=== PATIENT | male | born 1950 | race Caucasian/White ===

== ENCOUNTER → 2016-08-03 | Outpatient (CLI) | payer OTHER ==
[~2016-08-03] MED LIST: ADVIN25050 INH; ASPI-435; ATOR-24 PO; FLUO40CA8 PO; OMEP20CA9 PO; PRAM1TAB52 PO; PRLSR20 PO; TRAZ100T29 PO
--- NOTE | 2016-08-04 07:36 | PAP/PSG TECHNICIAN REPORT ---
[facility] Quill Machine Operator Polysomnogram Report Study name: None Report date: 08/04/2016 Study date: 08/03/2016 Referring Physician: Em Kurtz PA-C, PA-C Name: MARIA T MOYA Interpreting Physician: Jonah Rivera M.D. Date of : 1950 Quill Machine Operator: Vidhi Duong, PSGT. Sex: Male Age: 66 StudyType: PSG Weight: 230 lbs Height: 66 years, Height 5' 10" Neck Circum: BMI: 33 Medications: PROZAC 40 MG, IPRATROPIUM-ALBUTEROL, STIOLTO RESPIMAT, VENTOLIN HFA, OXYGEN 2 LITERS, ATROVASTATIN CALCIUM 40 MG, AMOXICILLIN 500 MG, OMEPRAZOLE 20 MG. Patient History 66 yr. old male in room 7, presents tonight for a split night study w/an ahi of 10. pt. has copd . He states that he has oxygen at home but isnt compliant.He also said that he does not think he will wear a c-pap mask either,but will try. Parameters Monitored NPSG: E1-M2, E2-M1, Fp1-M2, Fp2-M1, F3-M2, F4-M2, F4-M1, C3-M2, C4-M2, C4-M1, O1-M2, O2-M2, O2-M1, T3-M2, T4-M1, P3-M2, P4-M1, CHIN1, CHIN2, HR, EKG, Legs, PFLOW, SNOR, FLOW, CFLOW, Tidal Volume, THOR, ABDO, SpO2, PLTH, CPRESS, ETCO2 Wave, ETCO2, pH Sleep Architecture Sleep Stages Time at Lights Off 10:14:53 PM STAGES Time (min.) TST (%) Time at Lights On 5:03:23 AM Wake 156.5 -- Total Recording Time (TRT) 408.50 min. N1 5.0 2 Total Sleep Period (TSP) 314.5 min. N2 175.0 69 Total Sleep Time (TST) 252.0min. N3 19.0 8 Awake Time 156.5 min. REM 53.0 21 Wake after Sleep Onset 147.0 min. Sleep Efficiency (SE) 62 % Sleep Onset Latency (JULIÁN) 9.5 min. Number of Stage 1 Shifts None Awakenings 8 Stage Changes 31 Number of REM periods 2 REM 53.0 21 REM Latency 28.5 min. NREM 199.0 79 Body Position Analysis Supine Right Left Side Prone Vertical Total Sleep Time (min.) 146.8 54.1 105.4 159.50 0.0 73.5 Total Sleep Time (%) 37% 21% 42% 63 0% N/A% Total Sleep Time REM (min.) 0.0 13.0 40.0 None 0.0 0.0 Total Sleep Time NREM (min.) 92.5 41.1 65.4 None 0.0 0.0 Intermittent Wake (min.) 54.3 21.8 6.3 None 0.0 73.5 Total Sleep Period (%) 44% None None None None None Arousals Myoclonus (PLM) * Events Count Index Events Count Index Spontaneous 86 20 Events Awake (PLMW) 0 0.0 Respiratory 4 1.0 Events Asleep w/ Arousal (PLMA) 19 4.5 PLM 19 5 Events Asleep w/o Arousal (PLMS) 157 37.4 Snoring 8 2 Total Asleep 176 41.9 Total 117 28 Total 176 26 Respiratory Analysis * CA OA MA CH H RERA Total Count 0 1 0 0 53 0 54 Index 0.0 0.2 0.0 0 12.6 0 12.9 Mean Duration 0.0 19.1 0.0 0.00 17.7 0.0 17.7 Longest Duration 0.0 19.1 0.0 0.00 0.0 0.0 43.2 Respiratory Event Summary Total Supine ~Supine Right Left Prone REM NREM Apneas Count 1 1 0 0 0 N/A 0 1 Index 0.2 1 0 0.0 0.0 N/A 0 0 Hypopneas (4% Desat) Count 53 11 42 32 10 N/A 17 36 Index 12.6 7.1 16 35.5 5.7 N/A 19.2 10.9 Apneas & All Hypopneas Count 54 12 42 32 10 N/A 17 37 Index 12.9 8 16 35 6 N/A 19.2 11.2 Respiratory Events (Linux Systems Engineer+All Hyp+RERA) Count 54 12 42 32 10 N/A 17 37 Index 12.9 8 16 35.5 5.7 N/A 19.2 11.2 Respiratory Related Arousal Count 4 12 1 0 1 N/A 0 4 Index 1.0 2 0 0 1 N/A 0 1 Snoring Analysis Supine Right Left Prone REM NREM Total Snore duration 2.7 min Snores count 123 28 22 N/A 10 163 173 Snore mean duration 0.9 Sec Snores index 80 31 13 N/A 11.3 49.1 41.2 TST with snoring (%) 1.1% SpO2 Analysis Total REM NREM Awake <50% 0.0 min. 0.0 min. 0.0 min. 0.0 min. 51 - 60% 0.0 min. 0.0 min. 0.0 min. 0.0 min. 61 - 70% 0.0 min. 0.0 min. 0.0 min. 0.0 min. 71 - 80% 4.1 min. 3.5 min. 0.7 min. 0.0 min. 81 - 90% 360.4 min. 48.9 min. 190.3 min. 121.2 min. 91 - 100% 41.9 min. 0.0 min. 7.9 min. 34.0 min. Average 88 85 87 89 Minimum SpO2 75 75 77 81 Desaturation Event Index 12.0 26.0 17.8 0.0 # Desat. Events below 89% 82 23 59 N/A Time(%) with Saturation below 89% 58.4 12.8 35.3 10.3 Time(min.) with Saturation below 89% 237.4 52.1 143.4 41.8 Heart Rate Analysis End Tidal CO2 Analysis Min (bpm) Max (bpm) Average (bpm) TSP (mins) % of TSP Awake 52 98 65 Above 55 mmHg 0.0 0.0 NREM 53 89 65 50-55 mmHg 0.0 0.0 REM 55 80 71 45-50 mmHg 252.0 100.0 Overall 53 89 67 40-45 mmHg 0.0 0.0 35-40 mmHg 0.0 0.0 30-35 mmHg 0.0 0.0 Average ETCO2 0.0 Supplemental O2 Values Minimum O2 level: None Value Start Time End Time Quill Machine Operator Comments PSG Study slept in the right, left, and supine positions. No cardiac arrhythmia or PLM's noted. No bruxism noted. Snoring was noted and scored as a 1 on a scale of 1 through 5. (0=no snoring, 5=snoring loud enough to be heard through a closed door or down the [place] way) awoke to use the restroom zero times during the night. stated,I did sleep as well as I do when I am in my own bed. The final report will be interpreted and signed by a sleep physician. The completed physician report will then be placed in the patient medical record. never acheived an a ahi of 10 in time to be treated.He woke often and was on his cell phone.He would sleep awhile and then wake watch the vincent channel then get on the cell phone. This would go on the entire study.Pt.did say that he wasnt compliant with the oxygen at home and he mmost likely would'nt wear a c-pap mask.He said this was a normal night for him.It appears sleep hygeine is a concern for Mr. Moya. His ending ahi was 12.9 . Therapy (cm H2O) 0 TIB (min.) 408.5 TST (min.) 252.0 Sleep Onset (min.) 9.5 REM Onset From Sleep (min.) 28.5 Sleep Efficiency % 62 Wakefulness (%) 38 Wakefulness (min.) 156.5 NREM 1 (%) 2 NREM 1 (min.) 5.0 NREM 2 (%) 69 NREM 2 (min.) 175.0 NREM 3 (%) 8 NREM 3 (min.) 19.0 REM (%) 21 REM (min.) 53.0 # Arousals 117 Arousal Index 28 # Snore 173 Snore Index 41.2 AHI 12.9 AHI Supine 8 AHI Non-Supine 16 NREM AHI 11.2 REM AHI 19.2 RDI 12.9 # Obstructive Apnea 1 # Central Apnea 0 # Mixed Apnea 0 # Hypopneas 53 RERAs 0 Total Respiratory Events 56 Time Below SpO2 89% (min.) 195.5 Mean NREM SpO2 (%) 87 Mean REM SpO2 (%) 85 Mean Sleep SpO2 (%) 87 Min NREM SpO2 (%) 77 Min REM SpO2 (%) 75 Position Supine (min.) 146.8 Position Non-supine (min.) 159.5 LM Index Sleep 41.9 LM Index NREM 34.4 LM Index REM 70.2 Mean Heart Rate (bpm) 67 Min Heart Rate (bpm) 53
--- NOTE | 2016-08-05 14:36 | POLYSOMNOGRAPH REPORT ---
CLINICAL DATA: A 66-year-old male with BMI of [address] Jimbo Rhoades, Dr. Tapia, and Em Kurtz PA-C for a possible split night study. He has COPD and has oxygen at home but is not compliant with the use of oxygen. He told the electroneurodiagnostic technician that he did not think he would wear CPAP either. The patient did not reach criteria for a split night study. SLEEP ARCHITECTURE: Total sleep period was 314.5 minutes. Total sleep time was 252 minutes divided between 199 minutes of non-REM sleep and 53 minutes of REM sleep. Sleep onset latency was 9.5 minutes. REM latency was 28.5 minutes. Sleep efficiency was reduced at 62%. Wake after sleep onset was elevated at 147 minutes. Sleep consisted of stage N1 2%, N2 69%, N3 8%, REM 21%. AROUSAL DATA: 117 arousals were recorded for an index of 28 per hour. PERIODIC LIMB MOVEMENTS DATA: 176 limb movements during sleep were noted for an index of 41.9 per hour with arousal index of 4.5 per hour. RESPIRATORY DATA: Mild sleep apnea was documented. The AHI was 12.9. There were 53 hypopneic episodes. The mean duration of hypopnea was 17.7 seconds. OXIMETRY DATA: Significant nocturnal hypoxemia was seen. The oxygen lalo was 75%. Mean saturation was 88%. Time below 89% was 277.4 minutes. EKG: Heart rates ranged from 53-89 beats per minute. No arrhythmias were noted. DATA SME'S COMMENTS. The patient slept in the right, left, and supine positions. No bruxism was noted. Snoring was mild, rated 1 on a scale of 1-5. The patient awoke often through the night and would use his cell phone. He would then sleep for a while and then awaken again and watch [place] channel on TV and then get on the smart phone throughout the entire study. He stated that this was a normal night for him. Based on the wastewater technician's observation, sleep hygiene is a concern for the patient. IMPRESSION: Mild sleep apnea/hypopnea with an apnea-hypopnea index of 12.9 with significant nocturnal hypoxemia. RECOMMENDATIONS: The patient should be using his oxygen at night. Considerations for treatment of his sleep apnea would be an oral appliance or CPAP. Clinical correlation is needed. SEAN
== END | disposition home or self-care (01) ==
LOC: C.NEUR 21:00
PROVIDERS: ATTEND Internal Medicine Pulmonary Disease
DX: R09.02 Hypoxemia (principal); G47.30 Sleep apnea, unspecified

== ENCOUNTER 2016-09-16 05:16 | Emergency (ER) | payer OTHER ==
[~2016-09-16] VITALS: Ht 179.1 cm; Wt 106.0 kg
[~2016-09-16 05:16] MED LIST changes: -PRLSR20 PO
[2016-09-16 05:21] VITALS: TEMP 36.5; Ht 179.1 cm; Wt 106.0 kg
[2016-09-16] MEDS ORDERED: PRLSR20 PO (05:59)
--- NOTE | 2016-09-16 06:01 | EMERGENCY ROOM VISIT NOTE ---
History Report prepared by Madisyn: Isaiah Duncan Under the Supervision of: Dr. Carlos Hernandez M.D. First contact with patient: 05:24 Chief Complaint: FALL Stated Complaint: FALL HURT LEFT LEG AND RIGHT SHOULDER History of Present Illness The patient is a 66 year old male who presents to the Emergency Room with complaints of an acute fall that occurred five days ago. The patient tripped over a rock when he was cleaning up his yard. He landed on his right shoulder and twisted his left leg during the fall. The shoulder pain is present with abduction of the arm. The patient is able to ambulate but not without pain. He did not hit his head or lose consciousness. The patient denies abdominal pain or other symptoms. He has been taking Aleve at home. He is not on regular blood thinners. Source of History: patient Onset: five days ago Position: other (global) Quality: other (fall) Timing: other (acute) Associated Symptoms: No LOC, No abdominal pain, No headache Note: Associated symptoms: Right shoulder and left leg pain. Review of Systems See HPI for pertinent positives & negatives. A total of 10 systems reviewed and were otherwise negative. Past Medical & Surgical Medical Problems: (1) Alcohol abuse (2) Anxiety (3) Dyslipidemia (4) GERD (gastroesophageal reflux disease) (5) RLS (restless legs syndrome) Surgical Problems: (1) History of total left knee replacement (2) S/P tonsillectomy and adenoidectomy Family History No pertinent family history Social History Smoking Status: Former Smoker Alcohol Use: none Drug Use: none Marital Status: Housing Status: lives with family Occupation Status: retired Current/Historical Medications Scheduled Atorvastatin (Lipitor), 40 MG PO DAILY Fluoxetine (Prozac), 40 MG PO DAILY Omeprazole (Prilosec), 20 MG PO DAILY Pramipexole Dihydrochloride (Mirapex), 1 MG PO HS Trazodone Hcl (Trazodone), 100 MG PO HS Allergies Coded Allergies: No Known Allergies (Verified , 06/02/16) Physical Exam Vital Signs Date Time Temp Pulse Resp B/P Pulse Ox O2 Delivery O2 Flow Rate FiO2 09/16/16 07:17 50 18 128/69 92 09/16/16 05:21 36.5 60 20 122/76 93 Room Air Physical Exam GENERAL: Patient is well appearing and in mild distress. HEENT: No acute trauma, normocephalic atraumatic, mucous membranes moist, no nasal congestion, no scleral icterus. NECK: No stridor, no adenopathy, no meningismus, trachea is midline. LUNGS: No dyspnea. Clear to auscultation and equal bilaterally. No wheeze, no rhonchi. HEART: Regular rate and rhythm. No murmurs, rubs, gallops appreciated. ABDOMEN: Soft, nontender, bowel sounds positive, no masses appreciated, no peritonitis. BACK: No midline tenderness, no CVA tenderness EXTREMITIES: Pain with range of motion of the right shoulder, point tenderness posterior proximal right deltoid, no swelling, no joint effusion, distal NV intact. Tender to palpation over the proximal left fibula, pain with range of motion left knee, distal NV intact, no discoloration. NEUROLOGIC: Alert and oriented, no acute motor or sensory deficits, no focal weakness, cranial nerves grossly intact. SKIN: No rash, no jaundice, no diaphoresis. Medical Decision & Procedures ER Provider Diagnostic Interpretation: X ray results are stated below per my interpretation and the radiologist's interpretation. RIGHT SHOULDER MIN 2 VIEWS ROUTINE CLINICAL HISTORY: Hx of fall Right trauma. Pain. COMPARISON: None. DISCUSSION: Considerable degenerative change right acromioclavicular joint. Mild degenerative change glenohumeral joint. Minimal calcific supraspinatus tendinitis. No acute bony abnormality. There is no evidence for soft tissue swelling. IMPRESSION: Moderate degenerative change. No acute process. Electronically signed by: Jimbo Hurst M.D. 09/16/2016 6:53 AM Dictated Date/Time: 09/16/2016 6:52 AM LEFT TIBIA/FIBULA 2 VIEWS ROUTINE CLINICAL HISTORY: hx of fall trauma. Pain. COMPARISON: None. DISCUSSION: Prior total left knee replacement. Good contact between prosthetic and underlying bone. No evidence for fracture. Cortical margins are intact. Mild soft tissue vascular calcification. There is no evidence for soft tissue swelling. IMPRESSION: No acute abnormality. Electronically signed by: Jimbo Hurst M.D. 09/16/2016 6:52 AM Dictated Date/Time: 09/16/2016 6:51 AM Medications Administered Medications (Trade) Dose Ordered Sig/Junior Route Start Time Stop Time Status Last Admin Dose Admin Oxycodone HCl (Roxicodone Immediate Rel 5MG Home Pack) 2 homepack UD ONCE PO 09/16/16 07:15 09/16/16 07:16 DC 09/16/16 07:14 2 HOMEPACK ED Course 0520: The patient was evaluated by the resident, Dr. Ender Castro. 0550: The patient was evaluated in room A3. A complete history and physical exam was performed. 0650: The patient was reassessed by Dr. Castro. He discussed the discharge instructions with the patient. 0715: Oxycodone IR 5 mg PO homepack x 2. Medical Decision 66 yr old male arrives from home after fall 5 days ago. Able to drive himself her. Pain with ambulation though able to get around. Significant degenerative findings on imaging though no acute fractures. N/V intact. Patient uncomfortable though not in extremis. Likely inflammatory from fall a few days ago. Will treat with increased pain meds (oxy ir 1-2 q 4-6 prn) over the weekend and if no improvement follow up with PCP. No evidence of sepsis nor infection. No blood thinner use and denies head injury. Impression Primary Impression: Acute pain of right shoulder due to trauma Additional Impression: Leg pain, left Scribe Attestation The scribe's documentation has been prepared under my direction and personally reviewed by me in its entirety. I confirm that the note above accurately reflects all work, treatment, procedures, and medical decision making performed by me. Departure Information Dispostion Home / Self-Care Referrals Jimbo Rhoades M.D. (PCP) Forms HOME CARE DOCUMENTATION FORM, IMPORTANT VISIT INFORMATION, Work Instructions Patient Instructions ED Sprain Shoulder, My [facility] Problem Qualifiers
--- NOTE | 2016-09-16 06:13 | EMERGENCY ROOM VISIT NOTE ---
History First contact with patient: 05:25 (Ender Castro MD) First contact with patient: 05:24 (Carlos Hernandez M.D.) Chief Complaint: FALL Stated Complaint: FALL HURT LEFT LEG AND RIGHT SHOULDER History of Present Illness The patient is a 66 year old male who presents to the Emergency Room with complaints of hx of fall and progressive Rt shoulder pain and Left leg pain. Patient reports he tripped in his yard and fell on his Right shoulder and twisted the Left leg in the process. Since then he has had increasing pain in the right shoulder when he raises his arm and pain in the right leg when walking. He started using a cane which has helped ambulate. He denies other injuries, He denies preceding lightheadedness, dizziness. (Ender Castro MD) Review of Systems See HPI for pertinent positives & negatives. A total of 10 systems reviewed and were otherwise negative. (Ender Castro MD) Past Medical/Surgical History Medical Problems: (1) Alcohol abuse (2) Anxiety (3) Dyslipidemia (4) GERD (gastroesophageal reflux disease) (5) RLS (restless legs syndrome) Surgical Problems: (1) History of total left knee replacement (2) S/P tonsillectomy and adenoidectomy (Carlos Hernandez M.D.) Family History No pertinent family history (Ender Castro MD) No pertinent family history (Carlos Hernandez M.D.) Social History Smoking Status: Former Smoker Alcohol Use: none Drug Use: none Marital Status: Housing Status: lives with family Occupation Status: retired (Ender Castro MD) Current/Historical Medications Scheduled Atorvastatin (Lipitor), 40 MG PO DAILY Fluoxetine (Prozac), 40 MG PO DAILY Omeprazole (Prilosec), 20 MG PO DAILY Pramipexole Dihydrochloride (Mirapex), 1 MG PO HS Trazodone Hcl (Trazodone), 100 MG PO HS Allergies Coded Allergies: No Known Allergies (Verified , 06/02/16) Physical Exam Vital Signs Date Time Temp Pulse Resp B/P Pulse Ox O2 Delivery O2 Flow Rate FiO2 09/16/16 07:17 50 18 128/69 92 09/16/16 05:21 36.5 60 20 122/76 93 Room Air (Carlos Hernandez M.D.) Physical Exam GENERAL: alert, no distress, non-toxic EYE EXAM: normal conjunctiva, PERRL and EOM's grossly intact OROPHARYNX: no exudate, no erythema, lips, buccal mucosa, and tongue normal and mucous membranes are moist NECK: supple, no nuchal rigidity, no adenopathy, non-tender SHOULDER: Rt shoulder: Pain on abduction of shoulder, no erythema or joint swelling LUNGS: Clear to auscultation. Normal chest wall mechanics HEART: no murmurs, S1 normal and S2 normal ABDOMEN: abdomen soft, non-tender, normo-active bowel sounds, no masses, no rebound or guarding. BACK: Back is symmetrical on inspection and there is no deformity, no midline tenderness, no CVA tenderness. SKIN: no rashes and no bruising UPPER EXTREMITIES: tender at Proximal left fibula on palpation LOWER EXTREMITIES: No pitting edema. NEURO EXAM: Normal sensorium, cranial nerves II-XII grossly intact, normal speech, no gross weakness of arms, no gross weakness of legs. (Ender Castro MD) Medical Decision & Procedures ER Provider Diagnostic Interpretation: LEFT TIBIA/FIBULA 2 VIEWS ROUTINE CLINICAL HISTORY: hx of fall trauma. Pain. COMPARISON: None. DISCUSSION: Prior total left knee replacement. Good contact between prosthetic and underlying bone. No evidence for fracture. Cortical margins are intact. Mild soft tissue vascular calcification. There is no evidence for soft tissue swelling. IMPRESSION: No acute abnormality. RIGHT SHOULDER MIN 2 VIEWS ROUTINE CLINICAL HISTORY: Hx of fall Right trauma. Pain. COMPARISON: None. DISCUSSION: Considerable degenerative change right acromioclavicular joint. Mild degenerative change glenohumeral joint. Minimal calcific supraspinatus tendinitis. No acute bony abnormality. There is no evidence for soft tissue swelling. IMPRESSION: Moderate degenerative change. No acute process. (Ender Castro MD) Medications Administered Medications (Trade) Dose Ordered Sig/Junior Route Start Time Stop Time Status Last Admin Dose Admin Oxycodone HCl (Roxicodone Immediate Rel 5MG Home Pack) 2 homepack UD ONCE PO 09/16/16 07:15 09/16/16 07:16 DC 09/16/16 07:14 2 HOMEPACK (Carlos Hernandez M.D.) Medical Decision 66 yo M w/ hx of fall injuring his Rt shoulder, tender on abduction , Left leg , tender at proximal fibula Rt shoulder Pain -pain on abduction of shoulder -XR Rt Shoulder: Moderate degenerative change. No acute process. Left Leg Pain -tender at fibula on palpation -difficulty bearing weight, requiring cane -XR Tibia/Fibula: No acute abnormality -Fractures ruled out in both Right Shoulder, and Left lef based on Xray. Pain likely due to sprain in the setting of previous arthritis base don XR. -Discharged with Oxycodone IR Home pack 1-2 tabs q 4-5 hrs prn with follow up to PCP. (Ender Castro MD) Resident Physician Supervision Note: Dr. Ender Castro was resident physician during care of patient. I separately evaluated patient and did history and exam. I discussed the case with the resident and generally agree with the findings and plan. Please see my full note on the chart for my complete H&P and assessment. Carlos Hernandez MD (Carlos Hernandez M.D.) Impression Primary Impression: Acute pain of right shoulder due to trauma Additional Impression: Leg pain, left Departure Information Dispostion Home / Self-Care Condition GOOD Referrals Jimbo Rhoades M.D. (PCP) Patient Instructions ED Sprain Shoulder, My [facility] Resident Tracking Resident Involvement: Resident Care Provided Care Provided: Adult ED (Ender Castro MD) Problem Qualifiers
--- NOTE | 2016-09-16 06:54 | DIAGNOSTIC IMAGING REPORT ---
LEFT TIBIA/FIBULA 2 VIEWS ROUTINE CLINICAL HISTORY: hx of fall trauma. Pain. COMPARISON: None. DISCUSSION: Prior total left knee replacement. Good contact between prosthetic and underlying bone. No evidence for fracture. Cortical margins are intact. Mild soft tissue vascular calcification. There is no evidence for soft tissue swelling. IMPRESSION: No acute abnormality. Electronically signed by: Jimbo Hurst M.D. 09/16/2016 6:52 AM Dictated Date/Time: 09/16/2016 6:51 AM
--- NOTE | 2016-09-16 06:55 | DIAGNOSTIC IMAGING REPORT ---
RIGHT SHOULDER MIN 2 VIEWS ROUTINE CLINICAL HISTORY: Hx of fall Right trauma. Pain. COMPARISON: None. DISCUSSION: Considerable degenerative change right acromioclavicular joint. Mild degenerative change glenohumeral joint. Minimal calcific supraspinatus tendinitis. No acute bony abnormality. There is no evidence for soft tissue swelling. IMPRESSION: Moderate degenerative change. No acute process. Electronically signed by: Jimbo Hurst M.D. 09/16/2016 6:53 AM Dictated Date/Time: 09/16/2016 6:52 AM
[2016-09-16] MEDS ORDERED: OXYCODONE IR HOME PACK PO ONE ×3 (07:00→07:15)
[2016-09-16 07:17] VITALS: BP 128/69; PULSE 50; O2SAT 92
== END 2016-09-16 07:18 | disposition home or self-care (01) ==
LOC: C.EDB 05:17 → C.EDA 07:18
DX: M25.511 Pain in right shoulder (principal); M79.605 Pain in left leg; W01.0XXA Fall on same level from slipping, tripping and stumbling without subsequent striking against object, initial encounter; Y92.017 Garden or yard in single-family (private) house as the place of occurrence of the external cause; F10.10 Alcohol abuse, uncomplicated; F41.9 Anxiety disorder, unspecified; E78.5 Hyperlipidemia, unspecified; K21.9 Gastro-esophageal reflux disease without esophagitis; G25.81 Restless legs syndrome; Z96.652 Presence of left artificial knee joint; Z87.891 Personal history of nicotine dependence; Z79.899 Other long term (current) drug therapy

== ENCOUNTER 2017-09-11 08:55 | Inpatient (IN) | payer OTHER ==
[~2017-09-11] VITALS: Ht 177.8 cm; Wt 110.3 kg
[~2017-09-11 08:55] MED LIST changes: -ADVIN25050 INH; -ASPI-435; -OMEP20CA9 PO; +PRLSR20 PO
[2017-09-11] MEDS ORDERED: ALBUT/IPRATROP 3MG/0.5MG NEB 3 ML VIAL INH STA (09:12)
[2017-09-11] MEDS ORDERED: SODIUM CHLORIDE 0.9% 1000ML 1,000 ML IV STA (09:12)
[2017-09-11 09:23] LABS: BASO % 0.3 %; BASO ABS # 0.03 K/uL (0-0.2); EOS ABS # 0.12 K/uL (0-0.5); HEMATOCRIT 45.1 % (42-52); HEMOGLOBIN 14.8 g/dL (14.0-18.0); IG# 0.02 K/uL (0.00-0.02); LYMPH % 5.8 %; LYMPH ABS # 0.67 K/uL (1.2-3.4); MEAN CELL VOLUME 95.8 fL (80-100); MEAN CORPUSCULAR HEMOGLOBIN 31.4 pg (25-34); MEAN CORPUSCULAR HGB CONC 32.8 g/dl (32-36); MEAN PLATELET VOLUME 10.8 fL (7.4-10.4); MONO % 6.6 %; MONO ABS # 0.76 K/uL (0.11-0.59); NEUT % 86.1 %; NEUT ABS # 9.92 K/uL (1.4-6.5); PLATELET COUNT 200 K/uL (130-400); RED CELL DISTRIBUTION WIDTH CV 13.9 % (11.5-14.5); RED CELL DISTRIBUTION WIDTH SD 48.9 fL (36.4-46.3); WHITE BLOOD COUNT 11.52 K/uL (4.8-10.8)
[2017-09-11] MEDS ORDERED: NALT50TA16 PO (09:27)
[2017-09-11] MEDS ORDERED: METF500T5 PO (09:27)
[2017-09-11] MEDS ORDERED: PRAM1TAB10 PO (09:27)
[2017-09-11] MEDS ORDERED: DSY/150 PO (09:27)
[2017-09-11] MEDS ORDERED: MRP1 PO (09:27)
[2017-09-11 09:33] LABS: PTT PATIENT 24.7 SECONDS (21.0-31.0)
[2017-09-11 09:35] LABS: ALBUMIN 3.5 gm/dl (3.4-5.0); ALT/SGPT 25 U/L (12-78); AST/SGOT 13 U/L (15-37); BLOOD UREA NITROGEN 10 mg/dl (7-18); CALCIUM 8.9 mg/dl (8.5-10.1); CARBON DIOXIDE 31 mmol/L (21-32); CREATININE 1.12 mg/dl (0.60-1.40); GLUCOSE 178 mg/dl (70-99); LIPASE 156 U/L (73-393); POTASSIUM 4.2 mmol/L (3.5-5.1); SODIUM 137 mmol/L (136-145)
[2017-09-11] MEDS ORDERED: LEVAQUIN 750MG / 150ML D5W IV STA (09:35)
--- NOTE | 2017-09-11 09:42 | DIAGNOSTIC IMAGING REPORT ---
CHEST ONE VIEW PORTABLE CLINICAL HISTORY: Sepsis COMPARISON STUDY: 05/27/2016 FINDINGS: The chest has an emphysematous configuration. The heart is enlarged. There is mild elevation of the interstitium. There are more focal airspace opacities within the right lung base, possibly representing a superimposed pneumonitis. Clinical and radiographic follow-up is recommended. There are no significant pleural effusions.[ IMPRESSION: 1. Emphysema, and mild cardiomegaly 2. Right basilar airspace opacities suspicious for a pneumonitis given the history of sepsis. Clinical and radiographic follow-up is recommended. Electronically signed by: Aleksey Omalley M.D. 09/11/2017 9:41 AM Dictated Date/Time: 09/11/2017 9:39 AM
[2017-09-11 09:45] LABS: ALKALINE PHOSPHATASE 113 U/L (45-117); CKMB 0.9 ng/ml (0.5-3.6); PHOSPHORUS 2.2 mg/dl (2.5-4.9); TOTAL PROTEIN 7.4 gm/dl (6.4-8.2)
--- NOTE | 2017-09-11 09:55 | EMERGENCY ROOM VISIT NOTE ---
History Report prepared by Madisyn: Ladonna Donahue Under the Supervision of: Dr. Mohamud Rosen D.O. First contact with patient: 09:02 Chief Complaint: SHORTNESS OF BREATH Stated Complaint: WHEEZING,SOB, POSSIBLE PNEUMONIA History of Present Illness The patient is a 67 year old male who presents to the Emergency Room with complaints of worsening shortness of breath for the past 4 days. He states that initially he started wheezing and feeling short of breath. The next day he developed a productive cough with thick yellow sputum and rhinorrhea. His shortness of breath is worsened with exertion. The patient went to see his PCP this morning and had a fever in the office. His PCP was concerned for pneumonia and advised the patient to come to the ED for further evaluation. The patient has had pneumonia in the past and states that his current symptoms feel like his previous pneumonia. The patient denies chest pain and pain or swelling in his legs. He denies any personal history of blood clots and heart failure. Source of History: patient Onset: 4 days ago Position: chest Quality: other (shortness of breath) Timing: worsening Modifying Factors (Worsening): exertion Associated Symptoms: + cough, No chest pain Note: Pt notes rhinorrhea and wheezing. Review of Systems See HPI for pertinent positives & negatives. A total of 10 systems reviewed and were otherwise negative. Past Medical & Surgical Medical Problems: (1) Alcohol abuse (2) Anxiety (3) Dyslipidemia (4) GERD (gastroesophageal reflux disease) (5) Pneumonia (6) RLS (restless legs syndrome) Surgical Problems: (1) History of total left knee replacement (2) S/P tonsillectomy and adenoidectomy Family History No pertinent family history Social History Smoking Status: Former Smoker Alcohol Use: none Drug Use: none Marital Status: Housing Status: lives with family Occupation Status: retired Current/Historical Medications Scheduled Atorvastatin (Lipitor), 40 MG PO DAILY Fluoxetine (Prozac), 40 MG PO DAILY Metformin Hcl Er (Glucophage Er), 1,000 MG PO BIDM Naltrexone HCl (Naltrexone HCl), 50 MG PO DAILY Omeprazole (Prilosec), 20 MG PO DAILY Pramipexole Dihydrochloride (Pramipexole Dihydrochlori), 2 MG PO QAM Pramipexole Dihydrochloride (Mirapex), 1 MG PO QPM Trazodone HCl (Trazodone HCl), 150 MG PO HS Allergies Coded Allergies: No Known Allergies (Verified , 09/11/17) Physical Exam Vital Signs Date Time Temp Pulse Resp B/P (MAP) Pulse Ox O2 Delivery O2 Flow Rate FiO2 09/11/17 10:44 94 26 125/71 94 Nasal Cannula 2.0 09/11/17 09:13 99 09/11/17 09:11 2.0 09/11/17 09:05 89 Room Air 09/11/17 08:57 37.3 102 24 143/77 92 Room Air Physical Exam GENERAL: Patient is awake, alert, mildly anxious appearing but overall comfortable. EYES: The conjunctivae are clear. The pupils are round and reactive. EARS, NOSE, MOUTH AND THROAT: The nose is without any evidence of any deformity. Mucous membranes are moist tongue is midline NECK: The neck is nontender and supple. RESPIRATORY: Lung sounds diminished throughout with expiratory wheezing in both upper lung carrera. Tachypnea present. CARDIOVASCULAR: Regular rate and rhythm noted there no murmurs rubs or gallops normal S1 normal S2 GASTROINTESTINAL: The abdomen is soft. Bowel sounds are present in all quadrants. Abdomen is nontender MUSCULOSKELETAL/EXTREMITIES: There is no evidence of gross deformity full range of motion is noted in the hips and shoulders SKIN: Trace pedal edema bilaterally. There is no obvious evidence of any rash. There are no petechiae, pallor or cyanosis noted. NEUROLOGIC: Patient is awake alert and oriented x3. Medical Decision & Procedures ER Provider Diagnostic Interpretation: Radiology results as stated below per my review and radiologist interpretation: CHEST ONE VIEW PORTABLE CLINICAL HISTORY: Sepsis COMPARISON STUDY: 05/27/2016 FINDINGS: The chest has an emphysematous configuration. The heart is enlarged. There is mild elevation of the interstitium. There are more focal airspace opacities within the right lung base, possibly representing a superimposed pneumonitis. Clinical and radiographic follow-up is recommended. There are no significant pleural effusions.[ IMPRESSION: 1. Emphysema, and mild cardiomegaly 2. Right basilar airspace opacities suspicious for a pneumonitis given the history of sepsis. Clinical and radiographic follow-up is recommended. Electronically signed by: Aleksey Omalley M.D. 09/11/2017 9:41 AM Dictated Date/Time: 09/11/2017 9:39 AM Laboratory Results 09/11/17 09:05 Red Blood Count 4.71, Mean Corpuscular Volume 95.8, Mean Corpuscular Hemoglobin 31.4, Mean Corpuscular Hemoglobin Concent 32.8, Mean Platelet Volume 10.8, Neutrophils (%) (Auto) 86.1, Lymphocytes (%) (Auto) 5.8, Monocytes (%) (Auto) 6.6, Eosinophils (%) (Auto) 1.0, Basophils (%) (Auto) 0.3, Neutrophils # (Auto) 9.92, Lymphocytes # (Auto) 0.67, Monocytes # (Auto) 0.76, Eosinophils # (Auto) 0.12, Basophils # (Auto) 0.03 09/11/17 09:05 Test 09/11/17 09:05 09/11/17 09:14 09/11/17 09:20 09/11/17 09:26 White Blood Count 11.52 K/uL (4.8-10.8) Red Blood Count 4.71 M/uL (4.7-6.1) Hemoglobin 14.8 g/dL (14.0-18.0) Hematocrit 45.1 % (42-52) Mean Corpuscular Volume 95.8 fL (80-100) Mean Corpuscular Hemoglobin 31.4 pg (25-34) Mean Corpuscular Hemoglobin Concent 32.8 g/dl (32-36) Platelet Count 200 K/uL (130-400) Mean Platelet Volume 10.8 fL (7.4-10.4) Neutrophils (%) (Auto) 86.1 % Lymphocytes (%) (Auto) 5.8 % Monocytes (%) (Auto) 6.6 % Eosinophils (%) (Auto) 1.0 % Basophils (%) (Auto) 0.3 % Neutrophils # (Auto) 9.92 K/uL (1.4-6.5) Lymphocytes # (Auto) 0.67 K/uL (1.2-3.4) Monocytes # (Auto) 0.76 K/uL (0.11-0.59) Eosinophils # (Auto) 0.12 K/uL (0-0.5) Basophils # (Auto) 0.03 K/uL (0-0.2) RDW Standard Deviation 48.9 fL (36.4-46.3) RDW Coefficient of Variation 13.9 % (11.5-14.5) Immature Granulocyte % (Auto) 0.2 % Immature Granulocyte # (Auto) 0.02 K/uL (0.00-0.02) Erythrocyte Sedimentation Rate 35 mm/hr (0-14) Prothrombin Time 10.0 SECONDS (9.0-12.0) Prothromb Time International Ratio 1.0 (0.9-1.1) Activated Partial Thromboplast Time 24.7 SECONDS (21.0-31.0) Partial Thromboplastin Ratio 1.0 Anion Gap 5.0 mmol/L (3-11) Est Creatinine Clear Calc Drug Dose 77.4 ml/min Estimated GFR () 77.3 Estimated GFR (Non- 66.7 BUN/Creatinine Ratio 9.0 (10-20) Calcium Level 8.9 mg/dl (8.5-10.1) Phosphorus Level 2.2 mg/dl (2.5-4.9) Magnesium Level 1.9 mg/dl (1.8-2.4) Total Bilirubin 0.5 mg/dl (0.2-1) Aspartate Amino Transf (AST/SGOT) 13 U/L (15-37) Alanine Aminotransferase (ALT/SGPT) 25 U/L (12-78) Alkaline Phosphatase 113 U/L (45-117) Total Creatine Kinase 71 U/L (39-308) Creatine Kinase MB 0.9 ng/ml (0.5-3.6) Creatine Kinase MB Ratio 1.3 (0-3.0) Troponin I < 0.015 ng/ml (0-0.045) C-Reactive Protein 2.32 mg/dl (0-0.29) Pro-B-Type Natriuretic Peptide 96 pg/ml (0-900) Total Protein 7.4 gm/dl (6.4-8.2) Albumin 3.5 gm/dl (3.4-5.0) Globulin 3.9 gm/dl (2.5-4.0) Albumin/Globulin Ratio 0.9 (0.9-2) Lipase 156 U/L (73-393) Influenza Type A (RT-PCR) Neg for Influ A (NEG) Influenza Type B (RT-PCR) Neg for Influ B (NEG) Bedside Lactic Acid Venous 1.93 mmol/L (0.90-1.70) Venous Blood pH 7.40 (7.36-7.41) Venous Blood Partial Pressure CO2 51 mmHg (38.0-50.0) Venous Blood Partial Pressure O2 46 mmHg Venous Blood HCO3 31 mmol/L Venous Blood Oxygen Saturation 81.2 % Venous Blood Base Excess 4.6 mEq/L Laboratory results per my review. Medications Administered Medications (Trade) Dose Ordered Sig/Junior Route Start Time Stop Time Status Last Admin Dose Admin Sodium Chloride 1,000 ml @ 999 mls/hr Q1H1M STAT IV 09/11/17 09:12 09/11/17 10:12 DC 09/11/17 09:19 999 MLS/HR Albuterol/ Ipratropium (Duoneb) 3 ml NOW STAT INH 09/11/17 09:12 09/11/17 09:13 DC 09/11/17 09:19 3 ML Levofloxacin (Levaquin / D5W) 750 mg NOW STAT IV 09/11/17 09:35 09/11/17 09:36 DC 09/11/17 09:38 750 MG ECG Per My Interpretation Indication: SOB/dyspnea Rate (beats per minute): 99 Rhythm: normal sinus Findings: no acute ischemic change, other (no PVCs) ED Course 0902: The patient was evaluated in room B2. A complete history and physical examination were performed. 0912: DuoNeb 3 ml INH, NSS 1000 ml @ 999 mls/hr IV 0935: Levofloxacin 750 mg IV 1006: Upon reevaluation the patient doing well. 1018: I spoke with BLIL Calhoun. We discussed the patient's case. The patient will be evaluated by the [facility] for further management. 1025: I reassessed the patient at this time. He is feeling better and resting comfortably. I discussed the results and treatment plan with the patient. I answered all pertaining questions that he had. He expressed understanding and verbalized agreement. Medical Decision Differential diagnosis: Etiologies such as infections, reactive airway disease, pneumonia, pneumothorax , COPD, CHF, cardiac ischemia, pulmonary embolism, musculoskeletal, gastrointestinal, as well as others were entertained. Nursing notes reviewed. The patient is a 67-year-old male who presented to the emergency department for cough and difficulty breathing. The patient has been noticing a fever as well as productive cough. He was seen by his primary care physician and sent to the emergency department because of abnormal vital signs. The patient was found to have hypoxia. His chest x-ray and history appear to be consistent with pneumonia. He was treated with IV fluids as well as IV antibiotics. He was reevaluated multiple times. I discussed the patient's laboratory and radiographic studies with him. Because of his symptoms I discussed this case with the on-call [facility]. They have agreed to evaluate the patient in the emergency department for further management and disposition. Medication Reconcilliation Current Medication List: was personally reviewed by me Blood Pressure Screening Patient's blood pressure: Normal blood pressure Consults Time Called: 1015 Consulting Physician: BILL Calhoun Returned Call: [phone] I spoke with BILL Calhoun. We discussed the patient's case. The patient will be evaluated by the [facility] for further management. Impression Primary Impression: Right lower lobe pneumonia Additional Impression: Hypoxia Scribe Attestation The scribe's documentation has been prepared under my direction and personally reviewed by me in its entirety. I confirm that the note above accurately reflects all work, treatment, procedures, and medical decision making performed by me. Departure Information Dispostion Being Evaluated By Hospitalist Referrals Jimbo Rhoades M.D. (PCP) Patient Instructions My [facility] Problem Qualifiers
[2017-09-11 10:47] LABS: INFLUENZA A PCR Neg for Influ A (NEG); INFLUENZA B PCR Neg for Influ B (NEG)
[2017-09-11] MEDS ORDERED: CONSULT PHARMACY STA (11:10)
[2017-09-11] MEDS ORDERED: ACETAMINOPHEN 325 MG TAB PO PRN (11:15)
[2017-09-11] MEDS ORDERED: LORAZEPAM 2 MG/ML 1 ML VIAL IV PRN (11:15)
[2017-09-11] MEDS ORDERED: GLUCOSE 10 TABS/TUBE PO PRN (11:15)
[2017-09-11] MEDS ORDERED: GLUCOSE 40% GEL 15 GM TUBE PO PRN (11:15)
[2017-09-11] MEDS ORDERED: GLUCAGON FOR INJ 1 MG VIAL SQ PRN (11:15)
[2017-09-11] MEDS ORDERED: DEXTROSE 50% 50 ML SYR IV PRN (11:15)
[2017-09-11] MEDS ORDERED: ONDANSETRON INJ 2 MG/ML 2 ML VIAL IV PRN (11:15)
[2017-09-11 11:27] VITALS: O2SAT 94; Ht 177.8 cm; Wt 110.3 kg
[2017-09-11 11:40] VITALS: BP 104/66; PULSE 87; TEMP 37; O2SAT 94
[2017-09-11] MEDS: ALBUT/IPRATROP 3MG/0.5MG NEB 3 ML VIAL INH SCH ×3 (12:00→20:03)
[2017-09-11] MEDS: SODIUM CHLORIDE 0.9% 1000ML 1,000 ML IV SCH (12:10)
[2017-09-11] MEDS: MULTIVITAMIN TAB PO SCH (12:53)
[2017-09-11] MEDS: AMPICILLIN/SULBACTAM SOD INJ 3,000 MG in SODIUM CHLORIDE 0.9% 100ML 100 ML IV SCH ×3 (12:53→23:41)
[2017-09-11] MEDS: THIAMINE HCL 100 MG TAB PO SCH (12:53)
--- NOTE | 2017-09-11 13:00 | History and Physical ---
History & Physical Date & Time of Service: Sep 11, 2017 ~ 10:45 Chief Complaint: Cough, shortness of breath Primary Care Physician: Jimbo Rhoades M.D. History of Present Illness Source: patient 67-year-old male who presents to the ER with a chief complaint of cough and shortness of breath. Patient reports he started getting sick 5 days ago. He reports symptoms initially started with mild wheezing and cough. Symptoms have progressively gotten worse. He reports persistent coughing throughout the weekend and has gotten very little sleep. He reports cough is mostly harsh, dry , and nonproductive however when he has severe coughing he has had a few episodes of vomiting. No shortness of breath at rest however does experience shortness of breath with minimal exertion. He reports chills and suspects he has had a fever however did not take his temperature. He has had a headache and abdominal pain from all the coughing. He denies chest pain. He denies lightheadedness, dizziness, diaphoresis, and syncopal events. Other than the aforementioned posttussive emesis he denies any other nausea or vomiting. Reports a few episodes of diarrhea. No urinary symptoms. Patient was seen at his PCPs office today and was sent to the ER for further evaluation. In the ED , patient was saturating 89% on room air. This improved with oxygen 2 L via nasal cannula. Chest x-ray shows a right basilar infiltrate. WBC 11.5 K, mildly tachycardic, lactic acid 1.9. Patient was given IVF, IV Levaquin, and DuoNeb treatment. Past Medical/Surgical History Medical Problems: (1) Alcohol abuse Status: Chronic (2) Anxiety Status: Chronic (3) COPD (chronic obstructive pulmonary disease) Status: Chronic (4) DM type 2 (diabetes mellitus, type 2) Status: Chronic (5) Dyslipidemia Status: Chronic (6) GERD (gastroesophageal reflux disease) Status: Chronic (7) RLS (restless legs syndrome) Status: Chronic Surgical Problems: (1) History of total left knee replacement Status: Chronic (2) S/P tonsillectomy and adenoidectomy Status: Chronic Family History FH: CAD (coronary artery disease) FATHER BROTHER BROTHER Social History Smoking Status: Former Smoker Alcohol Use: 2 beers/day, much heavier alcohol use in the past Immunizations History of Influenza Vaccine: Yes Influenza Vaccine Date: Jan 19, 2017 History of Tetanus Vaccine?: Yes Tetanus Immunization Date: Apr 22, 2013 History of Pneumococcal: Yes Pneumococcal Date: Apr 04, 1970 History of Hepatitis B Vaccine: Unknown Allergies Coded Allergies: No Known Allergies (Verified , 09/11/17) Home Medications Scheduled Atorvastatin (Lipitor), 40 MG PO DAILY Fluoxetine (Prozac), 40 MG PO DAILY Metformin Hcl Er (Glucophage Er), 1,000 MG PO BIDM Naltrexone HCl (Naltrexone HCl), 50 MG PO DAILY Omeprazole (Prilosec), 20 MG PO DAILY Pramipexole Dihydrochloride (Pramipexole Dihydrochlori), 2 MG PO QAM Pramipexole Dihydrochloride (Mirapex), 1 MG PO QPM Trazodone HCl (Trazodone HCl), 150 MG PO HS Review of Systems ROS per HPI, all other systems reviewed and negative Physical Exam Vital Signs Date Time Temp Pulse Resp B/P (MAP) Pulse Ox O2 Delivery O2 Flow Rate FiO2 09/11/17 11:40 37.0 87 20 104/66 (79) 94 Nasal Cannula 2.5 09/11/17 11:27 94 Nasal Cannula 2.0 09/11/17 10:44 94 26 125/71 94 Nasal Cannula 2.0 09/11/17 09:13 99 09/11/17 09:11 2.0 09/11/17 09:05 89 Room Air 09/11/17 08:57 37.3 102 24 143/77 92 Room Air General Appearance: WD/WN, no apparent distress Head: normocephalic, atraumatic Eyes: normal inspection, EOMI, sclerae normal ENT: hearing grossly normal, + pertinent finding (Mucous membranes moist) Neck: supple, no JVD, trachea midline Respiratory/Chest: no respiratory distress, + rhonchi (Scattered), + wheezing ( Scattered, expiratory) Cardiovascular: normal peripheral pulses, + tachycardia (Heart rate in the 90s) , + pertinent finding (Trace edema BLLE) Abdomen/GI: normal bowel sounds, non tender, soft, no organomegaly Extremities/Musculoskelatal: normal inspection, no calf tenderness, normal capillary refill Neurologic/Psych: no motor/sensory deficits, alert, normal mood/affect, oriented x 3 Skin: normal color, warm/dry Diagnostics Laboratory Results Results Past 24 Hours Test 09/11/17 09:05 09/11/17 09:14 09/11/17 09:20 09/11/17 09:26 Range/Units White Blood Count 11.52 4.8-10.8 K/uL Red Blood Count 4.71 4.7-6.1 M/uL Hemoglobin 14.8 14.0-18.0 g/dL Hematocrit 45.1 42-52 % Mean Corpuscular Volume 95.8 80-100 fL Mean Corpuscular Hemoglobin 31.4 25-34 pg Mean Corpuscular Hemoglobin Concent 32.8 32-36 g/dl Platelet Count 200 130-400 K/uL Mean Platelet Volume 10.8 7.4-10.4 fL Neutrophils (%) (Auto) 86.1 % Lymphocytes (%) (Auto) 5.8 % Monocytes (%) (Auto) 6.6 % Eosinophils (%) (Auto) 1.0 % Basophils (%) (Auto) 0.3 % Neutrophils # (Auto) 9.92 1.4-6.5 K/uL Lymphocytes # (Auto) 0.67 1.2-3.4 K/uL Monocytes # (Auto) 0.76 0.11-0.59 K/uL Eosinophils # (Auto) 0.12 0-0.5 K/uL Basophils # (Auto) 0.03 0-0.2 K/uL RDW Standard Deviation 48.9 36.4-46.3 fL RDW Coefficient of Variation 13.9 11.5-14.5 % Immature Granulocyte % (Auto) 0.2 % Immature Granulocyte # (Auto) 0.02 0.00-0.02 K/uL Erythrocyte Sedimentation Rate 35 0-14 mm/hr Prothrombin Time 10.0 9.0-12.0 SECONDS Prothromb Time International Ratio 1.0 0.9-1.1 Activated Partial Thromboplast Time 24.7 21.0-31.0 SECONDS Partial Thromboplastin Ratio 1.0 Sodium Level 137 136-145 mmol/L Potassium Level 4.2 3.5-5.1 mmol/L Chloride Level 101 98-107 mmol/L Carbon Dioxide Level 31 21-32 mmol/L Anion Gap 5.0 3-11 mmol/L Blood Urea Nitrogen 10 7-18 mg/dl Creatinine 1.12 0.60-1.40 mg/dl Est Creatinine Clear Calc Drug Dose 77.4 ml/min Estimated GFR () 77.3 Estimated GFR (Non- 66.7 BUN/Creatinine Ratio 9.0 10-20 Random Glucose 178 70-99 mg/dl Calcium Level 8.9 8.5-10.1 mg/dl Phosphorus Level 2.2 2.5-4.9 mg/dl Magnesium Level 1.9 1.8-2.4 mg/dl Total Bilirubin 0.5 0.2-1 mg/dl Aspartate Amino Transf (AST/SGOT) 13 15-37 U/L Alanine Aminotransferase (ALT/SGPT) 25 12-78 U/L Alkaline Phosphatase 113 45-117 U/L Total Creatine Kinase 71 39-308 U/L Creatine Kinase MB 0.9 0.5-3.6 ng/ml Creatine Kinase MB Ratio 1.3 0-3.0 Troponin I < 0.015 0-0.045 ng/ml C-Reactive Protein 2.32 0-0.29 mg/dl Pro-B-Type Natriuretic Peptide 96 0-900 pg/ml Total Protein 7.4 6.4-8.2 gm/dl Albumin 3.5 3.4-5.0 gm/dl Globulin 3.9 2.5-4.0 gm/dl Albumin/Globulin Ratio 0.9 0.9-2 Lipase 156 73-393 U/L Influenza Type A (RT-PCR) Neg for Influ A NEG Influenza Type B (RT-PCR) Neg for Influ B NEG Bedside Lactic Acid Venous 1.93 0.90-1.70 mmol/L Venous Blood pH 7.40 7.36-7.41 Venous Blood Partial Pressure CO2 51 38.0-50.0 mmHg Venous Blood Partial Pressure O2 46 mmHg Venous Blood HCO3 31 mmol/L Venous Blood Oxygen Saturation 81.2 % Venous Blood Base Excess 4.6 mEq/L Microbiology Results 09/11/17 Blood Culture, Received Pending 09/11/17 Blood Culture, Received Pending Diagnostic Radiology CXR IMPRESSION: 1. Emphysema, and mild cardiomegaly 2. Right basilar airspace opacities suspicious for a pneumonitis given the history of sepsis. Clinical and radiographic follow-up is recommended. Impression Assessment and Plan PNEUMONIA, POSSIBLE ASPIRATION COPD EXACERBATION -Admit to telemetry -Patient presenting with increasing cough and shortness of breath for the past 5 days; in the ED, chest x-ray shows a right basilar pneumonia -Mildly hypoxic, now requiring 2 L oxygen via nasal cannula -Patient reports harsh cough with posttussive emesis; ? aspiration -WBC 11.5 K HR in the 90s, lactic acid 1.9, afebrile, BP stable; do not suspect sepsis -S/P Levaquin in the ED; due to concerns for possible aspiration will go forward with Unasyn -Blood and sputum cultures -For COPD exacerbation, will start prednisone 40 mg 5 days, [id number] nebulizer treatments, flutter valve to help mobilize secretions DIABETES -Recent Hgb A1c 7.8 08/2017 -Hold metformin and utilize NovoLog per protocol while hospitalized ALCOHOL ABUSE -Patient reports 2 beers/day -Much heavier drinker in the past -Continue naltrexone -Monitor closely for signs of withdrawal -Start multivitamin, folic acid, thiamine HLD -Continue statin ANXIETY -Continue fluoxetine GERD -Continue PPI DVT PROPHYLAXIS -SQ Lovenox DISPOSITION -In my clinical judgment this beneficiary meets acute admission criteria, established by [facility], that includes being hospitalized through two midnights. Attending Note: Patient is a 67 yr male with multiple comorbidities presents with history of worsening cough, SOB, wheezing, CAMILO since past few days. Patient is a poor historian. He has H/O COPD and reports that he quit smoking 12 yrs ago. He states he was on multiple Nebulizers and inhalers in the past but reports no improvement with their use and currently not on any inhalers. Patient reports he gets severe dizziness with nebs. CXR showed right basilar opacity. Reports intermittent nausea, vomiting and chronic back pain. Physical Exam: Vitals signs as noted above General Appearance:Moderately built and nourished, no apparent distress Head: normocephalic, Atraumatic Eyes: normal inspection, EOMI, PERRL Neck: supple, No JVD Respiratory/Chest: Decreased breath sounds, B/L wheezing Cardiovascular: S1, S2, No murmur Abdomen/GI:Soft, Non tender, Bowel sounds present Extremities/Musculoskelatal:normal inspection, Trace edema Neurologic/Psych:AAOX3, grossly no focal neurological deficits Skin:normal color,warm Assessment and Plan: Acute on Chronic COPD Exacerbation Possible Right basilar Pneumonia: IV antibiotics, Prednisone, Oxygen support, Nebs Pulmonary Toilet DM II: uncontrolled likely 2/2 prednisone ISS, Basal Insulin Hold PO meds (reports chronic diarrhea secondary to Metformin use) I personally reviewed the record. Patient is interviewed and examined at bedside. Patient's care is coordinated with Muna Boyer FORESTRY PATROLMAN. Please refer to the documentation above for details of patient's presentation and for discussion of other issues. Advanced Directives Existing Living Will: No Existing Power of Assistant Operator: No Resuscitation Status VTE Prophylaxis Will order VTE Prophylaxis: Yes
[2017-09-11] MEDS: ENOXAPARIN 40 MG/0.4 ML SYR SC SCH (13:51)
[2017-09-11] MEDS ORDERED: NURSING VERBAL MED ORDER SCH (15:00)
[2017-09-11 15:10] VITALS: PULSE 90; O2SAT 91
[2017-09-11 15:43] VITALS: BP 137/78; PULSE 83; TEMP 36.8; O2SAT 90
[2017-09-11] MEDS: INSULIN ASPART 100 UNITS/ML 3 ML PEN SC SCH ×2 (17:07→21:09)
[2017-09-11 19:26] VITALS: BP 139/68; PULSE 69; TEMP 36.7; O2SAT 91
[2017-09-11 20:03] VITALS: PULSE 72; O2SAT 93
[2017-09-11] MEDS ORDERED: TRAZODONE HCL 150 MG PO SCH (21:00)
[2017-09-11] MEDS: PRAMIPEXOLE DIHYDROCHLORIDE 0.5 MG TAB PO SCH (21:01)
[2017-09-11] MEDS: TRAZODONE PO SCH ×2 (21:02)
[2017-09-12] VITALS (14 sets, daily range): BP systolic 119–156; BP diastolic 67–77; PULSE 55–77; TEMP 36.5–36.7; O2SAT 88–95
[2017-09-12] MEDS: SODIUM CHLORIDE 0.9% 1000ML 1,000 ML IV SCH ×2 (02:12→13:16)
[2017-09-12] MEDS: AMPICILLIN/SULBACTAM SOD INJ 3,000 MG in SODIUM CHLORIDE 0.9% 100ML 100 ML IV SCH ×4 (05:42→23:56)
[2017-09-12 06:50] LABS: HEMATOCRIT 40.3 % (42-52); HEMOGLOBIN 13.1 g/dL (14.0-18.0); MEAN CORPUSCULAR HEMOGLOBIN 30.9 pg (25-34); MEAN CORPUSCULAR HGB CONC 32.5 g/dl (32-36); MEAN PLATELET VOLUME 11.2 fL (7.4-10.4); PLATELET COUNT 196 K/uL (130-400); RED CELL DISTRIBUTION WIDTH CV 13.9 % (11.5-14.5); RED CELL DISTRIBUTION WIDTH SD 48.4 fL (36.4-46.3); WHITE BLOOD COUNT 11.14 K/uL (4.8-10.8)
[2017-09-12] MEDS: ALBUT/IPRATROP 3MG/0.5MG NEB 3 ML VIAL INH SCH ×4 (07:08→19:13)
[2017-09-12 07:21] LABS: CALCIUM 8.8 mg/dl (8.5-10.1); CREATININE 1.23 mg/dl (0.60-1.40); POTASSIUM 4.1 mmol/L (3.5-5.1)
[2017-09-12] MEDS: MULTIVITAMIN TAB PO SCH (07:56)
[2017-09-12] MEDS: ATORVASTATIN 40 MG TAB PO SCH (07:56)
[2017-09-12] MEDS: THIAMINE HCL 100 MG TAB PO SCH (07:57)
[2017-09-12] MEDS: FLUOXETINE HCL 20 MG CAP PO SCH (07:57)
[2017-09-12] MEDS: PRAMIPEXOLE DIHYDROCHLORIDE 0.5 MG TAB PO SCH ×2 (07:59→20:56)
[2017-09-12] MEDS: PANTOprazole SOD 40 MG TAB PO SCH (08:00)
[2017-09-12] MEDS: NALTREXONE HCL 50 MG TAB PO SCH (08:00)
[2017-09-12] MEDS: INSULIN ASPART 100 UNITS/ML 3 ML PEN SC SCH ×4 (08:04→21:02)
[2017-09-12] MEDS ORDERED: INSULIN GLARGINE SOLOSTAR 100 UNITS/ML 3 ML PEN SC SCH (09:00)
[2017-09-12] MEDS: ENOXAPARIN 40 MG/0.4 ML SYR SC SCH (13:55)
--- NOTE | 2017-09-12 18:07 | Progress Note ---
Medicine Progress Note Date & Time of Visit: Sep 12, 2017 at 11:51. Subjective Pt was seen and examined Lying in bed with no distress Pt said that he continues to cough He said that his breathing seems to be slightly improves Denies any chest pain, palpitation, dizziness and dizziness Objective Last 8 Hrs Date Time Temp Pulse Resp B/P (MAP) Pulse Ox O2 Delivery O2 Flow Rate FiO2 09/12/17 16:00 Nasal Cannula 2.0 09/12/17 15:58 71 18 91 Nasal Cannula 1.0 09/12/17 14:47 36.6 55 20 138/76 (96) 94 Nasal Cannula 1.0 09/12/17 13:09 68 95 Room Air 09/12/17 12:00 92 Room Air 2.0 09/12/17 11:23 36.5 63 17 156/74 (101) 90 Room Air 09/12/17 11:11 60 18 91 Room Air Physical Exam: General- No acute distress Head- atraumatic Eyes- PERRL, EOMI ENT- oropharynx clear Neck- supple, no JVD Lungs- +wheezing Heart- regular rhythm Abdomen- normal bowel sounds, soft Extremities- no calf tenderness Neuro- alert, oriented, PERRL, EOMI Skin- warm & dry Laboratory Results: Last 24 Hours Test 09/11/17 20:48 09/11/17 23:50 09/12/17 05:29 09/12/17 06:44 Bedside Glucose 268 mg/dl 198 mg/dl Urine Color YELLOW Urine Appearance CLEAR Urine pH 5.5 Urine Specific [place] 1.024 Urine Protein NEG Urine Glucose (UA) 3+ Urine Ketones TRACE Urine Occult Blood NEG Urine Nitrite NEG Urine Bilirubin NEG Urine Urobilinogen NEG Urine Leukocyte Esterase NEG Urine WBC (Auto) 0 /hpf Urine RBC (Auto) 0-4 /hpf Urine Hyaline Casts (Auto) 0 /lpf Urine Epithelial Cells (Auto) 0-5 /lpf Urine Bacteria (Auto) NEG White Blood Count 11.14 K/uL Red Blood Count 4.24 M/uL Hemoglobin 13.1 g/dL Hematocrit 40.3 % Mean Corpuscular Volume 95.0 fL Mean Corpuscular Hemoglobin 30.9 pg Mean Corpuscular Hemoglobin Concent 32.5 g/dl RDW Standard Deviation 48.4 fL RDW Coefficient of Variation 13.9 % Platelet Count 196 K/uL Mean Platelet Volume 11.2 fL Sodium Level 137 mmol/L Potassium Level 4.1 mmol/L Chloride Level 100 mmol/L Carbon Dioxide Level 29 mmol/L Anion Gap 8.0 mmol/L Blood Urea Nitrogen 20 mg/dl Creatinine 1.23 mg/dl Est Creatinine Clear Calc Drug Dose 71.0 ml/min Estimated GFR () 69.0 Estimated GFR (Non- 59.5 BUN/Creatinine Ratio 16.2 Random Glucose 204 mg/dl Calcium Level 8.8 mg/dl Test 09/12/17 15:48 Bedside Glucose 285 mg/dl Date/Time Source Procedure Growth Status 09/11/17 23:45 Sputum Expectorated Sputum Gram Stain - Final Resulted 09/11/17 23:45 Sputum Expectorated Sputum Sputum Culture Pending Resulted Assessment & Plan COPD EXACERBATION PNEUMONIA CXR showed right basilar airspace opacities WBC elevated on admission Received Levaquin in the ED On Unasyn IV Blood cx and sputum cx pending Continue prednisone 40mg to complete 5 days course Will add guaifenesin Continue Duoneb treatment DIABETES Recent Hgb A1c 7.8 08/2017 Hold metformin Continue Insulin NovoLog per protocol while hospitalized ALCOHOL ABUSE Continue naltrexone No signs of alcohol withdrawal Continue folic acid, thiamine HLD Continue statin ANXIETY Continue fluoxetine Stable GERD Continue PPI DVT PROPHYLAXIS SQ Lovenox CODE STATUS FULL CODE Current Inpatient Medications: Current Inpatient Medications Medications (Trade) Dose Ordered Sig/Junior Route Start Time Stop Time Status Last Admin Dose Admin Enoxaparin Sodium (Lovenox Inj) 40 mg Q24H SC 09/11/17 14:00 10/11/17 13:59 09/12/17 13:55 40 MG Sodium Chloride 1,000 ml @ 80 mls/hr [id number] IV 09/11/17 12:00 10/11/17 11:59 09/12/17 13:16 80 MLS/HR Acetaminophen (Tylenol Tab) 650 mg Q4H PRN PO 09/11/17 11:15 10/11/17 11:14 Ondansetron HCl (Zofran Inj) 4 mg Q6H PRN IV 09/11/17 11:15 10/11/17 11:14 Prednisone (PredniSONE TAB) 40 mg DAILY PO 09/11/17 11:15 09/15/17 09:01 09/12/17 07:57 40 MG Albuterol/ Ipratropium (Duoneb) 3 ml QIDR INH 09/11/17 12:00 10/11/17 11:59 09/12/17 15:56 3 ML Thiamine HCl (Vitamin B-1 Tab) 100 mg DAILY PO 09/11/17 11:57 10/11/17 11:56 09/12/17 07:57 100 MG Multivitamins (Multivitamin Tab) 1 tab QAM PO 09/11/17 11:15 10/11/17 11:14 09/12/17 07:56 1 TAB Folic Acid (Folvite Tab) 1 mg QAM PO 09/11/17 11:15 10/11/17 11:14 09/12/17 07:58 1 MG Insulin Aspart (novoLOG ASPART) SLIDING SCALE If C... ACHS SC 09/11/17 16:15 10/11/17 16:14 09/12/17 17:06 13 UNITS Glucose (Glucose 40% Gel) 15-30 GRAMS 15 GRAMS... UD PRN PO 09/11/17 11:15 10/11/17 11:14 Glucose (Glucose Chew Tab) 4-8 Tablets 4 Tabl... UD PRN PO 09/11/17 11:15 10/11/17 11:14 Dextrose (Dextrose 50% 50ML Syringe) 25-50ML OF 50% DW IV FOR... UD PRN IV 09/11/17 11:15 10/11/17 11:14 Glucagon (Glucagon Inj) 1 mg UD PRN SQ 09/11/17 11:15 10/11/17 11:14 Ampicillin Sodium/ Sulbactam Sodium 3000 mg/Sodium Chloride 108 ml @ 200 mls/hr Q6H IV 09/11/17 12:00 09/18/17 11:59 09/12/17 11:37 200 MLS/HR Atorvastatin Calcium (Lipitor Tab) 40 mg DAILY PO 09/12/17 09:00 10/12/17 08:59 09/12/17 07:56 40 MG Fluoxetine HCl (Prozac Cap) 40 mg DAILY PO 09/12/17 09:00 10/12/17 08:59 09/12/17 07:57 40 MG Pantoprazole Sodium (Protonix Tab) 40 mg DAILY PO 09/12/17 09:00 10/12/17 08:59 09/12/17 08:00 40 MG Pramipexole Dihydrochloride (miraPEX TAB) 1 mg PM PO 09/11/17 21:00 10/11/17 20:59 09/11/17 21:01 1 MG Pramipexole Dihydrochloride (miraPEX TAB) 2 mg QAM PO 09/12/17 09:00 10/12/17 08:59 09/12/17 07:59 2 MG Trazodone HCl (Desyrel Tab) 150 mg PM PO 09/11/17 21:00 10/11/17 20:59 09/11/17 21:02 150 MG Insulin Glargine (Lantus Solostar Pen) 5 units BID SC 09/12/17 09:00 10/12/17 08:59 09/12/17 08:15 5 UNITS Naltrexone HCl (Naltrexone) 50 mg DAILY PO 09/12/17 09:00 10/12/17 08:59 09/12/17 08:00 50 MG
[2017-09-12] MEDS: TRAZODONE PO SCH ×2 (20:56)
[2017-09-12] MEDS: INSULIN GLARGINE SOLOSTAR 100 UNITS/ML 3 ML PEN SC SCH (21:02)
[2017-09-13] VITALS (12 sets, daily range): BP systolic 125–174; BP diastolic 74–80; PULSE 52–82; TEMP 36.1–36.6; O2SAT 92–97
[2017-09-13 05:03] LABS: HEMATOCRIT 40.3 % (42-52); HEMOGLOBIN 13.3 g/dL (14.0-18.0); MEAN CORPUSCULAR HEMOGLOBIN 31.4 pg (25-34); MEAN PLATELET VOLUME 10.6 fL (7.4-10.4); PLATELET COUNT 198 K/uL (130-400); RED CELL DISTRIBUTION WIDTH CV 14.1 % (11.5-14.5); RED CELL DISTRIBUTION WIDTH SD 48.4 fL (36.4-46.3); WHITE BLOOD COUNT 9.24 K/uL (4.8-10.8)
[2017-09-13 05:34] LABS: CALCIUM 9.2 mg/dl (8.5-10.1); CREATININE 1.01 mg/dl (0.60-1.40); PHOSPHORUS 3.8 mg/dl (2.5-4.9); POTASSIUM 4.1 mmol/L (3.5-5.1)
[2017-09-13] MEDS: AMPICILLIN/SULBACTAM SOD INJ 3,000 MG in SODIUM CHLORIDE 0.9% 100ML 100 ML IV SCH ×4 (06:05→23:48)
[2017-09-13] MEDS: ALBUT/IPRATROP 3MG/0.5MG NEB 3 ML VIAL INH SCH ×4 (07:00→19:44)
[2017-09-13] MEDS: INSULIN ASPART 100 UNITS/ML 3 ML PEN SC SCH ×4 (08:05→21:10)
[2017-09-13] MEDS: INSULIN GLARGINE SOLOSTAR 100 UNITS/ML 3 ML PEN SC SCH ×2 (08:06→21:11)
[2017-09-13] MEDS: PANTOprazole SOD 40 MG TAB PO SCH (08:07)
[2017-09-13] MEDS: MULTIVITAMIN TAB PO SCH (08:07)
[2017-09-13] MEDS: THIAMINE HCL 100 MG TAB PO SCH (08:07)
[2017-09-13] MEDS: ATORVASTATIN 40 MG TAB PO SCH (08:07)
[2017-09-13] MEDS: PRAMIPEXOLE DIHYDROCHLORIDE 0.5 MG TAB PO SCH ×2 (08:08→21:06)
[2017-09-13] MEDS: FLUOXETINE HCL 20 MG CAP PO SCH (08:08)
[2017-09-13] MEDS: NALTREXONE HCL 50 MG TAB PO SCH (08:09)
--- NOTE | 2017-09-13 10:58 | Clinical Documentation Query ---
BHARGAV Zhu : CLINICAL DOCUMENTATION QUERY Patient is a 67 year old male admitted for evaluation and treatment of cough and SOB in the setting of posttussive emesis. H&P noted "pneumonia, possible aspiration". This documentation has not been continued. Blood and sputum cultures obtained. Unasyn initiated for concerns of aspiration. Speech therapy saw patient in consultation. Additionally treated wtih Prednisone, Guaifenesin, and nebulizer therapies. Please clarify as clinically appropriate. Thank you. In your clinical opinion is this patient being managed for: ( x ) (Possible) Aspiration pneumonia ( ) Not Agree ( ) Other explanation of clinical findings (Please Explain) ( ) Unable to determine (Please Define) ( ) Need to Discuss The medical record reflects the following clinical findings, treatment, and risk factors. Clinical Indicators: As above Treatment:Unasyn initiated for concerns of aspiration. Speech therapy saw patient in consultation. Additionally treated wtih Prednisone, Guaifenesin, and nebulizer therapies Risk Factors: Vomiting, inherently at risk for aspiration. Please clarify and document your clinical opinion in the progress notes and discharge summary. Terms such as "probable", "suspected", "likely", "questionable", "possible", or "still to be ruled out" are acceptable. IF IN AGREEMENT, YOU MUST DOCUMENT ABOVE DIAGNOSTIC STATEMENT IN DAILY PROGRESS NOTES AND DISCHARGE SUMMARY. This document is not part of the patient's record. Thank You, Dre Prasad RN [phone]
[2017-09-13] MEDS: ENOXAPARIN 40 MG/0.4 ML SYR SC SCH (13:55)
--- NOTE | 2017-09-13 18:48 | Progress Note ---
Internal Med Progress Note Date of Service: Sep 13, 2017. Provider Documentation: SUBJECTIVE: No complaint of shortness of breath, Cough has improved No fever or chills OBJECTIVE: Vital Signs-as noted below Exam: General-no sign of distress Eyes-sclera nonicteric ENT- Neck-no JVD moist oral mucosa Lungs-diminished,scattered wheeze Heart- regular S1-S2 Abdomen-soft nontender Extremities-no lower extremity edema Neuro-alert awake oriented 3, no focal neurological deficit Lab data as noted below. ASSESSMENT & PLAN: COPD EXACERBATION/POSSIBLE ASPIRATION PNEUMONIA Respiratory status gradually improving Continue nebulizer treatment/on oral prednisone Chest x-ray showed right basilar airspace opacities Concern for aspiration speech eval requested cont aspiration precaution On IV Unasyn TYPE 2 DIABETES Insulin sliding scale Recent hemoglobin A1c 7.8 on 08/2017 Hold metformin while in hospital ALCOHOL ABUSE No sign of withdrawal continue folic acid thiamine As needed Ativan for withdrawal symptoms/agitation HYPERLIPIDEMIA On statin DEPRESSION Continue SSRI GERD Continue PPI DVT PROPHYLAXIS Subcu Lovenox DISPOSITION PT OT eval prior to discharge home Social service consulted for discharge planning Vital Signs: Date Time Temp Pulse Resp B/P (MAP) Pulse Ox O2 Delivery O2 Flow Rate FiO2 09/14/17 11:10 69 18 90 Room Air 09/14/17 08:00 Room Air 09/14/17 07:21 37.1 95 20 168/83 (111) 97 Room Air 09/14/17 07:08 78 18 96 Room Air 09/14/17 04:00 Room Air 09/14/17 03:08 36.3 68 19 117/76 (90) 91 Room Air 09/14/17 00:00 Room Air 09/13/17 23:20 36.6 76 22 149/74 (99) 95 Room Air 09/13/17 20:00 Nasal Cannula 2.0 09/13/17 19:44 76 18 92 Room Air 09/13/17 19:15 36.5 52 20 133/76 (95) 94 Nasal Cannula 2.0 09/13/17 16:08 Nasal Cannula 2.0 09/13/17 15:12 36.3 66 20 144/79 (100) 92 Nasal Cannula 2.0 09/13/17 15:03 72 18 92 Room Air 09/13/17 12:29 36.5 73 20 135/75 (95) 92 Nasal Cannula 2.0 09/13/17 12:00 Room Air Lab Results: Results Past 24 Hours Test 09/13/17 16:23 09/13/17 20:34 09/14/17 06:20 Range/Units Bedside Glucose 182 223 125 70-99 mg/dl
[2017-09-13] MEDS: TRAZODONE PO SCH ×2 (21:07)
[2017-09-14] VITALS (11 sets, daily range): BP systolic 117–168; BP diastolic 72–83; PULSE 68–103; TEMP 36.3–37.1; O2SAT 89–99
[2017-09-14] MEDS: AMPICILLIN/SULBACTAM SOD INJ 3,000 MG in SODIUM CHLORIDE 0.9% 100ML 100 ML IV SCH ×4 (06:02→23:39)
[2017-09-14] MEDS: ALBUT/IPRATROP 3MG/0.5MG NEB 3 ML VIAL INH SCH ×4 (07:08→19:17)
[2017-09-14] MEDS: ATORVASTATIN 40 MG TAB PO SCH (07:42)
[2017-09-14] MEDS: MULTIVITAMIN TAB PO SCH (07:43)
[2017-09-14] MEDS: NALTREXONE HCL 50 MG TAB PO SCH (07:43)
[2017-09-14] MEDS: PRAMIPEXOLE DIHYDROCHLORIDE 0.5 MG TAB PO SCH ×2 (07:43→20:46)
[2017-09-14] MEDS: PANTOprazole SOD 40 MG TAB PO SCH (07:44)
[2017-09-14] MEDS: THIAMINE HCL 100 MG TAB PO SCH (07:44)
[2017-09-14] MEDS: FLUOXETINE HCL 20 MG CAP PO SCH (07:44)
[2017-09-14] MEDS: INSULIN GLARGINE SOLOSTAR 100 UNITS/ML 3 ML PEN SC SCH ×2 (07:46→20:51)
[2017-09-14] MEDS: INSULIN ASPART 100 UNITS/ML 3 ML PEN SC SCH ×4 (07:48→20:51)
[2017-09-14] MEDS: ENOXAPARIN 40 MG/0.4 ML SYR SC SCH (13:33)
--- NOTE | 2017-09-14 16:11 | Progress Note ---
Internal Med Progress Note Date of Service: Sep 14, 2017. Provider Documentation: SUBJECTIVE: No complaint of shortness of breath, no hypoxia Remains in room air with adequate oxygenation Has minimal cough No fever or chills OBJECTIVE: Vital Signs-as noted below Exam: General-no sign of distress Eyes-sclera nonicteric ENT- Neck-no JVD moist oral mucosa Lungs-improved auscultation, adequate air entry, occasional wheeze on right lower lung on auscultation Heart- regular S1-S2 Abdomen-soft nontender Extremities-no lower extremity edema Neuro-alert awake oriented 3, no focal neurological deficit Lab data as noted below. ASSESSMENT & PLAN: COPD EXACERBATION/POSSIBLE ASPIRATION PNEUMONIA Respiratory status improved to baseline No hypoxia, minimum wheeze Has nonproductive cough No fever or chills Continue nebulizer treatment/on oral prednisone 40 mg daily for total 5 days Chest x-ray showed right basilar airspace opacities-Concern for aspiration speech eval requested -appreciate input, no sign of dysphagia or aspiration noted on bedside evaluation On IV Unasyn will changed to p.o. Levaquin complete total 7 days course Chest x-ray ordered for tomorrow a.m. TYPE 2 DIABETES Insulin sliding scale Well-controlled as recent hemoglobin A1c 7.8 on 08/2017 Blood sugar elevated in hospital possibly secondary to steroids induced Hold metformin while in hospital Will be resumed on discharge ALCOHOL ABUSE No sign of withdrawal continue folic acid thiamine As needed Ativan for withdrawal symptoms/agitation Patient is counseled to limit alcohol intake HYPERLIPIDEMIA On statin DEPRESSION Continue SSRI GERD Continue PPI DVT PROPHYLAXIS Subcu Lovenox DISPOSITION Possible discharge tomorrow Vital Signs: Date Time Temp Pulse Resp B/P (MAP) Pulse Ox O2 Delivery O2 Flow Rate FiO2 09/15/17 05:13 72 18 94 Room Air 09/15/17 04:04 36.3 74 18 144/80 (101) 91 Room Air 09/15/17 04:00 Nasal Cannula 2.0 09/15/17 02:21 78 18 94 Room Air 09/15/17 00:05 Nasal Cannula 2.0 09/14/17 23:07 36.7 93 20 128/79 (95) 95 Nasal Cannula 1.5 09/14/17 20:00 Room Air 09/14/17 19:25 36.5 93 20 128/72 (90) 99 Nebulizer 09/14/17 19:17 100 18 95 Room Air 09/14/17 16:00 Room Air 09/14/17 15:34 36.8 103 20 149/80 (103) 90 Nasal Cannula 7.0 09/14/17 15:10 69 18 93 Room Air 09/14/17 12:00 90 Room Air 09/14/17 11:10 69 18 90 Room Air 09/14/17 11:09 36.9 71 20 132/78 (96) 89 Room Air 09/14/17 08:00 Room Air 09/14/17 07:21 37.1 95 20 168/83 (111) 97 Room Air 09/14/17 07:08 78 18 96 Room Air Lab Results: Results Past 24 Hours Test 09/14/17 10:54 09/14/17 16:32 09/14/17 20:27 Range/Units Bedside Glucose 164 269 219 70-99 mg/dl
[2017-09-14] MEDS: TRAZODONE PO SCH ×2 (20:45)
[2017-09-15] VITALS (8 sets, daily range): BP systolic 120–155; BP diastolic 71–94; PULSE 72–90; TEMP 36.3–36.9; O2SAT 90–96
[2017-09-15] MEDS: ALBUT/IPRATROP 3MG/0.5MG NEB 3 ML VIAL INH SCH ×2 (02:21→05:23)
[2017-09-15] MEDS: AMPICILLIN/SULBACTAM SOD INJ 3,000 MG in SODIUM CHLORIDE 0.9% 100ML 100 ML IV SCH ×2 (05:13→05:35)
[2017-09-15] MEDS ORDERED: FLV1 PO (06:31)
[2017-09-15] MEDS ORDERED: THM100 PO (06:31)
--- NOTE | 2017-09-15 06:32 | Discharge Instructions ---
Discharge Instructions Date of Service Sep 15, 2017. Admission Reason for Admission: Pneumonia Discharge Discharge Diagnosis / Problem: COPD EXACERBATION /ASPIRATION PNEUMONIA Discharge Goals Goal(s): Increase independence, Improve disease control, Diagnostic testing, Therapeutic intervention Activity Recommendations Activity Limitations: resume your previous activity . Instructions / Follow-Up Instructions / Follow-Up HOSPITAL FOLLOW UP : 09/21/2017 @ 12:[address] Ana Ryan, [facility] Current Hospital Diet Patient's current hospital diet: AHA Diet (Heart Healthy), Diabetes Type 2 Diet Discharge Diet Recommended Diet: Diabetes Type 2 Diet Pending Studies Studies pending at discharge: no Medical Emergencies . Who to Call and When: Medical Emergencies: If at any time you feel your situation is an emergency, please call 911 immediately. . Non-Emergent Contact Non-Emergency issues call your: Primary Care Provider . . "Provider Documentation" section prepared by Bee Wylie. .
[2017-09-15] MEDS: ALBUT/IPRATROP 3MG/0.5MG NEB 3 ML VIAL INH PRN ×2 (07:10→10:41)
--- NOTE | 2017-09-15 07:40 | DIAGNOSTIC IMAGING REPORT ---
SINGLE VIEW CHEST CLINICAL HISTORY: Pneumonia. FINDINGS: An AP, portable, upright chest radiograph is compared to study dated 09/11/2017. The examination is degraded by portable technique and patient rotation. The heart is enlarged and there is atherosclerotic calcification of the thoracic aorta. The pulmonary vasculature is noncongested. Chronic interstitial thickening is similar to previous. There are bibasilar airspace opacities, which have modestly cleared from 09/11/2017. No large pleural effusion or pneumothorax is seen. The skeletal structures are osteopenic. The bony thorax is grossly intact. IMPRESSION: 1. Cardiomegaly without radiographic evidence of congestive failure. 2. There are bibasilar airspace opacities which have modestly cleared from 09/11/2017. Follow-up to resolution is recommended. Electronically signed by: Jorje Kwan M.D. 09/15/2017 7:39 AM Dictated Date/Time: 09/15/2017 7:38 AM
[2017-09-15] MEDS: FLUOXETINE HCL 20 MG CAP PO SCH (09:24)
[2017-09-15] MEDS: MULTIVITAMIN TAB PO SCH (09:26)
[2017-09-15] MEDS: THIAMINE HCL 100 MG TAB PO SCH (09:26)
[2017-09-15] MEDS: PRAMIPEXOLE DIHYDROCHLORIDE 0.5 MG TAB PO SCH (09:26)
[2017-09-15] MEDS: ATORVASTATIN 40 MG TAB PO SCH (09:26)
[2017-09-15] MEDS: PANTOprazole SOD 40 MG TAB PO SCH (09:26)
[2017-09-15] MEDS: NALTREXONE HCL 50 MG TAB PO SCH (09:29)
[2017-09-15] MEDS: INSULIN ASPART 100 UNITS/ML 3 ML PEN SC SCH ×2 (09:34→13:30)
[2017-09-15] MEDS: INSULIN GLARGINE SOLOSTAR 100 UNITS/ML 3 ML PEN SC SCH (09:36)
[2017-09-15] MEDS ORDERED: LEVOFLOXACIN 500 MG TAB PO SCH (11:00)
[2017-09-15] MEDS ORDERED: LVQ500 PO (11:34)
--- NOTE | 2017-09-15 12:56 | Discharge Summary ---
Discharge Summary Date of Service Sep 15, 2017. Discharge Summary Admission Date: Sep 11, 2017 at 11:08 Discharge Date: Sep 15, 2017 Discharge Disposition: Home Principal Diagnosis: COPD EXACERBATION /ASPIRATION PNEUMONIA Medication Reconciliation New Medications: Folic Acid (Folic Acid) 1 Mg Tab 1 MG PO QAM for 30 Days, #30 TAB 2 Refills Levofloxacin (Levofloxacin) 500 Mg Tab 500 MG PO DAILY@11 for 2 Days, #2 TAB Thiamine HCl (Vitamin B-1) 100 Mg Tab 100 MG PO DAILY for 30 Days, #30 TAB 2 Refills Continued Medications: Atorvastatin (Lipitor) 40 Mg Tab 40 MG PO DAILY, TAB Fluoxetine (Prozac) 40 Mg Cap 40 MG PO DAILY, CAP Metformin Hcl Er (Glucophage Er) 500 Mg Tab 1000 MG PO BIDM Naltrexone HCl (Naltrexone HCl) 50 Mg Tab 50 MG PO DAILY Omeprazole (Prilosec) 20 Mg Capcr 20 MG PO DAILY, CAP Pramipexole Dihydrochloride (Pramipexole Dihydrochlori) 1 Mg Tab 2 MG PO QAM Pramipexole Dihydrochloride (Mirapex) 1 Mg Tab 1 MG PO QPM Trazodone HCl (Trazodone HCl) 150 Mg Tab 150 MG PO HS Admission Information HPI (per Admitting provider): 67-year-old male who presents to the ER with a chief complaint of cough and shortness of breath. Patient reports he started getting sick 5 days ago. He reports symptoms initially started with mild wheezing and cough. Symptoms have progressively gotten worse. He reports persistent coughing throughout the weekend and has gotten very little sleep. He reports cough is mostly harsh, dry , and nonproductive however when he has severe coughing he has had a few episodes of vomiting. No shortness of breath at rest however does experience shortness of breath with minimal exertion. He reports chills and suspects he has had a fever however did not take his temperature. He has had a headache and abdominal pain from all the coughing. He denies chest pain. He denies lightheadedness, dizziness, diaphoresis, and syncopal events. Other than the aforementioned posttussive emesis he denies any other nausea or vomiting. Reports a few episodes of diarrhea. No urinary symptoms. Patient was seen at his PCPs office today and was sent to the ER for further evaluation. In the ED , patient was saturating 89% on room air. This improved with oxygen 2 L via nasal cannula. Chest x-ray shows a right basilar infiltrate. WBC 11.5 K, mildly tachycardic, lactic acid 1.9. Patient was given IVF, IV Levaquin, and DuoNeb treatment. Physical Exam (per Admitting): General Appearance: WD/WN, no apparent distress Head: normocephalic, atraumatic Eyes: normal inspection, EOMI, sclerae normal ENT: hearing grossly normal, + pertinent finding (Mucous membranes moist) Neck: supple, no JVD, trachea midline Respiratory/Chest: no respiratory distress, + rhonchi (Scattered), + wheezing (Scattered, expiratory) Cardiovascular: normal peripheral pulses, + tachycardia (Heart rate in the 90s), + pertinent finding (Trace edema BLLE) Abdomen/GI: normal bowel sounds, non tender, soft, no organomegaly Extremities/Musculoskelatal: normal inspection, no calf tenderness, normal capillary refill Neurologic/Psych: no motor/sensory deficits, alert, normal mood/affect, oriented x 3 Skin: normal color, warm/dry Hospital Course No complaint of shortness of breath Has minimal nonproductive No hypoxia With oxygenation in room Ambulating in hallway To be discharged home today PHYSICAL EXAM Exam: General-no sign of distress Eyes-sclera nonicteric ENT- Neck-no JVD moist oral mucosa Lungs-improved auscultation, adequate air entry, no wheeze Heart- regular S1-S2 Abdomen-soft nontender Extremities-no lower extremity edema Neuro-alert awake oriented 3, no focal neurological deficit COPD EXACERBATION/POSSIBLE ASPIRATION PNEUMONIA Resolved No wheeze, no dyspnea on exertion, no hypoxia Chest x-ray showed right basilar airspace opacities-Concern for aspiration speech eval requested -appreciate input, no sign of dysphagia or aspiration noted on bedside evaluation Antibiotic changed to p.o. Levaquin complete total 7 days course Chest x-ray shows improvement of right basilar opacity TYPE 2 DIABETES Insulin sliding scale Well-controlled as recent hemoglobin A1c 7.8 on 08/2017 Blood sugar elevated in hospital possibly secondary to steroids induced Hold metformin while in hospital Will be resumed on discharge ALCOHOL ABUSE No sign of withdrawal continue folic acid thiamine As needed Ativan for withdrawal symptoms/agitation Patient is counseled to limit alcohol intake HYPERLIPIDEMIA On statin DEPRESSION Continue SSRI GERD Continue PPI DVT PROPHYLAXIS Subcu Lovenox DISPOSITION Stable to be discharged home today Total time spent on discharge = 35 MINS This includes examination of the patient, discharge planning, medication reconciliation, and communication with other providers. Discharge Instructions Discharge Instructions Date of Service Sep 15, 2017. Admission Reason for Admission: Pneumonia Discharge Discharge Diagnosis / Problem: COPD EXACERBATION /ASPIRATION PNEUMONIA Discharge Goals Goal(s): Increase independence, Improve disease control, Diagnostic testing, Therapeutic intervention Activity Recommendations Activity Limitations: resume your previous activity . Instructions / Follow-Up Instructions / Follow-Up HOSPITAL FOLLOW UP : 09/21/2017 @ 12:[address] Ana Ryan, [facility] Diet Patient's current hospital diet: AHA Diet (Heart Healthy), Diabetes Type 2 Diet Discharge Diet Recommended Diet: Diabetes Type 2 Diet Pending Studies Studies pending at discharge: no Medical Emergencies . Who to Call and When: Medical Emergencies: If at any time you feel your situation is an emergency, please call 911 immediately. . Non-Emergent Contact Non-Emergency issues call your: Primary Care Provider . . "Provider Documentation" section prepared by Bee Wylie. .
== END 2017-09-15 16:41 | disposition home or self-care (01) | DRG 178 ==
LOC: C.EDB 08:56 → C.2T 11:08 → ENRESERV 11:18
PROVIDERS: ADMIT Internal Medicine; ATTEND Hospitalist
DX: J69.0 Pneumonitis due to inhalation of food and vomit (principal); J44.1 Chronic obstructive pulmonary disease with (acute) exacerbation; F41.9 Anxiety disorder, unspecified; E78.5 Hyperlipidemia, unspecified; K21.9 Gastro-esophageal reflux disease without esophagitis; G25.81 Restless legs syndrome; F10.10 Alcohol abuse, uncomplicated; E11.9 Type 2 diabetes mellitus without complications; F32.9 Major depressive disorder, single episode, unspecified; Z96.652 Presence of left artificial knee joint; Z87.01 Personal history of pneumonia (recurrent); Z87.891 Personal history of nicotine dependence

== ENCOUNTER → 2017-10-04 | Outpatient (CLI) | payer OTHER ==
[~2017-10-04] MED LIST changes: +DSY/150 PO; +FLV1 PO; +LVQ500 PO; +METF500T5 PO; +MRP1 PO; +NALT50TA16 PO; +PRAM1TAB10 PO; -PRAM1TAB52 PO; +THM100 PO; -TRAZ100T29 PO
--- NOTE | 2017-10-04 10:05 | DIAGNOSTIC IMAGING REPORT ---
CHEST 2 VIEWS ROUTINE CLINICAL HISTORY: J18.9 pneumonia COMPARISON STUDY: 09/15/2017 FINDINGS: The bones soft tissues and hemidiaphragms are normal. The cardiomediastinal silhouette is normal.. The pulmonary vasculature is normal. Bibasilar infiltrative changes in the prior study are stable. Diaphragms remain clear. IMPRESSION: Mild bibasilar parenchymal infiltrates.. The above report was generated using voice recognition software. It may contain grammatical, syntax or spelling errors. Electronically signed by: Jimbo Hurst M.D. 10/04/2017 10:04 AM Dictated Date/Time: 10/04/2017 9:34 AM
== END | disposition home or self-care (01) ==
LOC: C.RAD1850 09:23
PROVIDERS: ATTEND Physician Assistant
DX: J18.9 Pneumonia, unspecified organism (principal)

== ENCOUNTER → 2017-10-19 | Outpatient (CLI) | payer OTHER ==
--- NOTE | 2017-10-19 10:32 | DIAGNOSTIC IMAGING REPORT ---
CHEST 2 VIEWS ROUTINE CLINICAL HISTORY: J18.9 [id number] COMPARISON STUDY: 10/04/2017 FINDINGS: Mild cardia megaly. Mild bibasilar interstitial prominence. Mid and upper lungs are considered clear. IMPRESSION: Improved exam with the basilar infiltrates showing no infiltrative change/or minimal interstitial residual. The above report was generated using voice recognition software. It may contain grammatical, syntax or spelling errors. Electronically signed by: Jimbo Hurst M.D. 10/19/2017 10:31 AM Dictated Date/Time: 10/19/2017 10:30 AM
== END | disposition home or self-care (01) ==
LOC: C.RAD1850 10:20
PROVIDERS: ATTEND Physician Assistant
DX: J18.9 Pneumonia, unspecified organism (principal)

== ENCOUNTER 2018-01-31 00:56 | Emergency (ER) | payer OTHER ==
[~2018-01-31 00:56] MED LIST changes: +THIA100T27 PO; -THM100 PO
[2018-01-31 00:57] VITALS: TEMP 36.5; Ht 177.8 cm
--- NOTE | 2018-01-31 01:21 | EMERGENCY ROOM VISIT NOTE ---
History Report prepared by Madisyn: Yair Randall Under the Supervision of: Dr. Tess Delgado D.O. First contact with patient: 01:00 Chief Complaint: VOMITING Stated Complaint: VOMITING Nursing Triage Summary: pt was in room with who is an ED pt. this RN heard vomiting from room. found this pt in room leaning over garbage can, retching and vomiting. noted some pink tinge to mucousy vomit. pt reports he did eat beats early this evening. pt reports "this just happens". reports "it happens alot". pt reports he gets SOB and has a cough then begins to vomit. sometimes he is unable to vomit anything up. pt hx of smoking heavily for 40 years but stopped 2005. pt reports hx of hospitalization for pneumonia every year for last 4 years. History of Present Illness The patient is a 67 year old male who presents to the Emergency Room with complaints of persistent vomiting beginning a few months ago. The patient states that he occasionally coughs so hard that he vomits. He notes that he has been having these symptoms for several months, but he reports that he has not gone to see a doctor. The patient states that he typically vomits in the morning or late at night. He notes that he vomits 3-4 times a week and occasionally vomits 1-2 times a day. He reports that his vomit was red tonight, but he states that he ate beets earlier today. He also complains of occasional SOB and he states that his cough is occasionally productive. He notes that he sometimes coughs up mucus and little chunks of food. He denies any CP and nausea. He reports that he has a history of GERD and COPD. The patient states that he had a barium swallow and endoscopy done which revealed a benign polyp. He notes that he often has a low oxygen saturation around 94%. He reports that he is a former smoker. The patient states that his has also been vomiting recently. Source of History: patient Onset: a few months ago Position: abdomen Quality: other (vomiting) Timing: other (persistent) Associated Symptoms: + cough (productive), + SOB, No chest pain, No nausea Review of Systems See HPI for pertinent positives & negatives. A total of 10 systems reviewed and were otherwise negative. Past Medical & Surgical Medical Problems: (1) Alcohol abuse (2) Anxiety (3) COPD (chronic obstructive pulmonary disease) (4) DM type 2 (diabetes mellitus, type 2) (5) Dyslipidemia (6) GERD (gastroesophageal reflux disease) (7) RLS (restless legs syndrome) Surgical Problems: (1) History of total left knee replacement (2) S/P tonsillectomy and adenoidectomy Family History FH: CAD (coronary artery disease) FATHER BROTHER BROTHER FH: cancer Social History Smoking Status: Former Smoker Alcohol Use: none Marital Status: Housing Status: lives with significant other Occupation Status: employed Current/Historical Medications Scheduled Atorvastatin (Lipitor), 40 MG PO DAILY Fluoxetine (Prozac), 40 MG PO DAILY Folic Acid (Folvite), 1 MG PO QAM Lisinopril (Lisinopril), 5 MG PO DAILY Metformin Ext Rel (Glucophage Ext Rel), 500 MG PO BID Naltrexone HCl (Naltrexone HCl), 50 MG PO HS Omeprazole (Prilosec), 20 MG PO DAILY Pramipexole Dihydrochloride (Mirapex), 1 MG PO BID Thiamine Hcl (Vitamin B-1), 100 MG PO HS Trazodone Hcl (Trazodone), 100 MG PO HS Allergies Coded Allergies: No Known Allergies (Verified , 01/31/18) Physical Exam Vital Signs Date Time Temp Pulse Resp B/P (MAP) Pulse Ox O2 Delivery O2 Flow Rate FiO2 01/31/18 02:45 74 21 116/63 93 01/31/18 00:57 36.5 90 22 141/76 90 Room Air Physical Exam HEENT: Head - normocephalic and atraumatic Pupils are equal, round, and reactive to light. Extraocular eye muscles are intact, and sclera are anicteric. Nose - moist nasal mucosa without discharge. Mouth - moist buccal mucosa. Oropharynx is nonerythematous and there is no tonsillar exudate or edema noted. Neck: Supple; no JVD, nuchal rigidity, cervical lymphadenopathy. Heart: Regular rate and rhythm. There is a normal S1 and S2 with no murmurs, clicks, or gallops appreciated. Lungs: Clear to auscultation bilaterally with no wheezes, rales, or rhonchi. Abdomen: Soft, completely nontender, nondistended, with good bowel sounds. There are no palpable pulsatile masses or hepatosplenomegaly. There is no guarding, rigidity, or rebound noted. Extremities: No evidence of cyanosis, clubbing, or edema. There are easily palpable peripheral pulses. Skin: warm and dry with good turgor and no rashes. Medical Decision & Procedures ER Provider Diagnostic Interpretation: Radiology results as stated below per my review and interpretation: CHEST X-RAY: Unchanged from 10/19/2017. Mild cardiomegaly. No pulmonary infiltrates or pleural effusions. Laboratory Results 01/31/18 01:30 Red Blood Count 4.42, Mean Corpuscular Volume 94.8, Mean Corpuscular Hemoglobin 31.7, Mean Corpuscular Hemoglobin Concent 33.4, Mean Platelet Volume 10.5, Neutrophils (%) (Auto) 58.4, Lymphocytes (%) (Auto) 28.6, Monocytes (%) (Auto) 10.2, Eosinophils (%) (Auto) 2.1, Basophils (%) (Auto) 0.5, Neutrophils # (Auto ) 4.97, Lymphocytes # (Auto) 2.43, Monocytes # (Auto) 0.87, Eosinophils # (Auto ) 0.18, Basophils # (Auto) 0.04 01/31/18 01:30 Test 01/31/18 01:30 White Blood Count 8.51 K/uL (4.8-10.8) Red Blood Count 4.42 M/uL (4.7-6.1) Hemoglobin 14.0 g/dL (14.0-18.0) Hematocrit 41.9 % (42-52) Mean Corpuscular Volume 94.8 fL (80-100) Mean Corpuscular Hemoglobin 31.7 pg (25-34) Mean Corpuscular Hemoglobin Concent 33.4 g/dl (32-36) Platelet Count 197 K/uL (130-400) Mean Platelet Volume 10.5 fL (7.4-10.4) Neutrophils (%) (Auto) 58.4 % Lymphocytes (%) (Auto) 28.6 % Monocytes (%) (Auto) 10.2 % Eosinophils (%) (Auto) 2.1 % Basophils (%) (Auto) 0.5 % Neutrophils # (Auto) 4.97 K/uL (1.4-6.5) Lymphocytes # (Auto) 2.43 K/uL (1.2-3.4) Monocytes # (Auto) 0.87 K/uL (0.11-0.59) Eosinophils # (Auto) 0.18 K/uL (0-0.5) Basophils # (Auto) 0.04 K/uL (0-0.2) RDW Standard Deviation 48.1 fL (36.4-46.3) RDW Coefficient of Variation 13.9 % (11.5-14.5) Immature Granulocyte % (Auto) 0.2 % Immature Granulocyte # (Auto) 0.02 K/uL (0.00-0.02) Anion Gap 7.0 mmol/L (3-11) Estimated GFR () 64.5 Estimated GFR (Non- 55.7 BUN/Creatinine Ratio 22.0 (10-20) Calcium Level 8.6 mg/dl (8.5-10.1) Laboratory results per my review. ECG Per My Interpretation Indication: vomiting Rate (beats per minute): 73 Rhythm: sinus rhythm Findings: PAC, other (No ischemia, no ST segment changes) ED Course 0108: Past medical records reviewed. The patient was evaluated in room B10. A complete history and physical exam was performed. Laboratory studies were drawn as above. The patient had a 12-lead EKG as described above. He had a chest x-ray as described above. 0232: Upon reevaluation, the patient feels fine. His is at bedside. I discussed findings and results with him. He verbalized agreement of the treatment plan. The patient was discharged home. Medical Decision The patient is a 67 year old male who presents to the Emergency Room with complaints of persistent vomiting beginning a few months ago. Differential diagnoses include: GERD, bronchitis, pneumonia, and post-tussive emesis. Lab Results Show: No leukocytosis. Stable H&H. BUN 29. Creatinine 1.3 Glucose 189. The patient states that this is not an acute problem for him. That this is been going on for a couple of months now mostly at nighttime. He explains that he will cough so hard that he gags and then vomits or dry heaves. It sounds like he has had GI workup to include a barium swallow and an endoscopy which were unremarkable. He also explains that he has been seen by pulmonary medicine. The patient is in no acute respiratory distress here in the emergency department. He had no further coughing or vomiting while here in the ER. I have asked patient to follow-up with his PCP and marine resource economist if these episodes of coughing and posttussive emesis persist. Medication Reconcilliation Current Medication List: was personally reviewed by me Blood Pressure Screening Patient's blood pressure: Normal blood pressure Blood pressure disposition: Did not require urgent referral Impression Primary Impression: Post-tussive emesis Additional Impression: Hyperglycemia due to type 2 diabetes mellitus Scribe Attestation The scribe's documentation has been prepared under my direction and personally reviewed by me in its entirety. I confirm that the note above accurately reflects all work, treatment, procedures, and medical decision making performed by me. Departure Information Dispostion Home / Self-Care Referrals Jimbo Rhoades M.D. (PCP) Forms HOME CARE DOCUMENTATION FORM, IMPORTANT VISIT INFORMATION Patient Instructions My [facility] Additional Instructions Follow up closely with PCP and marine resource economist if you continue to cough then vomit at night. Problem Qualifiers Additional Impression: Hyperglycemia due to type 2 diabetes mellitus Diabetes mellitus senior living insulin use: without senior living use Qualified Codes: E11.65 - Type 2 diabetes mellitus with hyperglycemia
[2018-01-31 01:40] LABS: BASO % 0.5 %; BASO ABS # 0.04 K/uL (0-0.2); EOS % 2.1 %; EOS ABS # 0.18 K/uL (0-0.5); HEMATOCRIT 41.9 % (42-52); IG# 0.02 K/uL (0.00-0.02); LYMPH % 28.6 %; LYMPH ABS # 2.43 K/uL (1.2-3.4); MEAN CELL VOLUME 94.8 fL (80-100); MEAN CORPUSCULAR HEMOGLOBIN 31.7 pg (25-34); MEAN CORPUSCULAR HGB CONC 33.4 g/dl (32-36); MEAN PLATELET VOLUME 10.5 fL (7.4-10.4); MONO % 10.2 %; MONO ABS # 0.87 K/uL (0.11-0.59); NEUT % 58.4 %; NEUT ABS # 4.97 K/uL (1.4-6.5); PLATELET COUNT 197 K/uL (130-400); RED CELL DISTRIBUTION WIDTH CV 13.9 % (11.5-14.5); RED CELL DISTRIBUTION WIDTH SD 48.1 fL (36.4-46.3); WHITE BLOOD COUNT 8.51 K/uL (4.8-10.8)
[2018-01-31 01:57] LABS: BLOOD UREA NITROGEN 29 mg/dl (7-18); CALCIUM 8.6 mg/dl (8.5-10.1); CARBON DIOXIDE 26 mmol/L (21-32); GLUCOSE 189 mg/dl (70-99); POTASSIUM 4.6 mmol/L (3.5-5.1); SODIUM 136 mmol/L (136-145)
[2018-01-31] MEDS ORDERED: LISI-730 PO (02:27)
[2018-01-31] MEDS ORDERED: METFTAB PO (02:29)
[2018-01-31] MEDS ORDERED: THIA100T14 PO (02:32)
[2018-01-31] MEDS ORDERED: FOLI1TAB8 PO (02:32)
[2018-01-31] MEDS ORDERED: TRAZ100T29 PO (02:33)
[2018-01-31 02:45] VITALS: BP 116/63; PULSE 74; O2SAT 93
--- NOTE | 2018-01-31 06:34 | DIAGNOSTIC IMAGING REPORT ---
CHEST 2 VIEWS ROUTINE CLINICAL HISTORY: Cough. Vomiting. COMPARISON STUDY: Chest radiograph October 19, [address] December 18, 2017. FINDINGS: No pneumothorax or pleural effusion is noted. Lung volumes are at the upper limits of normal. Mild left lower lung opacity favors atelectasis. There is no consolidation. Cardiac size is normal. Metastatic contours are unremarkable. There is no radiographic evidence of pulmonary edema. Old right eighth rib fracture is incidentally noted. IMPRESSION: 1. No acute cardiopulmonary findings. 2. Linear left basilar opacity suggestive of atelectasis. Electronically signed by: Moustapha Harden M.D. 01/31/2018 6:33 AM Dictated Date/Time: 01/31/2018 6:31 AM
== END 2018-01-31 02:46 | disposition home or self-care (01) ==
LOC: C.EDB 00:57
DX: E11.65 Type 2 diabetes mellitus with hyperglycemia (principal); Z87.891 Personal history of nicotine dependence; K21.9 Gastro-esophageal reflux disease without esophagitis; J44.9 Chronic obstructive pulmonary disease, unspecified; F41.9 Anxiety disorder, unspecified; E78.5 Hyperlipidemia, unspecified; G25.81 Restless legs syndrome; Z96.659 Presence of unspecified artificial knee joint; Z82.49 Family history of ischemic heart disease and other diseases of the circulatory system; Z80.9 Family history of malignant neoplasm, unspecified; Z79.84 Long term (current) use of oral hypoglycemic drugs; Z79.899 Other long term (current) drug therapy

== ENCOUNTER 2018-09-24 16:07 | Inpatient (IN) ==
[2018-09-24] MEDS ORDERED: ALBUT/IPRATROP 3MG/0.5MG NEB 3 ML VIAL NEB STA (16:28)
[2018-09-24 16:57] LABS: Basophils # (auto) 0.03 K/uL (0-0.2); Basophils % (auto) 0.2 %; Eosinophils # (auto) 0.11 K/uL (0-0.5); Eosinophils % (auto) 0.8 %; Hemoglobin 14.6 g/dL (14.0-18.0); Immature Granulocytes # (auto) 0.04 K/uL (0.00-0.02); Immature Granulocytes % (auto) 0.3 %; Lymphocytes # (auto) 1.57 K/uL (1.2-3.4); Lymphocytes % (auto) 11.6 %; Mean Corpuscular Hgb Conc 33.2 g/dL (32-36); Mean Corpuscular Volume 91.9 fL (80-100); Mean Platelet Volume 10.8 fL (7.4-10.4); Monocytes # (auto) 1.12 K/uL (0.11-0.59); Monocytes % (auto) 8.3 %; Neutrophils # (auto) 10.67 K/uL (1.4-6.5); Neutrophils % (auto) 78.8 %; Platelet Count 214 K/uL (130-400); RDW Coefficient of Variation 14.3 % (11.5-14.5); RDW Standard Deviation 48.7 fL (36.4-46.3); Red Blood Count 4.79 M/uL (4.7-6.1); White Blood Count 13.54 K/uL (4.8-10.8)
[2018-09-24 17:08] LABS: Partial Thromboplastin Ratio 0.9; Partial Thromboplastin Time 25.3 Seconds (21.0-31.0); Prothrombin Time 9.8 Seconds (9.0-12.0)
--- NOTE | 2018-09-24 17:12 | XRay Report ---
XR chest 1V portable CLINICAL HISTORY: Sepsis dyspnea COMPARISON STUDY: 09/04/2017 FINDINGS: Interval development of a diffuse parenchymal infiltrate left mid to lower lung. Chronic ri ght basilar interstitial change is unaltered. Pulmonary apices are clear. IMPRESSION: Interval diffuse parenchymal infiltrate left mid to lower lung region. This is superimpo sed upon baseline chronic interstitial change The above report was generated using voice recognition software. It may contain grammatical, syntax or spelling errors. Electronically signed by: Jimbo Hurst M.D. 09/24/2018 5:11 PM
[2018-09-24 17:19] LABS: Albumin Level 3.3 gm/dl (3.4-5.0); BUN Creatinine Ratio 12.8 (10-20); Calcium 8.9 mg/dl (8.5-10.1); Creatinine Clr Calc Pharmacy 82.9 ml/min; Est GFR (African American) 84.9; Est GFR (Non-African American) 73.3; Potassium 4.5 mmol/L (3.5-5.1)
[2018-09-24 17:24] LABS: Albumin Globulin Ratio 0.9 (0.9-2); Bilirubin,Total 0.7 mg/dl (0.2-1); Globulin 3.8 gm/dl (2.5-4.0); Total Protein 7.1 gm/dl (6.4-8.2)
[2018-09-24] MEDS ORDERED: PIPERACILL/TAZOBAC CONSULT ACTIVE PRN (17:42)
[2018-09-24] MEDS ORDERED: PIPERACILLIN/TAZOBACTAM 4.5 GM/120 ML BAG IV ONE (17:42)
[2018-09-24] MEDS ORDERED: SODIUM CHLORIDE 0.9% 1000ML 500 ML IV ONE (17:46)
--- NOTE | 2018-09-24 18:13 | Emergency Department Note ---
Entered by Carmel Langford acting as a scribe for History of Present Illness General Chief complaint: Illness Stated complaint: VOMITING, ACHINING ALL OVER, SOB Time Seen by Provider: 09/24/18 16:19 Source: patient History of Present Illness Onset (ago): week(s) 3 Location: chest and abdomen Pain Consistency: + intermittent Maximum Pain Intensity: 6 Quality: + other (illness) Associated symptoms: + denies other symptoms (sore throat, abdominal pain, abdominal distention), + cough, + fever/chills (chills), + headaches, + nausea/vomiting, + shortness of breath and + other (body aches, lightheaded, wheezing, diarrhea, left shoulder pain) The patient is a 68 year old male who presents to the Emergency Room with complaints of intermittent illness starting 3 weeks ago. The patient states that he has been sick with flu like symptoms 3-4 times in the last 3 weeks. He states that last night he was feeling alright, but had an unexpected episode of vomiting. He reports that he then ended up having chills the entire night and started developing body aches again. He states that he spent the majority of today in bed. He states that the 2 times he got up today to try and eat, he vomited. He notes that he started developing body aches, lightheaded, and shortness of breath so he decided to come to the ED. The patient complains of a cough, wheezing, headache, intermittent diarrhea, and left shoulder pain. He n otes that it is not better with his inhalers. The patient denies a cardiac history, sore throat, abdominal pain, abdominal distention, and a history of blood clots. He notes that he was on a heart monitor last week because his urology teacher for his COPD wanted to see how it resulted. He notes he takes a baby aspirin daily. Home Medications Home Medications Medication Instructions Recorded Confirmed Type Farxiga 5 mg PO QAM 03/14/18 09/24/18 History atorvastatin 40 mg PO QAM 03/14/18 09/24/18 History cyanocobalamin (vitamin B-12) 1,000 mcg PO QAM 03/14/18 09/24/18 History [Vitamin B-12] fluoxetine 40 mg PO QAM 03/14/18 09/24/18 History folic acid 400 mcg PO QAM 03/14/18 09/24/18 History meloxicam 15 mg PO DAILY 03/14/18 09/24/18 History omeprazole 20 mg PO QAM 03/14/18 09/24/18 History pramipexole 1 mg PO HS 03/14/18 09/24/18 History thiamine HCl (vitamin B1) [Vitamin 100 mg PO QAM 03/14/18 09/24/18 History B-1] albuterol sulfate 2 puff INHALATION Q6H PRN 03/15/18 09/24/18 History cholecalciferol (vitamin D3) 1,000 units PO QAM 03/15/18 09/24/18 History [Vitamin D3] lisinopril 5 mg PO QAM 03/16/18 09/24/18 History cephalexin [Keflex] 500 mg PO QID 09/07/18 09/24/18 History aspirin 81 mg PO DAILY 09/24/18 09/24/18 History ketorolac 1 drp OPL QID 09/24/18 09/24/18 History magnesium oxide 400 mg PO QAM 09/24/18 09/24/18 History metformin 1,000 mg PO BID 09/24/18 09/24/18 History naltrexone 50 mg PO DAILY 09/24/18 09/24/18 History ofloxacin 1 drp OPL QID 09/24/18 09/24/18 History prednisolone acetate 1 drp OPHTHALMIC (EYE) DIRECTED 09/24/18 09/24/18 History trazodone 150 mg PO HS 09/24/18 09/24/18 History Allergies Allergy/AdvReac Type Severity Reaction Status Date / Time No Known Allergies Allergy Verified 09/24/18 17:17 Past Med/Surg History Medical History Aortic valve sclerosis (Chronic) GERA (obstructive sleep apnea) (Chronic) does not have CPAP yet HTN (hypertension) (Chronic) Dyslipidemia (Chronic) GERD (gastroesophageal reflux disease) (Chronic) Anxiety (Chronic) Alcohol abuse (Chronic) RLS (restless legs syndrome) (Chronic) DM type 2 (diabetes mellitus, type 2) (Chronic) COPD (chronic obstructive pulmonary disease) (Chronic) Depression (Chronic) Hx: recurrent pneumonia (Chronic) USUALLY ANNUALLY..LAST EPISODE 09/2017, ASPIRATION PNEUMONIA WITH COPD EXAC Post op infection CURRENTLY BEING TREATED W/ ABX FOR POST OP INFECTION TOE - IN-GROWN TOENAIL REMOVED X 2 WEEKS AGO Surgical History S/P tonsillectomy and adenoidectomy (Chronic) History of total left knee replacement (Chronic) 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 History of appendectomy History of cataract surgery History of colonoscopy History of open reduction and internal fixation (ORIF) procedure left arm--hardware removed History of open reduction and internal fixation (ORIF) procedure right leg--hardware removed History of surgery right pointer finger sx with hardware placed History of tooth extraction partial upper History of total left hip arthroplasty Family History Brother Coronary heart disease Father Coronary heart disease Other No family history of adverse response to anesthesia Social History Preferred Language: Mongolian Beliefs That Will Affect Care: None Current Living Situation: Spouse and Family Current Living Situation Comment: lives with and autistic son current occupational status: retired Feels Safe at Home: Yes Smoking Status: Former smoker Hx Alcohol Use: Yes Hx Substance Use: No Review of Systems See HPI for pertinent positives & negatives. and A total of 10 systems reviewed and were otherwise negative Physical Exam Vital Signs Vital Signs - 24 hr 09/24/18 16:14 09/24/18 16:27 09/24/18 19:43 Temperature 36.5 C Temperature Source Oral Sepsis Recent Fever Within 48 Hours No Sepsis Action Taken by Nursing No Action Required Pulse Rate 95 H Pulse Rate [Right Finger] 88 Respiratory Rate 18 18 Respiratory Effort / Characteristics Non-Labored Spontaneous Respiratory Depth Normal Blood Pressure 125/77 Blood Pressure [Right Arm] 116/57 L Blood Pressure Mean 93 Blood Pressure Mean [Right Arm] 76 Blood Pressure Position Sitting Pulse Oximetry 92 85 L Oxygen Delivery Method Room Air Room Air Oxygen Flow Rate 09/24/18 19:44 Temperature Temperature Source Sepsis Recent Fever Within 48 Hours Sepsis Action Taken by Nursing Pulse Rate Pulse Rate [Right Finger] Respiratory Rate Respiratory Effort / Characteristics Respiratory Depth Blood Pressure Blood Pressure [Right Arm] Blood Pressure Mean Blood Pressure Mean [Right Arm] Blood Pressure Position Pulse Oximetry 93 Oxygen Delivery Method Nasal Cannula Oxygen Flow Rate 2 General: Non-ill appearing older male in no acute distress. HEENT: Normal cephalic atraumatic. Pupils are equal round and reactive to light. Extraocular movements are intact. Oropharynx is pink with moist mucous membranes. No swelling of the mouth lips or tongue. Neck: Supple with a midline trachea. No meningeal signs or stiffness, no JVD or bruits. No Stridor. Chest: Clear to auscultation bilaterally. No wheezes or rhonchi. No increased work of breathing. Heart: regular rate and rhythm. Abdomen: Soft nontender, nondistended without rebound guarding or rigidity. Extremities: No cyanosis clubbing or edema. No calf tenderness or assymetry Spine/Back. Non tender to palpation. No CVA tenderness Skin: Good turgor without rashes. Neurologic exam: Cranial nerves two through 12 are intact. Motor and sensation are intact and symmetrical throughout. Course 1620: The patient was evaluated in room B10, and a complete history and physical examination were performed. 1744: I reevaluated the patient and updated him on his test results. I discussed the treatment plan with him. He verbally agrees and understands. 175: I reviewed the patient's case with QIANA Bower. She will evaluate the patient for further management. Consultations Consultation #1: I reviewed the patient's case with QIANA Bower. She will evaluate the patient for further management. Time: 17:51 Administered Medications Discontinued Medications Albuterol (Duoneb) 3 ml NEB NOW STA Stop: 09/24/18 16:29 Last Admin: 09/24/18 16:37 Dose: 3 ml Documented by: [id number] Piperacillin Sod/Tazobactam Sod (Zosyn) 4.5 gm in 120 mls @ 240 mls/hr IV NOW ONE Stop: 09/24/18 18:11 Last Infusion: 09/24/18 19:37 Dose: 0 mls/hr Documented by: [id number] Admin: 09/24/18 18:30 Dose: 240 mls/hr Documented by: [id number] Sodium Chloride (Nss 1000ml) 500 mls @ 999 mls/hr IV .Q31M ONE Stop: 09/24/18 18:16 Last Infusion: 09/24/18 19:36 Dose: 0 mls/hr Documented by: [id number] Admin: 09/24/18 18:30 Dose: 999 mls/hr Documented by: [id number] Medical Decision Making Differential Diagnosis Differential diagnoses include pneumonia, sepsis, CHF, dehydration, electrolyte or metabolic abnormality, cardiac disease. Medical Records Attestation: I reviewed the patient's medical records. Home Medications Current Medication List: was personally reviewed by me Laboratory Data Attestation: I reviewed the patient's lab results. Result diagrams: 09/24/18 16:44 09/24/18 16:44 Lab Results 09/24/18 09/24/18 09/24/18 Range/Units 16:41 16:42 16:44 WBC 13.54 H (4.8-10.8) K/uL RBC 4.79 (4.7-6.1) M/uL Hgb 14.6 (14.0-18.0) g/dL Hct 44.0 (42-52) % MCV 91.9 (80-100) fL MCH 30.5 (25-34) pg MCHC 33.2 (32-36) g/dL RDW Std Deviation 48.7 H (36.4-46.3) fL RDW Coeff of Brie 14.3 (11.5-14.5) % Plt Count 214 (130-400) K/uL MPV 10.8 H (7.4-10.4) fL Immature Gran % (Auto) 0.3 % Neut % (Auto) 78.8 % Lymph % (Auto) 11.6 % [place] % (Auto) 8.3 % Eos % (Auto) 0.8 % Baso % (Auto) 0.2 % Immature Gran # (Auto) 0.04 H (0.00-0.02) K/uL Neut # (Auto) 10.67 H (1.4-6.5) K/uL Lymph # (Auto) 1.57 (1.2-3.4) K/uL [place] # (Auto) 1.12 H (0.11-0.59) K/uL Eos # (Auto) 0.11 (0-0.5) K/uL Baso # (Auto) 0.03 (0-0.2) K/uL PT (9.0-12.0) Seconds INR (0.9-1.1) APTT (21.0-31.0) Seconds PTT Ratio Sodium (136-145) mmol/L Potassium (3.5-5.1) mmol/L Chloride (98-107) mmol/L Carbon Dioxide (21-32) mmol/L Anion Gap (3-11) BUN (7-18) mg/dl Creatinine (0.6-1.4) mg/dl Est Cr Clr Drug Dosing ml/min Est GFR ( Amer) Est GFR (Non-Af Amer) BUN/Creatinine Ratio (10-20) Glucose (70-99) mg/dl POC Lactic Acid Erik 1.17 (0.90-1.70) mmol/L Calcium (8.5-10.1) mg/dl Total Bilirubin (0.2-1) mg/dl AST (15-37) U/L ALT (12-78) U/L Alkaline Phosphatase (45-117) U/L POC Troponin I < 0.03 (0-0.045) ng/ml NT-Pro-B Natriuret Pep (0-900) pg/ml Total Protein (6.4-8.2) gm/dl Albumin (3.4-5.0) gm/dl Globulin (2.5-4.0) gm/dl Albumin/Globulin Ratio (0.9-2) Influenza Type A (PCR) (Neg) Influenza Type B (PCR) (Neg) 09/24/18 09/24/18 09/24/18 Range/Units 16:44 16:44 18:48 WBC (4.8-10.8) K/uL RBC (4.7-6.1) M/uL Hgb (14.0-18.0) g/dL Hct (42-52) % MCV (80-100) fL MCH (25-34) pg MCHC (32-36) g/dL RDW Std Deviation (36.4-46.3) fL RDW Coeff of Brie (11.5-14.5) % Plt Count (130-400) K/uL MPV (7.4-10.4) fL Immature Gran % (Auto) % Neut % (Auto) % Lymph % (Auto) % [place] % (Auto) % Eos % (Auto) % Baso % (Auto) % Immature Gran # (Auto) (0.00-0.02) K/uL Neut # (Auto) (1.4-6.5) K/uL Lymph # (Auto) (1.2-3.4) K/uL [place] # (Auto) (0.11-0.59) K/uL Eos # (Auto) (0-0.5) K/uL Baso # (Auto) (0-0.2) K/uL PT 9.8 (9.0-12.0) Seconds INR 1.0 (0.9-1.1) APTT 25.3 (21.0-31.0) Seconds PTT Ratio 0.9 Sodium 137 (136-145) mmol/L Potassium 4.5 (3.5-5.1) mmol/L Chloride 102 (98-107) mmol/L Carbon Dioxide 29 (21-32) mmol/L Anion Gap 6.0 (3-11) BUN 13 (7-18) mg/dl Creatinine 1.03 (0.6-1.4) mg/dl Est Cr Clr Drug Dosing 82.9 ml/min Est GFR ( Amer) 84.9 Est GFR (Non-Af Amer) 73.3 BUN/Creatinine Ratio 12.8 (10-20) Glucose 222 H (70-99) mg/dl POC Lactic Acid Erik (0.90-1.70) mmol/L Calcium 8.9 (8.5-10.1) mg/dl Total Bilirubin 0.7 (0.2-1) mg/dl AST 11 L (15-37) U/L ALT 24 (12-78) U/L Alkaline Phosphatase 137 H (45-117) U/L POC Troponin I (0-0.045) ng/ml NT-Pro-B Natriuret Pep 36 (0-900) pg/ml Total Protein 7.1 (6.4-8.2) gm/dl Albumin 3.3 L (3.4-5.0) gm/dl Globulin 3.8 (2.5-4.0) gm/dl Albumin/Globulin Ratio 0.9 (0.9-2) Influenza Type A (PCR) Neg for Influ A (Neg) Influenza Type B (PCR) Neg for Influ B (Neg) Imaging Data Radiologist's Impression: Radiology results as stated below per my review and the radiologist's interpretation: XR chest 1V portable CLINICAL HISTORY: Sepsis dyspnea COMPARISON STUDY: 09/04/2017 FINDINGS: Interval development of a diffuse parenchymal infiltrate left mid to lower lung. Chronic right basilar interstitial change is unaltered. Pulmonary apices are clear. IMPRESSION: Interval diffuse parenchymal infiltrate left mid to lower lung region. This is superimposed upon baseline chronic interstitial change The above report was generated using voice recognition software. It may contain grammatical, syntax or spelling errors. Electronically signed by: Jimbo Hurst M.D. 09/24/2018 5:11 PM ECG Data Attestation: I personally reviewed and interpreted this ECG as follows: Indication: SOB/dyspnea Rate (beats per minute): 93 Rhythm: normal sinus Findings: no PAC, no PVC, no ST depression, no ST elevation, no acute ischemic change and no ectopy Comparison ECG Date: from (03/16/2018) Change: no significant change Blood Pressure Blood Pressure Findings: Normal blood pressure Blood Pressure Disposition: did not require urgent referral MDM Narrative This patient comes in as described above he has had a cough and URI type symptoms he says it feels like his previous pneumonia which he gets about once a year. He had flulike symptoms off and on for a couple weeks. IV access was established blood work was obtained including blood cultures. white count is elevated at 15 . he does have an infiltrate on x-ray he was given gentle IV hydration. he is normotensive here and his lactic acid is normal. He was given Zosyn 4.5 g IV for broad-spectrum antibiotic coverage. EKG does not suggest any acute ischemic changes or ischemia. He will be admitted/observe for further inpatient treatment. Impression & Plan Pneumonia Discharge Plan Visit Data Chief Complaint: Illness Stated Complaint: VOMITING, ACHINING ALL OVER, SOB ED Provider: Dre Sears Discharge Problem: Pneumonia Patient Disposition: Being Evaluated by Hospitalist Discharge Instructions Interventions: ED Discharge Assessment Last Done: 09/24/18 19:53 Discharge Problem: Pneumonia Qualifiers: Pneumonia type: due to unspecified organism Laterality: left Lung location: lower lobe of lung Qualified Code(s): J18.1 - Lobar pneumonia, unspecified organism The scribe's documentation has been prepared under my direction and personally reviewed by me in its entirety. I confirm that the note above accurately reflects all work, treatment, procedures, and medical decision making performed by me.
--- NOTE | 2018-09-24 19:37 | History & Physical Report ---
Date of Service September 24, 2018 Assessment & Plan (1) Pneumonia: This is a 68yo M with a PMH of COPD, DM II, HTN, HLD, GERA (not using CPAP), GERD, anxiety and other medical problems listed below who presents with ongoing productive cough and wheezing for the past 3 weeks and was found to have left lower lobe pneumonia. -History of recurrent pneumonia, aspiration thought to be contributing but October 2017 swallow study was negative for aspiration -Afebrile, leukocytosis at 13.5 K. CXR with interval diffuse parenchymal infiltrate left mid to lower lung region. This is superimposed upon baseline chronic interstitial change -Will continue Zosyn for empiric coverage. Follow blood culture -Flu PCR negative. CXR without evidence of volume overload. Most recent 2D echo in Mar 2018 with preserved EF at 60-65%, grade 1 diastolic dysfunction -Scheduled duo nebs and home inhaler -Supplemental O2 PRN (2) HTN (hypertension): Normotensive -Continue home dose lisinopril (3) COPD (chronic obstructive pulmonary disease): Mild obstructive disease per PFTs, follows with [facility] -Continue albuterol inhalers, encourage compliance (4) DM type 2 (diabetes mellitus, type 2): A1c of 8.4 in April 2018. Repeat ordered -Hold home agents -SSI while in-patient -BSG AC HS (5) Alcohol abuse: History of heavy alcohol use, has decreased to 2 7 oz beers daily -Alcohol at risk protocol with Ativan as needed -Continue home naltrexone, thiamine, folic acid (6) GERD (gastroesophageal reflux disease): Continue PPI (7) Anxiety: Continue fluoxetine (8) Dyslipidemia: Continue atorvastatin (9) Ingrown toenail with infection: Continue Keflex 4 times daily (10) DVT prophylaxis: SQ Lovenox Code status: FULL PCP: [place] Dispo: Admitted [facility]. Plan to return home once medically stable. Patient seen in collaboration withDr. Metcalf. Please see addendum. History of Present Illness Chief Complaint: cough, shortness of breath Primary Care Provider: Jimbo Rhoades MD This is a 68yo M with a PMH of COPD, DM II, HTN, HLD, GERA (not using CPAP), GERD, anxiety and other medical problems listed below who presents with ongoing productive cough and wheezing for the past 3 weeks. States that he has been treated for pneumonia around this time of year for the past 4 years. Was evaluated in the ED 14 days ago for possible flu, but flu PCR was negative. Has continued to have subjective fever, chills, productive cough with yellowish sputum and some wheezing for the past few weeks. Has been taking home inhalers without much improvement. Feels short of breath when speaking or ambulating. Saturating at 93% on 2 L nasal cannula. In the ED, was found to be hemodynamically stable, afebrile. Leukocytosis at 13.5k. Flu PCR negative. Chest x-ray with evidence of left lower lobe infiltrate. Was started on Zosyn in the ED as well as receiving a breathing treatment with some improvement. Currently, denies any fever, chills, lightheadedness, headache, chest pain, palpitations, hemoptysis, nausea, abdominal pain, dysuria, diarrhea, constipation or lower extremity swelling. Of note, follows with pulmonology for mild COPD and emesis after coughing. Underwent a video swallow study due to concern for aspiration in in October 2017, which was negative. Allergies Allergy/AdvReac Type Severity Reaction Status Date / Time No Known Allergies Allergy Verified 09/24/18 17:17 Home Medications Home Medications Medication Instructions Recorded Confirmed Type Farxiga 5 mg PO QAM 03/14/18 09/24/18 History atorvastatin 40 mg PO QAM 03/14/18 09/24/18 History cyanocobalamin (vitamin B-12) 1,000 mcg PO QAM 03/14/18 09/24/18 History [Vitamin B-12] fluoxetine 40 mg PO QAM 03/14/18 09/24/18 History folic acid 400 mcg PO QAM 03/14/18 09/24/18 History meloxicam 15 mg PO DAILY 03/14/18 09/24/18 History omeprazole 20 mg PO QAM 03/14/18 09/24/18 History pramipexole 1 mg PO HS 03/14/18 09/24/18 History thiamine HCl (vitamin B1) [Vitamin 100 mg PO QAM 03/14/18 09/24/18 History B-1] albuterol sulfate 2 puff INHALATION Q6H PRN 03/15/18 09/24/18 History cholecalciferol (vitamin D3) 1,000 units PO QAM 03/15/18 09/24/18 History [Vitamin D3] lisinopril 5 mg PO QAM 03/16/18 09/24/18 History cephalexin [Keflex] 500 mg PO QID 09/07/18 09/24/18 History aspirin 81 mg PO DAILY 09/24/18 09/24/18 History ketorolac 1 drp OPL QID 09/24/18 09/24/18 History magnesium oxide 400 mg PO QAM 09/24/18 09/24/18 History metformin 1,000 mg PO BID 09/24/18 09/24/18 History naltrexone 50 mg PO DAILY 09/24/18 09/24/18 History prednisolone acetate 1 drp OPL TID 09/24/18 09/24/18 History trazodone 150 mg PO HS 09/24/18 09/24/18 History Past Med/Surg History Medical History Post op infection (Chronic) CURRENTLY BEING TREATED W/ ABX FOR POST OP INFECTION TOE - IN-GROWN TOENAIL REMOVED X 2 WEEKS AGO Hx: recurrent pneumonia (Chronic) USUALLY ANNUALLY..LAST EPISODE 09/2017, ASPIRATION PNEUMONIA WITH COPD EXAC Depression (Chronic) Aortic valve sclerosis (Chronic) GERA (obstructive sleep apnea) (Chronic) does not have CPAP yet HTN (hypertension) (Chronic) Dyslipidemia (Chronic) GERD (gastroesophageal reflux disease) (Chronic) Anxiety (Chronic) Alcohol abuse (Chronic) RLS (restless legs syndrome) (Chronic) DM type 2 (diabetes mellitus, type 2) (Chronic) COPD (chronic obstructive pulmonary disease) (Chronic) Surgical History S/P tonsillectomy and adenoidectomy (Chronic) History of total left knee replacement (Chronic) 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 History of appendectomy (Resolved) History of cataract surgery (Resolved) History of open reduction and internal fixation (ORIF) procedure (Resolved) right leg--hardware removed History of tooth extraction (Resolved) partial upper History of total left hip arthroplasty (Resolved) Social History Preferred Language: Spanish Communication Ability: Effective Electronic Assembler Required: No Beliefs That Will Affect Care: None Current Living Situation: Alone and Spouse Current Living Situation Comment: lives with and autistic son current occupational status: retired Other Information That Helps Us Care for You: No Feels Safe at Home: Yes Safety Concerns: Feels Safe At This Time Smoking Status: Former smoker Hx Alcohol Use: Yes Hx Substance Use: No Review of Systems Ten systems reviewed and negative except as noted in the HPI. Physical Exam Vital Signs (Past 24 Hours): Last Vital Signs Temp 36.5 C 09/24/18 16:14 Pulse 95 H 09/24/18 16:14 Resp 18 09/24/18 16:14 BP 125/77 09/24/18 16:14 Pulse Ox 92 09/24/18 16:14 Physical Exam: General Appearance: WD/WN, no apparent distress, resting comfortably, obese. Able to speak in full sentences but appears short of breath Head: normocephalic, atraumatic Eyes: normal inspection, PERRL, EOMI ENT: hearing grossly normal, pharynx normal (moist mucous membranes) Neck: supple, + JVD, no adenopathy Respiratory/Chest: scattered wheezes bilaterally, rales at left lung base. No accessory muscle use Cardiovascular: regular rate, rhythm, no murmur, normal peripheral pulses Abdomen/GI: protuberant abdomen, normal bowel sounds, soft, non-tender to palpation Extremities/Musculoskelatal: normal inspection, no calf tenderness, normal capillary refill, no pedal edema Neurologic/Psych: alert, normal mood/affect, oriented x 3 Skin: normal color, warm/dry Results & Data Laboratory Results Short CBC 09/24/18 Range/Units 16:44 WBC 13.54 H (4.8-10.8) K/uL Hgb 14.6 (14.0-18.0) g/dL Hct 44.0 (42-52) % Plt Count 214 (130-400) K/uL BMP 09/24/18 16:44 Sodium 137 Potassium 4.5 Chloride 102 Carbon Dioxide 29 BUN 13 Creatinine 1.03 Glucose 222 H Calcium 8.9 Liver Function 09/24/18 Range/Units 16:44 Total Bilirubin 0.7 (0.2-1) mg/dl AST 11 L (15-37) U/L ALT 24 (12-78) U/L Alkaline Phosphatase 137 H (45-117) U/L Albumin 3.3 L (3.4-5.0) gm/dl Diagnostic Findings CXR: IMPRESSION: Interval diffuse parenchymal infiltrate left mid to lower lung region. This is superimposed upon baseline chronic interstitial change Supervising Physician Co-Signing Physician Notes I have seen and examined the patient and have discussed the case with the provider above. I agree with the assessment and plan as stated. 68 yo M with pneumonia. Reports some nausea, vomiting and diarrhea throughout the last 24 hours after attending a banquet at the [facility] yesterday. Chills this am consistent with pneumonia. He reports feeling short of breath prior to any GI symptoms, however. Cont Zosyn (hold Kelfex), neb treatments. Blood cultures pending. Pt not septic. Physical exam reveals no conversational dyspnea on oxygen supplementation. Pt reports that he was on home oxygen for one year, was taken off, then told by his voice intercept technician recently that he should have it back again. May require a two-step prior to discharge. Otherwise rales auscultated. Cont plan as above. DO Dixon (1) Pneumonia Laterality: left Lung location: lower lobe of lung Pneumonia type: due to unspecified organism Qualified Code(s): J18.1 - Lobar pneumonia, unspecified organism
[2018-09-24 19:40] LABS: Influenza A virus by PCR Neg for Influ A (Neg); Influenza B virus by PCR Neg for Influ B (Neg)
[2018-09-24] MEDS ORDERED: GLUCAGON FOR INJ 1 MG VIAL SQ PRN (20:19)
[2018-09-24] MEDS ORDERED: GLUCOSE 40% GEL 15 GM TUBE PO PRN (20:19)
[2018-09-24] MEDS ORDERED: GLUCOSE 10 TABS/TUBE PO PRN (20:19)
[2018-09-24] MEDS ORDERED: CARBOHYDRATES FOR HYPOGLYCEMIA PO PRN (20:19)
[2018-09-24] MEDS ORDERED: DEXTROSE 50% 50 ML SYRINGE IV PRN (20:19)
[2018-09-24] MEDS ORDERED: POLYETHYLENE (MIRALAX) 17 GM PACK PO PRN (20:19)
[2018-09-24] MEDS ORDERED: ONDANSETRON INJ 2 MG/ML 2 ML VIAL IV PRN (20:19)
[2018-09-24] MEDS ORDERED: ALBUTEROL HFA 8 GM INHALER INH PRN (20:19)
[2018-09-24] MEDS ORDERED: LORazepam 1 MG TAB PO PRN (20:37)
[2018-09-24] MEDS ORDERED: cephALEXin 500 MG CAP PO SCH (21:00)
[2018-09-24] MEDS ORDERED: OFLOXACIN 0.3% OP SOLN 5 ML BTL OPL SCH (21:00)
[2018-09-24] MEDS ORDERED: INSULIN GLARGINE SOLOSTAR 100 UNITS/ML 3 ML PEN SC SCH (21:30)
[2018-09-24] MEDS: ALBUT/IPRATROP 3MG/0.5MG NEB 3 ML VIAL NEB SCH (21:52)
[2018-09-24] MEDS: prednisoLONE acetate 1% OP SUSP 5 ML BTL OPL SCH (22:30)
[2018-09-24] MEDS: TRAZODONE HCL 50 MG TAB PO SCH (22:37)
[2018-09-24] MEDS: PRAMIPEXOLE DIHYDROCHLO 0.5 MG TAB PO SCH (22:37)
[2018-09-24] MEDS: ENOXAPARIN INJ 40 MG/0.4 ML SYR SQ SCH (22:38)
[2018-09-24] MEDS: KETOROLAC 0.5% OP SOLN 5 ML BTL OPL SCH (22:40)
[2018-09-24] MEDS: INSULIN ASPART 100 UNITS/ML 3 ML PEN SC SCH (22:40)
[2018-09-25] MEDS: PIPERACILLIN/TAZOBACTAM 4.5 GM in DEXTROSE 5% 100 ML IV SCH ×3 (00:30→15:49)
[2018-09-25 07:04] LABS: Hematocrit (blood only) 41.8 % (42-52); Hemoglobin 13.8 g/dL (14.0-18.0); Mean Corpuscular Volume 92.7 fL (80-100); Mean Platelet Volume 10.8 fL (7.4-10.4); Platelet Count 189 K/uL (130-400); RDW Coefficient of Variation 14.6 % (11.5-14.5); RDW Standard Deviation 49.8 fL (36.4-46.3); Red Blood Count 4.51 M/uL (4.7-6.1); White Blood Count 8.95 K/uL (4.8-10.8)
[2018-09-25] MEDS: ALBUT/IPRATROP 3MG/0.5MG NEB 3 ML VIAL NEB SCH ×4 (07:10→19:18)
[2018-09-25] MEDS: ACETAMINOPHEN 325 MG TAB PO PRN (07:13)
[2018-09-25 07:28] LABS: BUN Creatinine Ratio 11.7 (10-20); Creatinine Clr Calc Pharmacy 88.7 ml/min; Est GFR (African American) 93.6; Est GFR (Non-African American) 80.8; Potassium 4.1 mmol/L (3.5-5.1)
[2018-09-25] MEDS: INSULIN ASPART 100 UNITS/ML 3 ML PEN SC SCH ×4 (07:51→21:37)
[2018-09-25] MEDS: FLUOXETINE HCL 20 MG CAP PO SCH (07:52)
[2018-09-25] MEDS: MELOXICAM 7.5 MG TAB PO SCH (07:53)
[2018-09-25] MEDS: CYANOCOBALAMIN 500 MCG TABLET (VITAMIN B-12) PO SCH (07:53)
[2018-09-25] MEDS: ATORVASTATIN 40 MG TAB PO SCH (07:53)
[2018-09-25] MEDS: LISINOPRIL 5 MG TAB PO SCH (07:53)
[2018-09-25] MEDS: CHOLECALCIFEROL 1,000 UNITS TAB PO SCH (07:53)
[2018-09-25] MEDS: THIAMINE HCL 100 MG TAB PO SCH (07:54)
[2018-09-25] MEDS: PANTOprazole 40 MG TAB PO SCH (07:54)
[2018-09-25] MEDS: FOLIC ACID 400 MCG TAB PO SCH (07:54)
[2018-09-25] MEDS: ASPIRIN 81 MG ECTAB PO SCH (07:54)
[2018-09-25] MEDS: NALTREXONE HCL 50 MG TAB PO SCH (07:54)
[2018-09-25] MEDS: KETOROLAC 0.5% OP SOLN 5 ML BTL OPL SCH ×4 (07:54→21:33)
[2018-09-25] MEDS: MAGNESIUM OXIDE 400 MG TAB PO SCH (07:55)
[2018-09-25] MEDS: prednisoLONE acetate 1% OP SUSP 5 ML BTL OPL SCH ×3 (07:55→21:33)
[2018-09-25 10:01] LABS: Estimated Average Glucose 246 mg/dl; Hemoglobin A1C 10.2 % (4.5-5.6)
--- NOTE | 2018-09-25 19:20 | Hospitalist Progress Note ---
Date of Service September 25, 2018 Assessment & Plan (1) Pneumonia: Patient is a a 68yr male with H/O COPD, DM II, HTN, HLD, GERA (not using CPAP), GERD, anxiety and other medical problems listed below who presents with ongoing productive cough and wheezing for the past 3 weeks and was found to have left lower lobe pneumonia. Left Lower Lobe Pneumonia: H/O recurrent pneumonia, aspiration thought to be contributing but October 2017 swallow study was negative for aspiration CXR:Interval diffuse parenchymal infiltrate left mid to lower lung region. This is superimposed upon baseline chronic interstitial change Influenza Screen: Negative Leukocytosis resolved Continue Zosyn Day # 2 Blood Culture pending Continue Nebs, home inhalers Consider Pulmnology if no improvement Supplemental Oxygen PRN (2) HTN (hypertension): Stable Continue lisinopril (3) COPD (chronic obstructive pulmonary disease): Mild obstructive disease per PFTs, follows with [place] [facility] Continue Nebs, encourage compliance May need to start on Prednisone if no improvement (4) DM type 2 (diabetes mellitus, type 2): A1c:10.2 Hold home agents Continue SSI while in-patient Monitor BSG Pharmacy consulted for glycemic management (5) Alcohol abuse: H/O heavy alcohol use, trying to decrease Alcohol at risk protocol with Ativan as needed Continue home naltrexone, thiamine, folic acid (6) GERD (gastroesophageal reflux disease): Continue PPI (7) Anxiety: Continue fluoxetine (8) Dyslipidemia: Continue atorvastatin (9) Ingrown toenail with infection: On Keflex 4 times daily at home On Zosyn currently (10) DVT prophylaxis: SQ Lovenox Code status: FULL Subjective Patient is seen and examined at bedside Reports cough with yellowish expectoration Less SOB today Denies chest pain, dizziness, nausea No other complaints Physical Exam Vital Signs (Past 24 Hours): Last Vital Signs Temp 36.8 C 09/25/18 15:20 Pulse 78 09/25/18 15:21 Resp 16 09/25/18 15:21 BP 119/64 09/25/18 15:20 Pulse Ox 96 09/25/18 15:21 Physical Exam: Physical Exam: Vitals signs as noted above General Appearance:Moderately built and nourished, no apparent distress Head: normocephalic, Atraumatic Eyes: normal inspection, EOMI Neck: supple, Trachea midline Respiratory/Chest: Decreased breath sounds, + Ronchi Cardiovascular: S1, S2, No murmur Abdomen/GI:Soft, Non tender, Bowel sounds present Extremities/Musculoskelatal:normal inspection, Trace edema Neurologic/Psych:AAOX3, grossly no focal neurological deficits Skin: normal color, warm Results & Data Laboratory Results Short CBC 09/25/18 Range/Units 06:45 WBC 8.95 (4.8-10.8) K/uL Hgb 13.8 L (14.0-18.0) g/dL Hct 41.8 L (42-52) % Plt Count 189 (130-400) K/uL BMP 09/25/18 06:45 Sodium 138 Potassium 4.1 Chloride 102 Carbon Dioxide 31 BUN 11 Creatinine 0.95 Glucose 201 H Calcium 9.0 (1) Pneumonia Laterality: left Lung location: lower lobe of lung Pneumonia type: due to unspecified organism Qualified Code(s): J18.1 - Lobar pneumonia, unspecified organism
[2018-09-25] MEDS ORDERED: PHARMACY GLYCEMIC MGMT CONSULT PRN (19:25)
[2018-09-25] MEDS ORDERED: INSULIN GLARGINE SOLOSTAR 100 UNITS/ML 3 ML PEN SC STA (20:27)
[2018-09-25] MEDS: ENOXAPARIN INJ 40 MG/0.4 ML SYR SQ SCH (21:33)
[2018-09-25] MEDS: TRAZODONE HCL 50 MG TAB PO SCH (21:34)
[2018-09-25] MEDS: PRAMIPEXOLE DIHYDROCHLO 0.5 MG TAB PO SCH (21:36)
[2018-09-26] MEDS: PIPERACILLIN/TAZOBACTAM 4.5 GM in DEXTROSE 5% 100 ML IV SCH ×2 (00:54→08:57)
[2018-09-26] MEDS ORDERED: INSULIN ASPART 100 UNITS/ML 3 ML PEN SC ONE (02:00)
[2018-09-26] MEDS: ACETAMINOPHEN 325 MG TAB PO PRN (05:49)
[2018-09-26] MEDS: ALBUT/IPRATROP 3MG/0.5MG NEB 3 ML VIAL NEB SCH ×4 (07:23→19:56)
[2018-09-26 08:00] LABS: Hematocrit (blood only) 43.1 % (42-52); Hemoglobin 13.7 g/dL (14.0-18.0); Mean Corpuscular Hgb Conc 31.8 g/dL (32-36); Mean Corpuscular Volume 94.9 fL (80-100); Mean Platelet Volume 10.7 fL (7.4-10.4); Platelet Count 194 K/uL (130-400); RDW Coefficient of Variation 14.7 % (11.5-14.5); Red Blood Count 4.54 M/uL (4.7-6.1); White Blood Count 8.53 K/uL (4.8-10.8)
[2018-09-26 08:17] LABS: BUN Creatinine Ratio 14.7 (10-20); Calcium 9.3 mg/dl (8.5-10.1); Creatinine Clr Calc Pharmacy 74.4 ml/min; Est GFR (African American) 75.1; Est GFR (Non-African American) 64.8; Potassium 4.3 mmol/L (3.5-5.1)
[2018-09-26] MEDS: INSULIN ASPART 100 UNITS/ML 3 ML PEN SC SCH ×4 (08:59→20:49)
[2018-09-26] MEDS: KETOROLAC 0.5% OP SOLN 5 ML BTL OPL SCH ×4 (09:00→20:43)
[2018-09-26] MEDS: ASPIRIN 81 MG ECTAB PO SCH (09:00)
[2018-09-26] MEDS: FOLIC ACID 400 MCG TAB PO SCH (09:00)
[2018-09-26] MEDS: ATORVASTATIN 40 MG TAB PO SCH (09:01)
[2018-09-26] MEDS: MAGNESIUM OXIDE 400 MG TAB PO SCH (09:01)
[2018-09-26] MEDS: NALTREXONE HCL 50 MG TAB PO SCH (09:02)
[2018-09-26] MEDS: MELOXICAM 7.5 MG TAB PO SCH (09:02)
[2018-09-26] MEDS: prednisoLONE acetate 1% OP SUSP 5 ML BTL OPL SCH ×3 (09:02→20:43)
[2018-09-26] MEDS: FLUOXETINE HCL 20 MG CAP PO SCH (09:03)
[2018-09-26] MEDS: PANTOprazole 40 MG TAB PO SCH (09:03)
[2018-09-26] MEDS: CYANOCOBALAMIN 500 MCG TABLET (VITAMIN B-12) PO SCH (09:03)
[2018-09-26] MEDS: THIAMINE HCL 100 MG TAB PO SCH (09:04)
[2018-09-26] MEDS: LISINOPRIL 5 MG TAB PO SCH (09:04)
[2018-09-26] MEDS: CHOLECALCIFEROL 1,000 UNITS TAB PO SCH (09:04)
[2018-09-26] MEDS ORDERED: INSULIN GLARGINE SOLOSTAR 100 UNITS/ML 3 ML PEN SC ONE (13:30)
--- NOTE | 2018-09-26 14:24 | Pharmacy Report ---
Glycemic Control Consultation - Date of Service September 26, 2018 - Scope Scope: Glycemic Pharmacist consulted by Dr Antony on 09/26/18 for glycemic control and to write orders per [facility] inpatient glycemic control protocol - Objective Weight: 108.5 kg Accuchecks BSG (last 24hrs): 09/25/18 09/25/18 09/26/18 16:28 20:40 02:36 Glucose POC Glucose 279 H 217 H 371 H* 09/26/18 09/26/18 09/26/18 02:40 07:41 07:50 Glucose 125 H POC Glucose 269 H 114 H 09/26/18 11:14 Glucose POC Glucose 268 H Laboratory Data (last 24hrs): 09/26/18 07:50 Potassium 4.3 Carbon Dioxide 32 Anion Gap 4.0 Creatinine 1.14 Est Cr Clr Drug Dosing 74.4 HbA1c: Hemoglobin A1c 10.2 % (4.5-5.6) H 09/25/18 06:45 - Recent Pertinent Medications Outpatient Anti-diabetic Regimen: * Metformin 1000 mg BID * Farxiga 5 mg PO QAM * A1c = 10.2 % on 09/25/18 The patient is currently receiving: * Basal insulin: Lantus 25 units x1 HS yesterday * Correctional Insulin: Novolog Correction per scale ACHS Goal Range: Low 110 mg/dL - High 140 mg/dL Correction Factor: 15 mg/dL/unit * Prandial insulin: Per carb ratio of 1 unit per 5 grams CHO consumed * Oral Agents: Hold oral Anti-diabetic meds Risk Factors for Insulin Resistance: * Steroids: none * Infection: on Zosyn * Pressors: none * IVF: none * Recent Surgery: none * Diet: T2DM * Mechanical Ventilation: N/A - Assessment & Plan Assessment & Plan: ASSESSMENT: * 68 y/o patient admitted for Pneumonia and started on Zosyn. He is on Metformin and Farxiga at home for Diabetes. * A1c of 10.2% indicates poorly controlled diabetes. * Basal + Bolus insulin was started upon admission. Pharmacy consulted yesterday and insulin doses (Novolog + Lantus) adjusted based on weight and stress of 3. * Patient received 66 units of insulin yesterday; of which 25 units was Lantus. He received 9 units of insulin overnight. BSGs overall has been above goal and above 200. * Lantus 15 units ordered this AM plus a scale at HS. PLAN FOR INPATIENT GLYCEMIC CONTROL: * Holding outpatient oral diabetes medications * Basal insulin- increased * Lantus 15 units SQ this AM then per scale at HS - for BSG less than 120- give 15 units; for BSG 120-180 - give 20 units; for BSG > 180- give 25 units. * Bolus insulin- continued * NovoLog per scale ACHS or Q6hrs while NPO * Goal Range: Low 110 mg/dL - High 140 mg/dL * Correction Factor: 15 mg/dL/unit * Nutritional / Prandial insulin per carb ratio of 1 unit per 5 grams CHO consumed * Please note that the plan above was derived based on current level of insulin resistance and hospital stress. These recommendations are appropriate for inpatient admission only. Plan of care upon discharge will need to be reassessed to avoid potential outpatient hypo/hyperglycemia. Thank you.
[2018-09-26] MEDS ORDERED: AZITHROMYCIN 250 MG TAB PO ONE (15:00)
[2018-09-26] MEDS: AMOXICILLIN/CLAVULANATE 875 MG TAB PO SCH (17:36)
--- NOTE | 2018-09-26 18:01 | Hospitalist Progress Note ---
Date of Service September 26, 2018 Assessment & Plan (1) Pneumonia: Patient is a a 68yr male with H/O COPD, DM II, HTN, HLD, GERA (not using CPAP), GERD, anxiety and other medical problems listed below who presents with ongoing productive cough and wheezing for the past 3 weeks and was found to have left lower lobe pneumonia. Left Lower Lobe Pneumonia: H/O recurrent pneumonia, aspiration thought to be contributing but October 2017 swallow study was negative for aspiration admission CXR:Interval diffuse parenchymal infiltrate left mid to lower lung region. This is superimposed upon baseline chronic interstitial change Influenza Screen: Negative patient has been on Zosyn from admission and transitioned to oral Augmentin and Azithromycin starting on 09/26/18 as there are clinical improvements and blood cultures no growth to date Patient have coughing especially when taking deep breaths. patient passed 2 step and breathing on room air at rest and with ambulation on 09/26/18 Continue Nebs, home inhalers (2) HTN (hypertension): Continue lisinopril (3) COPD (chronic obstructive pulmonary disease): Mild obstructive disease per PFTs, follows with [place] [facility] Continue Nebs, encourage compliance (4) DM type 2 (diabetes mellitus, type 2): A1c:10.2 Hold home agents Continue SSI while in-patient Monitor BSG Pharmacy consulted for glycemic management (5) Alcohol abuse: H/O heavy alcohol use, trying to decrease Alcohol at risk protocol with Ativan as needed Continue home naltrexone, thiamine, folic acid (6) GERD (gastroesophageal reflux disease): Continue PPI (7) Anxiety: Continue fluoxetine (8) Dyslipidemia: Continue atorvastatin (9) Ingrown toenail with infection: On Keflex 4 times daily at home has pulmonary antibiotic coverage which also covers skin trista (10) DVT prophylaxis: SQ Lovenox Code status: FULL Subjective Patient have coughing especially when taking deep breaths. patient passed 2 step and breathing on room air at rest and with ambulation. denies chest pain. no abdominal pain. no vomiting Physical Exam Constitutional: WD/WN, vitals as above Eyes: PERRL, conjunctivae normal, anicteric sclerae EOM intact bilaterally ENMT: external ear and nose normal, oropharynx normal Neck: trachea midline, no thyromegaly Respiratory: coughing when taking deep breaths, rhonchi, breathing on room air Cardiovascular: Rate/Rhythm: regular rate and regular rhythm Gastrointestinal (Abdomen): normal bowel sounds, soft, nontender, no hepatosplenomegaly Musculoskeletal: Head/Neck/Chest: normocephalic and head atraumatic Neurologic: PERRL, EOMI, accommodation nl, no face palsy, no dysarthria CN's II-XI intact bilaterally Psychiatric: A+Ox3, euthymic affect Results & Data Vital Signs (Past 12 Hours) Vital Signs Temp Pulse Pulse Pulse Pulse Pulse Resp 09/26/18 16:00 78 09/26/18 15:27 36.6 C 78 18 09/26/18 13:49 83 83 78 09/26/18 11:41 36.6 C 67 20 09/26/18 11:26 72 18 09/26/18 08:00 78 09/26/18 07:47 36.4 C L 72 20 09/26/18 07:25 74 18 Resp Resp Resp BP BP Pulse Ox Pulse Ox 09/26/18 16:00 09/26/18 15:27 126/70 91 09/26/18 13:49 22 20 18 92 09/26/18 11:41 130/68 96 09/26/18 11:26 98 09/26/18 08:00 09/26/18 07:47 135/79 94 09/26/18 07:25 90 Pulse Ox Pulse Ox 09/26/18 16:00 09/26/18 15:27 09/26/18 13:49 93 90 09/26/18 11:41 09/26/18 11:26 09/26/18 08:00 09/26/18 07:47 09/26/18 07:25 (1) Pneumonia Laterality: left Lung location: lower lobe of lung Pneumonia type: due to unspecified organism Qualified Code(s): J18.1 - Lobar pneumonia, unspecified o rganism
[2018-09-26] MEDS: ENOXAPARIN INJ 40 MG/0.4 ML SYR SQ SCH (20:44)
[2018-09-26] MEDS: PRAMIPEXOLE DIHYDROCHLO 0.5 MG TAB PO SCH (20:46)
[2018-09-26] MEDS: TRAZODONE HCL 50 MG TAB PO SCH (20:47)
[2018-09-26] MEDS ORDERED: INSULIN GLARGINE SOLOSTAR 100 UNITS/ML 3 ML PEN SC SCH (21:00)
[2018-09-27] MEDS: ALBUT/IPRATROP 3MG/0.5MG NEB 3 ML VIAL NEB SCH ×3 (07:01→15:03)
[2018-09-27] MEDS: NALTREXONE HCL 50 MG TAB PO SCH (08:43)
[2018-09-27] MEDS: THIAMINE HCL 100 MG TAB PO SCH (08:43)
[2018-09-27] MEDS: AMOXICILLIN/CLAVULANATE 875 MG TAB PO SCH (08:43)
[2018-09-27] MEDS: ATORVASTATIN 40 MG TAB PO SCH (08:43)
[2018-09-27] MEDS: ASPIRIN 81 MG ECTAB PO SCH (08:43)
[2018-09-27] MEDS: MELOXICAM 7.5 MG TAB PO SCH (08:43)
[2018-09-27] MEDS: LISINOPRIL 5 MG TAB PO SCH (08:43)
[2018-09-27] MEDS: CHOLECALCIFEROL 1,000 UNITS TAB PO SCH (08:44)
[2018-09-27] MEDS: FLUOXETINE HCL 20 MG CAP PO SCH (08:44)
[2018-09-27] MEDS: PANTOprazole 40 MG TAB PO SCH (08:44)
[2018-09-27] MEDS: FOLIC ACID 400 MCG TAB PO SCH (08:44)
[2018-09-27] MEDS: CYANOCOBALAMIN 500 MCG TABLET (VITAMIN B-12) PO SCH (08:44)
[2018-09-27] MEDS: MAGNESIUM OXIDE 400 MG TAB PO SCH (08:44)
[2018-09-27] MEDS: INSULIN ASPART 100 UNITS/ML 3 ML PEN SC SCH ×2 (08:45→12:10)
[2018-09-27] MEDS: KETOROLAC 0.5% OP SOLN 5 ML BTL OPL SCH ×2 (08:45→13:48)
[2018-09-27] MEDS ORDERED: AZITHROMYCIN 250 MG TAB PO SCH (09:00)
[2018-09-27] MEDS ORDERED: prednisoLONE acetate 1% OP SUSP 5 ML BTL OPL SCH (09:00)
[2018-09-27] MEDS ORDERED: INSULIN GLARGINE SOLOSTAR 100 UNITS/ML 3 ML PEN SC SCH (10:00)
--- NOTE | 2018-09-27 10:02 | Pharmacy Report ---
Pharmacy Glycemic Short Note 2 - Date of Service September 27, 2018 - Glycemic Short BSG Results (Last 24 hours): 09/26/18 09/26/18 09/26/18 11:14 16:16 20:24 POC Glucose 268 H 141 H 173 H 09/27/18 07:32 POC Glucose 137 H OUTPATIENT ANTIDIABETIC REGIMEN: * Meformin 1000 mg PO BID * Farxiga 5 mg PO QAM ASSESSMENT: * Patient received total 97 units insulin yesterday; 35 units of which was basal and the rest were correctional + prandial. * Fasting BSG this AM = 137 (within goal). Pt got 20 units of basal Lantus last night. * Aim for once daily AM Lantus for discharge planning and facilitate outpatient dosing. Will dose conservatively this AM at 30 units of Lantus since he received 20 units Lantus last night. * Zosyn was discontinued and changed to Augmentin which means patient will get less dextrose IV fluid today. * Pt may potentially need more Lantus tomorrow morning since he won't be getting an HS dose tonight. * Will continue with current Novolog parameters. PLAN FOR INPATIENT GLYCEMIC CONTROL: * Holding outpatient oral diabetes medications * Basal insulin: changed * Lantus 30 units SQ today AM. * Bolus insulin: continued * NovoLog per scale ACHS or Q6hrs while NPO * Goal Range: Low 110 mg/dL - High 140 mg/dL * Correction Factor: 15 mg/dL/unit * Nutritional / Prandial insulin per carb ratio of 1 unit per 5 grams CHO consumed PLAN FOR DISCHARGE: * HbA1c = 10.2% on 09/25/18. * A1c indicates poorly controlled diabetes. Patient could benefit from addition of once daily basal Lantus insulin with SMBG and adjustments based on outpatient PCP or reservoir engineering consultant.
[2018-09-27 12:19] VITALS: BP 137/68; TEMP 98.1
[2018-09-27 12:23] VITALS: O2SAT 93
[2018-09-27 14:29] VITALS: PULSE 103
--- NOTE | 2018-09-27 14:37 | Hospitalist Progress Note ---
Date of Service September 27, 2018 Assessment & Plan (1) Pneumonia: Patient is a a 68yr male with H/O COPD, DM II, HTN, HLD, GERA (not using CPAP), GERD, anxiety and other medical problems listed below who presents with ongoing productive cough and wheezing for the past 3 weeks and was found to have left lower lobe pneumonia. Left Lower Lobe Pneumonia: H/O recurrent pneumonia, aspiration thought to be contributing but October 2017 swallow study was negative for aspiration admission CXR:Interval diffuse parenchymal infiltrate left mid to lower lung region. This is superimposed upon baseline chronic interstitial change Influenza Screen: Negative patient has been on Zosyn from admission and transitioned to oral Augmentin and Azithromycin starting on 09/26/18 as there are clinical improvements and blood cultures no growth to date Patient have coughing especially when taking deep breaths. patient passed 2 step and breathing on room air at rest and with ambulation on 09/26/18 09/27/18: saturating on room air, cough appears better, Continue home inhalers, Patient to take amoxicillin-clavulanate BID and azithromycin daily for 7 more days (2) HTN (hypertension): Continue lisinopril (3) COPD (chronic obstructive pulmonary disease): Mild obstructive disease per PFTs, follows [facility] Continue home inhalers (4) DM type 2 (diabetes mellitus, type 2): Type 2 diabetes mellitus with hyperglycemia without [place] [facility] current use of insulin A1c:10.2 glucose above 300 on 09/26/18 glucuose under 150 on 09/27/18 Patient should have follow up with primary care doctor and discussed future diabetes medication control Patient may resume home dose of metformin and farxiga but encouraged to strongly consider starting insulin therapy as outpatient with primary medical doctor HbA1c = 10.2% on 09/25/18. When home medications of metformin an farxiga were held while in the hospital, patient needed basal insulin of Lantus 30 units SQ AM with following sliding scale NovoLog per scale ACHS or Q6hrs while NPO Goal Range: Low 110 mg/dL - High 140 mg/dL Correction Factor: 15 mg/dL/unit Nutritional / Prandial insulin per carb ratio of 1 unit per 5 grams CHO consumed (5) Alcohol abuse: History of alcohol use, trying to decrease Alcohol at risk protocol with Ativan as needed was given home naltrexone, thiamine, folic acid no signs of alcohol withdrawal symptoms or signs of delirium tremens (6) GERD (gastroesophageal reflux disease): Continue PPI (7) Anxiety: Continue fluoxetine (8) Dyslipidemia: Continue atorvastatin (9) Ingrown toenail with infection: On Keflex 4 times daily at home has pulmonary antibiotic coverage which also covers skin trista but toe nail does not appear to be acutely infected and advised patient to avoid Keflex with respiratory antibiotics, re-assess with primary medical doctor (10) DVT prophylaxis: SQ Lovenox Code status: FULL Discharge Instructions Pneumonia, Type 2 diabetes mellitus with 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 denies shortness of breath today. coughing improved. no chest pain. we discussed at length about outpatient follow up and especially with diabetes outpatient follow up Physical Exam Constitutional: WD/WN, vitals as above Eyes: PERRL, conjunctivae normal, anicteric sclerae EOM intact bilaterally ENMT: external ear and nose normal, oropharynx normal Neck: trachea midline, no thyromegaly Respiratory: normal respiratory effort, lungs clear to auscultation Cardiovascular: Rate/Rhythm: regular rate and regular rhythm Gastrointestinal (Abdomen): normal bowel sounds, soft, nontender, no hepatosplenomegaly Musculoskeletal: Head/Neck/Chest: normocephalic and head atraumatic Neurologic: PERRL, EOMI, accommodation nl, no face palsy, no dysarthria CN's II-XI intact bilaterally Psychiatric: A+Ox3, euthymic affect Results & Data Vital Signs (Past 12 Hours) Vital Signs Temp Pulse Pulse Resp BP BP Pulse Ox 09/27/18 14:25 36.7 C 103 H 18 133/76 137/68 93 09/27/18 12:22 93 09/27/18 12:13 36.7 C 103 H 18 137/68 91 09/27/18 12:00 86 09/27/18 11:19 65 18 91 09/27/18 08:12 36.8 C 93 H 18 133/76 88 L 09/27/18 08:00 90 09/27/18 07:01 90 18 91 09/27/18 03:32 93 09/27/18 03:27 36.4 C L 76 18 103/56 L 82 L (1) Pneumonia Laterality: left Lung location: lower lobe of lung Pneumonia type: due to unspecified organism Qualified Code(s): J18.1 - Lobar pneumonia, unspecified organism
--- NOTE | 2018-09-27 14:44 | Discharge Summary ---
Date of Service September 27, 2018 Admission HPI Per Admitting Provider This is a 68yo M with a PMH of COPD, DM II, HTN, HLD, GERA (not using CPAP), GERD, anxiety and other medical problems listed below who presents with ongoing productive cough and wheezing for the past 3 weeks. States that he has been treated for pneumonia around this time of year for the past 4 years. Was evaluated in the ED 14 days ago for possible flu, but flu PCR was negative. Has continued to have subjective fever, chills, productive cough with yellowish sputum and some wheezing for the past few weeks. Has been taking home inhalers without much improvement. Feels short of breath when speaking or ambulating. Saturating at 93% on 2 L nasal cannula. In the ED, was found to be hemodynamically stable, afebrile. Leukocytosis at 13.5k. Flu PCR negative. Chest x-ray with evidence of left lower lobe infil trate. Was started on Zosyn in the ED as well as receiving a breathing treatment with some improvement. Currently, denies any fever, chills, lightheadedness, headache, chest pain, palpitations, hemoptysis, nausea, abdominal pain, dysuria, diarrhea, constipation or lower extremity swelling. Of note, follows with pulmonology for mild COPD and emesis after coughing. Underwent a video swallow study due to concern for aspiration in in October 2017, which was negative. Admission Exam Per Admitting Provider General Appearance: WD/WN, no apparent distress, resting comfortably, obese. Able to speak in full sentences but appears short of breath Head: normocephalic, atraumatic Eyes: normal inspection, PERRL, EOMI ENT: hearing grossly normal, pharynx normal (moist mucous membranes) Neck: supple, + JVD, no adenopathy Respiratory/Chest: scattered wheezes bilaterally, rales at left lung base. No accessory muscle use Cardiovascular: regular rate, rhythm, no murmur, normal peripheral pulses Abdomen/GI: protuberant abdomen, normal bowel sounds, soft, non-tender to palpation Extremities/Musculoskelatal: normal inspection, no calf tenderness, normal capillary refill, no pedal edema Neurologic/Psych: alert, normal mood/affect, oriented x 3 Skin: normal color, warm/dry Principal Diagnosis Pneumonia, Type 2 diabetes mellitus with hyperglycemia without extermination inspector current use of insulin, essential hypertension, Chronic obstructive pulmonary disease Discharge Exam Constitutional WD/WN, vitals as above Eyes PERRL, conjunctivae normal, anicteric sclerae EOM intact bilaterally ENMT external ear and nose normal, oropharynx normal Neck trachea midline, no thyromegaly Respiratory normal respiratory effort, lungs clear to auscultation Cardiovascular Rate/Rhythm: regular rate and regular rhythm Gastrointestinal (Abdomen) normal bowel sounds, soft, nontender, no hepatosplenomegaly Musculoskeletal Head/Neck/Chest: normocephalic and head atraumatic Neurologic PERRL, EOMI, accommodation nl, no face palsy, no dysarthria CN's II-XI intact bilaterally Psychiatric A+Ox3, euthymic affect Discharge Data Allergies Allergy/AdvReac Type Severity Reaction Status Date / Time No Known Allergies Allergy Verified 09/24/18 17:17 Hospital Course (1) Pneumonia: Patient is a a 68yr male with H/O COPD, DM II, HTN, HLD, GERA (not using CPAP), GERD, anxiety and other medical problems listed below who presents with ongoing productive cough and wheezing for the past 3 weeks and was found to have left lower lobe pneumonia. Left Lower Lobe Pneumonia: H/O recurrent pneumonia, aspiration thought to be contributing but October 2017 swallow study was negative for aspiration admission CXR:Interval diffuse parenchymal infiltrate left mid to lower lung region. This is superimposed upon baseline chronic interstitial change Influenza Screen: Negative patient has been on Zosyn from admission and transitioned to oral Augmentin and Azithromycin starting on 09/26/18 as there are clinical improvements and blood cultures no growth to date Patient have coughing especially when taking deep breaths. 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 When home medications of metformin an farxiga were held while in the hospital, patient needed basal insulin of Lantus 30 units SQ AM with following sliding scale NovoLog per scale ACHS or Q6hrs while NPO Goal Range: Low 110 mg/dL - High 140 mg/dL Correction Factor: 15 mg/dL/unit Nutritional / Prandial insulin per carb ratio of 1 unit per 5 grams CHO consumed (5) Alcohol abuse: History of alcohol use, trying to decrease Alcohol at risk protocol with Ativan as needed was given home naltrexone, thiamine, folic acid no signs of alcohol withdrawal symptoms or signs of delirium tremens (6) GERD (gastroesophageal reflux disease): Continue PPI (7) Anxiety: Continue fluoxetine (8) Dyslipidemia: Continue atorvastatin (9) Ingrown toenail with infection: On Keflex 4 times daily at home has pulmonary antibiotic coverage which also covers skin trista but toe nail does not appear to be acutely infected and advised patient to avoid Keflex with respiratory antibiotics, re-assess with primary medical doctor (10) DVT prophylaxis: SQ Lovenox Code status: FULL Discharge Instructions Pneumonia, Type 2 diabetes mellitus with hyperglycemia without extermination inspector current use of insulin, essential hypertension, Chronic obstructive pulmonary disease Total Time Total Time Spent Total Time Spent (In Minutes): 40 minutes Total Time Includes: Examination of the Patient, Discharge Planning and Medication Reconciliation Discharge Plan Discharge Items Patient Disposition: Home - Self-Care Reason For Visit: PNA Discharge Diagnosis: Pneumonia, Type 2 diabetes mellitus with hyperglycemia without residential current use of insulin, essential hypertension, Chronic obstructive pulmonary disease Condition: Good Discharge Goals: Improve disease control Activity: Resume your previous activity Non-emergency contact: Primary Care Provider Call non-emergency contact if: you have any medication questions Follow-up/Referrals: Jimbo Rhoades MD [Primary Care Provider] - Diet: Carb Consistent or DM2 Addtl Provider Instructions: Patient is to be discharged to home Patient to take amoxicillin-clavulanate BID and azithromycin daily for 7 more days Patient should have follow up with primary care doctor and discussed future diabetes medication control Patient may resume home dose of metformin and farxiga but encouraged to strongly consider starting insulin therapy as outpatient with primary medical doctor HbA1c = 10.2% on 09/25/18. When home medications of metformin an farxiga were held while in the hospital, patient needed basal insulin of Lantus 30 units SQ AM with following sliding scale NovoLog per scale ACHS or Q6hrs while NPO Goal Range: Low 110 mg/dL - High 140 mg/dL Correction Factor: 15 mg/dL/unit Nutritional / Prandial insulin per carb ratio of 1 unit per 5 grams CHO consumed Appointments 10/02/2018 3:10 PM Provider Jimbo Rhoades MD Department [facility] 10/16/2018 10:00 AM Provider [facility] [place] [facility] [place] 10/31/2018 1:50 PM Provider Jimbo Rhoades MD Department [facility] Prescriptions: New azithromycin [Zithromax] 250 mg Tablet 250 mg PO QAM 7 Days Qty: 7 RF: 0 amoxicillin-pot clavulanate 875-125 mg Tablet 1 tab PO BIDM 7 Days Qty: 14 RF: 0 Continued naltrexone 50 mg tablet 50 mg PO DAILY RF: 0 aspirin 81 mg Tablet,Delayed Release (Dr/Ec) 81 mg PO DAILY RF: 0 ketorolac 0.5 % drops 1 drp OPL QID RF: 0 prednisolone acetate 1 % drops,suspension 1 drp OPL TID RF: 0 trazodone 150 mg tablet 150 mg PO HS RF: 0 metformin 500 mg tablet extended release 24 hr 1,000 mg PO BID RF: 0 magnesium oxide 400 mg magnesium Tablet 400 mg PO QAM RF: 0 fluoxetine 40 mg Capsule 40 mg PO QAM RF: 0 pramipexole 1 mg Tablet 1 mg PO HS RF: 0 atorvastatin 40 mg Tablet 40 mg PO QAM RF: 0 meloxicam 15 mg Tablet 15 mg PO DAILY RF: 0 cyanocobalamin (vitamin B-12) [Vitamin B-12] 1,000 mcg Tablet 1,000 mcg PO QAM RF: 0 thiamine HCl (vitamin B1) [Vitamin B-1] 100 mg Tablet 100 mg PO QAM RF: 0 folic acid 400 mcg Tablet 400 mcg PO QAM RF: 0 omeprazole 20 mg Capsule,Delayed Release(Dr/Ec) 20 mg PO QAM RF: 0 Farxiga 5 mg Tablet 5 mg PO QAM RF: 0 albuterol sulfate 90 mcg/actuation Hfa Aerosol Inhaler 2 puff INHALATION Q6H PRN (Reason: Shortness Of Breath Or Wheezing) RF: 0 cholecalciferol (vitamin D3) [Vitamin D3] 1,000 unit Capsule 1,000 units PO QAM RF: 0 lisinopril 5 mg Tablet 5 mg PO QAM RF: 0 Discontinued cephalexin [Keflex] 500 mg Capsule 500 mg PO QID RF: 0 Stand-Alone Forms: [facility]/Other Patient Handouts: Azithromycin Oral tablet, Amoxicillin Trihydrate Clavulanate Potassium Oral tablet, Pneumonia Dc Discharge Orders: Discharge Order (Routine); Ordered 09/27/18 Ordered By: Alberto Cárdenas Admission Data Admit Date/Time: 09/24/18 18:56 Attending Provider: Alberto Cárdenas Admit Provider: Va Metcalf Primary Care Provider: Jimbo Rhoades Service: Telemetry Other Interventions: Discharge Summary Assessment (RN) Last Done: 09/27/18 14:25
== END 2018-09-27 15:10 | disposition home or self-care (01) | DRG 194 ==
LOC: ED 16:07 → SUATTDRO 18:56 → 2S 18:56

== ENCOUNTER 2019-09-13 10:03 | Inpatient (IN) ==
[2019-09-13] MEDS ORDERED: SODIUM CHLORIDE 0.9% 1000ML 2,000 ML IV ONE (10:34)
[2019-09-13] MEDS ORDERED: THIAMINE HCL 100 MG in SYRINGE 9 ML IV STA (10:36)
[2019-09-13] MEDS ORDERED: FOLIC ACID 1 MG in SYRINGE 9.8 ML IV STA (10:36)
--- NOTE | 2019-09-13 10:45 | Emergency Department Note ---
Impression & Plan Sepsis, Alcohol abuse, Multifocal pneumonia, Hypoxia, Acute hypotension ED Provider Note NAME: MARIA T MOYA AGE: 69 SEX: M : 1950 ARRIVES VIA: Walk-In INFORMANT: Patient ED PROVIDER(S): Alton Rodriguez DO CHIEF COMPLAINT: weak and shortness of breath HPI: Patient is a 69-year-old male with a past medical history of COPD, emphysema and alcohol presents the ER for shortness of breath. Patient notes that shortness of breath has been present for the past 4 days. He notes this morning when he woke up he has been having shaking chills and a cough. Cough has been slightly worse than usual. He notes he has oxygen at home and is only supposed to wear it when he needs it. He does not generally wear. He denies any recent travel with the exception to the cavity yesterday without problem. His friend is otherwise well-appearing. He notes he has no other sick contacts. No other travel. No other exacerbating or remitting factors. ROS: See above HPI for pertinent positives & negatives. A total of 10 systems reviewed and were otherwise negative. PAST MEDICAL HISTORY:See Below PAST SURGICAL HISTORY:See Below FAMILY HISTORY:See Below SOCIAL HISTORY:See Below HOME MEDICATIONS:See Below ALLERGIES:See Below VITALS:See Below PHYSICAL EXAMINATION: GENERAL: Sitting up in bed, alert, slightly ill appearing, dyspneic with conversation EYE EXAM: normal conjunctiva. OROPHARYNX: no exudate, no erythema, lips, buccal mucosa, and tongue normal and mucous membranes are moist NECK: supple, no nuchal rigidity, no adenopathy, non-tender LUNGS: Diffuse wheezing bilaterally and diminished in the left lower lobe. Normal chest wall mechanics HEART: no murmurs, S1 normal and S2 normal ABDOMEN: abdomen soft, non-tender, normo-active bowel sounds, no masses, no rebound or guarding. BACK: Back is symmetrical on inspection and there is no deformity, no midline tenderness, no CVA tenderness. SKIN: no rashes and no bruising UPPER EXTREMITIES: upper extremities are grossly normal. LOWER EXTREMITIES: No pitting edema. Calves are equal bilateral NEURO EXAM: Normal sensorium, cranial nerves II-XII grossly intact, normal speech, no gross weakness of arms, no gross weakness of legs. MEDICAL DECISION MAKING: Patient is a 69-year-old male who presents the ER for shortness of breath which is been present for the past 3 days associated with slightly worsened cough. Past medical history of COPD and asthma. No recent travel with the exception to the cabin yesterday with his friend who had no symptoms. IV was established blood was obtained and showed a leukocytosis of 15,000. No significant anemia. BMP with mild hyponatremia. INR was unremarkable. Magnesium was slightly low at 1.6. Troponin was negative. Chest x-ray with clear pneumonia. Patient was hypoxic, tachycardic and hypotensive. He was given IV fluids. Blood pressure trended up to the 120s from the 70s. He was given neb treatments and steroids due to his COPD and no exposure to anyone with coronavirus. Patient was updated bedside. Discussed with hospitalist and was admitted for sepsis secondary to pneumonia. Of note due to his alcohol abuse he was given IV thiamine and folic acid. Patient remained on airborne precautions while in the ER and discussed with the hospitalist in regards to nazario virus testing. Triage Nursing notes reviewed. Prior medical records reviewed Vital Signs: reviewed and remarkable for hypoxia, tachycardia and hypotension Differential diagnosis: Differential diagnosis includes etiologies such as sepsis, UTI, pneumonia, metabolic, electrolyte abnormalities, cardiac sources, intracerebral event, toxicologic, neurological, as well as others were entertained. ER treatment provided: See below Diagnostics interpreted by me: ECG: Sinus tachycardia rate of 104 Normal axis No PVCs Poor baseline Normal QTC Cardiac Monitoring: Sinus tachycardia rate of 105 Laboratory studies: As stated above and show below. Imaging studies: Portable AP upright 1 view of the chest shows right lower and middle lobe infiltrates. No pneumothorax. Consultation(s): Discussed with Dr. Steven from [facility] ED COURSE: Procedures: none Critical Care: I have personally spent 35 minutes of critical care time in the direct management of this patient. This includes bedside care, interpretation of diagn ostic studies, and testing, discussion with consultants, patient, and family members, and other required patient management activities. This 35 minutes is in excess of all separately billable procedures. Past Med/Surg History Medical History (Updated 09/13/19 @ 14:19 by Jonah Rodriguez MD) Alcohol consumption of one to four drinks per day Anxiety (Chronic) Aortic valve sclerosis (Chronic) COPD (chronic obstructive pulmonary disease) Depression (Chronic) DM type 2 (diabetes mellitus, type 2) (Chronic) Dyslipidemia (Chronic) Former smoker mild emphysema on CT GERD (gastroesophageal reflux disease) (Chronic) HLD (hyperlipidemia) HTN (hypertension) (Chronic) Hx: recurrent pneumonia (Chronic) USUALLY ANNUALLY..LAST EPISODE 09/2017, ASPIRATION PNEUMONIA WITH COPD EXAC GERA (obstructive sleep apnea) (Chronic) patient returned CPAP RLS (restless legs syndrome) (Chronic) Surgical History (Updated 09/13/19 @ 14:19 by Jonah Rodriguez MD) 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 History of appendectomy (Resolved) History of cataract surgery (Resolved) History of open reduction and internal fixation (ORIF) procedure (Resolved) right leg--hardware removed History of tooth extraction (Resolved) partial upper History of total left hip arthroplasty (Resolved) History of total left knee replacement (Chronic) S/P tonsillectomy and adenoidectomy (Inactive) Family History (Updated 09/13/19 @ 14:02 by Jonah Rodriguez MD) Father Coronary heart disease Brother Colorectal cancer Lung cancer Brother Coronary heart disease Mother Cancer Social History Preferred Language: Irish Communication Ability: Effective Visual Impairment: No Limitations Home Mission Worker Required: No Beliefs That Will Affect Care: None Current Living Situation: Spouse Current Living Situation Comment: lives with and autistic son current occupational status: retired Other Information That Helps Us Care for You: No Feels Safe at Home: No Is there a partner from a previous relationship who is making you feel unsafe now?: No Any Concerns about Your Family Situation: No Would You Like to Speak to Someone About Your Situation: No Safety Concerns: Feels Safe At This Time Smoking Status: Former smoker Tobacco Type: cigarettes ; Cigarettes Per Day: 1.5-3ppd x 50 years ; Second Hand Exposure: No ; Hx Alcohol Use: Yes Alcohol type: beer Hx Substance Use: No Allergies Allergies Allergy/AdvReac Type Severity Reaction Status Date / Time No Known Allergies Allergy Verified 09/13/19 10:59 Home Meds Home Medications Medication Instructions Recorded Confirmed atorvastatin 40 mg PO QAM 03/14/18 09/13/19 cyanocobalamin (vitamin B-12) 1,000 mcg PO QAM 03/14/18 09/13/19 [Vitamin B-12] fluoxetine 40 mg PO QAM 03/14/18 09/13/19 folic acid 400 mcg PO QAM 03/14/18 09/13/19 omeprazole 20 mg PO QAM 03/14/18 09/13/19 pramipexole 1 mg PO BID 03/14/18 09/13/19 thiamine HCl (vitamin B1) [Vitamin 100 mg PO QAM 03/14/18 09/13/19 B-1] albuterol sulfate 2 puff INHALATION Q6H PRN 03/15/18 09/13/19 cholecalciferol (vitamin D3) 1,000 units PO QAM 03/15/18 09/13/19 [Vitamin D3] aspirin 81 mg PO DAILY 09/24/18 09/13/19 magnesium oxide 400 mg PO QAM 09/24/18 09/13/19 metformin 1,000 mg PO BID 09/24/18 09/13/19 naltrexone 50 mg PO DAILY 09/24/18 09/13/19 trazodone 150 mg PO HS 09/24/18 09/13/19 brandon (Zingiber officinalis) 550 mg PO QAM 01/27/19 09/13/19 vitamin A 8,000 unit PO DAILY 01/27/19 09/13/19 ipratropium 0.5 mg-albuterol 3 mg 3 ml INHALATION .USE 1 UNIT DOSE 04/02/19 09/13/19 (2.5 mg base)/3 mL nebulization IN N #2 ml soln glipizide 5 mg PO BIDM 09/13/19 09/13/19 tiotropium-olodaterol [Stiolto 2 puff INHALATION DAILY PRN 09/13/19 09/13/19 Respimat] Results & Data (ED) Vital Signs Vital Signs - 24 hr 09/13/19 10:16 09/13/19 10:34 09/13/19 10:36 Temperature 37.7 C H Temperature Source Oral Pulse Rate 113 H 108 H 107 H Pulse Rate [Finger] Pulse Rate from SpO2 Sensor Pulse Rhythm Regular Pulse Strength Normal Respiratory Rate 24 27 H 18 Respiratory Effort / Characteristics Non-Labored Spontaneous Respiratory Depth Normal Respiratory Pattern Regular Blood Pressure 78/57 L 127/71 Blood Pressure Mean 64 88 Pulse Oximetry 89 L Oxygen Delivery Method Room Air Oxygen Flow Rate Sepsis Recent Fever Within 48 Hours Yes Sepsis Action Taken by Nursing No Action Required 09/13/19 11:00 09/13/19 11:08 09/13/19 11:12 Temperature Temperature Source Pulse Rate 101 H Pulse Rate [Finger] Pulse Rate from SpO2 Sensor Pulse Rhythm Pulse Strength Respiratory Rate 25 H Respiratory Effort / Characteristics Non-Labored Spontaneous Respiratory Depth Respiratory Pattern Blood Pressure Blood Pressure Mean Pulse Oximetry Oxygen Delivery Method Room Air Oxygen Flow Rate Sepsis Recent Fever Within 48 Hours Sepsis Action Taken by Nursing 09/13/19 11:30 09/13/19 11:37 09/13/19 11:38 Temperature Temperature Source Pulse Rate 100 H 97 H 95 H Pulse Rate [Finger] Pulse Rate from SpO2 Sensor 100 H 96 H 95 H Pulse Rhythm Pulse Strength Respiratory Rate 27 H 23 23 Respiratory Effort / Characteristics Respiratory Depth Respiratory Pattern Blood Pressure 134/72 Blood Pressure Mean 93 Pulse Oximetry 94 95 96 Oxygen Delivery Method Oxygen Flow Rate Sepsis Recent Fever Within 48 Hours Sepsis Action Taken by Nursing 09/13/19 11:52 09/13/19 12:00 09/13/19 12:01 Temperature Temperature Source Pulse Rate 100 H Pulse Rate [Finger] 94 H Pulse Rate from SpO2 Sensor 100 H 102 H Pulse Rhythm Pulse Strength Respiratory Rate 16 20 Respiratory Effort / Characteristics Spontaneous Respiratory Depth Respiratory Pattern Blood Pressure 131/71 Blood Pressure Mean 84 Pulse Oximetry 95 95 93 Oxygen Delivery Method Nasal Cannula Oxygen Flow Rate 2 Sepsis Recent Fever Within 48 Hours Sepsis Action Taken by Nursing 09/13/19 12:30 09/13/19 12:31 09/13/19 13:00 Temperature Temperature Source Pulse Rate 95 H Pulse Rate [Finger] Pulse Rate from SpO2 Sensor 104 H 99 H 95 H Pulse Rhythm Pulse Strength Respiratory Rate 20 Respiratory Effort / Characteristics Respiratory Depth Respiratory Pattern Blood Pressure 128/74 Blood Pressure Mean 86 Pulse Oximetry 91 94 89 L Oxygen Delivery Method Oxygen Flow Rate Sepsis Recent Fever Within 48 Hours Sepsis Action Taken by Nursing Laboratory Data Result diagrams: 09/13/19 10:42 09/13/19 10:42 Lab Results 09/13/19 09/13/19 09/13/19 Range/Units 10:42 10:42 10:42 WBC 15.01 H (4.8-10.8) K/uL RBC 4.67 L (4.7-6.1) M/uL Hgb 15.1 (14.0-18.0) g/dL Hct 45.1 (42-52) % MCV 96.6 (80-100) fL MCH 32.3 (25-34) pg MCHC 33.5 (32-36) g/dL RDW Std Deviation 50.9 H (36.4-46.3) fL RDW Coeff of Brie 14.5 (11.5-14.5) % Plt Count 233 (130-400) K/uL MPV 10.6 H (7.4-10.4) fL Immature Gran % (Auto) 0.2 % Neut % (Auto) 88.1 % Lymph % (Auto) 4.4 % [place] % (Auto) 6.8 % Eos % (Auto) 0.3 % Baso % (Auto) 0.2 % Immature Gran # (Auto) 0.03 H (0.00-0.02) K/uL Neut # (Auto) 13.22 H (1.4-6.5) K/uL Lymph # (Auto) 0.66 L (1.2-3.4) K/uL [place] # (Auto) 1.02 H (0.11-0.59) K/uL Eos # (Auto) 0.05 (0-0.5) K/uL Baso # (Auto) 0.03 (0-0.2) K/uL Absolute Nucleated RBC 0.05 H (0-0) K/uL Nucleated RBC % (auto) 0.4 % PT 10.4 (9.0-12.0) Seconds INR 1.0 (0.9-1.1) APTT 25.6 (21.0-31.0) Seconds PTT Ratio 0.9 Sodium 135 L (136-145) mmol/L Potassium 4.5 (3.5-5.1) mmol/L Chloride 104 (98-107) mmol/L Carbon Dioxide 27 (21-32) mmol/L Anion Gap 4.0 (3-11) BUN 15 (7-18) mg/dl Creatinine 1.31 (0.6-1.4) mg/dl Est Cr Clr Drug Dosing 61.3 ml/min Est GFR ( Amer) 63.0 Est GFR (Non-Af Amer) 54.4 BUN/Creatinine Ratio 11.7 (10-20) Glucose 151 H (70-99) mg/dl Lactate (0.4-2.0) mmol/L Calcium 8.8 (8.5-10.1) mg/dl Magnesium 1.6 L (1.8-2.4) mg/dl Total Bilirubin 0.6 (0.2-1) mg/dl AST 19 (15-37) U/L ALT 21 (12-78) U/L Alkaline Phosphatase 108 (45-117) U/L Troponin I < 0.015 (0-0.045) ng/ml Total Protein 7.8 (6.4-8.2) gm/dl Albumin 3.6 (3.4-5.0) gm/dl Globulin 4.2 H (2.5-4.0) gm/dl Albumin/Globulin Ratio 0.9 (0.9-2) Specimen Hemolysis Adenovirus (PCR) (NotDetected) B. pertussis DNA (PCR) (NotDetected) B.parapertussis DNA PCR (NotDetected) C. pneumoniae DNA (PCR) (NotDetected) Coronavirus OC43 (PCR) (NotDetected) Coronavirus HKU1 (PCR) (NotDetected) Coronavirus 229E (PCR) (NotDetected) Coronavirus NL63 (PCR) (NotDetected) Human Metapneumovir PCR (NotDetected) Influenza Type A (PCR) Influenza Type B (PCR) M. pneumoniae (PCR) (NotDetected) Parainfluenza 1 (PCR) (NotDetected) Parainfluenza 2 (PCR) (NotDetected) Parainfluenza 3 (PCR) (NotDetected) Parainfluenza 4 (PCR) (NotDetected) RSV (PCR) (NotDetected) Entero/Rhino (PCR) (NotDetected) 09/13/19 09/13/19 09/13/19 Range/Units 10:42 10:50 11:20 WBC (4.8-10.8) K/uL RBC (4.7-6.1) M/uL Hgb (14.0-18.0) g/dL Hct (42-52) % MCV (80-100) fL MCH (25-34) pg MCHC (32-36) g/dL RDW Std Deviation (36.4-46.3) fL RDW Coeff of Brie (11.5-14.5) % Plt Count (130-400) K/uL MPV (7.4-10.4) fL Immature Gran % (Auto) % Neut % (Auto) % Lymph % (Auto) % [place] % (Auto) % Eos % (Auto) % Baso % (Auto) % Immature Gran # (Auto) (0.00-0.02) K/uL Neut # (Auto) (1.4-6.5) K/uL Lymph # (Auto) (1.2-3.4) K/uL [place] # (Auto) (0.11-0.59) K/uL Eos # (Auto) (0-0.5) K/uL Baso # (Auto) (0-0.2) K/uL Absolute Nucleated RBC (0-0) K/uL Nucleated RBC % (auto) % PT (9.0-12.0) Seconds INR (0.9-1.1) APTT (21.0-31.0) Seconds PTT Ratio Sodium (136-145) mmol/L Potassium (3.5-5.1) mmol/L Chloride (98-107) mmol/L Carbon Dioxide (21-32) mmol/L Anion Gap (3-11) BUN (7-18) mg/dl Creatinine (0.6-1.4) mg/dl Est Cr Clr Drug Dosing ml/min Est GFR ( Amer) Est GFR (Non-Af Amer) BUN/Creatinine Ratio (10-20) Glucose (70-99) mg/dl Lactate 1.8 (0.4-2.0) mmol/L Calcium (8.5-10.1) mg/dl Magnesium (1.8-2.4) mg/dl Total Bilirubin (0.2-1) mg/dl AST (15-37) U/L ALT (12-78) U/L Alkaline Phosphatase (45-117) U/L Troponin I (0-0.045) ng/ml Total Protein (6.4-8.2) gm/dl Albumin (3.4-5.0) gm/dl Globulin (2.5-4.0) gm/dl Albumin/Globulin Ratio (0.9-2) Specimen Hemolysis Adenovirus (PCR) Not Detected (NotDetected) B. pertussis DNA (PCR) Not Detected (NotDetected) B.parapertussis DNA PCR Not Detected (NotDetected) C. pneumoniae DNA (PCR) Not Detected (NotDetected) Coronavirus OC43 (PCR) Not Detected (NotDetected) Coronavirus HKU1 (PCR) Not Detected (NotDetected) Coronavirus 229E (PCR) Not Detected (NotDetected) Coronavirus NL63 (PCR) Not Detected (NotDetected) Human Metapneumovir PCR Not Detected (NotDetected) Influenza Type A (PCR) Cancelled Not Detected Influenza Type B (PCR) Cancelled Not Detected M. pneumoniae (PCR) Not Detected (NotDetected) Parainfluenza 1 (PCR) Not Detected (NotDetected) Parainfluenza 2 (PCR) Not Detected (NotDetected) Parainfluenza 3 (PCR) Not Detected (NotDetected) Parainfluenza 4 (PCR) Not Detected (NotDetected) RSV (PCR) Not Detected (NotDetected) Entero/Rhino (PCR) Not Detected (NotDetected) Administered Medications Levofloxacin/Dextrose (Levaquin/D5w) 750 mg in 150 mls @ 100 mls/hr IV Q24H BARON Stop: 09/27/19 10:44 Last Infusion: 09/13/19 12:39 Dose: 0 mls/hr Documented by: [id number] Admin: 09/13/19 11:06 Dose: 100 mls/hr Documented by: [id number] Discontinued Medications Albuterol (Ventolin 0.083% 2.5mg/3ml) 5 mg NEB NOW STA Stop: 09/13/19 11:19 Last Admin: 09/13/19 11:51 Dose: 5 mg Documented by: [id number] Sodium Chloride (Nss 1000ml) 2,000 mls @ 999 mls/hr IV .Q2H1M ONE Stop: 09/13/19 12:34 Last Infusion: 09/13/19 13:24 Dose: 0 mls/hr Documented by: [id number] Admin: 09/13/19 11:06 Dose: 999 mls/hr Documented by: [id number] Thiamine HCl 100 mg/ Syringe 10 mls @ 2 mls/min IV NOW STA Stop: 09/13/19 10:40 Last Admin: 09/13/19 11:29 Dose: 2 mls/min Documented by: [id number] Folic Acid 1 mg/ Syringe 10 mls @ 5 mls/min IV NOW STA Stop: 09/13/19 10:37 Last Admin: 09/13/19 11:29 Dose: 5 mls/min Documented by: [id number] Ceftriaxone Sodium (Rocephin) 1,000 mg in 50 mls @ 100 mls/hr IV NOW STA Stop: 09/13/19 11:35 Last Infusion: 09/13/19 11:56 Dose: 0 mls/hr Documented by: [id number] Admin: 09/13/19 11:29 Dose: 100 mls/hr Documented by: [id number] Methylprednisolone (Solumedrol) 60 mg IV NOW STA Stop: 09/13/19 11:19 Last Admin: 09/13/19 12:39 Dose: 60 mg Documented by: [id number] Discharge Plan Visit Data Chief Complaint: Respiratory Problems Stated Complaint: cough, fever, sob ED Provider: Alton Rodriguez Discharge Problem: Sepsis, Alcohol abuse, Multifocal pneumonia, Hypoxia, Acute hypotension Patient Disposition: Admitted As Inpatient Discharge Instructions Interventions: ED Discharge Assessment Last Done: 09/13/19 14:45 Discharge Problem: Sepsis Qualifiers: Sepsis type: sepsis due to unspecified organism Sepsis acute organ dysfunction status: unspecified Qualified Code(s): A41.9 - Sepsis, unspecified organism
[2019-09-13 11:03] LABS: Basophils # (auto) 0.03 K/uL (0-0.2); Basophils % (auto) 0.2 %; Eosinophils # (auto) 0.05 K/uL (0-0.5); Eosinophils % (auto) 0.3 %; Hematocrit (blood only) 45.1 % (42-52); Hemoglobin 15.1 g/dL (14.0-18.0); Immature Granulocytes # (auto) 0.03 K/uL (0.00-0.02); Immature Granulocytes % (auto) 0.2 %; Lymphocytes # (auto) 0.66 K/uL (1.2-3.4); Lymphocytes % (auto) 4.4 %; Mean Corpuscular Hemoglobin 32.3 pg (25-34); Mean Corpuscular Hgb Conc 33.5 g/dL (32-36); Mean Corpuscular Volume 96.6 fL (80-100); Mean Platelet Volume 10.6 fL (7.4-10.4); Monocytes # (auto) 1.02 K/uL (0.11-0.59); Monocytes % (auto) 6.8 %; Neutrophils # (auto) 13.22 K/uL (1.4-6.5); Neutrophils % (auto) 88.1 %; Nucleated RBC # (auto) 0.05 K/uL (0-0); Nucleated RBC % (auto) 0.4 %; Platelet Count 233 K/uL (130-400); RDW Coefficient of Variation 14.5 % (11.5-14.5); RDW Standard Deviation 50.9 fL (36.4-46.3); Red Blood Count 4.67 M/uL (4.7-6.1); White Blood Count 15.01 K/uL (4.8-10.8)
[2019-09-13] MEDS ORDERED: cefTRIAXone SODIUM 1,000 MG/50 ML BAG IV STA (11:06)
[2019-09-13] MEDS: LEVOFLOXACIN/D5W 750 MG/150 ML BAG IV SCH (11:06)
--- NOTE | 2019-09-13 11:08 | XRay Report ---
XR chest 1V portable CLINICAL HISTORY: 69 years-old Male presenting with SEPSIS, cough, shortness of breath, fever. TECHNIQUE: Portable upright AP view of the chest was obtained. COMPARISON: 01/27/2019. FINDINGS: Atherosclerosis of the aortic arch. Cardiac silhouette enlarged. Bronchial wall cuffing also noted. P ulmonary vascular and interstitial prominence. Patchy irregular linear and hazy opacities with a basi lar predominance, which are new from prior exam. No large effusion or pneumothorax. Degenerative watson ges of the thoracic spine. IMPRESSION: 1. Patchy mid to basilar predominant infiltrates concerning for multifocal pneumonia, edema, or less likely aspiration. 2. Cardiomegaly with volume overload and congestive change. ACT 112: Negative or not required by law. Electronically signed by: Logan Anand M.D. 09/13/2019 11:06 AM
[2019-09-13 11:14] LABS: Partial Thromboplastin Ratio 0.9; Partial Thromboplastin Time 25.6 Seconds (21.0-31.0); Prothrombin Time 10.4 Seconds (9.0-12.0)
[2019-09-13] MEDS ORDERED: ALBUTEROL 0.083% NEBU SOLN 3 ML VIAL NEB STA (11:18)
[2019-09-13] MEDS ORDERED: methylPREDNISolone 125 MG/2 ML VIAL IV STA (11:18)
[2019-09-13 11:19] LABS: Alanine Aminotransferase 21 U/L (12-78); Albumin Level 3.6 gm/dl (3.4-5.0); Aspartate Aminotransferase 19 U/L (15-37); BUN Creatinine Ratio 11.7 (10-20); Blood Urea Nitrogen 15 mg/dl (7-18); Calcium 8.8 mg/dl (8.5-10.1); Carbon Dioxide 27 mmol/L (21-32); Chloride 104 mmol/L (98-107); Creatinine Clr Calc Pharmacy 61.3 ml/min; Est GFR (Non-African American) 54.4; Glucose 151 mg/dl (70-99); Magnesium 1.6 mg/dl (1.8-2.4); Potassium 4.5 mmol/L (3.5-5.1); Sodium 135 mmol/L (136-145)
[2019-09-13 11:20] LABS: Albumin Globulin Ratio 0.9 (0.9-2); Alkaline Phosphatase 108 U/L (45-117); Bilirubin,Total 0.6 mg/dl (0.2-1); Globulin 4.2 gm/dl (2.5-4.0); Total Protein 7.8 gm/dl (6.4-8.2); Troponin I < 0.015 ng/ml (0-0.045)
[2019-09-13 12:27] LABS: Adenovirus PCR Not Detected (NotDetected); Coronavirus 229E PCR Not Detected (NotDetected); Coronavirus HKU1 PCR Not Detected (NotDetected); Coronavirus NL63 PCR Not Detected (NotDetected); Coronavirus OC43PCR Not Detected (NotDetected)
[2019-09-13 12:28] LABS: Bordetella parapertussis PCR Not Detected (NotDetected); Bordetella pertussis PCR Not Detected (NotDetected); Chlamydia pneumoniae PCR Not Detected (NotDetected); Human Metapneumovirus PCR Not Detected (NotDetected); Influenza A PCR Not Detected (NotDetected); Influenza B PCR Not Detected (NotDetected); Mycoplasma pneumoniae PCR Not Detected (NotDetected); Parainfluenza Virus 1 PCR Not Detected (NotDetected); Parainfluenza Virus 2 PCR Not Detected (NotDetected); Parainfluenza Virus 3 PCR Not Detected (NotDetected); Parainfluenza Virus 4 PCR Not Detected (NotDetected); Respiratory Syncytial VirusPCR Not Detected (NotDetected); Rhinovirus/Enterovirus PCR Not Detected (NotDetected)
--- NOTE | 2019-09-13 14:10 | History & Physical Report ---
Date of Service September 13, 2019 Assessment & Plan (1) Multifocal pneumonia: Presented to ED with worsening wheezing and occasional cough for few weeks, now with fever, chills, sweats, malaise, worsening cough, worsening dyspnea. Chest x-ray demonstrates bilateral infiltrates. [employer] respiratory panel negative. No sick contacts or travel outside the area, but COVID-19 must be considered. Airborne/contact precautions until COVID-19 ruled out. Blood cultures obtained. Treat for possible bacterial pneumonia with intravenous levofloxacin and piperacillin/tazobactam. (2) Sepsis: Meets criteria for sepsis per current CMS guidelines. Blood cultures obtained. Started on broad-spectrum antibiotic coverage. Serum lactate 1.8. Initial blood pressure in ED was 78/57. Fluid resuscitation initiated and repeat blood pressure was 127/71; has remained hemodynamically stable since then. Initial fluid resuscitation with 2 L normal saline. Will not add additional fluids at this time because (1) now hemodynamically stable and (2) possible COVID-19 and could be at risk for ARDS. Most likely source = pneumonia as discussed above. (3) Hypoxia: Oxygen saturation 89% on room air upon presentation to ED. Now maintaining adequate saturations on supplemental oxygen via nasal cannula. (4) COPD (chronic obstructive pulmonary disease): History of COPD. Former smoker. Now with exacerbation of COPD secondary to pneumonia. Received IV methylprednisolone in ED. Will continue glucocorticoids for exacerbated COPD, but try to use the lowest possible dose. (5) GERA (obstructive sleep apnea): Did not tolerate CPAP. (6) GERD (gastroesophageal reflux disease): Continue PPI. (7) DM type 2 (diabetes mellitus, type 2): Usually well-controlled on glipizide and metformin. Random blood sugar in ED 151. Hold oral agents during hospital stay. Lantus / NovoLog per protocol. (8) Dyslipidemia: Continue statin. Check CPK due to myalgias. (9) DVT prophylaxis: SQ enoxaparin. Ambulate. (10) Discharge planning issues: Anticipated discharge to home. Family Medicine follow-up with Dr. Rhoades. Pulmonary Medicine follow-up with Em Villarreal PA-C. History of Present Illness Chief Complaint: cough, SOB Primary Care Provider: Jimbo Rhoades MD 69-year-old male followed by Dr. Rhoaeds for Family Medicine and Em Villarreal PA-C for Pulmonary Medicine. History of hypertension, COPD, diabetes mellitus, and other problems as noted below. Has noted increased wheezing for the past few weeks. This morning he experienced subjective fever, chills, sweats, malaise, worsening cough productive of yellow sputum, shortness of breath. Has some anterior chest pain with coughing and deep inspiration. Has a frontal headache. No sinus drainage. No pharyngitis. No loss of taste or smell. Diffuse myalgias. Tried albuterol MDI without much benefit. Came to ED for evaluation. No sick contacts. No travel history. Allergies Allergy/AdvReac Type Severity Reaction Status Date / Time No Known Allergies Allergy Verified 09/13/19 10:59 Home Medications Home Medications Medication Instructions Recorded Confirmed Type atorvastatin 40 mg PO QAM 03/14/18 09/13/19 History cyanocobalamin (vitamin B-12) 1,000 mcg PO QAM 03/14/18 09/13/19 History [Vitamin B-12] fluoxetine 40 mg PO QAM 03/14/18 09/13/19 History folic acid 400 mcg PO QAM 03/14/18 09/13/19 History omeprazole 20 mg PO QAM 03/14/18 09/13/19 History pramipexole 1 mg PO BID 03/14/18 09/13/19 History thiamine HCl (vitamin B1) [Vitamin 100 mg PO QAM 03/14/18 09/13/19 History B-1] albuterol sulfate 2 puff INHALATION Q6H PRN 03/15/18 09/13/19 History cholecalciferol (vitamin D3) 1,000 units PO QAM 03/15/18 09/13/19 History [Vitamin D3] aspirin 81 mg PO DAILY 09/24/18 09/13/19 History magnesium oxide 400 mg PO QAM 09/24/18 09/13/19 History metformin 1,000 mg PO BID 09/24/18 09/13/19 History naltrexone 50 mg PO DAILY 09/24/18 09/13/19 History trazodone 150 mg PO HS 09/24/18 09/13/19 History brandon (Zingiber officinalis) 550 mg PO QAM 01/27/19 09/13/19 History vitamin A 8,000 unit PO DAILY 01/27/19 09/13/19 History ipratropium 0.5 mg-albuterol 3 mg 3 ml INHALATION .USE 1 UNIT DOSE 04/02/19 09/13/19 History (2.5 mg base)/3 mL nebulization IN N #2 ml soln glipizide 5 mg PO BIDM 09/13/19 09/13/19 History tiotropium-olodaterol [Stiolto 2 puff INHALATION DAILY PRN 09/13/19 09/13/19 History Respimat] Past Med/Surg History Medical History (Updated 09/13/19 @ 14:19 by Jonah Rodriguez MD) Alcohol consumption of one to four drinks per day Anxiety (Chronic) Aortic valve sclerosis (Chronic) COPD (chronic obstructive pulmonary disease) Depression (Chronic) DM type 2 (diabetes mellitus, type 2) (Chronic) Dyslipidemia (Chronic) Former smoker mild emphysema on CT GERD (gastroesophageal reflux disease) (Chronic) HLD (hyperlipidemia) HTN (hypertension) (Chronic) Hx: recurrent pneumonia (Chronic) USUALLY ANNUALLY..LAST EPISODE 09/2017, ASPIRATION PNEUMONIA WITH COPD EXAC GERA (obstructive sleep apnea) (Chronic) patient returned CPAP RLS (restless legs syndrome) (Chronic) Surgical History (Updated 09/13/19 @ 14:19 by Jonah Rodriguez MD) 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 History of appendectomy (Resolved) History of cataract surgery (Resolved) History of open reduction and internal fixation (ORIF) procedure (Resolved) right leg--hardware removed History of tooth extraction (Resolved) partial upper History of total left hip arthroplasty (Resolved) History of total left knee replacement (Chronic) S/P tonsillectomy and adenoidectomy (Inactive) Family History (Updated 09/13/19 @ 14:02 by Jonah Rodriguez MD) Father Coronary heart disease Brother Colorectal cancer Lung cancer Brother Coronary heart disease Mother Cancer Social History Preferred Language: Welsh Communication Ability: Effective Visual Impairment: No Limitations School Counselor Required: No Beliefs That Will Affect Care: None Current Living Situation: Spouse Current Living Situation Comment: lives with and autistic son current occupational status: retired Other Information That Helps Us Care for You: No Feels Safe at Home: No Is there a partner from a previous relationship who is making you feel unsafe now?: No Any Concerns about Your Family Situation: No Would You Like to Speak to Someone About Your Situation: No Safety Concerns: Feels Safe At This Time Smoking Status: Former smoker Tobacco Type: cigarettes ; Cigarettes Per Day: 1.5-3ppd x 50 years ; Second Hand Exposure: No ; Hx Alcohol Use: Yes Alcohol type: beer Hx Substance Use: No Review of Systems Constitutional: + fever, + chills, + sweats and + malaise; no weight loss Eyes: no diplopia and no worsening vision Ear, Nose, Mouth, Throat: no nasal congestion and no sore throat Respiratory: as per Subjective / HPI Cardiovascular: no chest pain, no palpitations and no edema Gastrointestinal: + vomiting (associated with severe coughing); no nausea, no constipation, no diarrhea/loose stools, no blood in stools and no melena Genitourinary: no dysuria and no hematuria Musculoskeletal: as per Subjective / HPI Integumentary: no rash and no new lesions Neurologic: + headache(s) (frontal) Endocrine: no polydipsia and no polyuria blood sugars well-controlled Hematologic / Lymphatic: no easy bleeding, no easy bruising and no lymphadenopathy Physical Exam Constitutional: WD/WN, vitals as above + ill appearing; no acute distress Eyes: PERRL, conjunctivae normal, anicteric sclerae ENMT: external ear and nose normal, oropharynx normal Neck: trachea midline, no thyromegaly Respiratory: Auscultation: + wheezes Cardiovascular: Rate/Rhythm: regular rate Heart Sounds: + murmur (II/ sys murmur heard best at base and LSB); no gallop and no cardiac rub Vessels: no JVD Extremities: normal capillary refill; no calf tenderness and no edema Gastrointestinal (Abdomen): normal bowel sounds, soft, nontender, no hepatosplenomegaly Musculoskeletal: Head/Neck/Chest: neck supple Extremities: strength 5/5 throughout; no cyanosis and no clubbing Skin: no rashes, warm and dry Neurologic: PERRL, EOMI no facial palsy no dysarthria or aphasia patellar DTR's 1/2 bilat Psychiatric: Orientation: alert and oriented x 3 Affect: euthymic affect Lymphatic: no cervical lymphadenopathy Results & Data Results & Data ([facility]) Vital Signs (Past 12 Hours) Vital Signs Temp Pulse Pulse Resp BP Pulse Ox 09/13/19 11:52 94 H 16 95 09/13/19 11:37 97 H 23 134/72 95 09/13/19 11:30 100 H 27 H 94 09/13/19 11:00 101 H 25 H 09/13/19 10:36 107 H 18 09/13/19 10:34 108 H 27 H 127/71 09/13/19 10:16 37.7 C H 113 H 24 78/57 L 89 L Laboratory Results Laboratory Results - last 24 hr 09/13/19 09/13/19 09/13/19 10:42 10:42 10:42 WBC 15.01 H RBC 4.67 L Hgb 15.1 Hct 45.1 MCV 96.6 MCH 32.3 MCHC 33.5 RDW Std Deviation 50.9 H RDW Coeff of Brie 14.5 Plt Count 233 MPV 10.6 H Immature Gran % (Auto) 0.2 Neut % (Auto) 88.1 Lymph % (Auto) 4.4 Parker % (Auto) 6.8 Eos % (Auto) 0.3 Baso % (Auto) 0.2 Immature Gran # (Auto) 0.03 H Neut # (Auto) 13.22 H Lymph # (Auto) 0.66 L Parker # (Auto) 1.02 H Eos # (Auto) 0.05 Baso # (Auto) 0.03 Absolute Nucleated RBC 0.05 H Nucleated RBC % (auto) 0.4 PT 10.4 INR 1.0 APTT 25.6 PTT Ratio 0.9 Sodium 135 L Potassium 4.5 Chloride 104 Carbon Dioxide 27 Anion Gap 4.0 BUN 15 Creatinine 1.31 Est Cr Clr Drug Dosing 61.3 Est GFR ( Amer) 63.0 Est GFR (Non-Af Amer) 54.4 BUN/Creatinine Ratio 11.7 Glucose 151 H Lactate Calcium 8.8 Magnesium 1.6 L Total Bilirubin 0.6 AST 19 ALT 21 Alkaline Phosphatase 108 Troponin I < 0.015 Total Protein 7.8 Albumin 3.6 Globulin 4.2 H Albumin/Globulin Ratio 0.9 Specimen Hemolysis Adenovirus (PCR) B. pertussis DNA (PCR) B.parapertussis DNA PCR C. pneumoniae DNA (PCR) Coronavirus (PCR) Coronavirus OC43 (PCR) Coronavirus HKU1 (PCR) Coronavirus 229E (PCR) COVID-19 Pt Symptomatic COVID-19 Source Coronavirus NL63 (PCR) Human Metapneumovir PCR Influenza Type A (PCR) Influenza Type B (PCR) M. pneumoniae (PCR) Parainfluenza 1 (PCR) Parainfluenza 2 (PCR) Parainfluenza 3 (PCR) Parainfluenza 4 (PCR) RSV (PCR) Entero/Rhino (PCR) SARS Virus RNA (PCR) SARS-CoV-2 RNA (RT-PCR) 09/13/19 09/13/19 09/13/19 10:42 10:50 11:20 WBC RBC Hgb Hct MCV MCH MCHC RDW Std Deviation RDW Coeff of Brie Plt Count MPV Immature Gran % (Auto) Neut % (Auto) Lymph % (Auto) Parker % (Auto) Eos % (Auto) Baso % (Auto) Immature Gran # (Auto) Neut # (Auto) Lymph # (Auto) Parker # (Auto) Eos # (Auto) Baso # (Auto) Absolute Nucleated RBC Nucleated RBC % (auto) PT INR APTT PTT Ratio Sodium Potassium Chloride Carbon Dioxide Anion Gap BUN Creatinine Est Cr Clr Drug Dosing Est GFR ( Amer) Est GFR (Non-Af Amer) BUN/Creatinine Ratio Glucose Lactate 1.8 Calcium Magnesium Total Bilirubin AST ALT Alkaline Phosphatase Troponin I Total Protein Albumin Globulin Albumin/Globulin Ratio Specimen Hemolysis Adenovirus (PCR) Not Detected B. pertussis DNA (PCR) Not Detected B.parapertussis DNA PCR Not Detected C. pneumoniae DNA (PCR) Not Detected Coronavirus (PCR) Coronavirus OC43 (PCR) Not Detected Coronavirus HKU1 (PCR) Not Detected Coronavirus 229E (PCR) Not Detected COVID-19 Pt Symptomatic COVID-19 Source Coronavirus NL63 (PCR) Not Detected Human Metapneumovir PCR Not Detected Influenza Type A (PCR) Cancelled Not Detected Influenza Type B (PCR) Cancelled Not Detected M. pneumoniae (PCR) Not Detected Parainfluenza 1 (PCR) Not Detected Parainfluenza 2 (PCR) Not Detected Parainfluenza 3 (PCR) Not Detected Parainfluenza 4 (PCR) Not Detected RSV (PCR) Not Detected Entero/Rhino (PCR) Not Detected SARS Virus RNA (PCR) SARS-CoV-2 RNA (RT-PCR) 09/13/19 11:20 WBC RBC Hgb Hct MCV MCH MCHC RDW Std Deviation RDW Coeff of Brie Plt Count MPV Immature Gran % (Auto) Neut % (Auto) Lymph % (Auto) Parker % (Auto) Eos % (Auto) Baso % (Auto) Immature Gran # (Auto) Neut # (Auto) Lymph # (Auto) Parker # (Auto) Eos # (Auto) Baso # (Auto) Absolute Nucleated RBC Nucleated RBC % (auto) PT INR APTT PTT Ratio Sodium Potassium Chloride Carbon Dioxide Anion Gap BUN Creatinine Est Cr Clr Drug Dosing Est GFR ( Amer) Est GFR (Non-Af Amer) BUN/Creatinine Ratio Glucose Lactate Calcium Magnesium Total Bilirubin AST ALT Alkaline Phosphatase Troponin I Total Protein Albumin Globulin Albumin/Globulin Ratio Specimen Hemolysis Adenovirus (PCR) B. pertussis DNA (PCR) B.parapertussis DNA PCR C. pneumoniae DNA (PCR) Coronavirus (PCR) Pending Coronavirus OC43 (PCR) Coronavirus HKU1 (PCR) Coronavirus 229E (PCR) COVID-19 Pt Symptomatic Pending COVID-19 Source Pending Coronavirus NL63 (PCR) Human Metapneumovir PCR Influenza Type A (PCR) Influenza Type B (PCR) M. pneumoniae (PCR) Parainfluenza 1 (PCR) Parainfluenza 2 (PCR) Parainfluenza 3 (PCR) Parainfluenza 4 (PCR) RSV (PCR) Entero/Rhino (PCR) SARS Virus RNA (PCR) Pending SARS-CoV-2 RNA (RT-PCR) Pending Diagnostic Findings CHEST X-RAY, PORTABLE FINDINGS: Atherosclerosis of the aortic arch. Cardiac silhouette enlarged. Bronchial wall cuffing also noted. Pulmonary vascular and interstitial prominence. Patchy irr egular linear and hazy opacities with a basilar predominance, which are new from prior exam. No large effusion or pneumothorax. Degenerative changes of the thoracic spine. IMPRESSION: 1. Patchy mid to basilar predominant infiltrates concerning for multifocal pneumonia, edema, or less likely aspiration. 2. Cardiomegaly with volume overload and congestive change. ACT 112: Negative or not required by law. Electronically signed by: Logan Anand M.D. 09/13/2019 11:06 AM ECG Additional Comments: EKG performed at [address] at 104 / min, no acute changes. Code Status & VTE Plan Code Status Code status discussed with patient. He does not recall that he has a living will. He would like resuscitation attempted in the event of a cardiopulmonary arrest. He would like intubation / mechanical ventilation if necessary for respiratory failure. VTE Prophylaxis Plan VTE Prophylaxis will be ordered: Yes (1) Sepsis Sepsis acute organ dysfunction status: unspecified Sepsis type: sepsis due to unspecified organism Qualified Code(s): A41.9 - Sepsis, unspecified organism
--- NOTE | 2019-09-13 14:53 | Electrocardiogram Report ---
Test Reason : Blood Pressure : / mmHG Vent. Rate : 104 BPM Atrial Rate : 104 BPM P-R Int : 160 ms QRS Dur : 066 ms QT Int : 302 ms P-R-T Axes : 065 073 060 degrees QTc Int : 397 ms Sinus tachycardia Possible Left atrial enlargement Borderline ECG When compared with ECG of 27-JAN-2019 13:16, QT has shortened Confirmed by Mohamud Pelayo ([id number]) on 09/13/2019 2:53:39 PM Referred By: REFERRED SELF Confirmed By:Mohamud Pelayo
[2019-09-13] MEDS ORDERED: PIPERACILL/TAZOBAC CONSULT ACTIVE PRN (15:00)
[2019-09-13] MEDS ORDERED: ALBUTEROL HFA 8 GM INHALER INH PRN (15:00)
[2019-09-13] MEDS ORDERED: ACETAMINOPHEN 325 MG TAB PO PRN (15:00)
[2019-09-13] MEDS ORDERED: PIPERACILLIN/TAZOBACTAM 4.5 GM in DEXTROSE 5% 100 ML IV STA (15:07)
[2019-09-13 17:22] LABS: Creatine Kinase 173 U/L (39-308)
[2019-09-13] MEDS: INSULIN ASPART 100 UNITS/ML 3 ML PEN SC SCH ×2 (17:54→20:54)
[2019-09-13] MEDS: MAGNESIUM OXIDE 400 MG TAB PO SCH ×2 (17:56→20:51)
[2019-09-13] MEDS: INSULIN GLARGINE SOLOSTAR 100 UNITS/ML 3 ML PEN SC SCH (20:49)
[2019-09-13] MEDS: ENOXAPARIN INJ 40 MG/0.4 ML SYR SQ SCH (20:50)
[2019-09-13] MEDS: TRAZODONE HCL 50 MG TAB PO SCH (20:50)
[2019-09-13] MEDS: PRAMIPEXOLE DIHYDROCHLO 0.5 MG TAB PO SCH (20:52)
[2019-09-13] MEDS: PIPERACILLIN/TAZOBACTAM 3.375 GM in DEXTROSE 5% 100 ML IV SCH (20:57)
[2019-09-14] MEDS: PIPERACILLIN/TAZOBACTAM 3.375 GM in DEXTROSE 5% 100 ML IV SCH ×3 (05:32→22:08)
[2019-09-14] MEDS ORDERED: DEXTROSE 50% 50 ML SYRINGE IV ONE (07:23)
[2019-09-14 08:14] LABS: BUN Creatinine Ratio 17.8 (10-20); Calcium 8.5 mg/dl (8.5-10.1); Est GFR (African American) 63.6; Est GFR (Non-African American) 54.9; Potassium 4.5 mmol/L (3.5-5.1)
[2019-09-14] MEDS: ATORVASTATIN 40 MG TAB PO SCH (08:43)
[2019-09-14] MEDS: ASPIRIN 81 MG ECTAB PO SCH (08:43)
[2019-09-14] MEDS: FOLIC ACID 400 MCG TAB PO SCH (08:43)
[2019-09-14 08:44] LABS: Estimated Average Glucose 203 mg/dl; Hemoglobin A1C 8.7 % (4.5-5.6)
[2019-09-14] MEDS: MAGNESIUM OXIDE 400 MG TAB PO SCH ×2 (08:44→20:14)
[2019-09-14] MEDS: predniSONE 20 MG TAB PO SCH (08:44)
[2019-09-14] MEDS: PRAMIPEXOLE DIHYDROCHLO 0.5 MG TAB PO SCH ×2 (08:44→20:14)
[2019-09-14] MEDS: FLUOXETINE HCL 20 MG CAP PO SCH (08:45)
[2019-09-14] MEDS: PANTOprazole 40 MG TAB PO SCH (08:45)
[2019-09-14] MEDS: THIAMINE HCL 100 MG TAB PO SCH (08:45)
[2019-09-14] MEDS ORDERED: NALTREXONE HCL 50 MG TAB PO SCH (09:00)
[2019-09-14] MEDS ORDERED: MAGNESIUM OXIDE 400 MG TAB PO SCH (09:00)
[2019-09-14] MEDS: INSULIN ASPART 100 UNITS/ML 3 ML PEN SC SCH ×4 (09:14→21:16)
[2019-09-14] MEDS: INSULIN GLARGINE SOLOSTAR 100 UNITS/ML 3 ML PEN SC SCH ×2 (09:16→21:16)
[2019-09-14] MEDS: LEVOFLOXACIN/D5W 750 MG/150 ML BAG IV SCH (11:24)
--- NOTE | 2019-09-14 11:35 | Hospitalist Progress Note ---
Date of Service September 14, 2019 Assessment & Plan (1) Multifocal pneumonia: Presented to ED with worsening wheezing and occasional cough for few weeks, now with fever, chills, sweats, malaise, worsening cough, worsening dyspnea. Chest x-ray demonstrated bilateral infiltrates. [employer] respiratory panel negative. No sick contacts or travel outside the area, but COVID-19 must be considered. Airborne/contact precautions until COVID-19 ruled out. Blood cultures obtained. Treating for possible bacterial pneumonia with intravenous levofloxacin and piperacillin/tazobactam. (2) Sepsis: Meets criteria for sepsis per current CMS guidelines. Blood cultures obtained. Started on broad-spectrum antibiotic coverage. Serum lactate 1.8. Initial blood pressure in ED was 78/57. Fluid resuscitation initiated and repeat blood pressure was 127/71; has remained hemodynamically stable since then. Initial fluid resuscitation with 2 L normal saline. Did not receive additional fluids at this time because (1) now hemodynamically stable and (2) possible COVID-19 and could be at risk for ARDS. Initial procalcitonin 1.74, repeat 3.78. Continue to follow. Most likely source = pneumonia as discussed above. (3) Hypoxia: Oxygen saturation 89% on room air upon presentation to ED. Now maintaining adequate saturations on supplemental oxygen via nasal cannula. (4) COPD (chronic obstructive pulmonary disease): History of COPD. Former smoker. Now with exacerbation of COPD secondary to pneumonia. Received IV methylprednisolone in ED. Will continue glucocorticoids for exacerbated COPD, but try to use the lowest possible dose. Albuterol HFA rather than nebs because of risk of aerosolization. (5) GERA (obstructive sleep apnea): Did not tolerate CPAP. (6) GERD (gastroesophageal reflux disease): Continue PPI. (7) DM type 2 (diabetes mellitus, type 2): Usually well-controlled on glipizide and metformin. Random blood sugar in ED 151. Elevated blood sugars due to acute illness and steroid therapy. Hold oral agents during hospital stay. Lantus / NovoLog per protocol. FBS today = 260. Titrate insulin therapy as needed. (8) Dyslipidemia: Continue statin. (Had some myalgias, but CPK normal.) (9) DVT prophylaxis: SQ enoxaparin. Ambulate. (10) Discharge planning issues: Anticipated discharge to home. Family Medicine follow-up with Dr. Rozick. Pulmonary Medicine follow-up with Em Villarreal PA-C. Admission and Anticipated Discharge Date Admission Date: September 13, 2019 Subjective Recheck for pneumonia and other problems. Patient seen in their room around 0930. No fever since yesterday. Persistent cough productive of yellow sputum, wheezing, SOB. No chest pain. Review of Systems: Constitutional- no fever. Cardiac- no chest pain. Pulmonary- as noted above. GI- 1 episode of loose stools; no nausea, vomiting, melena, hematochezia. - no urinary symptoms. Otherwise, as noted above. Physical Exam Constitutional: no acute distress Respiratory: Auscultation: + crackles, + rhonchi and + wheezes Cardiovascular: Rate/Rhythm: regular rate and regular rhythm Heart Sounds: + murmur (II/ sys murmur at base) and + cardiac rub; no gallop Vessels: no JVD Extremities: no calf tenderness and no edema Gastrointestinal (Abdomen): normal bowel sounds, soft, nontender, no hepatosplenomegaly Skin: no rashes, warm and dry Psychiatric: Orientation: alert and oriented x 3 Results & Data Results & Data ([facility]) Vital Signs (Past 12 Hours) Vital Signs Temp Pulse Resp BP Pulse Ox 09/14/19 11:22 36.6 C 52 L 16 131/69 93 09/14/19 07:56 36.5 C 70 20 129/73 97 09/14/19 05:18 36.6 C 71 20 135/66 94 09/14/19 00:51 36.5 C 62 18 134/72 93 Laboratory Results Laboratory Results - last 24 hr 09/13/19 09/13/19 09/13/19 10:42 10:42 10:50 Sodium Potassium Chloride Carbon Dioxide Anion Gap BUN Creatinine Est Cr Clr Drug Dosing Est GFR ( Amer) Est GFR (Non-Af Amer) BUN/Creatinine Ratio Glucose POC Glucose Estimat Average Glucose Hemoglobin A1c Calcium Total Creatine Kinase 173 Procalcitonin 1.74 H Specimen Hemolysis Adenovirus (PCR) B. pertussis DNA (PCR) B.parapertussis DNA PCR C. pneumoniae DNA (PCR) Coronavirus (PCR) Coronavirus OC43 (PCR) Coronavirus HKU1 (PCR) Coronavirus 229E (PCR) COVID-19 Pt Symptomatic COVID-19 Source Coronavirus NL63 (PCR) Hepatitis C Ab Screen Human Metapneumovir PCR Influenza Type A (PCR) Cancelled Influenza Type B (PCR) Cancelled M. pneumoniae (PCR) Parainfluenza 1 (PCR) Parainfluenza 2 (PCR) Parainfluenza 3 (PCR) Parainfluenza 4 (PCR) RSV (PCR) Entero/Rhino (PCR) SARS Virus RNA (PCR) SARS-CoV-2 RNA (RT-PCR) 09/13/19 09/13/19 09/13/19 11:20 11:20 15:04 Sodium Potassium Chloride Carbon Dioxide Anion Gap BUN Creatinine Est Cr Clr Drug Dosing Est GFR ( Amer) Est GFR (Non-Af Amer) BUN/Creatinine Ratio Glucose POC Glucose 203 H Estimat Average Glucose Hemoglobin A1c Calcium Total Creatine Kinase Procalcitonin Specimen Hemolysis Adenovirus (PCR) Not Detected B. pertussis DNA (PCR) Not Detected B.parapertussis DNA PCR Not Detected C. pneumoniae DNA (PCR) Not Detected Coronavirus (PCR) Pending Coronavirus OC43 (PCR) Not Detected Coronavirus HKU1 (PCR) Not Detected Coronavirus 229E (PCR) Not Detected COVID-19 Pt Symptomatic Pending COVID-19 Source Pending Coronavirus NL63 (PCR) Not Detected Hepatitis C Ab Screen Human Metapneumovir PCR Not Detected Influenza Type A (PCR) Not Detected Influenza Type B (PCR) Not Detected M. pneumoniae (PCR) Not Detected Parainfluenza 1 (PCR) Not Detected Parainfluenza 2 (PCR) Not Detected Parainfluenza 3 (PCR) Not Detected Parainfluenza 4 (PCR) Not Detected RSV (PCR) Not Detected Entero/Rhino (PCR) Not Detected SARS Virus RNA (PCR) Pending SARS-CoV-2 RNA (RT-PCR) Pending 09/13/19 09/13/19 09/14/19 16:33 20:24 07:39 Sodium Potassium Chloride Carbon Dioxide Anion Gap BUN Creatinine Est Cr Clr Drug Dosing Est GFR ( Amer) Est GFR (Non-Af Amer) BUN/Creatinine Ratio Glucose POC Glucose 265 H 286 H Estimat Average Glucose Hemoglobin A1c Calcium Total Creatine Kinase Procalcitonin Specimen Hemolysis Adenovirus (PCR) B. pertussis DNA (PCR) B.parapertussis DNA PCR C. pneumoniae DNA (PCR) Coronavirus (PCR) Coronavirus OC43 (PCR) Coronavirus HKU1 (PCR) Coronavirus 229E (PCR) COVID-19 Pt Symptomatic COVID-19 Source Coronavirus NL63 (PCR) Hepatitis C Ab Screen Neg Human Metapneumovir PCR Influenza Type A (PCR) Influenza Type B (PCR) M. pneumoniae (PCR) Parainfluenza 1 (PCR) Parainfluenza 2 (PCR) Parainfluenza 3 (PCR) Parainfluenza 4 (PCR) RSV (PCR) Entero/Rhino (PCR) SARS Virus RNA (PCR) SARS-CoV-2 RNA (RT-PCR) 09/14/19 09/14/19 09/14/19 07:39 07:39 07:39 Sodium 136 Potassium 4.5 Chloride 105 Carbon Dioxide 26 Anion Gap 6.0 BUN 23 H D Creatinine 1.30 Est Cr Clr Drug Dosing 63.0 Est GFR ( Amer) 63.6 Est GFR (Non-Af Amer) 54.9 BUN/Creatinine Ratio 17.8 Glucose 268 H POC Glucose Estimat Average Glucose 203 Hemoglobin A1c 8.7 H Calcium 8.5 Total Creatine Kinase Procalcitonin 3.78 H Specimen Hemolysis Adenovirus (PCR) B. pertussis DNA (PCR) B.parapertussis DNA PCR C. pneumoniae DNA (PCR) Coronavirus (PCR) Coronavirus OC43 (PCR) Coronavirus HKU1 (PCR) Coronavirus 229E (PCR) COVID-19 Pt Symptomatic COVID-19 Source Coronavirus NL63 (PCR) Hepatitis C Ab Screen Human Metapneumovir PCR Influenza Type A (PCR) Influenza Type B (PCR) M. pneumoniae (PCR) Parainfluenza 1 (PCR) Parainfluenza 2 (PCR) Parainfluenza 3 (PCR) Parainfluenza 4 (PCR) RSV (PCR) Entero/Rhino (PCR) SARS Virus RNA (PCR) SARS-CoV-2 RNA (RT-PCR) 09/14/19 09/14/19 07:44 11:19 Sodium Potassium Chloride Carbon Dioxide Anion Gap BUN Creatinine Est Cr Clr Drug Dosing Est GFR ( Amer) Est GFR (Non-Af Amer) BUN/Creatinine Ratio Glucose POC Glucose 260 H 184 H Estimat Average Glucose Hemoglobin A1c Calcium Total Creatine Kinase Procalcitonin Specimen Hemolysis Adenovirus (PCR) B. pertussis DNA (PCR) B.parapertussis DNA PCR C. pneumoniae DNA (PCR) Coronavirus (PCR) Coronavirus OC43 (PCR) Coronavirus HKU1 (PCR) Coronavirus 229E (PCR) COVID-19 Pt Symptomatic COVID-19 Source Coronavirus NL63 (PCR) Hepatitis C Ab Screen Human Metapneumovir PCR Influenza Type A (PCR) Influenza Type B (PCR) M. pneumoniae (PCR) Parainfluenza 1 (PCR) Parainfluenza 2 (PCR) Parainfluenza 3 (PCR) Parainfluenza 4 (PCR) RSV (PCR) Entero/Rhino (PCR) SARS Virus RNA (PCR) SARS-CoV-2 RNA (RT-PCR) (1) Sepsis Sepsis acute organ dysfunction status: unspecified Sepsis type: sepsis due to unspecified organism Qualified Code(s): A41.9 - Sepsis, unspecified organism
[2019-09-14] MEDS: ALBUTEROL HFA 8 GM INHALER INH SCH ×2 (17:35→20:15)
[2019-09-14] MEDS: TRAZODONE HCL 50 MG TAB PO SCH (20:13)
[2019-09-14] MEDS: ENOXAPARIN INJ 40 MG/0.4 ML SYR SQ SCH (20:13)
[2019-09-14] MEDS: guaiFENesin 600 MG TABCR PO SCH (22:08)
[2019-09-15] MEDS: PIPERACILLIN/TAZOBACTAM 3.375 GM in DEXTROSE 5% 100 ML IV SCH ×3 (06:23→22:11)
[2019-09-15 08:02] LABS: BUN Creatinine Ratio 14.3 (10-20); Calcium 8.8 mg/dl (8.5-10.1); Creatinine Clr Calc Pharmacy 74.7 ml/min; Est GFR (Non-African American) 66.5; Potassium 4.1 mmol/L (3.5-5.1)
[2019-09-15] MEDS: ALBUTEROL HFA 8 GM INHALER INH SCH ×4 (08:07→20:35)
[2019-09-15] MEDS: guaiFENesin 600 MG TABCR PO SCH ×2 (08:07→20:36)
[2019-09-15] MEDS: FLUOXETINE HCL 20 MG CAP PO SCH (08:08)
[2019-09-15] MEDS: PANTOprazole 40 MG TAB PO SCH (08:08)
[2019-09-15] MEDS: THIAMINE HCL 100 MG TAB PO SCH (08:08)
[2019-09-15] MEDS: predniSONE 20 MG TAB PO SCH (08:08)
[2019-09-15] MEDS: FOLIC ACID 400 MCG TAB PO SCH (08:08)
[2019-09-15] MEDS: ASPIRIN 81 MG ECTAB PO SCH (08:08)
[2019-09-15] MEDS: PRAMIPEXOLE DIHYDROCHLO 0.5 MG TAB PO SCH ×2 (08:09→20:34)
[2019-09-15] MEDS: ATORVASTATIN 40 MG TAB PO SCH (08:09)
[2019-09-15] MEDS: MAGNESIUM OXIDE 400 MG TAB PO SCH ×2 (08:09→20:34)
[2019-09-15] MEDS: INSULIN ASPART 100 UNITS/ML 3 ML PEN SC SCH ×4 (08:54→21:14)
[2019-09-15] MEDS: INSULIN GLARGINE SOLOSTAR 100 UNITS/ML 3 ML PEN SC SCH ×2 (08:55→21:13)
--- NOTE | 2019-09-15 11:16 | Hospitalist Progress Note ---
Date of Service September 15, 2019 Assessment & Plan (1) Multifocal pneumonia: Presented to ED with worsening wheezing and occasional cough for few weeks, now with fever, chills, sweats, malaise, worsening cough, worsening dyspnea. Chest x-ray demonstrated bilateral infiltrates. BioFire respiratory panel negative. No sick contacts or travel outside the area, but COVID-19 must be considered. Airborne/contact precautions until COVID-19 ruled out. Blood cultures obtained- negative so far. Sputum culture- light normal trista. SARS-CoV-2 PCR pending. Treating for possible bacterial pneumonia with intravenous levofloxacin and piperacillin/tazobactam. (2) Sepsis: Meets criteria for sepsis per current CMS guidelines. Blood cultures obtained. Started on broad-spectrum antibiotic coverage. Serum lactate 1.8. Initial blood pressure in ED was 78/57. Fluid resuscitation initiated and repeat blood pressure was 127/71; has remained hemodynamically stable since then. Initial fluid resuscitation with 2 L normal saline. Did not receive additional fluids at this time because (1) now hemodynamically stable and (2) possible COVID-19 and could be at risk for ARDS. Procalcitonin 1.74, 3.78, 2.21. Continue to follow. Most likely source = pneumonia as discussed above. (3) Hypoxia: Oxygen saturation 89% on room air upon presentation to ED. Now maintaining adequate saturations on supplemental oxygen via nasal cannula. (4) COPD (chronic obstructive pulmonary disease): History of COPD. Former smoker. Now with exacerbation of COPD secondary to pneumonia. Received IV methylprednisolone in ED. Will continue glucocorticoids for exacerbated COPD, but try to use the lowest possible dose. Albuterol HFA rather than nebs because of risk of aerosolization. (5) GERA (obstructive sleep apnea): Did not tolerate CPAP. (6) GERD (gastroesophageal reflux disease): Continue PPI. (7) DM type 2 (diabetes mellitus, type 2): Usually fairly well-controlled on glipizide and metformin. Random blood sugar in ED 151. Hgb A1c 8.7. Elevated blood sugars due to acute illness and steroid therapy. Hold oral agents during hospital stay. Lantus / NovoLog per protocol. FBS today = 225. Titrate insulin therapy as needed. (8) Dyslipidemia: Continue statin. (Had some myalgias, but CPK normal.) (9) Diarrhea: Several loose stools. Check for C diff. (10) DVT prophylaxis: SQ enoxaparin. Ambulate. (11) Discharge planning issues: Anticipated discharge to home. Family Medicine follow-up with Dr. Rhoades. Pulmonary Medicine follow-up with Em Villarreal PA-C. Admission and Anticipated Discharge Date Admission Date: September 13, 2019 Subjective Recheck for pneumonia and other problems. Patient seen in their room around 1030. Chills this morning, but no fever last night or today.. Persistent cough productive of yellow sputum, wheezing, SOB. No chest pain. Several episodes of loose stools since yesterday. Review of Systems: Constitutional- no fever. Cardiac- no chest pain. Pulmonary- as noted above. GI- + diarrhea; no nausea, vomiting, melena, hematochezia. - no urinary symptoms. Otherwise, as noted above. Physical Exam Constitutional: WD/WN, vitals as above no acute distress Respiratory: Auscultation: + crackles, + rhonchi and + wheezes Cardiovascular: Rate/Rhythm: regular rate and regular rhythm Heart Sounds: + murmur (II/ sys murmur at base) and + cardiac rub; no gallop Vessels: no JVD Extremities: no calf tenderness and no edema Gastrointestinal (Abdomen): normal bowel sounds, soft, nontender, no hepatosplenomegaly Musculoskeletal: Extremities: no cyanosis Psychiatric: Orientation: alert and oriented x 3 Affect: euthymic affect Results & Data Results & Data ([facility]) Vital Signs (Past 12 Hours) Vital Signs Temp Pulse Pulse Resp BP Pulse Ox 09/15/19 08:00 57 L 09/15/19 07:51 36.5 C 69 20 129/76 95 09/15/19 02:14 36.4 C L 64 22 138/78 96 Laboratory Results 09/15/19 07:05 (1) Sepsis Sepsis acute organ dysfunction status: unspecified Sepsis type: sepsis due to unspecified organism Qualified Code(s): A41.9 - Sepsis, unspecified organism
[2019-09-15] MEDS: LEVOFLOXACIN/D5W 750 MG/150 ML BAG IV SCH (11:38)
[2019-09-15] MEDS: TRAZODONE HCL 50 MG TAB PO SCH (20:34)
[2019-09-15] MEDS: ENOXAPARIN INJ 40 MG/0.4 ML SYR SQ SCH (20:35)
[2019-09-16] MEDS: PIPERACILLIN/TAZOBACTAM 3.375 GM in DEXTROSE 5% 100 ML IV SCH ×3 (06:17→23:19)
[2019-09-16 06:59] LABS: BUN Creatinine Ratio 12.8 (10-20); Calcium 9.3 mg/dl (8.5-10.1); Creatinine Clr Calc Pharmacy 65.7 ml/min; Est GFR (Non-African American) 58.7; Magnesium 1.8 mg/dl (1.8-2.4); Potassium 4.1 mmol/L (3.5-5.1)
[2019-09-16 07:12] LABS: Beta-Hydroxybutyrate 0.84 mg/dl (0.2-2.81)
[2019-09-16] MEDS: ASPIRIN 81 MG ECTAB PO SCH (08:00)
[2019-09-16] MEDS: MAGNESIUM OXIDE 400 MG TAB PO SCH ×2 (08:00→20:26)
[2019-09-16] MEDS: THIAMINE HCL 100 MG TAB PO SCH (08:01)
[2019-09-16] MEDS: PANTOprazole 40 MG TAB PO SCH (08:01)
[2019-09-16] MEDS: FOLIC ACID 400 MCG TAB PO SCH (08:01)
[2019-09-16] MEDS: ATORVASTATIN 40 MG TAB PO SCH (08:01)
[2019-09-16] MEDS: FLUOXETINE HCL 20 MG CAP PO SCH (08:01)
[2019-09-16] MEDS: predniSONE 20 MG TAB PO SCH (08:02)
[2019-09-16] MEDS: guaiFENesin 600 MG TABCR PO SCH ×2 (08:03→20:26)
[2019-09-16] MEDS: PRAMIPEXOLE DIHYDROCHLO 0.5 MG TAB PO SCH ×2 (08:03→20:25)
[2019-09-16] MEDS: ALBUTEROL HFA 8 GM INHALER INH SCH ×4 (08:06→20:23)
[2019-09-16] MEDS: INSULIN ASPART 100 UNITS/ML 3 ML PEN SC SCH ×4 (08:13→20:29)
[2019-09-16] MEDS: INSULIN GLARGINE SOLOSTAR 100 UNITS/ML 3 ML PEN SC SCH ×2 (08:14→20:27)
[2019-09-16] MEDS: levoFLOXacin 750 MG TAB PO SCH (12:07)
--- NOTE | 2019-09-16 13:39 | Hospitalist Progress Note ---
Date of Service September 16, 2019 Assessment & Plan (1) Multifocal pneumonia: Presented to ED with worsening wheezing and occasional cough for few weeks, now with fever, chills, sweats, malaise, worsening cough, worsening dyspnea. Chest x-ray demonstrated bilateral infiltrates. BioFire respiratory panel negative. No sick contacts or travel outside the area, but COVID-19 must be considered. Airborne/contact precautions until COVID-19 ruled out. Blood cultures obtained- negative so far. Sputum culture- light normal trista. SARS-CoV-2 PCR sent 09/12 pending. Treating for possible bacterial pneumonia with intravenous levofloxacin and piperacillin/tazobactam. (2) Sepsis: Meets criteria for sepsis per current CMS guidelines. Blood cultures obtained. Started on broad-spectrum antibiotic coverage. Serum lactate 1.8. Initial blood pressure in ED was 78/57. Fluid resuscitation initiated and repeat blood pressure was 127/71; has remained hemodynamically stable since then. Initial fluid resuscitation with 2 L normal saline. Did not receive additional fluids at this time because (1) now hemodynamically stable and (2) possible COVID-19 and could be at risk for ARDS. Procalcitonin 1.74, 3.78, 2.21, 1.02. Most likely source = pneumonia as discussed above. (3) Hypoxia: Oxygen saturation 89% on room air upon presentation to ED. Received supplemental O2. Now maintaining adequate saturations on RA. (4) COPD (chronic obstructive pulmonary disease): History of COPD. Former smoker. Now with exacerbation of COPD secondary to pneumonia. Received IV methylprednisolone in ED. Will continue glucocorticoids for exacerbated COPD, but try to use the lowest possible dose for shortest possible duration. Albuterol HFA rather than nebs because of risk of aerosolization. (5) GERA (obstructive sleep apnea): Did not tolerate CPAP. (6) GERD (gastroesophageal reflux disease): Continue PPI. (7) DM type 2 (diabetes mellitus, type 2): Usually fairly well-controlled on glipizide and metformin. Random blood sugar in ED 151. Hgb A1c 8.7. Elevated blood sugars due to acute illness and steroid therapy. Also some degree of dietary indiscretion- enjoys his snacks. Hold oral agents during hospital stay. Lantus / NovoLog per protocol. FBS today = 265. Titrate insulin therapy as needed. (8) Dyslipidemia: Continue statin. (Had some myalgias, but CPK normal.) (9) Diarrhea: Several loose stools, now improved. Check for C diff if diarrhea persists. (10) DVT prophylaxis: SQ enoxaparin. Ambulate. (11) Discharge planning issues: Anticipated discharge to home. Family Medicine follow-up with Dr. Rhoades. Pulmonary Medicine follow-up with Em Villarreal PA-C. Admission and Anticipated Discharge Date Admission Date: September 13, 2019 Subjective Recheck for pneumonia and other problems. Patient seen in their room around 1130. No fever. Persistent chest congestion and wheezing, but cough less productive. Diarrhea improved. Blood sugars running high (some degree of dietary indiscretion). Review of Systems: Constitutional- no fever. Cardiac- no chest pain. Pulmonary- as noted above. GI- + diarrhea; no nausea, vomiting, melena, hematochezia. - no urinary symptoms. Otherwise, as noted above. Physical Exam Constitutional: WD/WN, vitals as above no acute distress Respiratory: Auscultation: + crackles, + rhonchi and + wheezes Cardiovascular: Rate/Rhythm: regular rate and regular rhythm Heart Sounds: + murmur (II/ sys murmur at base) and + cardiac rub; no gallop Vessels: no JVD Extremities: no calf tenderness and no edema Gastrointestinal (Abdomen): normal bowel sounds, soft, nontender, no hepatosplenomegaly Musculoskeletal: Head/Neck/Chest: neck supple Extremities: no cyanosis Skin: no rashes, warm and dry Psychiatric: Orientation: alert and oriented x 3 Results & Data Results & Data ([facility]) Vital Signs (Past 12 Hours) Vital Signs Temp Pulse Pulse Resp BP Pulse Ox 09/16/19 12:07 36.7 C 78 20 119/78 93 09/16/19 08:00 36.6 C 80 18 130/74 92 09/16/19 07:50 74 09/16/19 03:08 36.4 C L 60 20 154/84 H 93 Laboratory Results 09/16/19 06:16 (1) Sepsis Sepsis acute organ dysfunction status: unspecified Sepsis type: sepsis due to unspecified organism Qualified Code(s): A41.9 - Sepsis, unspecified organism
[2019-09-16 15:14] LABS: COVID-19 Patient Symptomatic? YES; PAN-SARS Coronavirus RNA NEGATIVE (NEGATIVE); SARS CoV2 RNA (COVID-19) NEGATIVE (NEGATIVE); SARS Coronavirus RNA Source NASOPHARYNGEAL
[2019-09-16] MEDS: ENOXAPARIN INJ 40 MG/0.4 ML SYR SQ SCH (20:26)
[2019-09-16] MEDS: TRAZODONE HCL 50 MG TAB PO SCH (23:03)
[2019-09-17] MEDS: PIPERACILLIN/TAZOBACTAM 3.375 GM in DEXTROSE 5% 100 ML IV SCH ×3 (05:39→21:44)
[2019-09-17] MEDS: INSULIN ASPART 100 UNITS/ML 3 ML PEN SC SCH ×4 (08:11→21:43)
[2019-09-17] MEDS: INSULIN GLARGINE SOLOSTAR 100 UNITS/ML 3 ML PEN SC SCH ×2 (08:18→21:42)
[2019-09-17] MEDS: ATORVASTATIN 40 MG TAB PO SCH (08:19)
[2019-09-17] MEDS: MAGNESIUM OXIDE 400 MG TAB PO SCH ×2 (08:21→21:05)
[2019-09-17] MEDS: PANTOprazole 40 MG TAB PO SCH (08:22)
[2019-09-17] MEDS: FOLIC ACID 400 MCG TAB PO SCH (08:23)
[2019-09-17] MEDS: FLUOXETINE HCL 20 MG CAP PO SCH (08:23)
[2019-09-17] MEDS: ASPIRIN 81 MG ECTAB PO SCH (08:23)
[2019-09-17] MEDS: guaiFENesin 600 MG TABCR PO SCH ×2 (08:24→21:05)
[2019-09-17] MEDS: THIAMINE HCL 100 MG TAB PO SCH (08:24)
[2019-09-17] MEDS: predniSONE 20 MG TAB PO SCH (08:24)
[2019-09-17] MEDS: PRAMIPEXOLE DIHYDROCHLO 0.5 MG TAB PO SCH ×2 (08:24→21:05)
[2019-09-17] MEDS: ALBUTEROL HFA 8 GM INHALER INH SCH ×4 (08:25→21:06)
[2019-09-17] MEDS: levoFLOXacin 750 MG TAB PO SCH (12:06)
--- NOTE | 2019-09-17 17:55 | Hospitalist Progress Note ---
Date of Service September 17, 2019 Assessment & Plan (1) Multifocal pneumonia: Presented to ED with worsening wheezing and occasional cough for few weeks, now with fever, chills, sweats, malaise, worsening cough, worsening dyspnea. Chest x-ray demonstrated bilateral infiltrates. BioFire respiratory panel negative. No sick contacts or travel outside the area, but COVID-19 must be considered. Airborne/contact precautions followed until COVID-19 ruled out. SARS-CoV-2 reported negative 09/16/19. Blood cultures negative. Sputum culture- light normal trista. Treating for suspected bacterial pneumonia with intravenous levofloxacin and piperacillin/tazobactam. (2) Sepsis: Met criteria for sepsis per current CMS guidelines. Blood cultures obtained. Started on broad-spectrum antibiotic coverage. Serum lactate 1.8. Initial blood pressure in ED was 78/57. Fluid resuscitation initiated and repeat blood pressure was 127/71; has remained hemodynamically stable since then. Initial fluid resuscitation with 2 L normal saline. Did not receive additional fluids at this time because (1) hemodynamically stable and (2) possible COVID-19 and could be at risk for ARDS. Procalcitonin 1.74, 3.78, 2.21, 1.02. Most likely source = pneumonia as discussed above. (3) Hypoxia: Oxygen saturation 89% on room air upon presentation to ED. Received supplemental O2. Now maintaining adequate saturations on RA. (4) COPD (chronic obstructive pulmonary disease): History of COPD. Former smoker. Now with exacerbation of COPD secondary to pneumonia. Received IV methylprednisolone in ED. Will continue glucocorticoids for exacerbated COPD, but try to use the lowest possible dose for shortest possible duration (tentatively 5-7 days). Albuterol HFA rather than nebs because of risk of aerosolization. (5) GERA (obstructive sleep apnea): Did not tolerate CPAP. (6) GERD (gastroesophageal reflux disease): Continue PPI. (7) DM type 2 (diabetes mellitus, type 2): Usually fairly well-controlled on glipizide and metformin. Random blood sugar in ED 151. Hgb A1c 8.7. Elevated blood sugars due to acute illness and steroid therapy. There is also some degree of dietary indiscretion- enjoys ice cream and other snacks. Hold oral agents during hospital stay. Lantus / NovoLog per protocol. FBS today = 89. Titrate insulin therapy as needed. (8) Dyslipidemia: Continue statin. (Had some myalgias, but CPK normal.) (9) Diarrhea: Several loose stools, now improved. Check for C diff if diarrhea worsens. (10) DVT prophylaxis: SQ enoxaparin. Ambulate. (11) Discharge planning issues: Anticipated discharge to home. Family Medicine follow-up with Dr. Rhoades. Pulmonary Medicine follow-up with Em Villarreal PA-C. Admission and Anticipated Discharge Date Admission Date: September 13, 2019 Subjective Recheck for pneumonia and other problems. Patient seen in their room around 1440. No fever. Cough less productive. Still wheezing. Diarrhea improved. Blood sugars fluctuating (admits some dietary indiscretion). Review of Systems: Constitutional- no fever. Cardiac- no chest pain. Pulmonary- as noted above. GI- + diarrhea; no nausea, vomiting, melena, hematochezia. - no urinary symptoms. Otherwise, as noted above. Physical Exam Constitutional: WD/WN, vitals as above no acute distress Respiratory: Auscultation: + crackles, + rhonchi (few, scattered) and + wheezes (improved) Cardiovascular: Rate/Rhythm: regular rate and regular rhythm Heart Sounds: + murmur (II/ sys murmur at base); no gallop Vessels: no JVD Extremities: no calf tenderness and no edema Gastrointestinal (Abdomen): normal bowel sounds, soft, nontender, no hepatosplenomegaly Skin: no rashes, warm and dry Psychiatric: Orientation: alert and oriented x 3 Affect: euthymic affect Results & Data Results & Data ([facility]) Vital Signs (Past 12 Hours) Vital Signs Temp Pulse Pulse Resp BP Pulse Ox 09/17/19 15:51 36.7 C 82 18 142/73 H 93 09/17/19 11:19 36.6 C 87 18 121/78 92 09/17/19 07:33 36.6 C 56 L 18 128/72 90 09/17/19 07:30 66 Laboratory Results 09/16/19 09/17/19 09/17/19 20:00 07:26 11:18 POC Glucose 208 H 89 199 H 09/17/19 16:20 POC Glucose 216 H (1) Sepsis Sepsis acute organ dysfunction status: unspecified Sepsis type: sepsis due to unspecified organism Qualified Code(s): A41.9 - Sepsis, unspecified organism
[2019-09-17] MEDS: ENOXAPARIN INJ 40 MG/0.4 ML SYR SQ SCH (21:05)
[2019-09-17] MEDS: TRAZODONE HCL 50 MG TAB PO SCH (23:33)
[2019-09-18] MEDS: PIPERACILLIN/TAZOBACTAM 3.375 GM in DEXTROSE 5% 100 ML IV SCH ×3 (06:00→21:11)
[2019-09-18] MEDS: ASPIRIN 81 MG ECTAB PO SCH (08:12)
[2019-09-18] MEDS: guaiFENesin 600 MG TABCR PO SCH ×2 (08:13→20:59)
[2019-09-18] MEDS: FOLIC ACID 400 MCG TAB PO SCH (08:13)
[2019-09-18] MEDS: ATORVASTATIN 40 MG TAB PO SCH (08:13)
[2019-09-18] MEDS: MAGNESIUM OXIDE 400 MG TAB PO SCH ×2 (08:14→20:59)
[2019-09-18] MEDS: PRAMIPEXOLE DIHYDROCHLO 0.5 MG TAB PO SCH ×2 (08:14→20:59)
[2019-09-18] MEDS: PANTOprazole 40 MG TAB PO SCH (08:14)
[2019-09-18] MEDS: predniSONE 20 MG TAB PO SCH (08:14)
[2019-09-18] MEDS: FLUOXETINE HCL 20 MG CAP PO SCH (08:15)
[2019-09-18] MEDS: THIAMINE HCL 100 MG TAB PO SCH (08:15)
[2019-09-18] MEDS: ALBUTEROL HFA 8 GM INHALER INH SCH ×4 (08:15→21:11)
[2019-09-18] MEDS: INSULIN GLARGINE SOLOSTAR 100 UNITS/ML 3 ML PEN SC SCH ×2 (08:16→21:00)
[2019-09-18] MEDS: INSULIN ASPART 100 UNITS/ML 3 ML PEN SC SCH ×4 (08:17→20:59)
--- NOTE | 2019-09-18 10:41 | Hospitalist Progress Note ---
Date of Service September 18, 2019 Assessment & Plan (1) Multifocal pneumonia: Patient is a 69 yr male who presents with worsening SOB, wheezing, cough for few weeks. Multifocal pneumonia: No known H/O sick contact or recent travel CXR:Patchy mid to basilar predominant infiltrates concerning for multifocal pneumonia, edema, or less likely aspiration. Cardiomegaly with volume overload and congestive change. BioFire: Negative Influenza Screen: Negative SARS-CoV-2: Negative Sputum Gram stain: Light normal trista Blood cultures: No growth to date Lactate: 1.8 Received IV fluids Continue IV Levaquin, Zosyn Recheck Procalcitonin in AM (2) Sepsis: Secondary to above (3) Hypoxia: Secondary to Pneumonia/COPD exacerbation Resolved Saturating well on room air (4) COPD (chronic obstructive pulmonary disease): Acute COPD Exacerbation H/O COPD Former smoker Continue Nebs, Prednisone, Abx Supplemental Oxygen as needed (5) GERA (obstructive sleep apnea): Intolerant to CPAP (6) GERD (gastroesophageal reflux disease): Continue Protonix (7) DM type 2 (diabetes mellitus, type 2): Last Hgb A1c 8.7. Hold PO meds Blood sugar levels elevated due to steroids Continue Lantus, ISS Monitor BGs (8) Dyslipidemia: Continue statin (9) Diarrhea: Improved Recheck stool for C diff if necessary (10) DVT prophylaxis: Lovenox SQ (11) Discharge planning issues: Expect to discharge home when stable Needs follow up with PCP Dr. Rhoades. Needs follow up with Pulmonary Medicine Em Villarreal PA-C. Admission and Anticipated Discharge Date Admission Date: September 13, 2019 Subjective Patient is seen and examined at bedside Cough and wheezing slowly improving Denies any chest pain or significant dyspnea Saturating well on room air Offers no other complaints Plan to transfer out of PCU today Review of Systems Review of Systems: All systems reviewed & are unremarkable except as noted in HPI & below Physical Exam Physical Exam: Physical Exam: Vitals signs as noted above General Appearance:Moderately built and nourished, no apparent distress Head: normocephalic, Atraumatic Eyes: normal inspection, EOMI Neck: supple, Trachea midline Respiratory/Chest: Decreased breath sounds, B/L Wheezes Cardiovascular: S1, S2, + murmur Abdomen/GI:Soft, Non tender, Bowel sounds present Extremities/Musculoskelatal:normal inspection, no edema Neurologic/Psych:AAOX3, grossly no focal neurological deficits Skin: normal color, warm Results & Data Results & Data ([facility]) Vital Signs (Past 12 Hours) Vital Signs Temp Pulse Pulse Resp BP Pulse Ox 09/18/19 08:00 63 09/18/19 07:25 36.6 C 69 19 147/85 H 95 09/18/19 03:35 36.6 C 68 20 114/62 92 09/18/19 00:03 36.5 C 79 20 121/70 92 (1) Sepsis Sepsis acute organ dysfunction status: unspecified Sepsis type: sepsis due to unspecified organism Qualified Code(s): A41.9 - Sepsis, unspecified organism
[2019-09-18] MEDS: levoFLOXacin 750 MG TAB PO SCH (11:18)
[2019-09-18] MEDS: ENOXAPARIN INJ 40 MG/0.4 ML SYR SQ SCH (20:59)
[2019-09-18] MEDS: TRAZODONE HCL 50 MG TAB PO SCH (20:59)
[2019-09-19] MEDS: PIPERACILLIN/TAZOBACTAM 3.375 GM in DEXTROSE 5% 100 ML IV SCH ×2 (05:51→13:53)
[2019-09-19 06:36] LABS: Hematocrit (blood only) 44.5 % (42-52); Hemoglobin 14.6 g/dL (14.0-18.0); Mean Corpuscular Hemoglobin 31.4 pg (25-34); Mean Corpuscular Hgb Conc 32.8 g/dL (32-36); Mean Corpuscular Volume 95.7 fL (80-100); Mean Platelet Volume 10.7 fL (7.4-10.4); Platelet Count 239 K/uL (130-400); RDW Coefficient of Variation 14.3 % (11.5-14.5); RDW Standard Deviation 50.1 fL (36.4-46.3); Red Blood Count 4.65 M/uL (4.7-6.1); White Blood Count 11.13 K/uL (4.8-10.8)
[2019-09-19 07:04] LABS: BUN Creatinine Ratio 21.3 (10-20); Calcium 8.8 mg/dl (8.5-10.1); Creatinine Clr Calc Pharmacy 57.2 ml/min; Est GFR (African American) 57.7; Est GFR (Non-African American) 49.8; Potassium 4.2 mmol/L (3.5-5.1)
[2019-09-19 07:26] LABS: Beta-Hydroxybutyrate 0.86 mg/dl (0.2-2.81)
[2019-09-19] MEDS ORDERED: PHARMACY GLYCEMIC MGMT CONSULT PRN (07:55)
[2019-09-19] MEDS: ALBUTEROL HFA 8 GM INHALER INH SCH ×2 (08:18→12:19)
[2019-09-19] MEDS: guaiFENesin 600 MG TABCR PO SCH (08:21)
[2019-09-19] MEDS: ATORVASTATIN 40 MG TAB PO SCH (08:22)
[2019-09-19] MEDS: MAGNESIUM OXIDE 400 MG TAB PO SCH (08:22)
[2019-09-19] MEDS: PRAMIPEXOLE DIHYDROCHLO 0.5 MG TAB PO SCH (08:22)
[2019-09-19] MEDS: PANTOprazole 40 MG TAB PO SCH (08:23)
[2019-09-19] MEDS: THIAMINE HCL 100 MG TAB PO SCH (08:24)
[2019-09-19] MEDS: ASPIRIN 81 MG ECTAB PO SCH (08:24)
[2019-09-19] MEDS: FOLIC ACID 400 MCG TAB PO SCH (08:25)
[2019-09-19] MEDS: FLUOXETINE HCL 20 MG CAP PO SCH (08:25)
[2019-09-19] MEDS: INSULIN ASPART 100 UNITS/ML 3 ML PEN SC SCH ×2 (08:28→12:16)
[2019-09-19] MEDS ORDERED: predniSONE 20 MG TAB PO SCH (09:00)
[2019-09-19] MEDS ORDERED: INSULIN GLARGINE SOLOSTAR 100 UNITS/ML 3 ML PEN SC SCH (09:00)
--- NOTE | 2019-09-19 11:38 | Hospitalist Progress Note ---
Date of Service September 19, 2019 Assessment & Plan (1) Multifocal pneumonia: Patient is a 69 yr male who presents with worsening SOB, wheezing, cough for few weeks. Multifocal pneumonia: No known H/O sick contact or recent travel CXR:Patchy mid to basilar predominant infiltrates concerning for multifocal pneumonia, edema, or less likely aspiration. Cardiomegaly with volume overload and congestive change. BioFire: Negative Influenza Screen: Negative SARS-CoV-2: Negative Sputum Gram stain: Light normal trista Blood cultures: No growth to date Lactate: 1.8 Received IV fluids Continue Levaquin, Zosyn Day #7 Procalcitonin normalized (2) Sepsis: Secondary to above (3) Hypoxia: Secondary to Pneumonia/COPD exacerbation Resolved Saturating well on room air (4) COPD (chronic obstructive pulmonary disease): Acute COPD Exacerbation H/O COPD Former smoker Continue Nebs, Prednisone, Abx Supplemental Oxygen as needed Taper down prednisone (5) GERA (obstructive sleep apnea): Intolerant to CPAP (6) GERD (gastroesophageal reflux disease): Continue Protonix (7) DM type 2 (diabetes mellitus, type 2): Last Hgb A1c 8.7. Hold PO meds Blood sugar levels elevated due to steroids Continue Lantus, ISS Monitor BGs (8) Dyslipidemia: Continue statin (9) Diarrhea: Improved Recheck stool for C diff if necessary (10) DVT prophylaxis: Lovenox SQ (11) Discharge planning issues: Expect to discharge home when stable Needs follow up with PCP Dr. hRoades. Needs follow up with Pulmonary Medicine Em Villarreal PA-C. Admission and Anticipated Discharge Date Admission Date: September 13, 2019 Subjective Patient is seen and examined at bedside Doing much better today Cough much improved No wheezing on exam today Denies any chest pain, SOB, dizziness, nausea, abd pain Offers no other complaints Review of Systems Review of Systems: All systems reviewed & are unremarkable except as noted in HPI & below Physical Exam Physical Exam: Physical Exam: Vitals signs as noted above General Appearance:Moderately built and nourished, no apparent distress Head: normocephalic, Atraumatic Eyes: normal inspection, EOMI Neck: supple, Trachea midline Respiratory/Chest: Decreased breath sounds, CTA Cardiovascular: S1, S2, + murmur Abdomen/GI:Soft, Non tender, Bowel sounds present Extremities/Musculoskelatal:normal inspection, no edema Neurologic/Psych:AAOX3, grossly no focal neurological deficits Skin: normal color, warm Results & Data Results & Data ([facility]) Vital Signs (Past 12 Hours) Vital Signs Temp Pulse Resp BP Pulse Ox 09/19/19 07:48 36.6 C 89 18 133/78 92 Laboratory Results Short CBC 09/19/19 Range/Units 06:08 WBC 11.13 H (4.8-10.8) K/uL Hgb 14.6 (14.0-18.0) g/dL Hct 44.5 (42-52) % Plt Count 239 (130-400) K/uL BMP 09/19/19 06:08 Sodium 135 L Potassium 4.2 Chloride 102 Carbon Dioxide 27 BUN 30 H Creatinine 1.41 H Glucose 330 H* Calcium 8.8 (1) Sepsis Sepsis acute organ dysfunction status: unspecified Sepsis type: sepsis due to unspecified organism Qualified Code(s): A41.9 - Sepsis, unspecified organism
--- NOTE | 2019-09-19 11:56 | Discharge Summary ---
Date of Service September 19, 2019 Admission HPI Per Admitting Provider 69-year-old male followed by Dr. Rhoades for Family Medicine and Em Villarreal PA-C for Pulmonary Medicine. History of hypertension, COPD, diabetes mellitus, and other problems as noted below. Has noted increased wheezing for the past few weeks. This morning he experienced subjective fever, chills, sweats, malaise, worsening cough productive of yellow sputum, shortness of breath. Has some anterior chest pain with coughing and deep inspiration. Has a frontal headache. No sinus drainage. No pharyngitis. No loss of taste or smell. Diffuse myalgias. Tried albuterol MDI without much benefit. Came to ED for evaluation. No sick contacts. No travel history. Admission Exam Per Admitting Provider Physical Exam Constitutional: WD/WN, vitals as above + ill appearing; no acute distress Eyes: PERRL, conjunctivae normal, anicteric sclerae ENMT: external ear and nose normal, oropharynx normal Neck: trachea midline, no thyromegaly Respiratory: Auscultation: + wheezes Cardiovascular: Rate/Rhythm: regular rate Heart Sounds: + murmur (II/ sys murmur heard best at base and LSB); no gallop and no cardiac rub Vessels: no J VD Extremities: normal capillary refill; no calf tenderness and no edema Gastrointestinal (Abdomen): normal bowel sounds, soft, nontender, no hepatosplenomegaly Musculoskeletal: Head/Neck/Chest: neck supple Extremities: strength 5/5 throughout; no cyanosis and no clubbing Skin: no rashes, warm and dry Neurologic: PERRL, EOMI no facial palsy no dysarthria or aphasia patellar DTR's 1/2 bilat Psychiatric: Orientation: alert and oriented x 3 Affect: euthymic affect Lymphatic: no cervical lymphadenopathy Principal Diagnosis Multifocal pneumonia Sepsis Acute COPD Exacerbation Discharge Data Allergies Allergy/AdvReac Type Severity Reaction Status Date / Time No Known Allergies Allergy Verified 09/13/19 10:59 Consultations 09/13/19 11:33 ED Decision to Admit Stat Procedures Performed CXR:Patchy mid to basilar predominant infiltrates concerning for multifocal pneumonia, edema, or less likely aspiration. Cardiomegaly with volume overload and congestive change. Hospital Course (1) Multifocal pneumonia: Patient is a 69 yr male who presents with worsening SOB, wheezing, cough for few weeks. Multifocal pneumonia: No known H/O sick contact or recent travel CXR:Patchy mid to basilar predominant infiltrates concerning for multifocal pneumonia, edema, or less likely aspiration. Cardiomegaly with volume overload and congestive change. BioFire: Negative Influenza Screen: Negative SARS-CoV-2: Negative Sputum Gram stain: Light normal trista Blood cultures: No growth to date Lactate: 1.8 Received IV fluids Continue Levaquin, Zosyn Day #7 Procalcitonin normalized (2) Sepsis: Secondary to above (3) Hypoxia: Secondary to Pneumonia/COPD exacerbation Resolved Saturating well on room air (4) COPD (chronic obstructive pulmonary disease): Acute COPD Exacerbation H/O COPD Former smoker Continue Nebs, Prednisone, Abx Supplemental Oxygen as needed Taper down prednisone (5) GERA (obstructive sleep apnea): Intolerant to CPAP (6) GERD (gastroesophageal reflux disease): Continue Protonix (7) DM type 2 (diabetes mellitus, type 2): Last Hgb A1c 8.7. Hold PO meds Blood sugar levels elevated due to steroids Continue Lantus, ISS Monitor BGs (8) Dyslipidemia: Continue statin (9) Diarrhea: Improved Recheck stool for C diff if necessary (10) DVT prophylaxis: Lovenox SQ (11) Discharge planning issues: Expect to discharge home when stable Needs follow up with PCP Dr. Rhoades. Needs follow up with Pulmonary Medicine Em Villarreal PA-C. Total Time Total Time Spent Total Time Spent (In Minutes): 38 minutes Total Time Includes: Examination of the Patient, Discharge Planning, Medication Reconciliation, Communication With Other Providers and Other Discharge Plan Discharge Items Patient Disposition: Home - Self-Care Reason For Visit: PNEUMONIA, R/O COVID-19 Discharge Diagnosis: Multifocal pneumonia COPD exacerbation Sepsis Activity: Resume your previous activity Exercise/Sports: Gradually increase as tolerated Non-emergency contact: Primary Care Provider and Dispatcher Service Or Work Call non-emergency contact if: you have any medication questions, your symptoms worsen, your pain is not controlled, your pain is worsening, your pain is unusual for you, your pain is concerning for you and you have a fever Follow-up/Referrals: Jimbo Rhoades MD [Primary Care Provider] - 09/23/19 11:20 am (09/23/2019 11:20 AM Addy Sheffield MD [address] [place] NOTE: [facility] is temporarily closed due to Covid-19. Your appointment will be at [facility]. To contact the office, call [phone]. ) Diet: Carb Consistent or DM2 and Heart Healthy Addtl Attending Provider Instructions: Follow-up with your primary care physician Dr. Mas on 09/23/19 at 11:20AM as scheduled Follow-up with Pulmonary Medicine Em Villarreal PA-C in 2 weeks as advised Complete the antibiotic (Augmentin) and prednisone taper course as prescribed--- Start taking from 09/20/19 Prednisone Taper Course: Start taking Prednisone 20mg daily for 2 more days and then 10mg daily for 3 days and STOP Pending Studies at Discharge: No Stand-Alone Forms: My Dexcom, Smoking Cessation Medications and DC Order Prescriptions: New guaifenesin [Mucinex] 600 mg Tablet Extended Release 12hr 1,200 mg PO BID Qty: 10 RF: 0 amoxicillin-pot clavulanate [Augmentin] 875-125 mg tablet 1 tab PO BID Qty: 6 RF: 0 prednisone 10 mg tablet 10 mg PO UD Qty: 7 RF: 0 Continued ipratropium-albuterol 0.5 mg-3 mg(2.5 mg base)/3 mL solution for nebulization 3 ml inhalation .USE 1 UNIT DOSE IN N Qty: 2 RF: 0 Hold Instructions: patient not taking aspirin 81 mg Tablet,Delayed Release (Dr/Ec) 81 mg PO DAILY RF: 0 trazodone 150 mg tablet 150 mg PO HS RF: 0 metformin 500 mg tablet extended release 24 hr 1,000 mg PO BID RF: 0 magnesium oxide 400 mg magnesium Tablet 400 mg PO QAM RF: 0 vitamin A 8,000 unit Capsule 8,000 unit PO DAILY RF: 0 brandon (Zingiber officinalis) 550 mg Capsule 550 mg PO QAM RF: 0 glipizide 10 mg tablet 5 mg PO BIDM RF: 0 Stiolto Respimat 2.5-2.5 mcg/actuation Mist 2 puff INHALATION DAILY PRN (Reason: SOB) RF: 0 fluoxetine 40 mg Capsule 40 mg PO QAM RF: 0 pramipexole 1 mg Tablet 1 mg PO BID RF: 0 atorvastatin 40 mg Tablet 40 mg PO QAM RF: 0 cyanocobalamin (vitamin B-12) [Vitamin B-12] 1,000 mcg Tablet 1,000 mcg PO QAM RF: 0 thiamine HCl (vitamin B1) [Vitamin B-1] 100 mg Tablet 100 mg PO QAM RF: 0 folic acid 400 mcg Tablet 400 mcg PO QAM RF: 0 omeprazole 20 mg Capsule,Delayed Release(Dr/Ec) 20 mg PO QAM RF: 0 albuterol sulfate 90 mcg/actuation Hfa Aerosol Inhaler 2 puff INHALATION Q6H PRN (Reason: Shortness Of Breath Or Wheezing) RF: 0 cholecalciferol (vitamin D3) [Vitamin D3] 1,000 unit Capsule 1,000 units PO QAM RF: 0 Discharge Orders: Discharge Order (Routine); Ordered 09/19/19 Ordered By: Amandeep Pavon/Other Patient Handouts: Diabetes Manage A1C Test Admission Data Admit Date/Time: 09/13/19 13:01 Attending Provider: Amandeep Antony Admit Provider: Jonah Rodriguez Primary Care Provider: Jimbo Rhoades Other Providers: Belen Steven Other Interventions: Discharge Summary Assessment (RN) Last Done: 09/19/19 14:14 DC Date/Time DO NOT enter until pt leaves facility: 09/19/19 14:50
[2019-09-19] MEDS: levoFLOXacin 750 MG TAB PO SCH (11:57)
[2019-09-19] MEDS ORDERED: GLUCOSE 40% GEL 15 GM TUBE PO PRN (12:00)
[2019-09-19] MEDS ORDERED: DEXTROSE 50% 50 ML SYRINGE IV PRN (12:00)
[2019-09-19] MEDS ORDERED: GLUCOSE 10 TABS/TUBE PO PRN (12:00)
[2019-09-19] MEDS ORDERED: CARBOHYDRATES FOR HYPOGLYCEMIA PO PRN (12:00)
[2019-09-19] MEDS ORDERED: GLUCAGON FOR INJ 1 MG VIAL IM PRN (12:00)
== END 2019-09-19 14:50 | disposition home or self-care (01) | DRG 871 ==
LOC: ED 10:03 → SUATTDRO 13:01 → 2S 13:01 → 2N 09-18 10:31

== ENCOUNTER 2021-06-28 08:27 | Inpatient (IN) ==
--- NOTE | 2021-06-24 15:52 | History & Physical Report ---
Date of Service June 24, 2021 Assessment & Plan (1) Rotator cuff arthropathy of left shoulder: We will proceed with a left reverse shoulder arthroplasty. Postoperatively he will be placed in a sling and kept overnight in the hospital for postoperative medical management. He plans to use energy physical therapy upon discharge. History of Present Illness Chief Complaint: Cuff tear arthropathy of the left shoulder Primary Care Provider: Jimbo Rhoades MD Cm is a pleasant 71-year-old male who has been dealing with chronic worsening left shoulder pain. X-rays and clinical examination have been diagnostic for rotator cuff arthropathy of the left shoulder. After failing extensive conservative treatment, he has elected proceed with a left reverse shoulder arthroplasty. Allergies Allergy/AdvReac Type Severity Reaction Status Date / Time No Known Allergies Allergy Verified 11/25/20 11:26 Home Medications Medication Instructions Recorded Confirmed Type atorvastatin 40 mg tablet 40 mg PO QAM 03/14/18 03/19/21 History cyanocobalamin (vitamin B-12) 1,000 mcg PO HS 03/14/18 03/19/21 History 1,000 mcg tablet (Vitamin B-12) fluoxetine 40 mg capsule 40 mg PO QAM 03/14/18 03/19/21 History omeprazole 20 mg capsule,delayed 20 mg PO QAM 03/14/18 03/19/21 History release pramipexole 1 mg tablet 1 - 2 mg PO BID 03/14/18 03/19/21 History albuterol sulfate 90 mcg/actuation 2 puff INHALATION Q6H PRN 03/15/18 03/19/21 History aerosol inhaler cholecalciferol (vitamin D3) 25 1,000 units PO HS 03/15/18 03/19/21 History mcg (1,000 unit) capsule (Vitamin D3) aspirin 81 mg tablet,delayed 81 mg PO QAM 09/24/18 03/19/21 History release magnesium oxide 500 mg PO QAM 09/24/18 03/19/21 History metformin 500 mg tablet,extended 1,000 mg PO BID 09/24/18 03/19/21 History release 24 hr trazodone 150 mg tablet 150 mg PO HS 09/24/18 03/19/21 History ipratropium 0.5 mg-albuterol 3 mg 3 ml INHALATION .USE 1 UNIT DOSE 04/02/19 03/19/21 History (2.5 mg base)/3 mL nebulization IN N #2 ml soln sodium chloride 7 % for 4 ml INH BID #240 ml 10/18/19 03/19/21 Rx nebulization oxycodone-acetaminophen 5 mg-325 1 tab PO Q6H PRN #60 tab 02/10/21 03/19/21 Rx mg tablet (Percocet) oxycodone-acetaminophen 5 mg-325 1 tab PO Q6H PRN #60 tab 03/16/21 03/19/21 Rx mg tablet (Percocet) glipizide 10 mg tablet 10 mg PO BID 03/19/21 03/19/21 History ibuprofen 200 mg capsule 400 mg PO Q6H PRN 03/19/21 03/19/21 History pantoprazole 40 mg tablet,delayed 40 mg PO HS 03/19/21 03/19/21 History release tamsulosin 0.4 mg capsule 0.4 mg PO QAM 03/19/21 03/19/21 History oxycodone-acetaminophen 5 mg-325 1 tab PO Q6H PRN #30 tab 05/05/21 Rx mg tablet (Percocet) oxycodone-acetaminophen 5 mg-325 1 tab PO Q6H PRN #30 tab 05/31/21 Rx mg tablet (Percocet) Past Med/Surg History Medical History Anxiety and depression Arthritis Cardiac murmur II/ murmur at [facility] appt on 03/24/21 ECHO 2018 showed only mild mitral annular calcification COPD (chronic obstructive pulmonary disease) No recent inhaler use - breathing stable DM type 2 (diabetes mellitus, type 2) Glucose fair GERD (gastroesophageal reflux disease) Well controlled Glaucoma Had laser surgery 03/23/21- upcoming laser procedure 04/04/21 HLD (hyperlipidemia) Hx: recurrent pneumonia USUALLY ANNUALLY Including aspiration pneumonia several years ago No pneumonia x two years GERA (obstructive sleep apnea) Cannot tolerate device RLS (restless legs syndrome) Stable with med Surgical History 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 History of appendectomy History of cataract surgery RT/LEFT History of colonoscopy History of esophagogastroduodenoscopy (EGD) History of open reduction and internal fixation (ORIF) procedure right leg--hardware removed History of open reduction and internal fixation (ORIF) procedure LEFT ARM History of oral surgery History of tooth extraction partial upper History of total left hip arthroplasty History of total left knee replacement S/P tonsillectomy and adenoidectomy Family History Father Coronary heart disease Brother Colorectal cancer Lung cancer Brother Coronary heart disease Mother Cancer Social History Smoking Status: Former smoker Cigarettes Per Day: CURENTLY OCC CIGAR WITH HUNTING SEASON - SOCIALLY; Second Hand Exposure: Yes (ON OCC); Hx Alcohol Use: Yes Alcohol type: beer Hx Substance Use: No Preferred Language: Frisian Communication Ability: Effective Visual Impairment: No Limitations Hearing Ability: Hard of Hearing 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 Physical Exam On physical examination of the left shoulder, he has about 120 degrees of forward elevation 120 degrees of abduction he has 4-5 motion with the full can test and external rotation. He has a lot of pain with range of motion. He has crepitus throughout.. Constitutional WD/WN, vitals as above Eyes PERRL, conjunctivae normal, anicteric sclerae ENMT external ear and nose normal, oropharynx normal Neck trachea midline, no thyromegaly Respiratory normal respiratory effort Cardiovascular RRR, no murmur, no edema Gastrointestinal (Abdomen) normal bowel sounds, soft, nontender, no hepatosplenomegaly Psychiatric A+Ox3, euthymic affect Results & Data Results & Data Laboratory Results . Diagnostic Findings X-rays of the left shoulder do show signs of rotator cuff arthropathy with superior migration of the humeral head on the glenoid. There is also glenohumeral arthritis. PG Care Time/CCT Total # of Minutes Spent Total Time Spent with Patient: Total time spent is greater than 50% in coordination of care (as documented) at patient's floor/unit and/or counseling patient: Coding Level of Care Code None Diagnoses Rotator cuff arthropathy of left shoulder M12.819
--- NOTE | 2021-06-25 09:19 | Anesthesiology Consultation ---
Date of Service June 25, 2021 Assessment & Plan (1) Encounter for pre-operative examination: Chart Review Chart Review: Acceptable Risk for Surgery (PENDING DOS LABS ) and Patient NOT seen in Pre Admission Testing -No preop labs done- will order CBC, PRP and coags for DOS - Check BSG AM DOS Per 03/24/21 Anesthesia Consultation- pt is NOT an acceptable outpatient joint candidate Per nursing assessment 06/25/2021, patient denies any recent travel. Patient is fully vaccinated for COVID. Pt tested Covid positive 05/22/21- had body aches and fever- symptoms have since resolved. No known Covid positive exposures or Covid related symptoms. Preop Covid testing 06/24/21= negative Last seen by pulm 11/25/20=patient seen for routine follow-up. At this time patient is doing well and has no complaints. Regarding emphysemacontinue inhaler and nebulizer. Former smokerquit 6 years agodoing well. Does have some nocturnal hypoxemia and does use oxygen 2 L/min via nasal cannula at nighttime. Doing well with this. Follow-up in 6 months. L total hip 03/16/18= done under [facility] with Grade 2 view with MAC #4. ETT #7.5.(SAB attempted but unable to place secondary to patient not sitting still- converted to GA) History Surgery Operation Date: 06/28/21 10:30 Proposed Procedures p Left Reverse Total Shoulder Arthroplasty - Dre Obregon DO Height/Weight Height: 5 ft 10 in Weight: 96.162 kg Allergies Allergy/AdvReac Type Severity Reaction Status Date / Time No Known Allergies Allergy Verified 06/25/21 08:25 Medications Home Medications Medication Instructions Recorded Confirmed Last Taken atorvastatin 40 mg tablet 40 mg PO QAM 03/14/18 06/25/21 01/27/19 cyanocobalamin (vitamin B-12) 1,000 mcg PO HS 03/14/18 06/25/21 01/27/19 1,000 mcg tablet (Vitamin B-12) fluoxetine 40 mg capsule 40 mg PO QAM 03/14/18 06/25/21 01/27/19 omeprazole 20 mg capsule,delayed 20 mg PO QAM 03/14/18 06/25/21 01/27/19 release pramipexole 1 mg tablet 1 - 2 mg PO BID 03/14/18 06/25/21 04/17/20 03:00 albuterol sulfate 90 mcg/actuation 2 puff INHALATION Q6H PRN 03/15/18 06/25/21 09/11/18 08:00 aerosol inhaler cholecalciferol (vitamin D3) 25 1,000 units PO HS 03/15/18 06/25/21 01/27/19 mcg (1,000 unit) capsule (Vitamin D3) aspirin 81 mg tablet,delayed 81 mg PO QAM 09/24/18 06/25/21 01/27/19 release magnesium oxide 500 mg PO QAM 09/24/18 06/25/21 01/27/19 metformin 500 mg tablet,extended 1,000 mg PO BID 09/24/18 06/25/21 01/27/19 release 24 hr trazodone 150 mg tablet 150 mg PO HS 09/24/18 06/25/21 01/26/19 ipratropium 0.5 mg-albuterol 3 mg 3 ml INHALATION .USE 1 UNIT DOSE 04/02/19 06/25/21 Unknown (2.5 mg base)/3 mL nebulization IN N #2 ml soln sodium chloride 7 % for 4 ml INH BID #240 ml 10/18/19 06/25/21 Unknown nebulization glipizide 10 mg tablet 10 mg PO BID 03/19/21 06/25/21 Unknown ibuprofen 200 mg capsule 400 mg PO Q6H PRN 03/19/21 06/25/21 Unknown pantoprazole 40 mg tablet,delayed 40 mg PO HS 03/19/21 06/25/21 Unknown release tamsulosin 0.4 mg capsule 0.4 mg PO QAM 03/19/21 06/25/21 Unknown Past Medical History Medical History Anxiety and depression Arthritis Cardiac murmur II/ murmur at [facility] appt on 03/24/21 ECHO 2018 showed only mild mitral annular calcification COPD (chronic obstructive pulmonary disease) DM type 2 (diabetes mellitus, type 2) GERD (gastroesophageal reflux disease) Glaucoma Hearing deficit History of COVID-19 05/22/21 *TESTED AT [facility]>BODY ACHES/HEADACHE (FEELING BETTER NOW) HLD (hyperlipidemia) GERA (obstructive sleep apnea) Cannot tolerate device RLS (restless legs syndrome) Past Family History Family History Father Coronary heart disease Brother Lung cancer Colorectal cancer Brother Coronary heart disease Mother Cancer Other No family history of adverse response to anesthesia Past Surgical History Surgical History 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 History of appendectomy History of cataract surgery RT/LEFT History of colonoscopy History of esophagogastroduodenoscopy (EGD) History of open reduction and internal fixation (ORIF) procedure right leg--hardware removed History of open reduction and internal fixation (ORIF) procedure LEFT ARM History of oral surgery History of tooth extraction History of total left hip arthroplasty History of total left knee replacement S/P tonsillectomy and adenoidectomy Social History Smoking Status: Current some day smoker tobacco type: cigars Smoking cigarettes per day: CURENTLY OCC CIGAR WITH HUNTING SEASON - SOCIALLY Smoking End Date: QUIT CIGARETTES 2005 Hx Alcohol Use: Yes Alcohol type: beer alcohol intake frequency: 0-2 drinks per day Alcohol Intake Frequency Comment: 1-2 BEERS DAILY Hx Substance Use: No substance use type: prescription drug Testing Electrocardiogram Date: 03/24/21 Findings: + NSR @ (76bpm) Normal EKG per cardio. Chest X-Ray Date: 03/24/21 Findings: + NAD Mild lung hyperexpansion is noted. There is no pneumothorax or pleural effusion. Linear bibasilar opacities favor atelectasis. These are unchanged. There is no consolidation or evidence for pulmonary edema. Mild cardiomegaly is unchanged. The appearance of the chest is unchanged. Echocardiogram Date: 03/17/18 EF: 60-65% LV Function: normal RWMA: + none Other Findings: + diastolic dysfunction (Grade I ); no LVH RV is normal in size and function Mild annular calcification, otherwise there is no significant heart valvular disease Pulmonary Function Test Date: 01/23/20 Nonspecific spirometry. No significant post bronchodilator response. Normal lung volumes. DLCO is mildly reduced. Other Testing Holter monitor 09/21/18= Sinus rhythm with average heart rate 80 bpm. Occasional supraventricular ectopic complexes with very rare atrial triplets. Occasional PVCs. Symptom diary not returned.
--- NOTE | 2021-06-25 14:01 | Communication Note ---
Date of Service: June 25, 2021 As per my discussion with Dr Cotton, surgical procedure is elective and shall not be performed on 06/28/2021, and should be rescheduled.
[~2021-06-28 08:27] MED LIST changes: +ACETAMINOPHEN 500 MG TAB PO SCH; -ATOR-24 PO; +BUPIVACAINE 0.5 % 5 MG/1 ML PF 10ML VIAL ONE; -DSY/150 PO; +FAMOTIDINE 20 MG TAB PO SCH; -FLUO40CA8 PO; -FLV1 PO; +GABAPENTIN 300 MG CAP PO SCH; +LR 15ML/HR IV SCH; +LR 60ML/HR IV SCH; -LVQ500 PO; -METF500T5 PO; -MRP1 PO; -NALT50TA16 PO; -PRAM1TAB10 PO; -PRLSR20 PO; +ROPIVACAINE 0.5% HCL/PF 150 MG, BUPIVACAINE 0.75% MPF 20 ML, EPINEPHrine 30MG/30ML (OR ... INSTIL SCH; -THIA100T27 PO; +TRANEXAMIC ACID 1,000 MG **IV Intra-op IV SCH; +ceFAZolin 2000MG 2,000 MG/15 ML SYR IV SCH; +dexAMETHasone 4 MG TAB PO SCH
[2021-06-28] MEDS ORDERED: ePHEDrine sulfate 50 MG/ML AMP IV PRN (08:37)
[2021-06-28] MEDS ORDERED: MEPERIDINE HCL 25 MG/ML CARP/VIAL IV PRN (08:37)
[2021-06-28] MEDS ORDERED: LABETALOL HCL IV 5 MG/ML 20ML IV PRN (08:37)
[2021-06-28] MEDS ORDERED: PHENYLEPHRINE 100MCG/ML 5ML SYR IV PRN (08:37)
[2021-06-28] MEDS ORDERED: ONDANSETRON INJ 2 MG/ML 2 ML VIAL IV PRN ×2 (08:37→16:59)
[2021-06-28] MEDS ORDERED: fentaNYL citrate 100 MCG/2 ML VIAL IV PRN (08:37)
[2021-06-28] MEDS ORDERED: HYDROmorphone INJ 1 MG/ML SYRINGE IV PRN (08:37)
[2021-06-28] MEDS ORDERED: ATROPINE SULFATE 0.1 MG/ML 10ML SYR IV PRN (08:37)
--- NOTE | 2021-06-28 08:59 | History & Physical Bridge Note ---
Date of Service June 28, 2021 History & Physical Bridge Note I have examined the patient, reviewed the History & Physical and in the interval since the performance of the History & Physical I have noted the following changes of clinical significance: no changes noted
[2021-06-28 09:00] LABS: Basophils # (auto) 0.06 K/uL (0-0.2); Basophils % (auto) 0.6 %; Eosinophils # (auto) 0.43 K/uL (0-0.5); Eosinophils % (auto) 4.3 %; Hematocrit (blood only) 45.3 % (42-52); Hemoglobin 14.5 g/dL (14.0-18.0); Immature Granulocytes # (auto) 0.05 K/uL (0.00-0.02); Immature Granulocytes % (auto) 0.5 %; Lymphocytes # (auto) 2.68 K/uL (1.2-3.4); Lymphocytes % (auto) 26.9 %; Mean Corpuscular Hemoglobin 31.2 pg (25-34); Mean Corpuscular Volume 97.4 fL (80-100); Mean Platelet Volume 10.1 fL (7.4-10.4); Neutrophils # (auto) 5.66 K/uL (1.4-6.5); Neutrophils % (auto) 56.7 %; Platelet Count 249 K/uL (130-400); RDW Coefficient of Variation 14.8 % (11.5-14.5); RDW Standard Deviation 52.7 fL (36.4-46.3); Red Blood Count 4.65 M/uL (4.7-6.1); White Blood Count 9.98 K/uL (4.8-10.8)
[2021-06-28 09:12] LABS: INR 0.9 (0.9-1.1); Partial Thromboplastin Ratio 1.1; Partial Thromboplastin Time 28.2 Seconds (21.0-31.0); Prothrombin Time 9.6 Seconds (9.0-12.0)
[2021-06-28 09:24] LABS: BUN Creatinine Ratio 19.1 (10-20); Calcium 9.2 mg/dl (8.5-10.1); Est GFR (African American) 98.3 ml/min; Est GFR (Non-African American) 84.8 ml/min; Potassium 4.2 mmol/L (3.5-5.1)
[2021-06-28] MEDS ORDERED: fentaNYL citrate 100 MCG/2 ML VIAL ONE (10:34)
[2021-06-28] MEDS: TRANEXAMIC ACID 1,000 MG **IV Pre-op IV SCH ×2 (10:37→10:57)
[2021-06-28] MEDS ORDERED: WATER, STERILE FOR INJ 10 ML VIAL ONE (10:43)
[2021-06-28] MEDS ORDERED: ePHEDrine sulfate 50 MG/ML AMP ONE (10:43)
[2021-06-28] MEDS ORDERED: PHENYLEPHRINE HCL 10 MG/ML VIAL ONE (10:43)
[2021-06-28] MEDS ORDERED: SUCCINYLCHOLINE CHLORIDE 20 MG/ML 10 ML VIAL IV ONE (10:47)
[2021-06-28] MEDS ORDERED: LIDOCAINE 2% 2 ML VIAL/AMP(20MG/ML) INFIL ONE (10:47)
[2021-06-28] MEDS ORDERED: ONDANSETRON INJ 2 MG/ML 2 ML VIAL ONE (10:47)
[2021-06-28] MEDS ORDERED: PROPOFOL IV EMULSION 10 MG/ML 20 ML VIAL IV ONE (10:47)
[2021-06-28] MEDS ORDERED: ORTHO JOINT ANESTHETIC ONE (11:11)
--- NOTE | 2021-06-28 12:42 | Operative Report ---
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 Is become quite severe. He is unable to take care of himself. X-rays and clinical examination were diagnostic for cuff arthropathy left shoulder. After failing conservative treatment, he elected proceed with a left reverse shoulder arthroplasty. Description of Procedure A CPT code modifier 59: The long head of the biceps tendon was enlarged and inflamed consistent with tendinopathy. A tenodesis was opted. This was a separate and distinct portion of the procedure. For these reasons, a CPT code modifier 59 will be added to this case. Implants used: I used a [employer] Comprehensive reverse total shoulder arthroplasty system with a size 10 press fit micro humeral stem, a standard humeral tray and a standard humeral bearing, a 25 mm small augment baseplate with a 6.5 mm central screw and superior and inferior locking screws, and a size 40 mm eccentric glenosphere. Cm arrived at [facility] for the above procedure. He was seen in the preoperative holding area and the operative extremity was identified and signed. He was given a preoperative antibiotic, TXA, and an interscalene nerve block. He was taken back to the operating room, laid on table in supine position, and put under general anesthesia. He was then put into the beachchair position. The shoulder was then prepped and draped in sterile fashion. A timeout was done and the patient and the operative extremity was properly identified. A deltopectoral approach was used. Dissection was taken down through the fascia and the deltoid was retracted laterally and the conjoined tendon was retracted medially. The anterior shoulder was exposed. The biceps groove was opened up and the biceps tendon was examined extensively. The biceps tendon demonstrated enlargement and inflammatory changes consistent with longstanding inflammation in the context of osteoarthritis and cuff arthropathy. The long head of the biceps tendon was then tenodesed to the upper border of the pectoralis major. This was a separate and distinct portion of the procedure. The subscapularis was then directly released off the lesser tuberosity with a peel technique. The inferior capsule was released and the humeral head was dislocated. A canal finding reamer was sent down the center of the humeral canal. Sequential reaming up to a size 10 reamer was done. Off that reamer, a proximal humeral resection guide was placed. The proximal humerus was resected at 135 of inclination and 25 of retroversion. Osteophytes were then removed and the glenoid was exposed. Time was spent doing a complete capsular and labral release. The glenoid guide was then placed in the inferior aspect of the glenoid. A 3.2 mm Steinmann pin was then placed into the glenoid vault at 10 of inclination. The glenoid baseplate was then reamed. The final size 25 mm small augment baseplate was then impacted in the place. A 6.5 mm central screw was then placed followed by superior and inferior locking screws. A 40 mm eccentric glenosphere was then impacted into place. Surrounding soft tissues were then injected with 100 cc an orthopedic pain control cocktail. The proximal humerus was then exposed. Sequential broaching of the humerus up to a size 10 broach was done. Off that broach a standard humeral tray was trialed. The shoulder was then reduced, brought through a full range of motion, and felt to be stable. The shoulder was then dislocated and the broach was removed. The final size 10 micro press-fit humeral stem was then impacted into place. A standard humeral bearing was then snapped onto a standard humeral tray. The humeral tray was then impacted onto the humeral stem. The shoulder was once again reduced, brought through a full range of motion, and felt to be stable. The subscapularis was then tenodesed back to the lesser tuberosity with transosseous FiberWire sutures and side to side sutures with the arm in 45 of external rotation. A dilute betadyne lavage was then done for 3 minutes. The joint was then irrigated with normal saline solution. Hemostasis was obtained. The interval was closed with 2-0 Vicryl suture. The skin was then closed with 2-0 Vicryl and laurent. A Silverlon dressing was placed and the arm was rested in a regular arm sling. He was then extubated and transferred to a hospital bed. He taken to the postanesthesia care unit in stable condition. He tolerated the procedure well. Dre Mohr PA-C, was present for the entire procedure. He was critical for patient positioning, prepping, draping, retraction exposure, wound closure and application of sterile dressing. I attest to the content of the Intraoperative Record and any orders documented therein. Any exceptions are noted below.
[2021-06-28] MEDS ORDERED: METOPROLOL TARTRATE 1 MG/ML VIAL IV STA (13:06)
[2021-06-28] MEDS ORDERED: METOPROLOL TARTRATE 1 MG/ML VIAL IV ONE (13:06)
--- NOTE | 2021-06-28 13:33 | XRay Report ---
XR shoulder LT min 2V routine CLINICAL HISTORY: Post shoulder surgery COMPARISON STUDY: None. FINDINGS: 2 views of the left shoulder show no fracture or dislocation. There is a reverse left total shoulder arthroplasty. The hardware is intact. Skin laurent are in place. IMPRESSION: Status post reverse left total shoulder arthroplasty. No evidence for hardware complicat ion. ACT 112: Negative or not required by law. Electronically signed by: Tony Rosales M.D. 06/28/2021 1:32 PM
[2021-06-28] MEDS ORDERED: ALBUT/IPRATROP 3MG/0.5MG NEB 3 ML VIAL NEB STA (13:48)
[2021-06-28] MEDS ORDERED: ALBUT/IPRATROP 3MG/0.5MG NEB 3 ML VIAL ONE (13:52)
--- NOTE | 2021-06-28 15:16 | Hospitalist Consultation ---
Date of Consultation June 28, 2021 Assessment & Plan (1) Status post reverse total replacement of left shoulder: - Pain management, bowel regimen and DVT ppx per the primary team - PT/OT consults - Follow am CBC to monitor for acute blood loss - Encourage ambulation - more recs per the primary team (2) Hypoxia: - Observe overnight on tele - discussed with anesthesia and primary team - Pt is requiring increase O2 s/p surgical procedure - continue on O2 and wean prn - Duonebs QID and Q2H prn, incentive spirometry, flutter - Give solumedrol 125 mg now, then 40 mg TID following - Check xray now - BNP and procal ordered (3) COPD (chronic obstructive pulmonary disease): - Hx of such, former smoker, last smoked in 2005, once per year he has a celebratory cigar "out at camp with friends" - Baseline O2 use is occasional, last time used was earlier this morning, and has a pulse ox monitor at home which he uses - Hx of COVID infection in mid May. Pt reports breathing had been baseline prior to this surgery. Negative on test prior to sugical procedure (4) DM type 2 (diabetes mellitus, type 2): - Iss with accuchecks achs - Last A1C = 8.0 in 02/23/21 - Hold metformin and glipizide for now, resume upon discharge (5) HLD (hyperlipidemia): - Cont atorvastatin (6) HTN (hypertension): - Cont aspirin, does not appear to be on blood pressure meds - per EPIC review he stopped taking lisionpril 5 mg on 05/21/22. Will monitor BP while here (7) Depression: - Continue prozac 40 mg daily (8) GERD (gastroesophageal reflux disease): - Cont protonix 40 mg HS (9) RLS (restless legs syndrome): - Cont mirapex - repost not taking on 05/25 DVT ppx: - gamaliel scds CODE: Full code Dispo: From home, lives with , remain in the hospital overnight Thank you for involving us in the care of Mr. Yousif. Please do not hesitate to call with questions or concerns. At this time medicine service will follow along Supervising Physician Co-Signing Physician Notes 71 yo M with PMhx of COPD on occasional supplemental O2, DM II, GERA and recent hx of COVID-19 infection in mid May now resolved, hx of tobacco use, GERA HTN, restless leg syndrome, GERD, BPH with LUTs, and depression who underwent a Left total shoulder replacement by Dr. Obregon on 06/28 AM was decided be kept overnight for observation as he desaturated requiring O2 and has increased cough (wet nature). He was also coughing over the vent per anesthesiologist. Pt at bedside vitally stable but coughing consistently, no mucus but wet in nature, no recent fever. CBC, BMP, Pro-Gurpreet, CXR, BNP. Steroid for likely exacerbation of his reactive airway disease Observe overnight. Upon examination: GENERAL: Alert and oriented x3. NAD, on 4 L O2, obese. HEENT: No pallor, no icterus. Pupils equal, round and reactive to light. Oral mucosa moist. Hoarse voice NECK: No JVD, no neck masses. HEART: S1 and S2 heard. Regular rate and rhythm. Systolic murmur over aortic and pulmonic area, no gallop. RESPIRATORY SYSTEM: Normal AP diameter. No accessory muscle use. No wheezing, no crackles. Having dry cough ABDOMEN: Soft, bowel sounds present, nontender, no distention. CENTRAL NERVOUS SYSTEM: No facial droop. Speech is clear. Obeys simple commands. Moves extremities. EXTREMITIES: trace BLE edema, no erythema seen. left arm in sling. I have seen and examined the patient and have discussed the case with the provider above. I agree with the assessment and plan as stated. History of Present Illness Reason for Consultation: Hypoxia Requesting Physician: Dr. Obregon Attending Physician: Dre Obregon, History of Present Illness This is a 71 yo M with PMhx of COPD on occasional supplemental o2, DM II, GERA and recent hx of COVID-19 infection in mid May now resolved, hx of tobacco use, GERA HTN, restless leg syndrome, GERD, BPH with LUTs, and depression who underwent a Left total shoulder replacement by Dr. Obregon this morning. During surgery anesthesia administered Enbrel, and then during surgery when the patient was intubated, he began coughing, due to this he was given a paralytic by anesthesia. After surgery in the PACU pt is awake, but continued to be coughing, and os sats went down into the 80s. He has since been placed on a nonrebreather mask at 4 L and sats are improved to 91-92%. Pt reports was doing well prior to surgery. His covid-19 symptoms had pretty much resolved. He was using o2 occasionally, with the last time being this morning. He last smoked in 2005 and has an occasional cigar with friends out at camp once a year. He drinks 2-3 beers daily and last drank 1 beer yesterday at lunch time. He walks without difficulty at baseline, but admits to some recent falls. Does not use a walker or cane at baseline. Pt lives at home with his . Denies any chest pain, discomfort or pain, fever, recent illness. He is currently still numb in his left arm and fingers, but is able to move his hand/fingers without difficulty. Allergies Allergy/AdvReac Type Severity Reaction Status Date / Time No Known Allergies Allergy Verified 06/28/21 09:32 Home Medications Medication Instructions Recorded Confirmed Type atorvastatin 40 mg tablet 40 mg PO QAM 03/14/18 06/28/21 History cyanocobalamin (vitamin B-12) 1,000 mcg PO HS 03/14/18 06/28/21 History 1,000 mcg tablet (Vitamin B-12) fluoxetine 40 mg capsule (Prozac) 40 mg PO QAM 03/14/18 06/28/21 History omeprazole 20 mg capsule,delayed 20 mg PO QAM 03/14/18 06/28/21 History release pramipexole 1 mg tablet (Mirapex) 1 - 2 mg PO BID 03/14/18 06/28/21 History albuterol sulfate 90 mcg/actuation 2 puff INHALATION Q6H PRN 03/15/18 06/28/21 History aerosol inhaler cholecalciferol (vitamin D3) 25 1,000 units PO HS 03/15/18 06/28/21 History mcg (1,000 unit) capsule (Vitamin D3) aspirin 81 mg tablet,delayed 81 mg PO QAM 09/24/18 06/28/21 History release magnesium oxide 500 mg PO QAM 09/24/18 06/28/21 History metformin 500 mg tablet,extended 1,000 mg PO BID 09/24/18 06/28/21 History release 24 hr trazodone 150 mg tablet 150 mg PO HS 09/24/18 06/28/21 History ipratropium 0.5 mg-albuterol 3 mg 3 ml INHALATION .USE 1 UNIT DOSE 04/02/19 06/28/21 History (2.5 mg base)/3 mL nebulization IN N #2 ml soln sodium chloride 7 % for 4 ml INH BID #240 ml 10/18/19 06/28/21 Rx nebulization glipizide 10 mg tablet (Glucotrol) 10 mg PO BID 03/19/21 06/28/21 History ibuprofen 200 mg capsule 400 mg PO Q6H PRN 03/19/21 06/28/21 History pantoprazole 40 mg tablet,delayed 40 mg PO HS 03/19/21 06/28/21 History release (Protonix) tamsulosin 0.4 mg capsule 0.4 mg PO QAM 03/19/21 06/28/21 History Patient History Medical History (Updated 06/28/21 @ 12:38 by Dre Obregon DO) Anxiety and depression Arthritis Cardiac murmur II/ murmur at [facility] appt on 03/24/21 ECHO 2018 showed only mild mitral annular calcification COPD (chronic obstructive pulmonary disease) DM type 2 (diabetes mellitus, type 2) GERD (gastroesophageal reflux disease) Glaucoma Hearing deficit History of COVID-19 05/22/21 *TESTED AT [facility]>BODY ACHES/HEADACHE (FEELING BETTER NOW) Had a Casirivimab/Imdevimab IV infusion on 05/27/21 at [facility] HLD (hyperlipidemia) GERA (obstructive sleep apnea) Cannot tolerate device RLS (restless legs syndrome) Surgical History (Updated 06/28/21 @ 12:38 by Dre Obregon DO) 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 History of appendectomy History of cataract surgery RT/LEFT History of colonoscopy History of esophagogastroduodenoscopy (EGD) History of open reduction and internal fixation (ORIF) procedure right leg--hardware removed History of open reduction and internal fixation (ORIF) procedure LEFT ARM History of oral surgery History of tooth extraction History of total left hip arthroplasty History of total left knee replacement S/P tonsillectomy and adenoidectomy Family History Father Coronary heart disease Brother Lung cancer Colorectal cancer Brother Coronary heart disease Mother Cancer Other No family history of adverse response to anesthesia Social History Smoking Status: Former smoker Cigarettes Per Day: CURENTLY OCC CIGAR WITH HUNTING SEASON - SOCIALLY; Smoking End Date: QUIT CIGARETTES 2005; Second Hand Exposure: Yes ( A CHILD); Do You Dip or Chew Tobacco: No; Hx Alcohol Use: Yes Alcohol type: beer Hx Substance Use: No Preferred Language: Kazakh Communication Ability: Effective Visual Impairment: No Limitations Hearing Ability: Hard of Hearing Workforce Specialist Required: No Beliefs That Will Affect Care: None Current Living Situation: Spouse Current Living Situation Comment: AND SON current occupational status: retired Other Information That Helps Us Care for You: No Feels Safe at Home: Yes Safety Concerns: Feels Safe At This Time Assistive Devices: None Review of Systems Review of Systems: Constitutional: No fever, sweats or chills Eyes: No diplopia, no worsening or blurred vision ENT: normal hearing, no trouble swallowing Respiratory: + cough, + hoarse voice, no sputum, dyspnea at rest or on exertion Cardiovascular: No chest pain, tightness or palpitations Abdomen: No pain, nausea, vomiting, diarrhea or constipation Musculoskeletal: No joint pain, calf pain, swelling Neurologic: No weakness, numbness/tingling, or balance problems Psychiatric: No anxiety or depression Skin: No rash or itch Physical Exam Physical Exam: General: awake, alert, no apparent distress, + obese with BMI of 34 Head: Normocephalic, atraumatic ENT: PERRL, EOMI, no pharyngeal exudate, mucous membranes moist Chest: Slightly diminished, + coarse dry cough, hoarse voice and difficulty catching breath with coughing fits, on 4 L nonrebreather, no crackles or rhonchi Cardiac: sinus tach with hr in 110s at bedside, + systolic ejection murmur, no JVD, normal peripheral pulses, good capillary refill Abdominal: NABS x 4 quadrants, soft, nondistended, nontender to palpation, no rebound or guarding Extremities: L shoulder dressing c/d/i, icepack on, + trace peripheral edema in BLE, no erythema, calfs nontender to palpation Psych: Normal mood and affect Neuro: AAO x 3, strength intact bilaterally and rated 5/5, no motor deficits, speech is clear, no peripheral sensory deficits Results & Data Results & Data ([facility]) Vital Signs (Past 12 Hours) Vital Signs Temp Pulse Pulse Pulse Resp BP BP 06/28/21 14:50 93 H 17 131/75 06/28/21 14:40 94 H 19 140/80 06/28/21 14:30 93 H 17 137/99 06/28/21 14:20 98 H 20 133/82 06/28/21 14:10 96 H 18 135/69 06/28/21 14:00 90 20 142/80 H 06/28/21 13:55 88 16 06/28/21 13:50 92 H 15 128/77 06/28/21 13:40 84 15 133/70 06/28/21 13:30 91 H 20 140/78 06/28/21 13:20 91 H 24 124/79 06/28/21 13:10 105 H 27 H 160/98 H 06/28/21 13:08 113 H 156/116 H 06/28/21 13:00 116 H 16 147/87 H 06/28/21 12:59 36.5 C 112 H 20 154/85 H 06/28/21 09:37 36.6 C 77 20 175/93 H Pulse Ox 06/28/21 14:50 96 06/28/21 14:40 95 06/28/21 14:30 93 06/28/21 14:20 93 06/28/21 14:10 94 06/28/21 14:00 94 06/28/21 13:55 96 06/28/21 13:50 92 06/28/21 13:40 93 06/28/21 13:30 96 06/28/21 13:20 92 06/28/21 13:10 93 06/28/21 13:08 06/28/21 13:00 94 06/28/21 12:59 94 06/28/21 09:37 94
[2021-06-28] MEDS ORDERED: methylPREDNISolone 125 MG in SYRINGE 0 ML IV STA (15:35)
--- NOTE | 2021-06-28 15:37 | Anesthesiology Progress Note ---
Date of Service June 28, 2021 Anesthesia Post Procedure Vital Signs Vital Signs: Temp Pulse Pulse Pulse Resp BP BP 06/28/21 15:20 95 H 19 126/76 06/28/21 15:10 102 H 22 132/83 06/28/21 15:00 97 H 22 132/76 06/28/21 14:50 93 H 17 131/75 06/28/21 14:40 94 H 19 140/80 06/28/21 14:30 93 H 17 137/99 06/28/21 14:20 98 H 20 133/82 06/28/21 14:10 96 H 18 135/69 06/28/21 14:00 90 20 142/80 H 06/28/21 13:55 88 16 06/28/21 13:50 92 H 15 128/77 06/28/21 13:40 84 15 133/70 06/28/21 13:30 91 H 20 140/78 06/28/21 13:20 91 H 24 124/79 06/28/21 13:10 105 H 27 H 160/98 H 06/28/21 13:08 113 H 156/116 H 06/28/21 13:00 116 H 16 147/87 H 06/28/21 12:59 36.5 C 112 H 20 154/85 H 06/28/21 09:37 36.6 C 77 20 175/93 H Pulse Ox 06/28/21 15:20 94 06/28/21 15:10 93 06/28/21 15:00 93 06/28/21 14:50 96 06/28/21 14:40 95 06/28/21 14:30 93 06/28/21 14:20 93 06/28/21 14:10 94 06/28/21 14:00 94 06/28/21 13:55 96 06/28/21 13:50 92 06/28/21 13:40 93 06/28/21 13:30 96 06/28/21 13:20 92 06/28/21 13:10 93 06/28/21 13:08 06/28/21 13:00 94 06/28/21 12:59 94 06/28/21 09:37 94 Pain Intensity Left Shoulder: Pain Intensity: 1 Right Arm: Pain Intensity: 2 Transfer of Care Handoff Completed per policy Notes Mental Status: alert / awake / arousable Patient Amnestic to Procedure: Yes Nausea / Vomiting: adequately controlled Pain: adequately controlled Airway Patency, RR, SpO2: see Notes below BP & HR: stable & adequate Hydration State: stable & adequate Anesthetic Complications: no major complications apparent and Pt Satisfied with anesthetic care Notes: The patient has underlying COPD for which he uses oxygen at home when his SpO2 is less than 92. He had Covid 19 one month ago which had resolved prior to surgery. The patient was given a left brachial plexus block for left shoulder surgery preoperatively. He was intubated for the surgery using succinylcholine. During the procedure, the [employer] P[employer] UP [employer] TICKET PREPARER had to give him rocuronium due to coughing on the ETT. He had 4 twitches at the end of the procedure and was given neostigmine and glycopyrrolate as reversal. He was extubated without incident. Upon arrival to the PACU, the patient was noted to be coughing and tachycardic. His SpO2 was 80s to 90s on face mask oxygen. His SpO2 would drop when he coughed but would rise when he relaxed. His lungs were clear except for some wheezing with cough. He was given metoprolol for the tachycardia and a Duoneb treatment to help his cough/breathing. The patient is now more stable with SpO2 in the mid 90s on face mask oxygen. His coughing has become less frequent. The patient does have some hoarseness when speaking but that has improved. His other vital signs are stable. The [facility] hospitalist team came to evaluate the patient. They will follow him overnight on the telemetry floor where he will have continuous pulse oximetry. Dr. Obregon is aware and agrees with the plan.
[2021-06-28] MEDS ORDERED: methylPREDNISolone 125 MG/2 ML VIAL IV STA (15:48)
--- NOTE | 2021-06-28 16:28 | XRay Report ---
XR chest 1V portable CLINICAL HISTORY: Hypoxia. COMPARISON STUDY: 03/24/2021 TECHNIQUE: 1 view of the chest FINDINGS: Single frontal view of the chest demonstrates the cardiomediastinal silhouette to be within normal li mits. Mild patchy interstitial and alveolar opacities are present bilaterally. The findings are most characteristic of a viral type pneumonitis. Covid 19 pneumonia should be excluded. There is no eviden ce for pleural effusion. There is no evidence for vascular congestion. There is no acute osseous path ology. IMPRESSION: Mild patchy interstitial and alveolar opacities bilaterally characteristic of a viral typ e pneumonitis and probable early Covid 19 pneumonia. ACT 112: Negative or not required by law. Electronically signed by: Larry Ortiz M.D. 06/28/2021 4:27 PM
[2021-06-28] MEDS ORDERED: GLUCAGON FOR INJ 1 MG VIAL SQ PRN (16:55)
[2021-06-28] MEDS ORDERED: DEXTROSE 50% 50 ML SYRINGE IV PRN (16:55)
[2021-06-28] MEDS ORDERED: GLUCOSE 10 TABS/TUBE PO PRN (16:55)
[2021-06-28] MEDS ORDERED: GLUCOSE 40% GEL 15 GM TUBE PO PRN (16:55)
[2021-06-28] MEDS ORDERED: CARBOHYDRATES FOR HYPOGLYCEMIA PO PRN (16:55)
[2021-06-28] MEDS ORDERED: PHARMACY GLYCEMIC MGMT CONSULT PRN ×2 (16:55→16:59)
[2021-06-28] MEDS ORDERED: MAGNESIUM HYDROXIDE SUSP 30 ML UDC PO PRN (16:59)
[2021-06-28] MEDS ORDERED: ALBUTEROL HFA 8 GM INHALER INH PRN (16:59)
[2021-06-28] MEDS ORDERED: NALOXONE HCL 0.4 MG/1 ML VIAL/CARP IV PRN (16:59)
[2021-06-28] MEDS ORDERED: oxyCODONE HCL IR 5 MG TAB (IMMEDIATE RELEASE) PO PRN (16:59)
[2021-06-28] MEDS ORDERED: bisacodyL 10 MG SUPP PR PRN (16:59)
[2021-06-28] MEDS ORDERED: ALBUT/IPRATROP 3MG/0.5MG NEB 3 ML VIAL INH PRN (16:59)
[2021-06-28] MEDS ORDERED: HYDROmorphone INJ 0.5 MG/0.5 ML SYR IV PRN (16:59)
[2021-06-28] MEDS ORDERED: METOCLOPRAMIDE HCL INJ 5 MG/ML 2 ML VIAL IV PRN (16:59)
[2021-06-28] MEDS: SODIUM CHLORIDE 0.9% 1000ML 1,000 ML IV SCH (18:45)
[2021-06-28] MEDS ORDERED: INSULIN GLARGINE SOLOSTAR 100 UNITS/ML 3 ML PEN SC ONE (19:45)
[2021-06-28] MEDS: KETOROLAC TROMETHAMINE 15 MG/ML VIAL IV SCH (20:41)
[2021-06-28] MEDS: DOCUSATE SODIUM 100 MG CAP PO SCH (20:42)
[2021-06-28] MEDS: ceFAZolin 2000MG 2,000 MG/15 ML SYR IV SCH (20:46)
[2021-06-28] MEDS: INSULIN ASPART PER UNIT SC SCH (20:48)
[2021-06-28] MEDS ORDERED: methylPREDNISolone 40 MG in SYRINGE 0 ML IV SCH (21:00)
[2021-06-28] MEDS ORDERED: PANTOprazole 40 MG TAB PO SCH (21:00)
[2021-06-28] MEDS ORDERED: PRAMIPEXOLE DIHYDROCHLO 0.5 MG TAB PO PRN (21:00)
[2021-06-28] MEDS ORDERED: SENNA 8.6 MG TAB PO SCH (21:00)
[2021-06-28] MEDS ORDERED: traZODone HCL 50 MG TAB PO SCH (21:00)
[2021-06-28] MEDS ORDERED: INSULIN ASPART PER UNIT SC SCH (21:00)
[2021-06-28] MEDS: ACETAMINOPHEN 500 MG TAB PO SCH (21:45)
[2021-06-29] MEDS: methylPREDNISolone 40 MG in SYRINGE 0 ML IV SCH ×3 (00:15→16:23)
[2021-06-29] MEDS: INSULIN ASPART PER UNIT SC SCH ×4 (00:15→12:56)
[2021-06-29] MEDS: KETOROLAC TROMETHAMINE 15 MG/ML VIAL IV SCH ×3 (01:58→12:57)
[2021-06-29] MEDS: SODIUM CHLORIDE 0.9% 1000ML 1,000 ML IV SCH (02:29)
[2021-06-29] MEDS: ceFAZolin 2000MG 2,000 MG/15 ML SYR IV SCH (04:30)
[2021-06-29] MEDS: ACETAMINOPHEN 500 MG TAB PO SCH ×2 (05:57→07:42)
--- NOTE | 2021-06-29 06:44 | Orthopedic Progress Note ---
Date of Service June 29, 2021 Assessment & Plan (1) Status post reverse total replacement of left shoulder: Overall is doing very well. Is not having much pain in the left shoulder. He will be seen by physical therapy today for ambulation. He will be checked by the medicine team as well. His oxygen saturations are doing well on 3 L. We will try to wean him from the oxygen today. He can be discharged to home later today if okay with medicine. He will follow-up with orthopedics in 2 weeks. Misael Pabon was seen and examined at bedside this morning. Overall is doing very well. Is not having any pain in the left shoulder. He is in good spirits. He has no complaints. Review of Systems All systems reviewed & are unremarkable except as noted in HPI & below. Physical Exam Physical examination of the left shoulder, the dressing is clean and dry. He is wearing his sling as instructed. His radial, median, and ulnar nerves are checked intact at his wrist. Results & Data Results & Data Laboratory Results . Diagnostic Findings Postoperative x-rays of the left shoulder show the prosthesis to be in anatomic alignment without any evidence of fracture, desiccation, or loosening. PG Care Time/CCT Total # of Minutes Spent Total Time Spent with Patient: Total time spent is greater than 50% in coordination of care (as documented) at patient's floor/unit and/or counseling patient: Coding Level of Care Code 71661 Post Operative Follow-Up Diagnoses Status post reverse total replacement of left shoulder Z96.612
--- NOTE | 2021-06-29 06:45 | Discharge Summary ---
Date of Service June 29, 2021 Admission HPI (Per Admitting) Cm is a pleasant 71-year-old male who has been dealing with chronic worsening left shoulder pain. X-rays and clinical examination have been diagnostic for rotator cuff arthropathy of the left shoulder. After failing extensive conservative treatment, he has elected proceed with a left reverse shoulder arthroplasty. Admission Exam (Per Admitting) On physical examination of the left shoulder, he has about 120 degrees of forward elevation 120 degrees of abduction he has 4-5 motion with the full can test and external rotation. He has a lot of pain with range of motion. He has crepitus throughout.. Principal Diagnosis Same as "Discharge Diagnosis" noted below under Discharge Instructions. Discharge Exam Physical examination of the left shoulder, the dressing is clean and dry. He is wearing his sling as instructed. His radial, median, and ulnar nerves are checked intact at his wrist. Discharge Data Consultations 06/28/21 15:08 Consult Hospitalist Routine Procedures Performed Operation Date: 06/28/21 11:00 Actual Procedures p Left Reverse Total Shoulder Arthroplasty, Uncemented(Left) - Dre Obregon DO Ordered Studies 06/28/21 05:00 US - OR guided needle placemen Routine Hospital Course (1) Status post reverse total replacement of left shoulder: On June 28, 2021 Cm arrived at [facility] and underwent a left reverse shoulder arthroplasty without complication. He had a general anesthetic and a left interscalene nerve block. Postoperatively he was placed in a sling and transferred to the general orthopedic floors. He was havi ng a little bit of difficulty keeping his oxygen saturations up so the medicine team was consulted. They kept him on oxygen and observed him through the night. On postop day #1 he was doing fairly well. He was able to participate well with physical therapy. He was slowly weaned off the oxygen. He was then discharged home. He will follow-up with orthopedics in 2 weeks. PG Care Time/CCT Total # of Minutes Spent Total Time Spent with Patient: Total time spent is greater than 50% in coordination of care (as documented) at patient's floor/unit and/or counseling patient: Discharge Plan Discharge Items Patient Disposition: Home - Home Health Services Reason For Visit: POST SURGICAL CARE Discharge Diagnosis: Left shoulder replacement Activity: As commented below Non-emergency contact: Surgeon Call non-emergency contact if: your wound has increased redness and your wound has increased drainage Follow-up/Referrals: Jimbo Rhoades MD [Primary Care Provider] - Diet: Regular Addtl Attending Provider Instructions: Activity and Therapy Recommendations: * If you are using [facility] then therapy will be provided at your home until they feel you have accomplished all of your goals. * If you are using [facility] then Physical Therapy will be provided until they feel you are ready to start Outpatient Physical Therapy. * If you are not using home therapy then Outpatient Physical Therapy should start about 3-5 days from your day of surgery. Therapy will last about 8-12 weeks * Wear your sling for 3 weeks, unless otherwise instructed. You may remove your sling to shower and to dress, but otherwise, you should be in your sling at all times, including while sleeping * The shoulder replacement is very stable and you can use your hand while in the sling * You were shown a series of exercises in the hospital. Do these exercises daily including the exercises you were shown in physical therapy. Medications: * Narcotic You will likely be sent home from the hospital with a prescription for the narcotic pain medication that worked best throughout your stay. * Other medications may be prescribed for specific circumstances. If you have any questions, please call the office at . * Resume previous home medications unless otherwise instructed Dressing Care: Leave the Silverlon dressing in place for 7 days. After 7 days you may remove the dressing. If the incision is not draining then you may leave the laurent open to air. If there is a little bit of drainage or if the laurent are getting stuck on your clothing then cover the incision with a dry dressing. The laurent will be removed at your 2 week follow-up appointment. Showering: You may shower with the Silverlon dressing in place. Do not let the shower spray hit the dressing directly. Pat the Silverlon dressing dry. If the dressing becomes wet underneath, then simply remove the dressing. Keep the incision dry until you are 7 days out from the day of surgery. After 7 days you may remove the Silverlon dressing and shower with the laurent exposed. Let soapy water run over the laurent and pat them dry. Do not scrub or soak the incision. Things To Watch For: * Drainage from the incision site that occurs more than one week after your surgery. * Increased redness at the incision site. * Fever above 102 degrees Fahrenheit. * Unusual chest pain or shortness of breath. * Call [facility] at with any of the above problems Follow-Up Visit: Follow-up with Dr. Obregon's PA (Dre Mohr) 2-3 weeks after your day of surgery. He will remove your laurent and answer any questions. If you have any additional questions or concerns, Dr Obregon is usually in the office at the same time and will be available An appointment was probably scheduled when you signed-up for surgery in the office. If you have any questions call More detailed instructions as well as Frequently Asked Questions were provided in a folder by our office when you signed-up for surgery. Please review these instructions when you get home. If you have any further questions or concerns, please feel free to call the office at [phone] Pending Studies at Discharge: No Stand-Alone Forms: My [facility], Smoking Cessation Medications and DC Order Prescriptions: New oxycodone-acetaminophen 5-325 mg tablet 1 tab PO Q6H PRN (Reason: pain) Qty: 30 RF: 0 Continued ipratropium-albuterol 0.5 mg-3 mg(2.5 mg base)/3 mL solution for nebulization 3 ml inhalation .USE 1 UNIT DOSE IN N Qty: 2 RF: 0 Hold Instructions: patient not taking sodium chloride 7 % solution for nebulization 4 ml INH BID Qty: 240 RF: 2 aspirin 81 mg Tablet,Delayed Release (Dr/Ec) 81 mg PO QAM RF: 0 trazodone 150 mg tablet 150 mg PO HS RF: 0 metformin 500 mg tablet extended release 24 hr 1,000 mg PO BID RF: 0 magnesium oxide 400 mg magnesium Tablet 500 mg PO QAM RF: 0 fluoxetine [Prozac] 40 mg Capsule 40 mg PO QAM RF: 0 pramipexole [Mirapex] 1 mg Tablet 1 - 2 mg PO BID RF: 0 atorvastatin 40 mg Tablet 40 mg PO QAM RF: 0 cyanocobalamin (vitamin B-12) [Vitamin B-12] 1,000 mcg Tablet 1,000 mcg PO HS RF: 0 omeprazole 20 mg Capsule,Delayed Release(Dr/Ec) 20 mg PO QAM RF: 0 albuterol sulfate 90 mcg/actuation Hfa Aerosol Inhaler 2 puff INHALATION Q6H PRN (Reason: Shortness Of Breath Or Wheezing) RF: 0 cholecalciferol (vitamin D3) [Vitamin D3] 1,000 unit Capsule 1,000 units PO HS RF: 0 glipizide [Glucotrol] 10 mg Tablet 10 mg PO BID RF: 0 tamsulosin 0.4 mg Capsule 0.4 mg PO QAM RF: 0 pantoprazole [Protonix] 40 mg Tablet,Delayed Release (Dr/Ec) 40 mg PO HS RF: 0 ibuprofen 200 mg Capsule 400 mg PO Q6H PRN (Reason: Pain) RF: 0 Discharge Orders: Discharge Order (Routine); Ordered 06/29/21 Ordered By: Dre Obregon Admission Data Admit Date/Time: 06/28/21 13:04 Attending Provider: Dre Obregon Admit Provider: Dre Obregon Primary Care Provider: Jimbo Rhoades Other Providers: Jose Adams
[2021-06-29 07:13] LABS: Estimated Average Glucose 166 mg/dl; Hemoglobin A1C 7.4 % (4.5-5.6)
[2021-06-29] MEDS: DOCUSATE SODIUM 100 MG CAP PO SCH (07:34)
[2021-06-29] MEDS ORDERED: INSULIN GLARGINE SOLOSTAR 100 UNITS/ML 3 ML PEN SC SCH ×2 (09:00→21:00)
[2021-06-29] MEDS ORDERED: ASPIRIN 81 MG ECTAB PO SCH (09:00)
[2021-06-29] MEDS ORDERED: NON-FORMULARY MEDICATION (Omeprazole 20 mg Capsule,Delayed Release(Dr/Ec)) PO SCH (09:00)
[2021-06-29] MEDS ORDERED: ATORVASTATIN 40 MG TAB PO SCH (09:00)
[2021-06-29] MEDS ORDERED: FLUoxetine HCL 20 MG CAP PO SCH (09:00)
[2021-06-29] MEDS ORDERED: MULTIVITAMIN TAB PO SCH (09:00)
[2021-06-29] MEDS ORDERED: TAMSULOSIN HCL 0.4 MG CAP PO SCH (09:00)
[2021-06-29] MEDS ORDERED: INSULIN GLARGINE SOLOSTAR 100 UNITS/ML 3 ML PEN SC ONE (11:45)
--- NOTE | 2021-06-29 12:06 | Hospitalist Progress Note ---
Date of Service June 29, 2021 Assessment & Plan (1) Status post reverse total replacement of left shoulder: Plan: - Pain management, bowel regimen and DVT ppx per the primary team - PT/OT per primary - Hb stable - Encourage ambulation - more recs per the primary team (2) Hypoxia: Plan: #. Likely mild COPD exacerbation Patient reports needing oxygen every few days, has home oxygen Patient has a history of COPD, was having increased cough and desaturation yesterday after surgery Patient reports improvement in his cough and breathing, patient was started on steroids yesterday Occasional wheezing bilaterally appreciated during exam today. Pro-Gurpreet, BNP WNL. Likely mild COPD exacerbation, will discharge patient on steroids for 5 days and stop. Patient to follow-up with his PCP within a week time. Continue inhalers. (3) COPD (chronic obstructive pulmonary disease): Plan: - Hx of such, former smoker, last smoked in 2005, once per year he has a celebratory cigar "out at camp with friends" - Baseline O2 use is occasional, last time used was earlier this morning, and has a pulse ox monitor at home which he uses - Hx of COVID infection in mid May. Pt reports breathing had been baseline prior to this surgery. Negative on test prior to sugical procedure (4) DM type 2 (diabetes mellitus, type 2): Plan: - Iss with accucheckkalyani damons - Last A1C = 8.0 in 02/23/21 - Hold metformin and glipizide for now, resume upon discharge (5) HLD (hyperlipidemia): Plan: - Cont atorvastatin (6) HTN (hypertension): Plan: - Cont aspirin, does not appear to be on blood pressure meds - per EPIC review he stopped taking lisionpril 5 mg on 05/21/22. Will monitor BP while here (7) Depression: Plan: - Continue prozac 40 mg daily (8) GERD (gastroesophageal reflux disease): Plan: - Cont protonix 40 mg HS (9) RLS (restless legs syndrome): Plan: - Cont mirapex - repost not taking on 05/25 DVT ppx: - tedkalyani, scds CODE: Full code Dispo: From home, lives with , remain in the hospital overnight Thank you for involving us in the care of Mr. Yousif. Please do not hesitate to call with questions or concerns. At this time medicine service will follow along Admission and Anticipated Discharge Date Admission Date: June 28, 2021 Subjective Patient was sitting up in bed, on 3 L nasal cannula oxygen, NAD, eating his breakfast, no any acute events overnight. Patient has his voice clear today, yesterday it was hoarse after surgery/extubation. Patient reports improvement in his cough. Patient denies any fever/chills/chest pain/palpitations/cough/other review of symptoms. Physical Exam Physical Exam: GENERAL: Alert and oriented x3. NAD, on 3 L O2, obese. HEENT: No pallor, no icterus. Pupils equal, round and reactive to light. Oral mucosa moist. Hoarse voice NECK: No JVD, no neck masses. HEART: S1 and S2 heard. Regular rate and rhythm. Systolic murmur over aortic and pulmonic area, no gallop. RESPIRATORY SYSTEM: Normal AP diameter. No accessory muscle use. occasional BLE wheezing, no crackles. ABDOMEN: Soft, bowel sounds present, nontender, no distention. CENTRAL NERVOUS SYSTEM: No facial droop. Speech is clear. Obeys simple commands. Moves extremities. EXTREMITIES: trace BLE edema, no erythema seen. left arm in sling. Results & Data Results & Data ([facility]) Vital Signs (Past 12 Hours) Vital Signs Temp Pulse Pulse Resp BP Pulse Ox 06/29/21 09:50 36.7 C 92 H 92 H 20 130/77 92 06/29/21 08:04 36.7 C 92 H 20 130/77 92 06/29/21 03:50 36.5 C 88 18 117/70 91
[2021-06-29] MEDS ORDERED: AZITHROMYCIN 250 MG TAB PO ONE (13:00)
--- NOTE | 2021-06-29 13:10 | Pharmacy Report ---
Pharmacy Glycemic Short Note 2 - Date of Service June 29, 2021 - Glycemic Short BSG Results (Last 24 hours): 06/28/21 06/28/21 06/28/21 13:05 18:01 20:47 POC Glucose 165 H 205 H 260 H 06/28/21 06/28/21 06/29/21 23:55 23:56 04:25 POC Glucose 312 H* 281 H 212 H 06/29/21 06/29/21 07:43 11:25 POC Glucose 237 H 295 H OUTPATIENT ANTIDIABETIC REGIMEN: * Metformin 1000 mg PO BIDM * Glipizide 10 mg PO BIDM * HbA1c: 7.4% (06/29/21) ASSESSMENT: * RG is a 71 year old male POD #1 s/p left reverse total shoulder arthroplasty * Received dexamethasone perioperatively and now ordered Solu-medrol 40 mg IV q8h for suspected mild COPD exacerbation * BSGs have been significantly elevated postoperatively likely related to IV steroid administration * Will increase Lantus and tighten Novolog today PLAN FOR INPATIENT GLYCEMIC CONTROL: * Will restart metformin ER 1000 mg PO BIDM this evening with dinner * Basal insulin * Lantus 16 units SC x 1 followed by 8 units SC x 1 with breakfast and lunch respectively * Lantus scale HS to provide 8-24 units (see EHR for details) * Bolus insulin * NovoLog per scale ACHS or Q6hrs while NPO * Goal Range: Low 110 mg/dL - High 140 mg/dL * Correction Factor: 15 mg/dL/unit * Nutritional / Prandial insulin per carb ratio of 1 unit per 6 grams CHO consumed PLAN FOR DISCHARGE: * Reasonable to continue current outpatient regimen at discharge
[2021-06-29] MEDS ORDERED: metFORMIN HCL ER 500 MG TABCR PO SCH ×2 (17:00)
[2021-06-30] MEDS ORDERED: INSULIN ASPART PER UNIT SC SCH
== END 2021-06-29 16:57 | disposition home or self-care (01) | DRG 483 ==
LOC: ASU 08:27 → 2N 13:04

== ENCOUNTER 2021-11-15 06:32 | Observation (INO) ==
--- NOTE | 2021-10-12 08:26 | PAT Medication Instructions ---
Medication Instructions Date of Service October 12, 2021 Home Medications Medication Instructions Recorded Oxygen Home #1 ea 07/01/21 atorvastatin 40 mg tablet 40 mg PO QAM cyanocobalamin (vitamin B-12) 1,000 mcg tablet (Vitamin B-12) 1,000 mcg PO HS fluoxetine 40 mg capsule (Prozac) 40 mg PO QAM omeprazole 20 mg capsule,delayed release 20 mg PO QAM pramipexole 1 mg tablet (Mirapex) 1 - 2 mg PO BID albuterol sulfate 90 mcg/actuation aerosol inhaler 2 puff INHALATION Q6H PRN cholecalciferol (vitamin D3) 25 mcg (1,000 unit) capsule (Vitamin D3) 1,000 units PO HS aspirin 81 mg tablet,delayed release 81 mg PO QAM magnesium oxide 500 mg PO QAM metformin 500 mg tablet,extended release 24 hr 1,000 mg PO BID trazodone 150 mg tablet 150 mg PO HS glipizide 10 mg tablet (Glucotrol) 10 mg PO BID ibuprofen 200 mg capsule 400 mg PO Q6H PRN pantoprazole 40 mg tablet,delayed release (Protonix) 40 mg PO HS dulaglutide 0.75 mg/0.5 mL subcutaneous pen injector (Trulicity) 0.75 mg SUBCUT WK ipratropium 0.5 mg-albuterol 3 mg (2.5 mg base)/3 mL nebulization soln 3 ml INHALATION Q4H PRN sodium chloride 7 % for nebulization 4 ml INH BID MDD shortness of breath Continue as directed dulaglutide 0.75 mg/0.5 mL subcutaneous pen injector (Trulicity) 0.75 mg SUBCUT WK ASK your surgeon for instructions ibuprofen 200 mg capsule 400 mg PO Q6H PRN DO NOT take the morning of surgery pramipexole 1 mg tablet (Mirapex) 1 - 2 mg PO BID magnesium oxide 500 mg PO QAM metformin 500 mg tablet,extended release 24 hr 1,000 mg PO BID glipizide 10 mg tablet (Glucotrol) 10 mg PO BID Take morning of surgery With a small sip of water, OTHERWISE NOTHING TO EAT OR DRINK AFTER MIDNIGHT: atorvastatin 40 mg tablet 40 mg PO QAM fluoxetine 40 mg capsule (Prozac) 40 mg PO QAM omeprazole 20 mg capsule,delayed release 20 mg PO QAM albuterol sulfate 90 mcg/actuation aerosol inhaler 2 puff INHALATION Q6H PRN (use if needed; please bring rescue inhaler with you to hospital day of surgery if possible) aspirin 81 mg tablet,delayed release 81 mg PO QAM (continue as normal unless told otherwise by surgeon) ipratropium 0.5 mg-albuterol 3 mg (2.5 mg base)/3 mL nebulization soln 3 ml INHALATION Q4H PRN (if needed) Take evening before surgery cyanocobalamin (vitamin B-12) 1,000 mcg tablet (Vitamin B-12) 1,000 mcg PO HS pramipexole 1 mg tablet (Mirapex) 1 - 2 mg PO BID albuterol sulfate 90 mcg/actuation aerosol inhaler 2 puff INHALATION Q6H PRN (if needed) cholecalciferol (vitamin D3) 25 mcg (1,000 unit) capsule (Vitamin D3) 1,000 units PO HS metformin 500 mg tablet,extended release 24 hr 1,000 mg PO BID trazodone 150 mg tablet 150 mg PO HS glipizide 10 mg tablet (Glucotrol) 10 mg PO BID pantoprazole 40 mg tablet,delayed release (Protonix) 40 mg PO HS ipratropium 0.5 mg-albuterol 3 mg (2.5 mg base)/3 mL nebulization soln 3 ml INHALATION Q4H PRN (if needed) sodium chloride 7 % for nebulization 4 ml INH BID MDD shortness of breath (if needed) Other Notes If you have any questions please call us at [phone] or [phone] or [phone] or [phone]
--- NOTE | 2021-10-12 09:39 | Anesthesiology Consultation ---
Date of Service October 12, 2021 Assessment & Plan (1) Encounter for pre-operative examination: - COVID screening: Per assessment on 10/12: No known COVID-19 positive contacts or current COVID-19 related symptoms. Travel screen negative. Patient vaccinated. Surgeon arranging preop COVID testing. Awaiting results. - Check BSG AM DOS - S/P Left TSA (06/28/21): Grade view 1, MAC#4, ETT 8.0 + PNB at [facility]. Per anesthesia post-op progress note: "The patient has underlying COPD for which he uses oxygen at home when his SpO2 is less than 92. He had Covid 19 one month ago which had resolved prior to surgery. The patient was given a left brachial plexus block for left shoulder surgery preoperatively. He was intubated for the surgery using succinylcholine. During the procedure, the LEAD ASSEMBLER had to give him rocuronium due to coughing on the ETT. He had 4 twitches at the end of the procedure and was given neostigmine and glycopyrrolate as reversal. He was extubated without incident. Upon arrival to the PACU, the patient was noted to be coughing and tachycardic. His SpO2 was 80s to 90s on face mask oxygen. His SpO2 would drop when he coughed but would rise when he relaxed. His lungs were clear except for some wheezing with cough. He was given metoprolol for the tachycardia and a Duoneb treatment to help his cough/breathing. The patient is now more stable with SpO2 in the mid 90s on face mask oxygen. His coughing has become less frequent. The patient does have some hoarseness when speaking but that has improved. His other vital signs are stable. The [facility] hospitalist team came to evaluate the patient. They will follow him overnight on the telemetry floor where he will have continuous pulse oximetry. Dr. Obregon is aware and agrees with the plan." Per discharge summary (06/29/21): " They kept him on oxygen and observed him through the night. On postop day #1 he was doing fairly well. He was able to participate well with physical therapy. He was slowly weaned off the oxygen. He was then discharged home." Case reviewed with Dr. Chambers. He does not feel that anything further needed prior to surgery from his perspective. Will re-evaluate patient AM DOS (t/c preop Duoneb treatment). - Pulmonary office visit (07/15/21): "GERA (obstructive sleep apnea).. He does not use a CPAP at this time due to not being comfortable with the mask. He discussed with me today that he would like to try again. He would like to have a titration study done and a mask use that he can then try home for the study. Order will be sent in for the titration study. Hopefully we can find a mask that will be beneficial for him.. Hx: recurrent pneumonia.. Patient has had multiple bouts of pneumonia. In reviewing his health maintenance he is up-to-date on his Pneumovax at this point I wonder if he may be aspirating and has was causing his recurrent infections. He denies any known coughing or choking when he eats or drinks.. COPD (chronic obstructive pulmonary disease).. Patient is a previous tobacco history does obstructive process. At this time he is stable. He did have a CT of the chest within the past year. He will need to continue low-dose CT screenings." Chart Review Chart Review: Acceptable Risk for Surgery (pending evaluation AM DOS) and Patient seen in Pre Admission Testing Teaching & Discussion Pre-Anesthesia Teaching/Discussion Notes: Instructed NPO after midnight before surgery,except medications with 15 cc of water. Medication instructions provided according to the PAT guidelines. History Surgery Operation Date: 11/15/21 12:20 Proposed Procedures p Right Total Shoulder Arthroplasty Reverse - Dre Obregon DO Height/Weight Height: 5 ft 10 in Weight: 105.7 kg Allergies Allergy/AdvReac Type Severity Reaction Status Date / Time No Known Allergies Allergy Verified 10/11/21 16:30 Medications Home Medications Medication Instructions Recorded Confirmed Last Taken atorvastatin 40 mg tablet 40 mg PO QAM 03/14/18 10/11/21 01/27/19 cyanocobalamin (vitamin B-12) 1,000 mcg PO HS 03/14/18 10/11/21 06/27/21 21:30 1,000 mcg tablet (Vitamin B-12) fluoxetine 40 mg capsule (Prozac) 40 mg PO QAM 03/14/18 10/11/21 06/27/21 08:00 omeprazole 20 mg capsule,delayed 20 mg PO QAM 03/14/18 10/11/21 06/27/21 08:00 release pramipexole 1 mg tablet (Mirapex) 1 - 2 mg PO BID 03/14/18 10/11/21 06/27/21 21:30 albuterol sulfate 90 mcg/actuation 2 puff INHALATION Q6H PRN 03/15/18 10/11/21 06/27/21 06:00 aerosol inhaler cholecalciferol (vitamin D3) 25 1,000 units PO HS 03/15/18 10/11/21 06/27/21 21:30 mcg (1,000 unit) capsule (Vitamin D3) aspirin 81 mg tablet,delayed 81 mg PO QAM 09/24/18 10/11/21 06/27/21 08:00 release magnesium oxide 500 mg PO QAM 09/24/18 10/11/21 06/27/21 08:00 metformin 500 mg tablet,extended 1,000 mg PO BID 09/24/18 10/11/21 06/27/21 21:30 release 24 hr trazodone 150 mg tablet 150 mg PO HS 09/24/18 10/11/21 06/27/21 08:00 glipizide 10 mg tablet (Glucotrol) 10 mg PO BID 03/19/21 10/11/21 06/27/21 21:30 ibuprofen 200 mg capsule 400 mg PO Q6H PRN 03/19/21 10/11/21 06/27/21 21:30 400 mg pantoprazole 40 mg tablet,delayed 40 mg PO HS 03/19/21 10/11/21 06/27/21 08:00 release (Protonix) Oxygen Home #1 ea 07/01/21 07/15/21 Unknown dulaglutide 0.75 mg/0.5 mL 0.75 mg SUBCUT WK 10/11/21 10/11/21 Unknown subcutaneous pen injector (Trulicity) ipratropium 0.5 mg-albuterol 3 mg 3 ml INHALATION Q4H PRN 10/11/21 10/11/21 Unknown (2.5 mg base)/3 mL nebulization soln sodium chloride 7 % for 4 ml INH BID MDD shortness of 10/11/21 10/11/21 Unknown nebulization breath Past Medical History Medical History Anxiety and depression Arthritis COPD (chronic obstructive pulmonary disease) DM type 2 (diabetes mellitus, type 2) GERD (gastroesophageal reflux disease) Glaucoma Hearing deficit History of COVID-19 Dx 05/22/21 > symptoms at time: body aches, headache. Had a Casirivimab/Imdevimab IV infusion on 05/27/21 at [facility] > symptoms resolved HLD (hyperlipidemia) Hx: recurrent pneumonia Including aspiration pneumonia several years ago No current issues No aspiration per 2018 video swallow On home oxygen therapy 2L PRN for dyspnea (occasional use). 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 History of appendectomy History of cataract surgery RT/LEFT History of colonoscopy History of esophagogastroduodenoscopy (EGD) History of open reduction and internal fixation (ORIF) procedure right leg--hardware removed History of open reduction and internal fixation (ORIF) procedure LEFT ARM History of oral surgery History of tooth extraction History of total left hip arthroplasty History of total left knee replacement S/P tonsillectomy and adenoidectomy Status post reverse total replacement of left shoulder Left TSA (06/28/21): Grade view 1, MAC#4, ETT 8.0 + PNB at [facility] Past Anesthesia History Other Left TSA (06/28/21): Grade view 1, MAC#4, ETT 8.0 + PNB at [facility]. Per anesthesia post-op progress note: "The patient has underlying COPD for which he uses oxygen at home when his SpO2 is less than 92. He had Covid 19 one month ago which had resolved prior to surgery. The patient was given a left brachial plexus block for left shoulder surgery preoperatively. He was intubated for the surgery using succinylcholine. During the procedure, the LEAD ASSEMBLER had to give him rocuronium due to coughing on the ETT. He had 4 twitches at the end of the procedure and was given neostigmine and glycopyrrolate as reversal. He was extubated without incident. Upon arrival to the PACU, the patient was noted to be coughing and tachycardic. His SpO2 was 80s to 90s on face mask oxygen. His SpO2 would drop when he coughed but would rise when he relaxed. His lungs were clear except for some wheezing with cough. He was given metoprolol for the tachycardia and a Duoneb tr eatment to help his cough/breathing. The patient is now more stable with SpO2 in the mid 90s on face mask oxygen. His coughing has become less frequent. The patient does have some hoarseness when speaking but that has improved. His other vital signs are stable. The [facility] hospitalist team came to evaluate the patient. They will follow him overnight on the telemetry floor where he will have continuous pulse oximetry. Dr. Obregon is aware and agrees with the plan." Per discharge summary (06/29/21): " They kept him on oxygen and observed him through the night. On postop day #1 he was doing fairly well. He was able to participate well with physical therapy. He was slowly weaned off the oxygen. He was then discharged home." Social History Smoking Status: Current some day smoker tobacco type: cigars Smoking cigarettes per day: smokes cigars periodically Do You Dip or Chew Tobacco: No Smoking End Date: quit cigarettes 2005 Hx Alcohol Use: Yes Alcohol type: beer alcohol intake frequency: 0-2 drinks per day Hx Substance Use: No substance use type: does not use Review of Systems Patient denies chest pain, shortness of breath, fever, chills, cough, wheezing, palpitations. Physical Exam Vital Signs VITALS BP 114/74 P 80 TEMP 98.6 SP02 93%RA RESP 16 PHYSICAL Full cervical extension range of motion. Full TMJ range of motion. TMD 3.5 finger breaths Mallampati Score 3 Dentition: full upper/lower dentures Lungs: + mild inspiratory wheezes, + rhonchi Cardiac: regular rate and rhythm, I/ systolic murmur Spine: normal Carotid arteries: negative bruit Extremities: no edema Lab Results Anesthesia Preop Results Results Anesthesia Widget: WBC 8.45 K/uL (4.8-10.8) 10/12/21 Hgb 15.3 g/dL (14.0-18.0) 10/12/21 Hct 46.6 % (42-52) 10/12/21 Plt 269 K/uL (130-400) 10/12/21 Na 136 mmol/L (136-145) 10/12/21 K 4.2 mmol/L (3.5-5.1) 10/12/21 Cl 101 mmol/L (98-107) 10/12/21 CO2 27 mmol/L (21-32) 10/12/21 BUN 13 mg/dl (6-23) 10/12/21 Creat 0.95 mg/dl (0.6-1.4) 10/12/21 Glucose Level 131 mg/dl (70-99(Fasting)) H 10/12/21 PT 10.3 Seconds (9.0-12.0) 10/12/21 PTT 29.1 Seconds (21.0-31.0) 10/12/21 INR 1.0 (0.9-1.1) 10/12/21 Blood Type O Positive 10/12/21 Antibody Screen NEGATIVE 10/12/21 Testing Laboratory Results 09/27/21 A1C 7.8% Electrocardiogram Date: 03/24/21 Findings: + NSR @ (76) Chest X-Ray Date: 10/12/21 FINDINGS: Left shoulder arthroplasty is partially imaged. No pneumothorax or pleural effusion is noted. There is no evidence for pulmonary edema. Interstitial thickening shown on prior chest radiograph has improved. Lower lung interstitial thickening is likely chronic. Suspected minimal right midlung scarring is noted. Several old right rib fractures are incidentally noted. Mild cardiomegaly is unchanged. IMPRESSION: No acute cardiopulmonary findings. No change in appearance of the chest. Echocardiogram Date: 03/17/18 EF:60-65% LV Function:normal RWMA:+ none Other Findings:+ diastolic dysfunction (Grade I ); no LVH RV is normal in size and function Mild annular calcification, otherwise there is no significant heart valvular disease
--- NOTE | 2021-11-11 14:13 | History & Physical Report ---
Date of Service November 11, 2021 Assessment & Plan (1) Rotator cuff arthropathy of right shoulder: We will proceed with a right reverse shoulder arthroplasty. Postoperatively he will be kept in the sling and kept overnight for postoperative medical management. He plans to use energy physical therapy upon discharge. History of Present Illness Chief Complaint: Cuff arthropathy right shoulder. Primary Care Provider: Jimbo Rhoades MD Cm is a pleasant 71-year-old male who I dida left reverse shoulder arthroplasty on about 6 months ago. He has done very well with that. He really has no pain. Unfortunately, he is really struggling with his right shoulder. 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 He cannot lift it up to his chest l evel. He has known cuff arthroplasty. He would like to proceed with a right reverse shoulder arthroplasty.. Allergies Allergy/AdvReac Type Severity Reaction Status Date / Time No Known Allergies Allergy Verified 11/03/21 10:26 Home Medications Medication Instructions Recorded Confirmed Type atorvastatin 40 mg tablet 40 mg PO QAM 03/14/18 11/03/21 History cyanocobalamin (vitamin B-12) 1,000 mcg PO HS 03/14/18 11/03/21 History 1,000 mcg tablet (Vitamin B-12) fluoxetine 40 mg capsule (Prozac) 40 mg PO QAM 03/14/18 11/03/21 History omeprazole 20 mg capsule,delayed 20 mg PO QAM 03/14/18 11/03/21 History release pramipexole 1 mg tablet (Mirapex) 1 - 2 mg PO BID 03/14/18 11/03/21 History albuterol sulfate 90 mcg/actuation 2 puff INHALATION Q6H PRN 03/15/18 11/03/21 History aerosol inhaler cholecalciferol (vitamin D3) 25 1,000 units PO HS 03/15/18 11/03/21 History mcg (1,000 unit) capsule (Vitamin D3) aspirin 81 mg tablet,delayed 81 mg PO QAM 09/24/18 11/03/21 History release magnesium oxide 500 mg PO QAM 09/24/18 11/03/21 History trazodone 150 mg tablet 150 mg PO HS 09/24/18 11/03/21 History ibuprofen 200 mg capsule 400 mg PO Q6H PRN 03/19/21 11/03/21 History pantoprazole 40 mg tablet,delayed 40 mg PO HS 03/19/21 11/03/21 History release (Protonix) Oxygen Home #1 ea 07/01/21 11/03/21 Rx dulaglutide 0.75 mg/0.5 mL 0.75 mg SUBCUT WK 10/11/21 11/03/21 History subcutaneous pen injector (Trulicity) ipratropium 0.5 mg-albuterol 3 mg 3 ml INHALATION Q4H PRN 10/11/21 11/03/21 History (2.5 mg base)/3 mL nebulization soln sodium chloride 7 % for 4 ml INH BID MDD shortness of 10/11/21 11/03/21 History nebulization breath metformin 500 mg tablet,extended 500 mg PO BID tab 11/03/21 11/03/21 History release 24 hr CPAP Machine #1 ea 11/05/21 11/05/21 Rx Past Med/Surg History Medical History Anxiety and depression Arthritis COPD (chronic obstructive pulmonary disease) DM type 2 (diabetes mellitus, type 2) GERD (gastroesophageal reflux disease) Glaucoma Hearing deficit History of COVID-19 Dx 05/22/21 > symptoms at time: body aches, headache. Had a Casirivimab/Imdevimab IV infusion on 05/27/21 at [facility] > symptoms resolved HLD (hyperlipidemia) Hx: recurrent pneumonia Including aspiration pneumonia several years ago No current issues No aspiration per 2018 video swallow On home oxygen therapy 2L PRN for dyspnea (occasional use). Pt states he monitors closely and O2 typically 94-96% RA GERA (obstructive sleep apnea) No device RLS (restless legs syndrome) Surgical History 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 History of appendectomy History of cataract surgery RT/LEFT History of colonoscopy History of esophagogastroduodenoscopy (EGD) History of open reduction and internal fixation (ORIF) procedure right leg--hardware removed History of open reduction and internal fixation (ORIF) procedure LEFT ARM History of oral surgery History of tooth extraction History of total left hip arthroplasty History of total left knee replacement S/P tonsillectomy and adenoidectomy Status post reverse total replacement of left shoulder Left TSA (06/28/21): Grade view 1, MAC#4, ETT 8.0 + PNB at [facility] Family History Father Coronary heart disease Brother Lung cancer Colorectal cancer Brother Coronary heart disease Mother Cancer Other No family history of adverse response to anesthesia Social History Smoking Status: Current some day smoker Tobacco Type: Cigars Cigarettes Per Day: smokes cigars periodically& pt smoked 1.5ppd-started @age7- quit age 55; Second Hand Exposure: No; Hx Alcohol Use: Yes Alcohol type: beer Hx Substance Use: No Preferred Language: Wallisian Communication Ability: Effective Visual Impairment: No Limitations Hearing Ability: Hard of Hearing Home Health Speech Therapist Required: No Beliefs That Will Affect Care: None marital status: Current Living Situation: Spouse and Family Current Living Situation Comment: Lives with and son current occupational status: retired Feels Safe at Home: Yes Assistive Devices: Denture - Upper, Denture - Lower, Glasses and Nebulizer Review of Systems All systems reviewed & are unremarkable except as noted in HPI & below. Physical Exam On physical examination the right shoulder, he has a pseudoparalysis. He only has about 20 degrees of forward elevation 20 degrees of abduction. He has weakness throughout.. Constitutional WD/WN, vitals as above Eyes PERRL, conjunctivae normal, anicteric sclerae ENMT external ear and nose normal, oropharynx normal Neck trachea midline, no thyromegaly Respiratory normal respiratory effort Cardiovascular RRR, no murmur, no edema Gastrointestinal (Abdomen) normal bowel sounds, soft, nontender, no hepatosplenomegaly Psychiatric A+Ox3, euthymic affect Results & Data Results & Data Laboratory Results . Diagnostic Findings X-rays of the right shoulder do show osteoarthritis. There is blunting of the tuberosity. There are some signs of cuff arthropathy. PG Care Time/CCT Total # of Minutes Spent Total Time Spent with Patient: Total time spent is greater than 50% in coordination of care (as documented) at patient's floor/unit and/or counseling patient: Coding Level of Care Code None Diagnoses Rotator cuff arthropathy of right shoulder M12.811
[~2021-11-15 06:32] MED LIST changes: +Ketorolac (*for OR use only*) 30 MG, dexAMETHasone 4 MG, KETAMINE HCL (**OR use only) 1... INFIL SCH; -ROPIVACAINE 0.5% HCL/PF 150 MG, BUPIVACAINE 0.75% MPF 20 ML, EPINEPHrine 30MG/30ML (OR ... INSTIL SCH; +TRANEXAMIC ACID 1,000 MG **IV Pre-op IV SCH
--- NOTE | 2021-11-15 06:37 | History & Physical Bridge Note ---
Date of Service November 15, 2021 History & Physical Bridge Note I have examined the patient, reviewed the History & Physical and in the interval since the performance of the History & Physical I have noted the following changes of clinical significance: no changes noted
[2021-11-15] MEDS ORDERED: MIDAZOLAM HCL 1 MG/ML 2ML VIAL ONE (07:48)
[2021-11-15] MEDS ORDERED: fentaNYL citrate 100 MCG/2 ML VIAL ONE (07:48)
[2021-11-15] MEDS ORDERED: LIDOCAINE 2% 2 ML VIAL/AMP(20MG/ML) INFIL ONE (08:05)
[2021-11-15] MEDS ORDERED: ROCURONIUM BROMIDE 10 MG/ML 5 ML VIAL IV ONE (08:05)
[2021-11-15] MEDS ORDERED: PROPOFOL IV EMULSION 10 MG/ML 20 ML VIAL IV ONE (08:05)
[2021-11-15] MEDS ORDERED: fentaNYL citrate 100 MCG/2 ML VIAL IV PRN (08:15)
[2021-11-15] MEDS ORDERED: HYDROmorphone INJ 1 MG/ML SYRINGE IV PRN (08:15)
[2021-11-15] MEDS ORDERED: ATROPINE SULFATE 0.1 MG/ML 10ML SYR IV PRN (08:15)
[2021-11-15] MEDS ORDERED: ePHEDrine sulfate 50 MG/ML AMP IV PRN (08:15)
[2021-11-15] MEDS ORDERED: ONDANSETRON INJ 2 MG/ML 2 ML VIAL IV PRN ×2 (08:15→15:19)
[2021-11-15] MEDS ORDERED: ALBUT/IPRATROP 3MG/0.5MG NEB 3 ML VIAL INH PRN ×2 (08:24→15:19)
[2021-11-15] MEDS ORDERED: ORTHO JOINT ANESTHETIC ONE (08:35)
[2021-11-15] MEDS ORDERED: SUGAMMADEX SODIUM 200 MG/2 ML VIAL IV ONE (08:49)
[2021-11-15] MEDS ORDERED: PHENYLEPHRINE HCL 10 MG/ML VIAL ONE (09:32)
[2021-11-15] MEDS ORDERED: ONDANSETRON INJ 2 MG/ML 2 ML VIAL ONE (09:32)
--- NOTE | 2021-11-15 09:56 | Operative Report ---
PG Post Operative Report Pre & Post Diagnosis Operation Date: 11/15/21 08:50 Pre-Op Diagnosis: Right Shoulder cuff tear arthropathy Post-Op Diagnosis: Right Shoulder cuff tear arthropathy I identified the patient and participated in the time-out.: Yes Procedure Operation Date: 11/15/21 08:50 Actual Procedures p Right Reverse Total Shoulder Arthroplasty, Uncemented(Right) - Dre Obregon DO Surgeon Dre Obregon DO Meat Grading Machine Operator Dre Mohr PAC Estimated Blood Loss 150 Findings Consistent with Post-Op Diagnosis Specimens Right humeral head Complications none Disposition Disposition: Recovery Room Indications Cm is a pleasant 71-year-old male who is been doing chronic increasing right shoulder pain. X-rays and clinical examination were diagnostic for cuff arthropathy of the right shoulder. After failing conservative treatment, he elected to proceed with a right reverse shoulder arthroplasty. Description of Procedure A CPT code modifier 59: The long head of the biceps tendon was enlarged and inflamed consistent with tendinopathy. A tenodesis was opted. This was a separate and distinct portion of the procedure. For these reasons, a CPT code modifier 59 will be added to this case. Implants used: I used a [employer] Comprehensive reverse total shoulder arthroplasty system with a size 13 press fit micro humeral stem, a standard humeral tray and a standard humeral bearing, a 25 mm small augment baseplate with a 6.5 mm central screw and superior and inferior locking screws, and a size 40 mm eccentric glenosphere. Cm arrived at [facility] for the above procedure. He was seen in the preoperative holding area and the operative extremity was identified and signed. He was given a preoperative antibiotic, TXA, and an interscalene nerve block. He was taken back to the operating room, laid on table in supine position, and put under general anesthesia. He was then put into the beachchair position. The shoulder was then prepped and draped in sterile fashion. A timeout was done and the patient and the operative extremity was properly identified. A deltopectoral approach was used. Dissection was taken down through the fascia and the deltoid was retracted laterally and the conjoined tendon was retracted medially. The anterior shoulder was exposed. The biceps tendon was chronically torn. The subscapularis was then directly released off the lesser tuberosity with a peel technique. The inferior capsule was released and the humeral head was dislocated. A canal finding reamer was sent down the center of the humeral canal. Sequential reaming up to a size 13 reamer was done. Off that reamer, a proximal humeral resection guide was placed. The proximal humerus was resected at 135 of inclination and 25 of retroversion. Osteophytes were then removed and the glenoid was exposed. Time was spent doing a complete capsular and labral release. The glenoid guide was then placed in the inferior aspect of the glenoid. A 3.2 mm Steinmann pin was then placed into the glenoid vault at 10 of inclination. The glenoid baseplate was then reamed. The final size 25 mm small augment baseplate was then impacted in the place. A 6.5 mm central screw was then placed followed by superior and inferior locking screws. A 40 mm eccentric glenosphere was then impacted into place. Surrounding soft tissues were then injected with 100 cc an orthopedic pain control cocktail. The proximal humerus was then exposed. Sequential broaching of the humerus up to a size 13broach was done. Off that broach a standard humeral tray was trialed. The shoulder was then reduced, brought through a full range of motion, and felt to be stable. The shoulder was then dislocated and the broach was removed. The final size 13 micro press-fit humeral stem was then impacted into place. A standard humeral bearing was then snapped onto a standard humeral tray. The humeral tray was then impacted onto the humeral stem. The shoulder was once again reduced, brought through a full range of motion, and felt to be stable. The subscapularis was then tenodesed back to the lesser tuberosity with transosseous FiberWire sutures and side to side sutures with the arm in 45 of external rotation. A dilute betadyne lavage was then done for 3 minutes. The joint was then irrigated with normal saline solution. Hemostasis was obtained. The interval was closed with 2-0 Vicryl suture. The skin was then closed with 2-0 Vicryl and laurent. A Silverlon dressing was placed and the arm was rested in a regular arm sling. He was then extubated and transferred to a hospital bed. He taken to the postanesthesia care unit in stable condition. He tolerated the procedure well. Dre Mohr PA-C, was present for the entire procedure. He was critical for patient positioning, prepping, draping, retraction exposure, wound closure and application of sterile dressing. I attest to the content of the Intraoperative Record and any orders documented therein. Any exceptions are noted below.
[2021-11-15] MEDS ORDERED: LORazepam 2 MG/1 ML VIAL ONE (10:18)
[2021-11-15] MEDS: PRAMIPEXOLE DIHYDROCHLO 0.5 MG TAB PO PRN (10:44)
--- NOTE | 2021-11-15 14:00 | Hospitalist Consultation ---
Date of Consultation November 15, 2021 Assessment & Plan (1) Postoperative hypoxia: POD #[address] Obregon Postoperatively experiencing hypoxia at 78% on room air. Currently on CPAP and hypoxia has improved. Hypoxia likely multifactorial due to underlying GERA, anesthesia, restrictive ahsan ng disease due to obesity Check CXR, ABG Basic labs including CBC, BMP, Mg+ (2) Status post reverse total replacement of right shoulder: POD#[address] Obregon activity and wound care orders as per ortho pain control with bowel regimen PT/OT monitor H/H for acute blood loss anemia and transfuse blood products PRN (3) GERA (obstructive sleep apnea): CPAP as per home settings (4) RLS (restless legs syndrome): Continue home dose pramipexole (5) DM type 2 (diabetes mellitus, type 2): Hgb A1c 7.8 09/2021 Hold home agents and utilize NovoLog per protocol while hospitalized Glycemic pharmacy consult placed by primary service (6) HLD (hyperlipidemia): Continue statin (7) DVT prophylaxis: SCDs as per Ortho Thank you for this consultation. We will follow the patient with you during their hospital stay. You can reach a member of the [facility] Hospitalist Team 02/01 via the [facility] Hospitalist role in [place] Text. Supervising Physician Co-Signing Physician Notes History and physical exam performed by me History notable for 71-year-old man with diabetes mellitus type 2, GERA on CPAP, hypertension, GERD, anxiety depression who just had right shoulder arthroplasty by Dr. Obregon this morning. Postoperatively, he was noted to be hypoxic 78% on room air. Patient seen in the PACU. Patient is still drowsy. Arousable and oriented to person however, review of system all additional history could not be obtained due to drowsiness. On exam, Patient is obese, drowsy, on BiPAP, oriented to person only when aroused Postop hypoxia in a patient with with GERA on CPAP at home. NPO for now Saturating >92% on CPAP at the time of evaluation Get Chest x-ray Keep CPAP on until patient is more awake Get labs CBC, BMP Agree with other plans as detailed by Muna KHAN History of Present Illness Reason for Consultation: Postop hypoxia, postop medical management Requesting Physician: Dr. Obregon Attending Physician: Dr. Grissom History of Present Illness 71-year-old male with PMH DM type II, HLD, GERA on CPAP, HTN, GERD, anxiety and depression, and other problems listed below who is status post right total shoulder arthroplasty today by Dr. Obregon. Postoperatively, the patient was hypoxic at 78% on room air. He has subsequently been placed on CPAP with improvement in hypoxia. Patient also with history of RLS and legs have been very restless postoperatively. Patient received a dose of pramipexole. Patient is currently lethargic however does arouse to verbal stimuli but falls back to sleep quickly. He is able to state his name however additional history is unobtainable at this time. Allergies Allergy/AdvReac Type Severity Reaction Status Date / Time No Known Allergies Allergy Verified 11/15/21 07:11 Home Medications Medication Instructions Recorded Confirmed Type atorvastatin 40 mg tablet 40 mg PO QAM 03/14/18 11/15/21 History cyanocobalamin (vitamin B-12) 1,000 mcg PO HS 03/14/18 11/15/21 History 1,000 mcg tablet (Vitamin B-12) fluoxetine 40 mg capsule (Prozac) 40 mg PO QAM 03/14/18 11/15/21 History omeprazole 20 mg capsule,delayed 20 mg PO QAM 03/14/18 11/15/21 History release pramipexole 1 mg tablet (Mirapex) 1 - 2 mg PO BID 03/14/18 11/15/21 History albuterol sulfate 90 mcg/actuation 2 puff INHALATION Q6H PRN 03/15/18 11/15/21 History aerosol inhaler cholecalciferol (vitamin D3) 25 1,000 units PO HS 03/15/18 11/15/21 History mcg (1,000 unit) capsule (Vitamin D3) aspirin 81 mg tablet,delayed 81 mg PO QAM 09/24/18 11/15/21 History release magnesium oxide 500 mg PO QAM 09/24/18 11/15/21 History trazodone 150 mg tablet 150 mg PO HS 09/24/18 11/15/21 History ibuprofen 200 mg capsule 400 mg PO Q6H PRN 03/19/21 11/15/21 History pantoprazole 40 mg tablet,delayed 40 mg PO HS 03/19/21 11/15/21 History release (Protonix) Oxygen Home #1 ea 07/01/21 11/03/21 Rx dulaglutide 0.75 mg/0.5 mL 0.75 mg SUBCUT WK 10/11/21 11/15/21 History subcutaneous pen injector (Trulicity) ipratropium 0.5 mg-albuterol 3 mg 3 ml INHALATION Q4H PRN 10/11/21 11/15/21 History (2.5 mg base)/3 mL nebulization soln sodium chloride 7 % for 4 ml INH BID MDD shortness of 10/11/21 11/15/21 History nebulization breath metformin 500 mg tablet,extended 500 mg PO BID tab 11/03/21 11/15/21 History release 24 hr CPAP Machine #1 ea 11/05/21 11/05/21 Rx Patient History Medical History Anxiety and depression Aortic valve sclerosis F/U PCP Arthritis COPD (chronic obstructive pulmonary disease) Degenerative disc disease, lumbar DM type 2 (diabetes mellitus, type 2) Dyslipidemia Former smoker mild emphysema on CT GERD (gastroesophageal reflux disease) Glaucoma Hearing deficit History of COVID-19 Dx 05/22/21 > symptoms at time: body aches, headache. Had a Casirivima b/Imdevimab IV infusion on 05/27/21 at [facility] > symptoms resolved HLD (hyperlipidemia) HTN (hypertension) NO MEDS Hx: recurrent pneumonia Including aspiration pneumonia several years ago No current issues No aspiration per 2018 video swallow On home oxygen therapy 2L PRN for dyspnea (occasional use). 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 History of appendectomy History of cataract surgery RT/LEFT History of colonoscopy History of esophagogastroduodenoscopy (EGD) History of open reduction and internal fixation (ORIF) procedure right leg--hardware removed History of open reduction and internal fixation (ORIF) procedure LEFT ARM History of oral surgery History of tooth extraction History of total left hip arthroplasty History of total left knee replacement S/P tonsillectomy and adenoidectomy Status post reverse total replacement of left shoulder Left TSA (06/28/21): Grade view 1, MAC#4, ETT 8.0 + PNB at [facility] Family History Father Coronary heart disease Brother Lung cancer Colorectal cancer Brother Coronary heart disease Mother Cancer Other No family history of adverse response to anesthesia Social History Smoking Status: Current some day smoker Tobacco Type: Cigars Cigarettes Per Day: smokes cigars periodically& pt smoked 1.5ppd-started @age7- quit age 55; Smoking End Date: quit cigarettes 2005; Second Hand Exposure: No; Do You Dip or Chew Tobacco: No; Tobacco Cessation Education Requested by Patient: No Hx Alcohol Use: Yes Alcohol type: beer Hx Substance Use: No Preferred Language: Tajik Communication Ability: Effective Visual Impairment: No Limitations 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 Beliefs That Will Affect Care: None marital status: Current Living Situation: Spouse and Family Current Living Situation Comment: Lives with and son current occupational status: retired Other Information That Helps Us Care for You: No Feels Safe at Home: Yes Safety Concerns: Feels Safe At This Time Assistive Devices: Denture - Upper, Denture - Lower, Glasses and Nebulizer Assistive Devices Comment: oxygen prn Review of Systems Review of Systems: Unobtainable due to reduced consciousness Physical Exam Constitutional: WD/WN, vitals as above + obese; no acute distress restless legs Eyes: PERRL, conjunctivae normal, anicteric sclerae ENMT: external ear and nose normal, oropharynx normal Respiratory: normal respiratory effort; no respiratory distress Auscultation: + diminished lung sounds On BiPAP Cardiovascular: Rate/Rhythm: regular rate and regular rhythm Vessels: normal peripheral pulses Extremities: no edema Gastrointestinal (Abdomen): Inspection/Auscultation: + abdomen distended and normal bowel sounds Percussion/Palpation: abdomen soft; abdomen nontender and no hepatosplenomegaly Musculoskeletal: Extremities: no cyanosis and no clubbing S/p right shoulder surgery, surgical dressing CDI, RUE in sling, strength unable to be assessed due to reduced consciousness Skin: no rashes, warm and dry Neurologic: no focal motor deficits Psychiatric: Orientation: oriented to person and oriented to place; + not alert (Lethargic however arouses easily to verbal stimuli, falls back to sleep) Results & Data Results & Data ([facility]) Vital Signs (Past 12 Hours) Vital Signs Temp Pulse Pulse Resp BP Pulse Ox 11/15/21 13:45 69 15 160/90 H 99 11/15/21 13:35 61 14 152/84 H 100 11/15/21 13:25 67 19 173/81 H 100 11/15/21 13:15 74 18 144/89 H 98 11/15/21 13:05 73 15 148/94 H 99 11/15/21 12:55 73 20 145/78 H 98 11/15/21 12:45 81 18 150/73 H 97 11/15/21 12:35 80 21 154/78 H 98 11/15/21 12:25 82 19 155/68 H 92 11/15/21 12:15 85 16 119/57 L 94 11/15/21 12:05 84 20 93 11/15/21 11:55 85 20 127/67 94 11/15/21 11:45 83 18 99/64 L 93 11/15/21 11:35 86 18 134/105 H 97 11/15/21 11:25 86 20 132/69 97 11/15/21 11:15 85 16 131/60 97 11/15/21 11:05 89 24 127/86 95 11/15/21 10:55 86 22 137/55 L 93 11/15/21 10:45 90 26 H 132/71 87 L 11/15/21 10:35 89 24 121/86 83 L 11/15/21 10:25 87 28 H 149/104 H 78 L 11/15/21 10:18 36.0 C L 85 22 148/91 H 78 L 11/15/21 06:50 36.6 C 71 16 137/88 94
--- NOTE | 2021-11-15 14:18 | XRay Report ---
XR shoulder RT min 2V routine CLINICAL HISTORY: Post shoulder surgery TECHNIQUE: 3 views of the right shoulder were obtained. Comparison: None available at the time of this dictation. FINDINGS: Patient is status post shoulder arthroplasty with expected postsurgical changes including soft tissue swelling, subcutaneous emphysema, and surgical staple placement. No periarticular lucency or hardwar e fracture is seen. IMPRESSION: Expected postoperative appearance status post placement of shoulder arthroplasty. ACT 112: Negative or not required by law. Electronically signed by: Adolfo Gómez M.D. 11/15/2021 2:16 PM
--- NOTE | 2021-11-15 14:31 | XRay Report ---
XR chest 1V portable HISTORY: 71 years-old Male post op hypoxia acute hypoxia COMPARISON: Chest radiograph 10/12/2021 TECHNIQUE: Portable AP view of the chest FINDINGS: Cardiac silhouette is enlarged. Pulmonary vascular congestion. No pneumothorax, large pleural effusio n or lobar airspace consolidation. Degenerative changes of the spine. Reverse bilateral shoulder arth roplasties. Surgical clips project over the right shoulder. IMPRESSION: Cardiomegaly with pulmonary vascular congestion. ACT 112: Negative or not required by law. The above report was generated using voice recognition software. It may contain grammatical, syntax o r spelling errors. Electronically signed by: Alexis Ryan M.D. 11/15/2021 2:29 PM
--- NOTE | 2021-11-15 14:45 | Anesthesiology Progress Note ---
Date of Service November 15, 2021 Anesthesia Post Procedure Vital Signs Vital Signs: Temp Pulse Pulse Resp BP Pulse Ox 11/15/21 14:30 60 14 117/70 95 11/15/21 14:15 72 14 126/68 95 11/15/21 14:00 36.4 C L 73 16 127/72 93 11/15/21 13:45 69 15 160/90 H 99 11/15/21 13:35 61 14 152/84 H 100 11/15/21 13:25 67 19 173/81 H 100 11/15/21 13:15 74 18 144/89 H 98 11/15/21 13:05 73 15 148/94 H 99 11/15/21 12:55 73 20 145/78 H 98 11/15/21 12:45 81 18 150/73 H 97 11/15/21 12:35 80 21 154/78 H 98 11/15/21 12:25 82 19 155/68 H 92 11/15/21 12:15 85 16 119/57 L 94 11/15/21 12:05 84 20 93 11/15/21 11:55 85 20 127/67 94 11/15/21 11:45 83 18 99/64 L 93 11/15/21 11:35 86 18 134/105 H 97 11/15/21 11:25 86 20 132/69 97 11/15/21 11:15 85 16 131/60 97 11/15/21 11:05 89 24 127/86 95 11/15/21 10:55 86 22 137/55 L 93 11/15/21 10:45 90 26 H 132/71 87 L 11/15/21 10:35 89 24 121/86 83 L 11/15/21 10:25 87 28 H 149/104 H 78 L 11/15/21 10:18 36.0 C L 85 22 148/91 H 78 L 11/15/21 06:50 36.6 C 71 16 137/88 94 Pain Intensity Right Leg: Pain Intensity: 4 Transfer of Care Handoff Completed per policy Notes Mental Status: alert / awake / arousable and participated in evaluation Patient Amnestic to Procedure: Yes Nausea / Vomiting: adequately controlled Pain: adequately controlled Airway Patency, RR, SpO2: see Notes below BP & HR: stable & adequate Hydration State: stable & adequate Anesthetic Complications: no major complications apparent and Pt Satisfied with anesthetic care Notes: Again Mr. Yousif had SpO2 in 80's postoperatively. Likely multifactorial 2/2 underlying COPD, significant GERA and interscalene nerve block with likely ipsilateral phrenic nerve blockade. He was placed on BiPAP with excellent SpO2 response. Patient also had severe RLS and was given his home medication with minimal relief. Hospitalist service consulted and plan for patient to be on telemetry and continue BiPAP.
[2021-11-15 15:09] LABS: Allen Test Pos (Pos); Base Excess ABG 1.5 mEq/L (-9-1.8); HCO3 ABG 29 mmol/L (19-24); Oxygen Saturation ABG 96.5 % (90-95); PCO2 ABG 59 mmHg (35-46); PO2 ABG 95 mmHg (80-95); pH ABG 7.31 (7.35-7.45)
[2021-11-15] MEDS ORDERED: oxyCODONE HCL IR 5 MG TAB (IMMEDIATE RELEASE) PO PRN (15:19)
[2021-11-15] MEDS ORDERED: MAGNESIUM HYDROXIDE SUSP 30 ML UDC PO PRN (15:19)
[2021-11-15] MEDS ORDERED: SODIUM CHLORIDE 0.9% 1000ML 1,000 ML IV SCH (15:19)
[2021-11-15] MEDS ORDERED: PHARMACY GLYCEMIC MGMT CONSULT PRN (15:19)
[2021-11-15] MEDS ORDERED: NALOXONE HCL 0.4 MG/1 ML VIAL/CARP IV PRN (15:19)
[2021-11-15] MEDS ORDERED: NON-FORMULARY MEDICATION (Oxygen Home Liters per Minute) INH SCH (15:19)
[2021-11-15] MEDS ORDERED: METOCLOPRAMIDE HCL INJ 5 MG/ML 2 ML VIAL IV PRN (15:19)
[2021-11-15] MEDS ORDERED: bisacodyL 10 MG SUPP PR PRN (15:19)
[2021-11-15] MEDS ORDERED: HYDROmorphone INJ 0.5 MG/0.5 ML SYR IV PRN (15:19)
[2021-11-15] MEDS ORDERED: ALBUTEROL HFA 8 GM INHALER INH PRN (15:19)
[2021-11-15 15:21] LABS: Creatinine Clr Calc Pharmacy 65.2 ml/min; Est GFR (African American) 68.4 ml/min; Magnesium 1.9 mg/dl (1.7-2.4); Potassium 4.8 mmol/L (3.5-5.1)
[2021-11-15] MEDS ORDERED: GLUCAGON FOR INJ 1 MG VIAL IM PRN (15:45)
[2021-11-15] MEDS ORDERED: DEXTROSE 50% 50 ML SYRINGE IV PRN (15:45)
[2021-11-15] MEDS ORDERED: CARBOHYDRATES FOR HYPOGLYCEMIA PO PRN (15:45)
[2021-11-15] MEDS ORDERED: GLUCOSE 10 TABS/TUBE PO PRN (15:45)
[2021-11-15] MEDS ORDERED: GLUCOSE 40% GEL 15 GM TUBE PO PRN (15:45)
--- NOTE | 2021-11-15 15:55 | Pharmacy Report ---
Pharmacy Glycemic Short Note 2 - Date of Service November 15, 2021 - Glycemic Short BSG Results (Last 24 hours): 11/15/21 11/15/21 11/15/21 07:10 10:34 14:48 Glucose 213 H POC Glucose 140 H 179 H OUTPATIENT ANTIDIABETIC REGIMEN: * metformin 500 mg PO BIDM * Trulicity 0.75 mg SC weekly (Fridays) * HbA1c 7.4% (06/28/21) ASSESSMENT: * RG is a 71 year old male POD #0 s/p right reverse total shoulder * Received 8 mg PO dexamethasone in OR + intra-articular ortho-mix containing dexamethasone * Preoperative BSG of 140 mg/dL, postoperative BSG of 213 mg/dL * Will give one dose of Lantus today (~0.25 unit/kg) and use tight Novolog coverage this evening to cover intraoperative steroids PLAN FOR INPATIENT GLYCEMIC CONTROL: * Hold outpatient oral diabetes medications * Consider restarting metformin in AM * Basal insulin * Lantus 25 units SC x 1 * Bolus insulin * NovoLog per scale ACHS or Q6hrs while NPO * Goal Range: Low 110 mg/dL - High 140 mg/dL * Correction Factor: 15 mg/dL/unit * Nutritional / Prandial insulin per carb ratio of 1 unit per 5 grams CHO consumed
[2021-11-15 15:58] LABS: Basophils # (auto) 0.02 K/uL (0-0.2); Basophils % (auto) 0.2 %; Hematocrit (blood only) 44.3 % (42-52); Hemoglobin 14.4 g/dL (14.0-18.0); Immature Granulocytes # (auto) 0.03 K/uL (0.00-0.02); Immature Granulocytes % (auto) 0.3 %; Lymphocytes # (auto) 0.41 K/uL (1.2-3.4); Lymphocytes % (auto) 3.5 %; Mean Corpuscular Hemoglobin 30.4 pg (25-34); Mean Corpuscular Volume 93.7 fL (80-100); Mean Platelet Volume 10.9 fL (7.4-10.4); Monocytes # (auto) 0.19 K/uL (0.11-0.59); Monocytes % (auto) 1.6 %; Neutrophils # (auto) 11.14 K/uL (1.4-6.5); Neutrophils % (auto) 94.4 %; Platelet Count 230 K/uL (130-400); RDW Coefficient of Variation 14.4 % (11.5-14.5); RDW Standard Deviation 49.4 fL (36.4-46.3); Red Blood Count 4.73 M/uL (4.7-6.1); White Blood Count 11.79 K/uL (4.8-10.8)
[2021-11-15] MEDS: ACETAMINOPHEN 500 MG TAB PO SCH (15:59)
[2021-11-15] MEDS: KETOROLAC TROMETHAMINE 15 MG/ML VIAL IV SCH ×2 (16:00→21:23)
[2021-11-15] MEDS ORDERED: LANTUS PER UNIT CHARGE SQ ONE (16:00)
[2021-11-15] MEDS ORDERED: FUROSEMIDE INJ 20 MG/2 ML VIAL IV ONE (16:04)
[2021-11-15 16:11] LABS: Mean Corpuscular Hgb Conc 32.5 g/dL (32-36)
[2021-11-15] MEDS: ceFAZolin 2000MG 2,000 MG/15 ML SYR IV SCH (16:32)
[2021-11-15] MEDS: INSULIN ASPART PER UNIT SC SCH ×2 (16:43→21:23)
[2021-11-15 18:32] LABS: Base Excess ABG 1.7 mEq/L (-9-1.8); HCO3 ABG 31 mmol/L (19-24); Oxygen Saturation ABG 95.6 % (90-95); PCO2 ABG 67 mmHg (35-46); PO2 ABG 85 mmHg (80-95); pH ABG 7.28 (7.35-7.45)
[2021-11-15 18:40] LABS: Allen Test Pos (Pos)
[2021-11-15] MEDS: SODIUM CHLOR 7% 4 ML NEB INH SCH (19:33)
[2021-11-15 20:34] LABS: PCO2 ABG 70 mmHg (35-46); pH ABG 7.27 (7.35-7.45)
[2021-11-15 20:35] LABS: Allen Test Pos (Pos); Base Excess ABG 2.4 mEq/L (-9-1.8); HCO3 ABG 32 mmol/L (19-24); Oxygen Saturation ABG 92.7 % (90-95); PO2 ABG 67 mmHg (80-95)
[2021-11-15] MEDS ORDERED: MAGNESIUM SULFATE / D5W 1 GM/100 ML BAG IV ONE (21:00)
[2021-11-15] MEDS ORDERED: PANTOprazole 40 MG TAB PO SCH (21:00)
[2021-11-15] MEDS ORDERED: traZODone HCL 50 MG TAB PO SCH (21:00)
[2021-11-15] MEDS ORDERED: NON-FORMULARY MEDICATION (Cpap Machine misc) SCH (21:00)
[2021-11-15 23:11] LABS: Base Excess ABG 1.4 mEq/L (-9-1.8); HCO3 ABG 29 mmol/L (19-24); Oxygen Saturation ABG 96.7 % (90-95); PCO2 ABG 58 mmHg (35-46); PO2 ABG 97 mmHg (80-95); pH ABG 7.32 (7.35-7.45)
[2021-11-15 23:13] LABS: Allen Test Pos (Pos)
[2021-11-16] MEDS: DOCUSATE SODIUM 100 MG CAP PO SCH ×3 (00:39→21:15)
[2021-11-16] MEDS: PANTOprazole 40 MG TAB PO SCH ×3 (00:39→21:14)
[2021-11-16] MEDS: SENNA 8.6 MG TAB PO SCH ×2 (00:40→21:15)
[2021-11-16] MEDS: PRAMIPEXOLE DIHYDROCHLORIDE 1 MG TAB PO SCH ×2 (00:40→12:59)
[2021-11-16] MEDS: ACETAMINOPHEN 500 MG TAB PO SCH ×4 (00:40→21:14)
[2021-11-16] MEDS: ceFAZolin 2000MG 2,000 MG/15 ML SYR IV SCH (00:46)
[2021-11-16] MEDS: KETOROLAC TROMETHAMINE 15 MG/ML VIAL IV SCH ×4 (04:26→21:15)
--- NOTE | 2021-11-16 06:58 | Orthopedic Progress Note ---
Date of Service November 16, 2021 Assessment & Plan (1) Status post reverse total replacement of right shoulder: Overall he seems to be doing okay. Is not having much pain in the right shoulder. He is still in the BiPAP machine. I spoke with the nurse and we will try to wean him off the oxygen throughout the day today. He will be seen by physical therapy for ambulation and range of motion exercises. If his oxygen saturations remain above 90% on room air he can be discharged home. Otherwise, he can stay until tomorrow. Misael Pabon was seen and examined at bedside this morning. Overall he is doing fairly well. He he says is not having much pain in the right shoulder. He was kept on a BiPAP machine overnight. He has no other complaints. Review of Systems All systems reviewed & are unremarkable except as noted in HPI & below. Physical Exam Physical examination of his right shoulder, the dressing is clean and dry. He i s wearing his sling as instructed. He is active motion of his hand and his wrist. Results & Data Results & Data Laboratory Results . Diagnostic Findings Postoperative x-rays of the right shoulder show the prosthesis to be in anatomic alignment without any evidence of fracture, desiccation, or loosening. PG Care Time/CCT Total # of Minutes Spent Total Time Spent with Patient: Total time spent is greater than 50% in coordination of care (as documented) at patient's floor/unit and/or counseling patient: Coding Level of Care Code 35014 Post Operative Follow-Up Diagnoses Status post reverse total replacement of right shoulder Z96.611
[2021-11-16] MEDS: SODIUM CHLOR 7% 4 ML NEB INH SCH ×2 (07:09→18:59)
[2021-11-16 07:34] LABS: Hematocrit (blood only) 43.6 % (42-52); Hemoglobin 13.9 g/dL (14.0-18.0); Mean Corpuscular Hemoglobin 30.2 pg (25-34); Mean Corpuscular Hgb Conc 31.9 g/dL (32-36); Mean Corpuscular Volume 94.8 fL (80-100); Platelet Count 229 K/uL (130-400); RDW Coefficient of Variation 14.6 % (11.5-14.5); RDW Standard Deviation 50.3 fL (36.4-46.3); White Blood Count 11.67 K/uL (4.8-10.8)
[2021-11-16 08:07] LABS: Potassium 4.5 mmol/L (3.5-5.1)
[2021-11-16 08:08] LABS: BUN Creatinine Ratio 17.7 (10-20); Calcium 8.8 mg/dl (8.5-10.1); Creatinine Clr Calc Pharmacy 63.8 ml/min; Est GFR (African American) 66.4 ml/min; Est GFR (Non-African American) 57.3 ml/min
[2021-11-16 08:27] LABS: Estimated Average Glucose 169 mg/dl; Hemoglobin A1C 7.5 % (4.5-5.6)
[2021-11-16] MEDS ORDERED: NON-FORMULARY MEDICATION (Omeprazole 20 mg Capsule,Delayed Release(Dr/Ec)) PO SCH (09:00)
[2021-11-16] MEDS: INSULIN ASPART PER UNIT SC SCH ×4 (09:33→21:11)
[2021-11-16] MEDS: ASPIRIN 81 MG ECTAB PO SCH (09:34)
[2021-11-16] MEDS: MAGNESIUM OXIDE 400 MG TAB PO SCH (09:35)
[2021-11-16] MEDS: ATORVASTATIN 40 MG TAB PO SCH (09:35)
[2021-11-16] MEDS: MULTIVITAMIN TAB PO SCH (09:35)
[2021-11-16] MEDS: FLUoxetine HCL 20 MG CAP PO SCH (09:35)
[2021-11-16] MEDS ORDERED: FUROSEMIDE INJ 20 MG/2 ML VIAL IV ONE (12:17)
[2021-11-16] MEDS: PRAMIPEXOLE DIHYDROCHLO 0.5 MG TAB PO PRN ×2 (12:55→12:59)
--- NOTE | 2021-11-16 18:44 | Hospitalist Progress Note ---
Date of Service November 16, 2021 Assessment & Plan (1) Postoperative hypoxia: Plan: S/P right TSA by Dr. Obregon CXR showed Cardiomegaly with pulmonary vascular congestion. Postoperatively experiencing hypoxia at 78% on room air. Currently on CPAP and hypoxia has improved. Hypoxia likely multifactorial due to underlying GERA, anesthesia, restrictive lung disease due to obesity Lasix 20mg IV given today Clinically improve (2) Status post reverse total replacement of right shoulder: Plan: POD#[address] Obregon activity and wound care orders as per ortho pain control with bowel regimen Incentive spirometry PT/OT as per ortho (3) GERA (obstructive sleep apnea): Plan: CPAP as per home settings (4) RLS (restless legs syndrome): Plan: Continue home dose pramipexole (5) DM type 2 (diabetes mellitus, type 2): Plan: Hgb A1c 7.8 09/2021 Hold home agents and utilize NovoLog per protocol while hospitalized Glycemic pharmacy consult placed by primary service (6) HLD (hyperlipidemia): Plan: Continue statin (7) DVT prophylaxis: Plan: SCDs as per Ortho Thank you for this consultation. We will follow the patient with you during their hospital stay. You can reach a member of the [facility] Hospitalist Team 02/01 via the [facility] Hospitalist role in [place] Text. Admission and Anticipated Discharge Date Admission Date: November 15, 2021 Subjective Pt was seen and examined for postop follow up and hypoxia Sitting in bed with no acute distress Pt said that he fees fine Denies any chest pain, palpitation, dizziness and SOB Review of Systems Review of Systems: All systems reviewed & are unremarkable except as noted in Subjective Physical Exam Physical Exam: General- No acute distress Head- atraumatic Eyes- PERRL, EOMI, ENT- oropharynx clear Neck- supple, no JVD Lungs- clear to auscultation Heart- regular rhythm; no murmur Abdomen- normal bowel sounds, soft, nontender Extremities- right shoulder pain, RUE in sling Neuro- alert, oriented x 3; PERRL, EOMI; no facial palsy; no dysarthria Skin- warm & dry Results & Data Results & Data ([facility]) Vital Signs (Past 12 Hours) Vital Signs Temp Pulse Pulse Pulse Resp BP Pulse Ox 11/16/21 16:00 37.4 C 65 75 20 118/61 88 L 11/16/21 12:00 36.6 C 64 22 123/73 93 11/16/21 08:00 62 11/16/21 07:13 73 18 90
[2021-11-16] MEDS: PRAMIPEXOLE DIHYDROCHLO 0.5 MG TAB PO SCH (22:52)
[2021-11-17] MEDS: KETOROLAC TROMETHAMINE 15 MG/ML VIAL IV SCH ×2 (04:35→13:11)
--- NOTE | 2021-11-17 06:20 | Orthopedic Progress Note ---
Date of Service November 17, 2021 Assessment & Plan (1) Status post reverse total replacement of right shoulder: We will try to wean him off the oxygen today. If his oxygen saturations remain above 90% on room air he can be discharged home. The hospitalist service is following him as well. He will follow-up with orthopedics in 2 weeks. Misael Pabon was seen and examined at bedside this morning. Overall he is doing fairly well. He was unable to be weaned off the oxygen yesterday. He will be seen by physical therapy again today. He is currently on 2 L nasal cannula. They will attempt to wean him off oxygen again today. He is not having any pain in the right shoulder. Review of Systems All systems reviewed & are unremarkable except as noted in HPI & below. Physical Exam On physical examination of the right shoulder, the dressing is clean and dry. He is wearing his sling as instructed. He has active motion of his hand and his wrist. Results & Data Results & Data Laboratory Results . Diagnostic Findings . PG Care Time/CCT Total # of Minutes Spent Total Time Spent with Patient: Total time spent is greater than 50% in coordination of care (as documented) at patient's floor/unit and/or counseling patient: Coding Level of Care Code 73452 Post Operative Follow-Up Diagnoses Status post reverse total replacement of right shoulder Z96.611
[2021-11-17] MEDS: ACETAMINOPHEN 500 MG TAB PO SCH ×2 (06:22→13:40)
[2021-11-17] MEDS: SODIUM CHLOR 7% 4 ML NEB INH SCH (07:27)
--- NOTE | 2021-11-17 08:22 | Pharmacy Report ---
Pharmacy Glycemic Short Note 2 - Date of Service November 17, 2021 - Glycemic Short BSG Results (Last 24 hours): 11/16/21 11/16/21 11/16/21 11:52 11:53 12:54 POC Glucose 63 L* 64 L* 123 H 11/16/21 11/16/21 11/17/21 16:56 20:26 07:47 POC Glucose 194 H 155 H 143 H OUTPATIENT ANTIDIABETIC REGIMEN: * metformin 500 mg PO BIDM * Trulicity 0.75 mg SC weekly (Fridays) * HbA1c 7.4% (06/28/21) ASSESSMENT: 11/17 * Patient received total of 18 units of correctional insulin yesterday. BSGs had trended down with lunch, likely seeing effects of steroids wearing off. Had loosened parameters at that time, BSGs since then stable * Patient with postop hypoxia, they are planning on weaning oxygen today if possible and likely d/c home 11/15 * RG is a 71 year old male POD #0 s/p right reverse total shoulder * Received 8 mg PO dexamethasone in OR + intra-articular ortho-mix containing dexamethasone * Preoperative BSG of 140 mg/dL, postoperative BSG of 213 mg/dL * Will give one dose of Lantus today (~0.25 unit/kg) and use tight Novolog coverage this evening to cover intraoperative steroids PLAN FOR INPATIENT GLYCEMIC CONTROL: * Consider resuming home metformin this evening * Basal insulin * hold * Bolus insulin * NovoLog per scale ACHS or Q6hrs while NPO * Goal Range: Low 110 mg/dL - High 140 mg/dL * Correction Factor: 30 mg/dL/unit * Nutritional / Prandial insulin per carb ratio of 1 unit per 12 grams CHO consumed
[2021-11-17] MEDS ORDERED: FUROSEMIDE INJ 20 MG/2 ML VIAL IV ONE (08:27)
[2021-11-17] MEDS: INSULIN ASPART PER UNIT SC SCH ×2 (08:47→11:31)
[2021-11-17] MEDS: DOCUSATE SODIUM 100 MG CAP PO SCH (08:52)
[2021-11-17] MEDS: ASPIRIN 81 MG ECTAB PO SCH (08:52)
[2021-11-17] MEDS: MULTIVITAMIN TAB PO SCH (08:52)
[2021-11-17] MEDS: MAGNESIUM OXIDE 400 MG TAB PO SCH (08:52)
[2021-11-17] MEDS: ATORVASTATIN 40 MG TAB PO SCH (08:52)
[2021-11-17] MEDS: FLUoxetine HCL 20 MG CAP PO SCH (08:52)
[2021-11-17] MEDS: PANTOprazole 40 MG TAB PO SCH (08:52)
[2021-11-17] MEDS: PRAMIPEXOLE DIHYDROCHLO 0.5 MG TAB PO SCH (08:53)
--- NOTE | 2021-11-17 15:07 | Hospitalist Progress Note ---
Date of Service November 17, 2021 Assessment & Plan (1) Postoperative hypoxia: Plan: S/P right TSA by Dr. Obregon CXR showed Cardiomegaly with pulmonary vascular congestion. Postoperatively experiencing hypoxia at 78% on room air. Currently on CPAP and hypoxia has improved. Hypoxia likely multifactorial due to underlying GERA, anesthesia, restrictive lung disease due to obesity Lasix 20mg IV given today 2 step done and pt does not require any oxygen supplement Pt was advised to follow up with his PCP on discharge Clinically improve (2) Status post reverse total replacement of right shoulder: Plan: POD#[address] Obregon No postop complication activity and wound care orders as per ortho pain control with bowel regimen Incentive spirometry PT/OT as per ortho (3) GERA (obstructive sleep apnea): Plan: CPAP as per home settings (4) RLS (restless legs syndrome): Plan: Continue home dose pramipexole (5) DM type 2 (diabetes mellitus, type 2): Plan: Hgb A1c 7.8 09/2021 Hold home agents and utilize NovoLog per protocol while hospitalized Glycemic pharmacy consult placed by primary service Will resume home metformin on discharge (6) HLD (hyperlipidemia): Plan: Continue statin (7) DVT prophylaxis: Plan: SCDs as per Ortho Thank you for this consultation. We will follow the patient with you during their hospital stay. You can reach a member of the [facility] Hospitalist Team 02/01 via [facility] [place] Text. Admission and Anticipated Discharge Date Admission Date: November 15, 2021 Subjective Pt was seen and examined for postop follow up and hypoxia Sitting in bed with no acute distress Pt said that he fees fine This morning they said he is oxygen dropped in the 70's, but he said that he was fine Pt said that he had oxygen at room that was given for when his breathing is not good He said that he rarely used 2 step done today, the lower his oxygen drop was 88 % on RA Denies any chest pain, palpitation, dizziness and SOB Review of Systems Review of Systems: All systems reviewed & are unremarkable except as noted in Subjective Physical Exam Physical Exam: General- No acute distress Head- atraumatic Eyes- PERRL, EOMI, ENT- oropharynx clear Neck- supple, no JVD Lungs- clear to auscultation Heart- regular rhythm; no murmur Abdomen- normal bowel sounds, soft, nontender Extremities- right shoulder pain, RUE in sling Neuro- alert, oriented x 3; PERRL, EOMI; no facial palsy; no dysarthria Skin- warm & dry Results & Data Results & Data ([facility]) Vital Signs (Past 12 Hours) Vital Signs Temp Pulse Pulse Pulse Pulse Pulse Pulse 11/17/21 14:38 37.1 C 70 11/17/21 11:12 37.0 C 75 11/17/21 10:24 96 H 93 H 84 11/17/21 08:07 58 L 11/17/21 07:49 37 C 58 L 11/17/21 07:28 72 11/17/21 03:00 36.5 C 59 L Pulse Resp Resp Resp Resp Resp BP 11/17/21 14:38 20 130/76 11/17/21 11:12 20 128/75 11/17/21 10:24 77 20 20 16 16 11/17/21 08:07 11/17/21 07:49 20 158/85 H 11/17/21 07:28 18 11/17/21 03:00 20 157/88 H Pulse Ox Pulse Ox Pulse Ox Pulse Ox Pulse Ox 11/17/21 14:38 96 11/17/21 11:12 11/17/21 10:24 91 88 L 93 93 11/17/21 08:07 11/17/21 07:49 90 11/17/21 07:28 94 11/17/21 03:00 96
[2021-11-17] MEDS ORDERED: metFORMIN HCL ER 500 MG TABCR PO SCH (17:00)
--- NOTE | 2021-11-18 06:38 | Discharge Summary ---
Date of Service November 18, 2021 Admission HPI (Per Admitting) Cm is a pleasant 71-year-old male who I dida left reverse shoulder arthroplasty on about 6 months ago. He has done very well with that. He really has no pain. Unfortunately, he is really struggling with his right shoulder. 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 He cannot lift it up to his chest level. He has known cuff arthroplasty. He would like to proceed with a right reverse shoulder arthroplasty.. Admission Exam (Per Admitting) On physical examination the right shoulder, he has a pseudoparalysis. He only has about 20 degrees of forward elevation 20 degrees of abduction. He has weakness throughout.. Principal Diagnosis Same as "Discharge Diagnosis" noted below under Discharge Instructions. Discharge Data Consultations 11/15/21 13:03 Consult Hospitalist Stat Procedures Performed Operation Date: 11/15/21 08:50 Actual Procedures p Right Reverse Total Shoulder Arthroplasty, Uncemented(Right) - Dre Obregon DO Ordered Studies 11/15/21 05:00 US - OR guided needle placemen Routine Hospital Course (1) Status post reverse total replacement of right shoulder: On November 15, 2021 Cm arrived at [facility] and underwent a right reverse shoulder replacement without complication. He had a general anesthetic and a right interscalene nerve block. Postoperatively he was transferred to the PCU. He was having some trouble with postoperative hypoxia. He was initially on a BiPAP machine. The hospitalist was consulted. On postop day #1 attempts were made to wean him from the oxygen. His oxygen saturations remained a little bit low on room air. He continued with nasal cannula. He was not having any pain in his shoulder. On postop day #2 he continued to do well with his shoulder. He was weaned off the nasal oxygen and was stable on room air. He had a two-step done which showed he did not require any home oxygen. He was then discharged home. He will follow-up with orthopedics in 2 weeks. PG Care Time/CCT Total # of Minutes Spent Total Time Spent with Patient: Total time spent is greater than 50% in coordination of care (as documented) at patient's floor/unit and/or counseling patient: Discharge Plan Discharge Items Patient Disposition: Home - Home Health Services Reason For Visit: DJD Right Shoulder Discharge Diagnosis: Right reverse shoulder replacement Activity: As commented below Non-emergency contact: Surgeon Call non-emergency contact if: your wound has increased redness and your wound has increased drainage Follow-up/Referrals: Jimbo Rhoades MD [Primary Care Provider] - Diet: Regular Addtl Attending Provider Instructions: Activity and Therapy Recommendations: * If you are using [facility] then therapy will be provided at your home until they feel you have accomplished all of your goals. * If you are using [facility] then Physical Therapy will be provided until they feel you are ready to start Outpatient Physical Therapy. * If you are not using home therapy then Outpatient Physical Therapy should start about 3-5 days from your day of surgery. Therapy will last about 8-12 weeks * Wear your sling for 3 weeks, unless otherwise instructed. You may remove your sling to shower and to dress, but otherwise, you should be in your sling at all times, including while sleeping * The shoulder replacement is very stable and you can use your hand while in the sling * You were shown a series of exercises in the hospital. Do these exercises daily including the exercises you were shown in physical therapy. Medications: * Narcotic You will likely be sent home from the hospital with a prescription for the narcotic pain medication that worked best throughout your stay. * Other medications may be prescribed for specific circumstances. If you have any questions, please call the office at . * Resume previous home medications unless otherwise instructed Dressing Care: Leave the Silverlon dressing in place for 7 days. After 7 days you may remove the dressing. If the incision is not draining then you may leave the laurent open to air. If there is a little bit of drainage or if the laurent are getting stuck on your clothing then cover the incision with a dry dressing. The laurent will be removed at your 2 week follow-up appointment. Showering: You may shower with the Silverlon dressing in place. Do not let the shower spray hit the dressing directly. Pat the Silverlon dressing dry. If the dressing becomes wet underneath, then simply remove the dressing. Keep the incision dry until you are 7 days out from the day of surgery. After 7 days you may remove the Silverlon dressing and shower with the laurent exposed. Let soapy water run over the laurent and pat them dry. Do not scrub or soak the incision. Things To Watch For: * Drainage from the incision site that occurs more than one week after your surgery. * Increased redness at the incision site. * Fever above 102 degrees Fahrenheit. * Unusual chest pain or shortness of breath. * Call [facility] at with any of the above problems Follow-Up Visit: Follow-up with Dr. Obregon's PA (Dre Mohr) 2-3 weeks after your day of surgery. Follow up with your primary care provider (please call to schedule for the appointment) He will remove your laurent and answer any questions. If you have any additional questions or concerns, Dr Obregon is usually in the office at the same time and will be available An appointment was probably scheduled when you signed-up for surgery in the office. If you have any questions call More detailed instructions as well as Frequently Asked Questions were provided in a folder by our office when you signed-up for surgery. Please review these instructions when you get home. If you have any further questions or concerns, please feel free to call the office at [phone] Pending Studies at Discharge: No Stand-Alone Forms: My [facility] Medications and DC Order Prescriptions: New oxycodone-acetaminophen 5-325 mg tablet 1 tab PO Q6H PRN (Reason: pain) Qty: 30 RF: 0 Continued (DME) Oxygen Home Liters Per Minute See Rx Instructions .MEDSUPPLY Qty: 1 RF: 0 (DME) CPAP Machine Misc .Route Qty: 1 RF: 0 aspirin 81 mg Tablet,Delayed Release (Dr/Ec) 81 mg PO QAM RF: 0 trazodone 150 mg tablet 150 mg PO HS RF: 0 magnesium oxide 400 mg magnesium Tablet 500 mg PO QAM RF: 0 metformin 500 mg tablet extended release 24 hr 500 mg PO BID RF: 0 fluoxetine [Prozac] 40 mg Capsule 40 mg PO QAM RF: 0 pramipexole [Mirapex] 1 mg Tablet 1 - 2 mg PO BID RF: 0 atorvastatin 40 mg Tablet 40 mg PO QAM RF: 0 cyanocobalamin (vitamin B-12) [Vitamin B-12] 1,000 mcg Tablet 1,000 mcg PO HS RF: 0 omeprazole 20 mg Capsule,Delayed Release(Dr/Ec) 20 mg PO QAM RF: 0 albuterol sulfate 90 mcg/actuation Hfa Aerosol Inhaler 2 puff INHALATION Q6H PRN (Reason: Shortness Of Breath Or Wheezing) RF: 0 cholecalciferol (vitamin D3) [Vitamin D3] 1,000 unit Capsule 1,000 units PO HS RF: 0 pantoprazole [Protonix] 40 mg Tablet,Delayed Release (Dr/Ec) 40 mg PO HS RF: 0 ibuprofen 200 mg Capsule 400 mg PO Q6H PRN (Reason: Pain) RF: 0 Trulicity 0.75 mg/0.5 mL Pen Injector 0.75 mg SUBCUT WK RF: 0 ipratropium-albuterol 0.5 mg-3 mg(2.5 mg base)/3 mL solution for nebulization 3 ml inhalation Q4H PRN (Reason: Shortness Of Breath) RF: 0 sodium chloride 7 % solution for nebulization 4 ml INH BID MDD shortness of breath RF: 0 Discharge Orders: Discharge Order (Routine); Ordered 11/16/21 Ordered By: Dre Pavon/Other Patient Handouts: Nutrition for Wound Healing, Managing Type 2 Diabetes Admission Data Admit Date/Time: 11/15/21 13:40 Attending Provider: Dre Obregon Admit Provider: Dre Obregon Primary Care Provider: Jimbo Rhoades Other Providers: Va Metcalf ; Onofre Houston Other Interventions: Discharge Summary Assessment (RN) Last Done: 11/17/21 16:14
== END 2021-11-17 17:58 | disposition home health service (06) ==
LOC: 2W 06:32 → ASU 06:32
DX: Z99.81 Dependence on supplemental oxygen; G47.33 Obstructive sleep apnea (adult) (pediatric); G25.81 Restless legs syndrome; Z79.899 Other long term (current) drug therapy; M12.811 Other specific arthropathies, not elsewhere classified, right shoulder; M75.101 Unspecified rotator cuff tear or rupture of right shoulder, not specified as traumatic; Z79.84 Long term (current) use of oral hypoglycemic drugs; E11.9 Type 2 diabetes mellitus without complications; E78.5 Hyperlipidemia, unspecified

== ENCOUNTER 2022-10-07 06:42 | Observation (INO) ==
--- NOTE | 2022-09-01 10:10 | PAT Medication Instructions ---
Medication Instructions Date of Service September 01, 2022 Home Medications Medication Instructions Recorded Oxygen Home #1 ea 07/01/21 CPAP Machine #1 ea 11/05/21 atorvastatin 40 mg tablet 40 mg PO QAM cyanocobalamin (vitamin B-12) 1,000 mcg tablet (Vitamin B-12) 1,000 mcg PO HS omeprazole 20 mg capsule,delayed release 20 mg PO QAM pramipexole 1 mg tablet (Mirapex) 1 - 2 mg PO BID albuterol sulfate 90 mcg/actuation aerosol inhaler 2 puff inhalation Q6H PRN cholecalciferol (vitamin D3) 25 mcg (1,000 unit) capsule (Vitamin D3) 1,000 units PO HS aspirin 81 mg tablet,delayed release 81 mg PO QAM magnesium oxide 400 mg PO QAM trazodone 150 mg tablet 150 mg PO HS ibuprofen 200 mg capsule 400 mg PO Q6H PRN Oxygen Home ipratropium 0.5 mg-albuterol 3 mg (2.5 mg base)/3 mL nebulization soln 3 ml inhalation Q4H PRN sodium chloride 7 % for nebulization 4 ml inhalation BID PRN metformin 500 mg tablet,extended release 24 hr 1,000 mg PO BID CPAP Machine fluoxetine 40 mg capsule (Prozac) 40 mg PO QAM ascorbic acid 1,000 [id number] powder effervescent pack (Emergen- C) 1 ea PO QAM fluoxetine 20 mg tablet 20 mg PO QAM glipizide 10 mg tablet 10 mg PO BID ASK your surgeon for instructions ibuprofen 200 mg capsule 400 mg PO Q6H PRN DO NOT take the morning of surgery magnesium oxide 400 mg PO QAM metformin 500 mg tablet,extended release 24 hr 1,000 mg PO BID ascorbic acid 1,000 [id number] powder effervescent pack (Emergen- C) 1 ea PO QAM glipizide 10 mg tablet 10 mg PO BID Take morning of surgery With a small sip of water, OTHERWISE NOTHING TO EAT OR DRINK AFTER MIDNIGHT: atorvastatin 40 mg tablet 40 mg PO QAM omeprazole 20 mg capsule,delayed release 20 mg PO QAM pramipexole 1 mg tablet (Mirapex) 1 - 2 mg PO BID albuterol sulfate 90 mcg/actuation aerosol inhaler 2 puff inhalation Q6H PRN(use if needed; please bring with you to hospital day of surgery if possible) aspirin 81 mg tablet,delayed release 81 mg PO QAM (unless directed otherwise by surgeon) ipratropium 0.5 mg-albuterol 3 mg (2.5 mg base)/3 mL nebulization soln 3 ml inhalation Q4H PRN(if needed) sodium chloride 7 % for nebulization 4 ml inhalation BID PRN(if needed) fluoxetine 40 mg capsule (Prozac) 40 mg PO QAM fluoxetine 20 mg tablet 20 mg PO QAM Take evening before surgery cyanocobalamin (vitamin B-12) 1,000 mcg tablet (Vitamin B-12) 1,000 mcg PO HS pramipexole 1 mg tablet (Mirapex) 1 - 2 mg PO BID albuterol sulfate 90 mcg/actuation aerosol inhaler 2 puff inhalation Q6H PRN(if needed) cholecalciferol (vitamin D3) 25 mcg (1,000 unit) capsule (Vitamin D3) 1,000 units PO HS trazodone 150 mg tablet 150 mg PO HS ipratropium 0.5 mg-albuterol 3 mg (2.5 mg base)/3 mL nebulization soln 3 ml inhalation Q4H PRN(if needed) sodium chloride 7 % for nebulization 4 ml inhalation BID PRN(if needed) metformin 500 mg tablet,extended release 24 hr 1,000 mg PO BID glipizide 10 mg tablet 10 mg PO BID Other Notes If you have any questions please call us at [phone] or [phone] or [phone] or [phone]
--- NOTE | 2022-09-07 10:10 | Anesthesiology Consultation ---
Date of Service September 07, 2022 Assessment & Plan (1) Encounter for pre-operative examination: Chart Review Chart Review: Acceptable Risk for Surgery (pending response from PCP/updated ECHO ) and Patient seen in Pre Admission Testing - Discussed 2018 ECHO and murmur on PAT exam with Dr. Williamson- recommends updated ECHO. Please send optimization form to PCP re: ordering updated ECHO - Check BSG AM DOS - Pt is NOT a Same Day Joint candidate Per PAT appt on 09/07/22, patient denies any recent travel or large group activities. Pt is vaccinated for Covid. Will leave to surgeon's discretion if preop Covid testing needed. Educated on importance of using Covid precautions one week prior to surgery Left reverse TSA 11/15/21= Done under [place] with Grade 1 view with MAC. ETT #7.5. Atraumatic DL x 1 (Pt given Ativan 1mg for restless legs. Duoneb ordered for low SpO2- per anesthesia record) -Pulmonary/sleep medicine visit (11/05/21): "Reviewed the patient's PFTs. Also reviewed his CT scan. I do not see clear evidence of emphysematous disease or PFT showing airflow obstruction. The patient can continue bronchodilators if he feels that they are offering him a clinical benefit.. Sleep disordered breathing: Recommended CPAP at 10 cm of water with oxygen bleed at 1 L/min. An order will be faxed to [facility] oxygen today.. Patient's restrictive PFTs are likely secondary to underlying body habitus. Exercise and weight loss were recommended.. As the patient's pulmonary status has been relatively stable and we are primarily managing his underlying sleep disordered breathing I think transitioning him to the sleep clinic would be appropriate. Follow-up will be scheduled there." -S/P Left TSA (06/28/21): Grade view 1, MAC#4, ETT 8.0 + PNB at [facility]. Per anesthesia post-op progress note: "The patient has underlying COPD for which he uses oxygen at home when his SpO2 is less than 92. He had Covid 19 one month ago which had resolved prior to surgery. The patient was given a left brachial plexus block for left shoulder surgery preoperatively. He was intubated for the surgery using succinylcholine. During the procedure, the CRNAhad to give him rocuronium due to coughing on the ETT. He had 4 twitches at the end of the procedure and was given neostigmine and glycopyrrolate as reversal. He was extubated without incident. Upon arrival to the PACU, the patient was noted to be coughing and tachycardic. His SpO2 was 80s to 90s on face mask oxygen. His SpO2 would drop when he coughed but would rise when he relaxed. His lungs were clear except for some wheezing with cough. He wasgiven metoprolol for the tachycardia and a Duoneb treatment to help his cough/breathing.The patient is now more stable with SpO2 in the mid 90s on face mask oxygen. His coughing has become less frequent. The patient does have some hoarseness when speaking but that has improved. His other vital signs are stable. The [facility] hospitalist team came to evaluate the patient. They will follow him overnight on the telemetry floor where he will have continuous pulse oximetry. Dr. Obregon is aware and agrees with the plan." Per discharge summary (06/29/21): " They kept him on oxygen and observed him through the night. On postop day #1 he was doing fairly well. He was able to participate well with physical therapy. He was slowly weaned off the oxygen. He was then discharged home." (Pt tolerate right reverse TSA 11/15/21 without issues) Teaching & Discussion Pre-Anesthesia Teaching/Discussion Notes: Instructed NPO after midnight before surgery,except medications with 15 cc of water. Medication instructions provided according to the PAT guidelines. History Surgery Operation Date: 10/07/22 08:10 Proposed Procedures p Right Total Knee Arthroplasty - Dre Obregon DO Height/Weight Height: 5 ft 9.5 in Weight: 107.4 kg Allergies Allergy/AdvReac Type Severity Reaction Status Date / Time No Known Allergies Allergy Verified 08/31/22 09:46 Medications Home Medications Medication Instructions Recorded Confirmed Last Taken atorvastatin 40 mg tablet 40 mg PO QAM 03/14/18 08/31/22 11/13/21 07:00 cyanocobalamin (vitamin B-12) 1,000 mcg PO HS 03/14/18 08/31/22 11/14/21 02:00 1,000 mcg tablet (Vitamin B-12) omeprazole 20 mg capsule,delayed 20 mg PO QAM 03/14/18 08/31/22 11/13/21 07:00 release pramipexole 1 mg tablet (Mirapex) 1 - 2 mg PO BID 03/14/18 08/31/22 11/14/21 02:00 albuterol sulfate 90 mcg/actuation 2 puff inhalation Q6H PRN 03/15/18 08/31/22 06/27/21 06:00 aerosol inhaler Shortness Of Breath Or Wheezing cholecalciferol (vitamin D3) 25 1,000 units PO HS 03/15/18 08/31/22 11/14/21 02:00 mcg (1,000 unit) capsule (Vitamin D3) aspirin 81 mg tablet,delayed 81 mg PO QAM 09/24/18 08/31/22 11/13/21 07:00 release magnesium oxide 400 mg PO QAM 09/24/18 08/31/22 11/14/21 07:00 trazodone 150 mg tablet 150 mg PO HS 09/24/18 08/31/22 11/14/21 02:00 ibuprofen 200 mg capsule 400 mg PO Q6H PRN Pain 03/19/21 08/31/22 06/27/21 21:30 400 mg Oxygen Home #1 ea 07/01/21 01/03/22 Unknown ipratropium 0.5 mg-albuterol 3 mg 3 ml inhalation Q4H PRN Shortness 10/11/21 08/31/22 Unknown (2.5 mg base)/3 mL nebulization Of Breath soln sodium chloride 7 % for 4 ml inhalation BID PRN Shortness 10/11/21 08/31/22 Unknown nebulization Of Breath metformin 500 mg tablet,extended 1,000 mg PO BID 11/03/21 08/31/22 11/14/21 02:00 release 24 hr CPAP Machine #1 ea 11/05/21 01/03/22 Unknown fluoxetine 40 mg capsule (Prozac) 40 mg PO QAM 01/03/22 08/31/22 Unknown ascorbic acid 1,000 1 ea PO QAM 08/31/22 08/31/22 Unknown wb-wwcyrgwgmcpk-nfopafgg powder effervescent pack (Emergen-C) fluoxetine 20 mg tablet 20 mg PO QAM 08/31/22 08/31/22 Unknown glipizide 10 mg tablet 10 mg PO BID 08/31/22 08/31/22 Unknown Past Medical History Medical History Anxiety and depression COPD (chronic obstructive pulmonary disease) Breathing stable Degenerative disc disease, lumbar DM type 2 (diabetes mellitus, type 2) Glucose stable per patient Former smoker mild emphysema on CT GERD (gastroesophageal reflux disease) Well controlled and stable Glaucoma S/p surgery Hearing deficit History of COVID-19 05/2021, symptoms at time: body aches, headache. Had a Casirivimab/Imdevimab IV infusion on 05/27/21 at [facility] > symptoms resolved HLD (hyperlipidemia) HTN (hypertension) No meds Hx: recurrent pneumonia Including aspiration pneumonia several years ago No current issues No aspiration per 2018 video swallow On home oxygen therapy 2L PRN for dyspnea (occasional use) Pt monitors closely and O2 typically 94-96% RA No recent oxygen use GERA (obstructive sleep apnea) Cannot tolerate device RLS (restless legs syndrome) Leg cramping at night- takes magnesium Exercise / Class Metabolic Activity III < 4 Walking/Shop/Light housework (one flight of stairs - mild SOB, no chest pain) Past Family History Family History Father Coronary heart disease Brother Lung cancer Colorectal cancer Brother Coronary heart disease Mother Cancer Other No family history of adverse response to anesthesia Past Surgical History Surgical History 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 History of appendectomy History of cataract surgery RT/LEFT History of colonoscopy History of esophagogastroduodenoscopy (EGD) History of open reduction and internal fixation (ORIF) procedure right leg--hardware removed History of open reduction and internal fixation (ORIF) procedure LEFT ARM History of oral surgery History of tooth extraction History of total left hip arthroplasty Left URI (03/16/18): Grade view 2, MAC#4, ETT 7.5 (SAB- unsuccessful > GA) History of total left knee replacement S/P tonsillectomy and adenoidectomy Status post reverse total replacement of left shoulder Left TSA (06/28/21): Grade view 1, MAC#4, ETT 8.0 + PNB at [facility] Status post reverse total replacement of right shoulder Past Anesthesia History No Hx of Anesthesia Complications and No Family Hx of Anesthesia Complications ((most of family ) ) History of PONV No Hx of PONV and No Hx of Motion Sickness Social History Smoking Status: Former smoker tobacco type: cigars Smoking cigarettes per day: smokes a cigar every once in a while (advised on policy) Do You Dip or Chew Tobacco: No Smoking End Date: quit 17yrs ago Hx Alcohol Use: Yes Alcohol type: beer alcohol intake frequency: 0-2 drinks per day (2-3 beers/day) Hx Substance Use: No substance use type: does not use Review of Systems Occ wheezing at night (chronic - stable- due to COPD) Patient denies chest pain, shortness of breath at rest, cough, palpitations. No hx of seizures, stroke, MA. No hx of blood clots or blood transfusions Physical Exam Vital Signs VITALS BP 122/72 P 73 TEMP 98.0 SP02 93% on RA RESP 16 Constitutional no acute distress ENMT Mouth: no TMJ clicking Thyromental Distance: > or= 3.5 Finger Breadths (4.0) Mallampati Class: II Full dentures on top and bottom Neck + limited neck extension (significant ) Respiratory normal respiratory effort; no respiratory distress Auscultation: lungs clear to auscultation bilaterally and + diminished lung sounds (significant throughout); no wheezes Cardiovascular Rate/Rhythm: regular rate and regular rhythm Heart Sounds: + murmur (II/ murmur ) Vessels: no carotid bruit Musculoskeletal Spine: no pain with cervical ROM Extremities: extremities normal to inspection Psychiatric Orientation: alert Lab Results Anesthesia Preop Results Results Anesthesia Widget: WBC 8.23 K/ul (4.8-10.8) 09/07/22 Hgb 14.8 g/dl (14.0-18.0) 09/07/22 Hct 45.0 % (42.0-52.0) 09/07/22 Plt 208 K/uL (130-400) 09/07/22 Na 137 mmol/L (136-145) 09/07/22 K 4.7 mmol/L (3.5-5.1) 09/07/22 Cl 102 mmol/L (98-107) 09/07/22 CO2 28 mmol/L (21-32) 09/07/22 BUN 22 mg/dl (6-23) 09/07/22 Creat 1.13 mg/dl (0.6-1.4) 09/07/22 Glucose Level 168 mg/dl (70-99(Fasting)) H 09/07/22 PT 10.0 Seconds (9.0-12.0) 09/07/22 PTT 27.2 Seconds (21.0-31.0) 09/07/22 INR 0.9 (0.9-1.1) 09/07/22 HA1c 8.9 % (4.5-5.6) H 09/07/22 Blood Type O Positive 09/07/22 Antibody Screen NEGATIVE 09/07/22 Testing Laboratory Results Surgeon's office informed of Hgb A1C- will leave to surgeon's discretion on how to proceed Electrocardiogram Date: 09/07/22 Sinus rhythm with premature supraventricular complexes at 71 bpm Otherwise normal EKG per cardio Chest X-Ray Date: 09/07/22 FINDINGS: No pneumothorax. No pleural effusions. There are old, healed right posterior rib fractures again noted. A few bibasilar linear densities favoring subsegmental atelectasis or scarring. There is also mild interstitial thickening at the lung bases. This is likely chronic. No new focal lung consolidations to suggest a pneumonia. No evidence for pulmonary edema. The heart is normal in size. There are calcifications within the aortic knob. Bilateral total shoulder arthroplasties again noted. IMPRESSION: Chronic and postoperative changes as described above. No acute process within the chest. Echocardiogram Date: 03/17/18 EF:60-65% LV Function:normal RWMA:+ none Other Findings:+ diastolic dysfunction (Grade I ); no LVH RV is normal in size and function Mild annular calcification, otherwise there is no significant heart valvular disease COVID-19 Risk Screen Screening Information COVID-19 Screen Date: 09/07/22 Exposure 21 Days Family/Household +COVID Last 21 Days: No Exposure 10 Days Any COVID Exposure Last 10 Days: No Symptoms Last 10 Days Experienced COVID Sx Last 10 Days: No + COVID 0-90 Days COVID + in Last 0-90 Days: No Risk Plan COVID Risk Plan: No Risk Identified Patient Education COVID Preop Screening Education Complete: Yes
--- NOTE | 2022-09-07 13:51 | Electrocardiogram Report ---
Test Reason : Blood Pressure : / mmHG Vent. Rate : 071 BPM Atrial Rate : 071 BPM P-R Int : 182 ms QRS Dur : 076 ms QT Int : 390 ms P-R-T Axes : 073 079 069 degrees QTc Int : 423 ms Sinus rhythm with Premature supraventricular complexes Otherwise normal ECG When compared with ECG of 24-MAR-2021 11:21, Premature supraventricular complexes are now Present Confirmed by Mohamud Pelayo ([id number]) on 09/07/2022 1:50:33 PM Referred By: Dre Obregon Confirmed By:Mohamud Pelayo
--- NOTE | 2022-10-06 13:07 | History & Physical Report ---
Date of Service October 06, 2022 Assessment & Plan (1) Osteoarthritis of right knee: We will proceed with a right total knee arthroplasty. Postoperatively he will be started on aspirin for DVT prophylaxis and kept overnight in the hospital for postoperative medical management. He plans to use energy physical therapy upon discharge. History of Present Illness Chief Complaint: Osteoarthritis of the right knee. Primary Care Provider: Jimbo Rhoades MD Cm is a pleasant 72-year-old male who is well know to me. I recently did bilateral reverse shoulder arthroplasties on him and he has done well that. He has a history of a left knee replacement done by Dr. Wasserman in 2015. He has done fairly well with that. Unfortunately, he has been dealing with a lot of right knee pain. I have been treating him conservatively with multiple injections, activity modification, therapy, and anti-inflammatories. X-rays shows severe osteoarthritis. After failing conservative treatment, he has elected to proceed with a right knee replacement surgery. . Allergies Allergy/AdvReac Type Severity Reaction Status Date / Time No Known Allergies Allergy Verified 08/31/22 09:46 Home Medications Medication Instructions Recorded Confirmed Type atorvastatin 40 mg tablet 40 mg PO QAM 03/14/18 08/31/22 History cyanocobalamin (vitamin B-12) 1,000 mcg PO HS 03/14/18 08/31/22 History 1,000 mcg tablet (Vitamin B-12) omeprazole 20 mg capsule,delayed 20 mg PO QAM 03/14/18 08/31/22 History release pramipexole 1 mg tablet (Mirapex) 1 - 2 mg PO BID 03/14/18 08/31/22 History albuterol sulfate 90 mcg/actuation 2 puff inhalation Q6H PRN 03/15/18 08/31/22 History aerosol inhaler Shortness Of Breath Or Wheezing cholecalciferol (vitamin D3) 25 1,000 units PO HS 03/15/18 08/31/22 History mcg (1,000 unit) capsule (Vitamin D3) aspirin 81 mg tablet,delayed 81 mg PO QAM 09/24/18 08/31/22 History release magnesium oxide 400 mg PO QAM 09/24/18 08/31/22 History trazodone 150 mg tablet 150 mg PO HS 09/24/18 08/31/22 History ibuprofen 200 mg capsule 400 mg PO Q6H PRN Pain 03/19/21 08/31/22 History Oxygen Home #1 ea 07/01/21 01/03/22 Rx ipratropium 0.5 mg-albuterol 3 mg 3 ml inhalation Q4H PRN Shortness 10/11/21 08/31/22 History (2.5 mg base)/3 mL nebulization Of Breath soln sodium chloride 7 % for 4 ml inhalation BID PRN Shortness 10/11/21 08/31/22 History nebulization Of Breath metformin 500 mg tablet,extended 1,000 mg PO BID 11/03/21 08/31/22 History release 24 hr CPAP Machine #1 ea 11/05/21 01/03/22 Rx fluoxetine 40 mg capsule (Prozac) 40 mg PO QAM 01/03/22 08/31/22 History ascorbic acid 1,000 1 ea PO QAM 08/31/22 08/31/22 History bo-ybilggekqavf-pltxrqsk powder effervescent pack (Emergen-C) fluoxetine 20 mg tablet 20 mg PO QAM 08/31/22 08/31/22 History glipizide 10 mg tablet 10 mg PO BID 08/31/22 08/31/22 History Past Med/Surg History Medical History Anxiety and depression COPD (chronic obstructive pulmonary disease) Breathing stable Degenerative disc disease, lumbar DM type 2 (diabetes mellitus, type 2) Glucose stable per patient Former smoker mild emphysema on CT GERD (gastroesophageal reflux disease) Well controlled and stable Glaucoma S/p surgery Hearing deficit History of COVID-19 05/2021, symptoms at time: body aches, headache. 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 History of appendectomy History of cataract surgery RT/LEFT History of colonoscopy History of esophagogastroduodenoscopy (EGD) History of open reduction and internal fixation (ORIF) procedure right leg--hardware removed History of open reduction and internal fixation (ORIF) procedure LEFT ARM History of oral surgery History of tooth extraction History of total left hip arthroplasty Left URI (03/16/18): Grade view 2, MAC#4, ETT 7.5 (SAB- unsuccessful > GA) History of total left knee replacement S/P tonsillectomy and adenoidectomy Status post reverse total replacement of left shoulder Left TSA (06/28/21): Grade view 1, MAC#4, ETT 8.0 + PNB at [facility] Status post reverse total replacement of right shoulder Family History Father Coronary heart disease Brother Lung cancer Colorectal cancer Brother Coronary heart disease Mother Cancer Other No family history of adverse response to anesthesia Social History Smoking Status: Former smoker Tobacco Type: Cigars Cigarettes Per Day: smokes a cigar every once in a while (advised on policy); Smoking End Date: quit 17yrs ago; Second Hand Exposure: No; Do You Dip or Chew Tobacco: No; Tobacco Cessation Education Requested by Patient: No Hx Alcohol Use: Yes Alcohol type: beer Hx Substance Use: No Preferred Language: Mauritanian Communication Ability: Effective Communication Ability Comment: EXTREME SHISHMAREF IRA Visual Impairment: No Limitations Hearing Ability: Hard of Hearing Knowledge Management Consultant Required: No Beliefs That Will Affect Care: None marital status: Current Living Situation: Spouse and Family Current Living Situation Comment: and son current occupational status: retired Other Information That Helps Us Care for You: No Feels Safe at Home: Yes Safety Concerns: Feels Safe At This Time Assistive Devices: Cane, Denture - Upper, Denture - Lower, Nebulizer and Other Assistive Devices Comment: oxygen 2L prn Review of Systems All systems reviewed & are unremarkable except as noted in HPI & below. Physical Exam On physical examination of the right knee, he has a slight valgus deformity. His range of motion from 0 to 120 degrees. He has no instability. He has pain over the distal lateral femoral condyle.. Constitutional WD/WN, vitals as above Eyes PERRL, conjunctivae normal, anicteric sclerae ENMT external ear and nose normal, oropharynx normal Neck trachea midline, no thyromegaly Respiratory normal respiratory effort, lungs clear to auscultation Cardiovascular RRR, no murmur, no edema Gastrointestinal (Abdomen) normal bowel sounds, soft, nontender, no hepatosplenomegaly Skin no rashes, warm and dry Psychiatric A+Ox3, euthymic affect Results & Data Results & Data Laboratory Results . Diagnostic Findings X-rays of the right knee show advanced osteoarthritis with joint space narrowing, osteophyte formation, and knlt-qc-blgy articulation.. PG Care Time/CCT Total # of Minutes Spent Total Time Spent with Patient: Total time spent is greater than 50% in coordination of care (as documented) at patient's floor/unit and/or counseling patient: Coding Level of Care Code None Diagnoses Osteoarthritis of right knee M17.11
[~2022-10-07 06:42] MED LIST changes: -Ketorolac (*for OR use only*) 30 MG, dexAMETHasone 4 MG, KETAMINE HCL (**OR use only) 1... INFIL SCH; -LR 15ML/HR IV SCH; +LR 500ML BOLUS, THEN 15ML/HR IV SCH; +ORTHO JOINT MIX INFIL SCH; +ROPIVACAINE 0.5% 5 MG/ML 30 ML VIAL ONE
[2022-10-07] MEDS ORDERED: MIDAZOLAM HCL 1 MG/ML 2ML VIAL ONE (07:36)
[2022-10-07] MEDS ORDERED: ONDANSETRON INJ 2 MG/ML 2 ML VIAL ONE (07:39)
[2022-10-07] MEDS ORDERED: LIDOCAINE 2% MPF LOCAL 5 ML VIAL ONE (07:39)
[2022-10-07] MEDS ORDERED: PROPOFOL IV EMULSION 10 MG/ML 20 ML VIAL IV ONE (07:39)
[2022-10-07] MEDS ORDERED: GLYCOPYRROLATE 0.2 MG/ML VIAL ONE (07:39)
--- NOTE | 2022-10-07 08:04 | History & Physical Bridge Note ---
Date of Service October 07, 2022 History & Physical Bridge Note I have examined the patient, reviewed the History & Physical and in the interval since the performance of the History & Physical I have noted the following changes of clinical significance: no changes noted
[2022-10-07] MEDS ORDERED: ALBUT/IPRATROP 3MG/0.5MG NEB 3 ML VIAL INH PRN ×2 (08:35→12:19)
[2022-10-07] MEDS ORDERED: ePHEDrine sulfate 50 MG/ML AMP IV PRN (08:35)
[2022-10-07] MEDS ORDERED: ONDANSETRON INJ 2 MG/ML 2 ML VIAL IV PRN ×2 (08:35→12:19)
[2022-10-07] MEDS ORDERED: fentaNYL citrate PF 100 MCG/2 ML VIAL IV PRN (08:35)
[2022-10-07] MEDS ORDERED: ATROPINE SULFATE 0.1 MG/ML 10ML SYR IV PRN (08:35)
[2022-10-07] MEDS ORDERED: MEPERIDINE HCL 25 MG/ML CARP/VIAL IV PRN (08:35)
[2022-10-07] MEDS ORDERED: MoRPHine SULFATE 10 MG/ML CARP/VIAL IV PRN (08:35)
[2022-10-07] MEDS ORDERED: ALBUT/IPRATROP 3MG/0.5MG NEB 3 ML VIAL INH STA (08:36)
[2022-10-07] MEDS ORDERED: ORTHO JOINT ANESTHETIC ONE (08:38)
[2022-10-07] MEDS ORDERED: fentaNYL citrate PF 100 MCG/2 ML VIAL ONE (08:48)
[2022-10-07] MEDS ORDERED: SUCCINYLCHOLINE CHLORIDE 20 MG/ML 10 ML VIAL IV ONE (09:27)
[2022-10-07] MEDS ORDERED: HYDROmorphone INJ 2 MG/ML SYR/VIAL ONE (09:35)
[2022-10-07] MEDS ORDERED: ePHEDrine sulfate 50 MG/ML AMP ONE (09:42)
[2022-10-07] MEDS ORDERED: SODIUM CHLORIDE 0.9% PF INJ 10 ML VIAL ONE (09:50)
--- NOTE | 2022-10-07 10:31 | Operative Report ---
PG Post Operative Report Pre & Post Diagnosis Operation Date: 10/07/22 09:20 Pre-Op Diagnosis: Right Knee Degenerative Joint Disease Post-Op Diagnosis: Right Knee Degenerative Joint Disease I identified the patient and participated in the time-out.: Yes Procedure Operation Date: 10/07/22 09:20 Actual Procedures p Right Total Knee Arthroplasty, Cemented(Right) - Dre Obregon DO Surgeon Dre Obregon DO Airborne Electronics Analyst Dre Mohr PA-C Estimated Blood Loss 30 Findings Consistent with Post-Op Diagnosis Specimens Right femoral tibial bone Description of Procedure Implants used: I used a Dahlia Persona total knee arthroplasty system with a size 10 narrow femur, F tibia, 34 oval patella, and a size 10 medial congruent polyethylene bearing. All components were cemented in place with Biomet cement. Cm arrived [facility] for the above procedure. He was seen in the preoperative holding area and the operative extremity was identified and signed. He was given a preoperative antibiotic, TXA, a spinal anesthetic and an adductor nerve block. He was taken back to the operating room and laid o n the table in supine position. He was given basic sedation. The operative knee was then prepped and draped in sterile fashion. A timeout was done, and the patient and the operative extremity was properly identified. A midline incision was made directly over the patella. Dissection was taken down to the extensor mechanism. A midvastus arthrotomy was used. The medial retinaculum was released and the fat pad was mostly excised. The knee was flexed and the ACL, PCL, and meniscus were removed. A drill was sent down the center of the femoral canal followed by an intramedullary hema. Off that hema a distal femoral cutting block was placed. 9 mm was resected off the distal femur at 5 of valgus. A posterior referencing AP sizing guide was then placed on the distal femur. The femur measured to be a size 10. 2 drill holes were placed in 3 of external rotation. A 4-in-1 cutting block was then impacted into place. Anterior, posterior, and chamfer cuts were then made. The proximal tibia was then exposed. An external tibial alignment guide was placed. A tibial cut guide was then anchored in place and the proximal tibia was then resected. The posterior aspect of the knee was then opened up and any additional meniscus fragments and osteophytes were removed. The tibia measured to be a size F. The tibial plate was then placed in the appropriate rotation and the tibia was drilled and punched. Trial components were then placed. I used a size 10 medial congruent polyethylene insert. The knee was brought through a full range of motion and felt to be stable. The peg holes for the femoral component were then drilled. The patella was then everted and 9 mm was resected off the posterior aspect of the patella. The patella measured to be a size 34 oval. 3 peg holes were then drilled. A trial patella was placed. The knee was once again brought through a full range of motion and felt to be stable. Trial components were then removed. The surrounding soft tissues were injected with 100 cc of an orthopedic pain control cocktail. All components were then cemented into place with Biomet cement. The final polyethylene insert was then snapped into place. Once cement was dry the tourniquet was deflated. Hemostasis was obtained. A dilute betadyne lavage was then done for 3 minutes. The joint was then irrigated with normal saline solution. The midvastus a rthrotomy was then closed with #1 Vicryl suture. The skin was closed with 2-0 Vicryl, 3-0V lock suture, and laurent. A soft compressive dressing was placed. He was then transferred to a hospital bed and taken to the postanesthesia care unit in stable condition. He tolerated the procedure well. Dre Mohr PA-C, was present for the entire procedure. He was critical for patient positioning, prepping, draping, retraction exposure, wound closure and application of sterile dressing. I attest to the content of the Intraoperative Record and any orders documented therein. Any exceptions are noted below.
[2022-10-07] MEDS ORDERED: PHARMACY GLYCEMIC MGMT CONSULT PRN (12:19)
[2022-10-07] MEDS ORDERED: ALBUTEROL HFA 8 GM INHALER INH PRN (12:19)
[2022-10-07] MEDS ORDERED: SODIUM CHLORIDE 0.9% 1000ML 1,000 ML IV SCH (12:19)
[2022-10-07] MEDS ORDERED: NALOXONE HCL 0.4 MG/1 ML VIAL/CARP IV PRN (12:19)
[2022-10-07] MEDS ORDERED: HYDROmorphone INJ 0.5 MG/0.5 ML SYR IV PRN (12:19)
[2022-10-07] MEDS ORDERED: oxyCODONE HCL IR 5 MG TAB (IMMEDIATE RELEASE) PO PRN (12:19)
[2022-10-07] MEDS ORDERED: METOCLOPRAMIDE HCL INJ 5 MG/ML 2 ML VIAL IV PRN (12:19)
[2022-10-07] MEDS ORDERED: MAGNESIUM HYDROXIDE SUSP 30 ML UDC PO PRN (12:19)
[2022-10-07] MEDS ORDERED: bisacodyL 10 MG SUPP PR PRN (12:19)
--- NOTE | 2022-10-07 12:40 | Anesthesiology Progress Note ---
Date of Service October 07, 2022 Anesthesia Post Procedure Vital Signs Vital Signs: Temp Pulse Pulse Pulse Resp BP Pulse Ox 10/07/22 12:21 36.5 C 81 16 137/72 93 10/07/22 11:55 87 15 136/69 100 10/07/22 11:45 81 15 124/67 100 10/07/22 11:35 36.5 C 80 13 135/68 96 10/07/22 11:25 36.5 C 84 14 135/68 95 10/07/22 11:15 36.5 C 88 15 148/69 H 96 10/07/22 11:05 36.5 C 86 13 142/65 H 93 10/07/22 10:58 36.5 C 90 12 141/64 H 92 10/07/22 08:42 68 16 95 10/07/22 07:47 36.4 C L 59 L 18 122/70 92 O2 Del Method O2 Flow Rate 10/07/22 12:21 Nasal Cannula 3 10/07/22 11:55 Nasal Cannula 3 10/07/22 11:45 Nasal Cannula 3 10/07/22 11:35 Oxymask 8 10/07/22 11:25 Oxymask 8 10/07/22 11:15 Oxymask 8 10/07/22 11:05 Oxymask 8 10/07/22 10:58 Oxymask 5 10/07/22 08:42 Room Air 10/07/22 07:47 Room Air Transfer of Care Handoff Completed per policy Notes Mental Status: alert / awake / arousable Patient Amnestic to Procedure: Yes Nausea / Vomiting: adequately controlled Pain: adequately controlled Airway Patency, RR, SpO2: stable & adequate BP & HR: stable & adequate Hydration State: stable & adequate Anesthetic Complications: no major complications apparent and Pt Satisfied with anesthetic care
[2022-10-07] MEDS: KETOROLAC TROMETHAMINE 15 MG/ML VIAL IV SCH ×3 (13:05→23:43)
--- NOTE | 2022-10-07 13:18 | XRay Report ---
XR knee RT 1 or 2V routine CLINICAL HISTORY: Postoperative evaluation. COMPARISON: Knee radiographs June 29, 2022. FINDINGS: Alignment of the total right knee arthroplasty is anatomic. There is no periprosthetic fra cture. There are no unexpected radiopaque foreign bodies. There are skin laurent. IMPRESSION: Expected findings following total right knee arthroplasty. ACT 112: Negative or not required by law. Electronically signed by: Moustapha Harden M.D. 10/07/2022 1:17 PM
[2022-10-07] MEDS ORDERED: LANTUS PER UNIT CHARGE SC SCH (13:30)
--- NOTE | 2022-10-07 13:48 | Communication Note ---
Date of Service: October 07, 2022 During the patient's intubation today there was erythema and uvular swelling noted. Cannot rule out pharyngeal mass. Intubation was successful. I spoke with the patient once he had fully recovered through phase 2 recovery to inform him that there were abnormalities on his intubation. I spoke with Dr. Rhoades office, his PCP, to inform him of the abnormalities noted. Dr. Rhoades may consider ENT consultation, but will speak with the patient further. All questions were answered.
[2022-10-07] MEDS: INSULIN ASPART PER UNIT CHARGE SC SCH ×4 (14:09→23:42)
--- NOTE | 2022-10-07 14:25 | Pharmacy Report ---
Pharmacy Glycemic Short Note 2 - Date of Service October 07, 2022 - Glycemic Short BSG Results (Last 24 hours): 10/07/22 10/07/22 10/07/22 08:03 11:05 12:34 POC Glucose 134 H 175 H 207 H OUTPATIENT ANTIDIABETIC REGIMEN: * Trulicity 0.75 mg SQ weekly - last dose on 10/03/22 * Glipizide 10 mg PO BID * Metformin ER 1000 mg PO BID * HbA1c = 8.9% on 09/07/22 ASSESSMENT: * 72 y/o M admitted for right Total knee arthroplasty. Patient with history of Type 2 diabetes managed at home on three anti-diabetic meds. * Holding home anti-diabetic meds and switching to basal + bolus insulin while patient is admitted. * Patient received PO Dexamethasone 8 mg in OR today. This has led to steroid induced hyperglycemia around lunch time today (BSG = 207 mg/dl). * Lantus 18 units x1 dose (stress of 2) ordered to be given at this time and Novolog ordered based on stress between 2 and 3. * Expect BSGs to trend down this evening. Will re-assess basal dose tomorrow morning. * Add overnight checks. PLAN FOR INPATIENT GLYCEMIC CONTROL: * Hold outpatient oral diabetes medications * Basal insulin * Lantus 18 units SQ x1 today around 13:30. Re-assess tomorrow * Bolus insulin: * NovoLog per scale ACHS or Q6hrs while NPO and 00 and 04 checks * Goal Range: Low 110 mg/dL - High 140 mg/dL * Correction Factor: 20 mg/dL/unit * Nutritional / Prandial insulin per carb ratio of 1 unit per 6 grams CHO consumed
[2022-10-07] MEDS: ACETAMINOPHEN 500 MG TAB PO SCH ×2 (14:47→22:10)
[2022-10-07] MEDS: ceFAZolin 2000MG 2,000 MG/15 ML SYR IV SCH (17:44)
[2022-10-07] MEDS: ASPIRIN 81 MG ECTAB PO SCH (20:11)
[2022-10-07] MEDS: PRAMIPEXOLE DIHYDROCHLO 0.5 MG TAB PO SCH (20:12)
[2022-10-07] MEDS: DOCUSATE SODIUM 100 MG CAP PO SCH (20:12)
[2022-10-07] MEDS ORDERED: CHOLECALCIFEROL 1,000 UNITS 25 MCG TAB PO SCH (21:00)
[2022-10-07] MEDS ORDERED: SENNA 8.6 MG TAB PO SCH (21:00)
[2022-10-07] MEDS ORDERED: traZODone HCL 50 MG TAB PO SCH (21:00)
[2022-10-08] MEDS: ceFAZolin 2000MG 2,000 MG/15 ML SYR IV SCH (00:51)
[2022-10-08] MEDS: INSULIN ASPART PER UNIT CHARGE SC SCH ×3 (04:57→12:36)
[2022-10-08] MEDS: KETOROLAC TROMETHAMINE 15 MG/ML VIAL IV SCH ×2 (05:04→12:08)
[2022-10-08] MEDS: ACETAMINOPHEN 500 MG TAB PO SCH (05:05)
--- NOTE | 2022-10-08 08:41 | Orthopedic Progress Note ---
Date of Service October 08, 2022 Assessment & Plan (1) Status post right knee replacement: Overall he is doing very well. Is not having much pain in the right knee. He is a little bit hypoxic and is on 3 L of oxygen by nasal cannula. We will hopefully wean him off that today. He will be seen by physical therapy today for ambulation and range of motion exercises. He can be discharged home later today. He will follow-up with orthopedics in 2 weeks. Misael Pabon was seen and examined at bedside this morning. Overall he is doing very well. Is not having much pain in the right knee. He has been up and ambulating to the bathroom. He has no complaints.. Review of Systems All systems reviewed & are unremarkable except as noted in HPI & below. Physical Exam On physical examination of the right knee, the dressing is clean and dry. His leg is out full extension. He has active dorsiflexion plantarflexion of the right ankle.. Results & Data Results & Data Laboratory Results . Diagnostic Findings Postoperative x-rays of the right knee show the prosthesis to be in anatomic alignment without any evidence of fracture, screws, or loosening.. PG Care Time/CCT Total # of Minutes Spent Total Time Spent with Patient: Total time spent is greater than 50% in coordination of care (as documented) at patient's floor/unit and/or counseling patient: Coding Level of Care Code 41439 Post Operative Follow-Up Diagnoses Status post right knee replacement Z96.651
--- NOTE | 2022-10-08 08:42 | Discharge Summary ---
Date of Service October 08, 2022 Admission HPI (Per Admitting) Cm is a pleasant 72-year-old male who is well know to me. I recently did bilateral reverse shoulder arthroplasties on him and he has done well that. He has a history of a left knee replacement done by Dr. Wasserman in 2015. He has done fairly well with that. Unfortunately, he has been dealing with a lot of right knee pain. I have been treating him conservatively with multiple injections, activity modification, therapy, and anti-inflammatories. X-rays shows severe osteoarthritis. After failing conservative treatment, he has elected to proceed with a right knee replacement surgery. . Admission Exam (Per Admitting) On physical examination of the right knee, he has a slight valgus deformity. His range of motion from 0 to 120 degrees. He has no instability. He has pain over the distal lateral femoral condyle.. Principal Diagnosis Same as "Discharge Diagnosis" noted below under Discharge Instructions. Discharge Exam On physical examination of the right knee, the dressing is clean and dry. His leg is out full extension. He has active dorsiflexion plantarflexion of the right ankle.. Discharge Data Procedures Performed Operation Date: 10/07/22 09:20 Actual Procedures p Right Total Knee Arthroplasty, Cemented(Right) - Dre Obregon DO Ordered Studies 10/07/22 05:00 US - OR guided needle placemen Routine Hospital Course (1) Status post right knee replacement: On October 07, 2022 Cm arrived at [facility] and underwent a right knee replaced without complication. He had a general anesthetic. Postoperatively he was started on aspirin for DVT prophylaxis and transferred to the general orthopedic floors. His hospital course was uneventful. On postop day #1, his vital signs were stable and his pain was well controlled. He was able to participate well with physical therapy doing ambulation and range of mo tion exercises. He was then discharged home. He will follow-up with orthopedics in 2 weeks. PG Care Time/CCT Total # of Minutes Spent Total Time Spent with Patient: Total time spent is greater than 50% in coordination of care (as documented) at patient's floor/unit and/or counseling patient: Discharge Plan Discharge Items Patient Disposition: Home - Home Health Services Reason For Visit: Right Knee Degenerative Joint Disease Discharge Diagnosis: Right knee replacement Activity: As commented below Non-emergency contact: Surgeon Call non-emergency contact if: your wound has increased redness and your wound has increased drainage Follow-up/Referrals: Jibmo Rhoades MD [Primary Care Provider] - Diet: Regular Addtl Attending Provider Instructions: Activity and Therapy Recommendations: * If you are using [facility] then therapy will be provided at your home until they feel you have accomplished all of your goals. * If you are using [facility] then Physical Therapy will be provided until they feel you are ready to start Outpatient Physical Therapy. * If you are not using home therapy then Outpatient Physical Therapy should start about 3-5 days from your day of surgery. Therapy will last about 6-10 weeks * It is important not to put a pillow under your knee when you are relaxing or sleeping. It is just as important to make sure you are getting your knee perfectly straight as it is to regain your knee bend. * You were shown a series of exercises in the hospital. Do these exercises three times each day including the exercises you were shown in physical therapy. * Get up and walk several times each day. For the first four weeks, try not to stand or walk for more than one hour at a time. If you do stand or walk for more than one hour, you will not hurt anything, but your leg will likely swell. * As you feel comfortable, you may change from the walker or crutches to a cane and then to independent walking. Medications: * Narcotic You will likely be sent home from the hospital with a prescription for the narcotic pain medication that worked best throughout your stay. * Aspirin Most patients will be required to take Aspirin 81mg twice a day for 6 weeks after surgery. This is obtained [id number] and a prescription is not necessary. * Other medications may be prescribed for specific circumstances. If you have any questions, please call the office at . * Resume previous home medications unless otherwise instructed TEDs/Elastic Stockings: The white elastic stockings help limit swelling and prevent blood clots from forming in your legs.~ The more you wear them, the more they work. Wear them for six weeks. Dressing Care: The dressing can be changed after physical therapy on postop day #1. Daily dry dressing changes for a few days, especially if the incision is still draining some. If the incision is not draining then you may leave the laurent open to air. If there is a little bit of drainage or if the laurent are getting stuck on your clothing then cover the incision with a dry dressing. The laurent will be removed at your 2 week follow-up appointment. Showering: You may shower 5 days from the day of surgery as long as the incision is no longer draining. You may shower with the laurent exposed. Let soapy water run over the laurent and pat them dry. Do not scrub or soak the incision. Things To Watch For: * Drainage from the incision site that occurs more than one week after your surgery. * Increased redness at the incision site. * Fever above 102 degrees Fahrenheit. * Unusual chest pain or shortness of breath. * Call [facility] at with any of the above problems Follow-Up Visit: Follow-up with Dr. Obregon's PA (Dre Mohr) 2-3 weeks after your day of surgery. He will remove your laurent and answer any questions. If you have any additional questions or concerns, Dr Obregon is usually in the office at the same time and will be available An appointment was probably scheduled when you signed-up for surgery in the office. If you have any questions call Office Instructions: More detailed instructions as well as Frequently Asked Questions were provided in a folder by our office when you signed-up for surgery. Please review these instructions when you get home. If you have any further questions or concerns, please feel free to call the office at [phone] Pending Studies at Discharge: No Stand-Alone Forms: [facility], Smoking Cessation Medications and DC Order Prescriptions: New oxycodone-acetaminophen 5-325 mg tablet 1 tab PO Q6H PRN (Reason: pain) Qty: 30 0RF Continued (DME) Oxygen Home Liters Per Minute See Rx Instructions .MEDSUPPLY Qty: 1 0RF Rx Instructions: Please provide a POC for the patient. It would greatly improve his Quality of Life. Lifetime need. (DME) CPAP Machine Misc .Route Qty: 1 0RF Rx Instructions: 10 cm of water, mask fit to patient comfort, heated humidification, compliance download capabilities, to use with oxygen bleed at 1 L/min. DME: [facility] trazodone 150 mg tablet 150 mg PO HS magnesium oxide 400 mg magnesium Tablet 400 mg PO QAM metformin 500 mg tablet extended release 24 hr 1,000 mg PO BID pramipexole [Mirapex] 1 mg Tablet 1 - 2 mg PO BID Patient Comments: TAKES 2 TAB IN AM/1 TAB HS atorvastatin 40 mg Tablet 40 mg PO QAM cyanocobalamin (vitamin B-12) [Vitamin B-12] 1,000 mcg Tablet 1,000 mcg PO HS omeprazole 20 mg Capsule,Delayed Release(Dr/Ec) 20 mg PO QAM albuterol sulfate 90 mcg/actuation Hfa Aerosol Inhaler 2 puff INHALATION Q6H PRN (Reason: Shortness Of Breath Or Wheezing) cholecalciferol (vitamin D3) [Vitamin D3] 1,000 unit Capsule 1,000 units PO HS fluoxetine [Prozac] 40 mg capsule 40 mg PO QAM Patient Comments: takes with 20mg to equal 60mg every am ibuprofen 200 mg Capsule 400 mg PO Q6H PRN (Reason: Pain) ipratropium-albuterol 0.5 mg-3 mg(2.5 mg base)/3 mL solution for nebulization 3 ml inhalation Q4H PRN (Reason: Shortness Of Breath) sodium chloride 7 % solution for nebulization 4 ml INH BID PRN (Reason: Shortness Of Breath) glipizide 10 mg Tablet 10 mg PO BID fluoxetine 20 mg Tablet 20 mg PO QAM Trulicity 0.75 mg/0.5 mL Pen Injector 0.75 mg SUBCUT WK Rx Instructions: Once a week on Monday Emergen-C 1,000 mg Powder Effervescent In Packet 1,000 ea PO DAILY Changed aspirin 81 mg Tablet,Delayed Release (Dr/Ec) 81 mg PO BID 42 Days Qty: 84 0RF Admission Data Admit Date/Time: 10/07/22 10:58 Attending Provider: Dre Obregon Admit Provider: Dre Obregon Primary Care Provider: Jimbo Rhoades
[2022-10-08] MEDS ORDERED: PANTOprazole 40 MG TAB PO SCH (09:00)
[2022-10-08] MEDS ORDERED: MULTIVITAMIN TAB PO SCH (09:00)
[2022-10-08] MEDS ORDERED: FLUoxetine HCL 20 MG CAP PO SCH ×2 (09:00)
[2022-10-08] MEDS ORDERED: ATORVASTATIN 40 MG TAB PO SCH (09:00)
[2022-10-08] MEDS ORDERED: MAGNESIUM OXIDE 400 MG TAB PO SCH (09:00)
[2022-10-08] MEDS ORDERED: LANTUS PER UNIT CHARGE SC SCH ×2 (09:00)
[2022-10-08] MEDS: ASPIRIN 81 MG ECTAB PO SCH (10:30)
[2022-10-08] MEDS: DOCUSATE SODIUM 100 MG CAP PO SCH (10:33)
[2022-10-08] MEDS: PRAMIPEXOLE DIHYDROCHLO 0.5 MG TAB PO SCH (10:38)
== END 2022-10-08 13:17 | disposition home health service (06) ==
LOC: ASU 06:42 → 3E 06:42

== ENCOUNTER 2024-07-23 06:03 | Inpatient (IN) ==
[2024-07-23 06:47] LABS: Basophils # (auto) 0.02 K/uL (0.00-0.20); Basophils % (auto) 0.2 %; Eosinophils % (auto) 1.1 %; Hematocrit (blood only) 50.3 % (42.0-52.0); Immature Granulocytes # (auto) 0.03 K/uL (0.01-0.20); Immature Granulocytes % (auto) 0.3 %; Lymphocytes % (auto) 8.7 %; Mean Corpuscular Hemoglobin 31.5 pg (25.0-34.0); Mean Corpuscular Hgb Conc 33.8 g/dL (32.0-36.0); Mean Corpuscular Volume 93.3 fL (80.0-100.0); Mean Platelet Volume 10.9 fL (9.4-12.4); Monocytes % (auto) 5.4 %; Neutrophils # (auto) 7.73 K/uL (1.40-6.50); Neutrophils % (auto) 84.3 %; Platelet Count 205 K/uL (130-400); RDW Coefficient of Variation 13.9 % (11.5-14.5); RDW Standard Deviation 47.2 fL (36.4-46.3); Red Blood Count 5.39 M/uL (4.70-6.10); White Blood Count 9.18 K/ul (4.8-10.8)
[2024-07-23 07:03] LABS: Alanine Aminotransferase 12 U/L (7-52); Albumin Globulin Ratio 1.3 (0.9-2); Albumin Level 4.4 gm/dl (3.4-5.0); Alkaline Phosphatase 90 U/L (34-104); Anion Gap 9 (3-11); Aspartate Aminotransferase 14 U/L (13-39); BUN Creatinine Ratio 21.9 (10-20); Bilirubin,Total 0.6 mg/dl (0.2-1.0); Blood Urea Nitrogen 34 mg/dl (6-23); Calcium 9.2 mg/dl (8.6-10.3); Carbon Dioxide 27 mmol/L (21-32); Chloride 98 mmol/L (98-107); Globulin 3.3 gm/dl (2.5-4.0); Glucose 153 mg/dl (70-99(Fasting)); Potassium 4.9 mmol/L (3.5-5.1); Sodium 134 mmol/L (136-145); Total Protein 7.7 gm/dl (6.0-8.3)
[2024-07-23 07:10] LABS: Troponin I High Sensitivity 11.5 pg/ml (0-20)
--- NOTE | 2024-07-23 07:12 | Emergency Department Note ---
Impression & Plan Hypoxia Discharge ED Provider Note HPI: History obtained from patient. The patient is a 74-year-old gentleman who presents the emergency department with a chief complaint of shortness of breath. Patient states for the past week he has had some increasing shortness of breath and a cough. Patient states he is also had some diarrhea that has been watery in nature and nonbloody. Patient denies any chest pain, on arrival here to the ED the patient is hemodynamically stable, he appears to be in no acute distress on my initial assessment and he is sleeping comfortably in bed, patient is on nasal cannula oxygen on my initial evaluation. ROS: - Per HPI Differential Diagnosis: Viral gastroenteritis, COPD exacerbation, viral upper respiratory infection with cough, acute bronchitis, acute coronary syndrome, pleural effusion, amongst other potential pathologies. *Outpatient medications and allergy history reviewed. PE: General: Alert HEENT: Normocephalic, trachea midline Eyes: Extraocular eye movement is intact, no scleral erythema Pulmonary: Diminished bilateral breath sounds without wheezing or crackles Cardio: Regular rate and rhythm GI: Abdomen is soft to palpation : No suprapubic tenderness MSK: No evidence of trauma or malformation of the extremities, no edema Skin: No evidence of rash Neuro: Alert, no focal deficits Psychiatric: Cooperative INDEPENDENT INTERPRETATIONS: bean snapper: (As interpreted by myself): - An order was placed for continuous cardiac monitoring - Patient was noted to be in sinus rhythm with a rate of 90 EKG: (As interpreted by myself): Rate: 109 Rhythm: Sinus tachycardia Intervals: Within normal limits ST changes: No ST elevation Time: 0623 Chest x-ray: (As interpreted by myself): No focal infiltrate Interventions provided in ED: -DuoNeb breathing treatment, IV Solu-Medrol, IV fluid bolus Medical Decision Making: Shortly after the patient arrived IV was established and lab work obtained, patient was placed on cardiac rehab nurse. Patient did have episodes of hypoxia down to 87% on room air and therefore was placed on nasal cannula oxygen with good improvement. Patient was given a DuoNeb breathing treatment as well as IV Solu-Medrol as he has a history of COPD and he had some diminished breath sounds bilaterally on my exam. Lab work shows no leukocytosis, hemoglobin is normal, platelet count is normal, venous blood gas shows a normal pH. pCO2 is normal. CMP shows mild elevation in the patient's creatinine 1.55 for which she was given IV fluids. Troponin is negative, BNP is within normal limits. Viral panel testing was obtained and is negative, patient did complain of some worsening diarrhea while here in the ED and therefore he did give a stool sample. This did return positive for norovirus. Patient has a soft and nontender abdomen on my exam, therefore CT imaging was not ordered. Given the patient's hypoxia, I feel he should be admitted for viral infection, viral gastroenteritis, and hypoxia. I suspect his hypoxia is likely COPD exacerbation and therefore he was treated with DuoNeb breathing treatments and IV Solu-Medrol. I discussed all of the above findings with the admitting [facility] hospitalist team and the patient was placed for admission in stable condition to the service of Dr. Adams. Consultants/Discussions held with other healthcare providers: -Hospitalist, Dr. Adams Disposition discussion held by myself with: -Patient * CRITICAL CARE TIME: (38) minutes -Stabilization of a patient with hypoxia with oxygen saturations at 87% on room air requiring nasal cannula oxygen for correction, interpretation of diagnostic studies, time spent at the bedside, discussion with other physicians and arrangement of admission. Diagnosis: 1. Hypoxia, acute 2. Viral gastroenteritis, acute 3. Norovirus positive stool PCR testing, acute 4. Elevated creatinine, acute Disposition: Admission Jimbo Wagoner DO Emergency Medicine Past Med/Surg History Problem List Hypoxia (Acute) GILMER (acute kidney injury) CAD (coronary artery disease) Diabetes mellitus Valvular heart disease COPD with exacerbation Fracture of left distal radius Status post right knee replacement (~09/2022) Encounter for pre-operative examination Postoperative hypoxia Status post reverse total replacement of right shoulder DVT prophylaxis Status post reverse total replacement of left shoulder Left TSA (06/28/21): Grade view 1, MAC#4, ETT 8.0 + PNB at [facility] HLD (hyperlipidemia) COPD (chronic obstructive pulmonary disease) Breathing stable GERA (obstructive sleep apnea) (Chronic) Cannot tolerate device GERD (gastroesophageal reflux disease) (Chronic) Well controlled and stable RLS (restless legs syndrome) (Chronic) Leg cramping at night- takes magnesium DM type 2 (diabetes mellitus, type 2) (Chronic) Glucose stable per patient History of total left knee replacement (Chronic) Medical History On home oxygen therapy 2L PRN for dyspnea (occasional use) Pt monitors closely and O2 typically 94-96% RA No recent oxygen use Hearing deficit History of COVID-19 05/2021, symptoms at time: body aches, headache. 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 History of open reduction and internal fixation (ORIF) procedure right leg--hardware removed History of appendectomy History of tooth extraction History of total left hip arthroplasty Left URI (03/16/18): Grade view 2, MAC#4, ETT 7.5 (SAB- unsuccessful > GA) S/P tonsillectomy and adenoidectomy Family History Father Coronary heart disease Brother Lung cancer Colorectal cancer Brother Coronary heart disease Mother Cancer Other No family history of adverse response to anesthesia Social History Smoking Status: Current some day smoker Tobacco Type: Cigars Cigarettes Per Day: smokes a cigar every once in a while (advised on policy); Second Hand Exposure: No; Do You Dip or Chew Tobacco: No; Hx Alcohol Use: Yes Alcohol type: beer Hx Substance Use: No Preferred Language: Sami Communication Ability: Effective Communication Ability Comment: [place] Visual Impairment: No Limitations Hearing Ability: Hard of Hearing Banking Officer Required: No Beliefs That Will Affect Care: None marital status: Current Living Situation: Spouse and Family Current Living Situation Comment: and son current occupational status: retired Feels Safe at Home: Yes Assistive Devices: Cane, Oxygen - at Night and Walker Allergies Allergies Allergy/AdvReac Type Severity Reaction Status Date / Time No Known Allergies Allergy Verified 07/23/24 11:29 Home Meds Home Medications Medication Instructions Recorded Confirmed glipizide 10 mg tablet 10 mg PO DAILY 07/23/24 07/23/24 metformin 500 mg tablet,extended 500 mg PO DAILY 07/23/24 07/23/24 release 24 hr montelukast 10 mg tablet 10 mg PO DAILY 07/23/24 07/23/24 omeprazole 20 mg capsule,delayed 20 mg PO DAILY 07/23/24 07/23/24 release pramipexole 1 mg tablet 1 mg PO DAILY 07/23/24 07/23/24 rosuvastatin 40 mg tablet 40 mg PO DAILY 07/23/24 07/23/24 Previous Rx's Medication Instructions Recorded Oxygen Home #1 ea 07/01/21 CPAP Machine #1 ea 11/05/21 Results & Data (ED) Vital Signs Vital Signs - 24 hr 07/23/24 06:08 07/23/24 06:33 07/23/24 06:33 Temperature 36.9 C Temperature Source Temporal Artery Scan Pulse Rate 100 H Pulse Rate [Apical] 105 H Pulse Rhythm Pulse Rhythm [Apical] Regular Pulse Strength Normal Pulse Strength [Apical] Normal Respiratory Rate 25 H 18 Respiratory Effort / Characteristics Non-Labored Spontaneous Non-Labored Spontaneous Respiratory Depth Normal Normal Respiratory Pattern Regular Regular Blood Pressure 93/63 L Blood Pressure [Left Arm] 99/65 L Blood Pressure Mean 73 Blood Pressure Mean [Left Arm] 76 Blood Pressure Position Sitting Pulse Oximetry 93 92 99 Oxygen Delivery Method Room Air Room Air Room Air Oxygen Flow Rate Sepsis Recent Fever Within 48 Hours Yes Sepsis New/Unexplained Change in Mental Status N/A Sepsis Action Taken by Nursing No Action Required Oxygen Flow Rate - Titration Pulse Oximetry Post Tiitration 07/23/24 06:33 07/23/24 06:44 07/23/24 07:06 Temperature Temperature Source Pulse Rate 105 H 106 H Pulse Rate [Apical] Pulse Rhythm Regular Pulse Rhythm [Apical] Pulse Strength Pulse Strength [Apical] Respiratory Rate 18 Respiratory Effort / Characteristics Respiratory Depth Respiratory Pattern Blood Pressure Blood Pressure [Left Arm] Blood Pressure Mean Blood Pressure Mean [Left Arm] Blood Pressure Position Pulse Oximetry 92 87 L Oxygen Delivery Method Room Air Nasal Cannula Oxygen Flow Rate 0 Sepsis Recent Fever Within 48 Hours Sepsis New/Unexplained Change in Mental Status Sepsis Action Taken by Nursing Oxygen Flow Rate - Titration 2 Pulse Oximetry Post Tiitration 94 Laboratory Data 07/23/24 06:27 07/23/24 06:27 Lab Results 07/23/24 Range/Units 06:27 WBC 9.18 (4.8-10.8) K/ul RBC 5.39 (4.70-6.10) M/uL Hgb 17.0 (14.0-18.0) g/dl Hct 50.3 (42.0-52.0) % MCV 93.3 (80.0-100.0) fL MCH 31.5 (25.0-34.0) pg MCHC 33.8 (32.0-36.0) g/dL RDW Std Deviation 47.2 H (36.4-46.3) fL RDW Coeff of Brie 13.9 (11.5-14.5) % Plt Count 205 (130-400) K/uL MPV 10.9 (9.4-12.4) fL Immature Gran % (Auto) 0.3 % Neut % (Auto) 84.3 % Lymph % (Auto) 8.7 % [place] % (Auto) 5.4 % Eos % (Auto) 1.1 % Baso % (Auto) 0.2 % Neut # (Auto) 7.73 H (1.40-6.50) K/uL Lymph # (Auto) 0.80 L (1.20-3.40) K/uL [place] # (Auto) 0.50 (0.11-0.59) K/uL Eos # (Auto) 0.10 (0.00-0.50) K/uL Baso # (Auto) 0.02 (0.00-0.20) K/uL Immature Gran # (Auto) 0.03 (0.01-0.20) K/uL Sodium 134 L (136-145) mmol/L Potassium 4.9 (3.5-5.1) mmol/L Chloride 98 (98-107) mmol/L Carbon Dioxide 27 (21-32) mmol/L Anion Gap 9 (3-11) BUN 34 H (6-23) mg/dl Creatinine 1.55 H (0.6-1.4) mg/dl Est Cr Clr Drug Dosing Not Reportable eGFR 46.10 BUN/Creatinine Ratio 21.9 H (10-20) Glucose 153 H (70-99(Fasting)) mg/dl Calcium 9.2 (8.6-10.3) mg/dl Total Bilirubin 0.6 (0.2-1.0) mg/dl AST 14 (13-39) U/L ALT 12 (7-52) U/L Alkaline Phosphatase 90 (34-104) U/L Troponin I High Sens 11.5 (0-20) pg/ml Total Protein 7.7 (6.0-8.3) gm/dl Albumin 4.4 (3.4-5.0) gm/dl Globulin 3.3 (2.5-4.0) gm/dl Albumin/Globulin Ratio 1.3 (0.9-2) Administered Medications Albuterol (Albut/Ipratrop 3mg/0.5mg Neb 3 Ml Vial) 3 ml NEB QIDR [facility]; Protocol Stop: 08/22/24 10:59 Last Admin: 07/23/24 13:58 Dose: 3 ml Documented By: Admin: 07/23/24 11:30 Dose: 3 ml Documented By: ABDULKADIR Doxycycline Hyclate (Doxycycline Hyclate 100 Mg Cap) 100 mg PO Q12H [facility] Stop: 07/28/24 13:29 Last Admin: 07/23/24 14:14 Dose: 100 mg Documented By: TOM Methylprednisolone 40 mg/ (Syringe) 0.64 mls @ 1.5 mls/min IV Q8H [facility] Stop: 08/22/24 13:59 Last Admin: 07/23/24 14:14 Dose: 1.5 mls/min Documented By: TOM Insulin Aspart (Insulin Aspart Per Unit Charge) 0 units SC ACHS [facility] Stop: 08/22/24 11:44 Last Admin: 07/23/24 14:16 Dose: 13 units Documented By: TOM Co-signed By: HAL Insulin Glargine (Lantus Per Unit Charge) 25 units SQ BID [facility] Stop: 08/22/24 11:59 Last Admin: 07/23/24 12:17 Dose: 25 units Documented By: TOM Co-signed By: HAL Rosuvastatin Calcium (Rosuvastatin Calcium 20 Mg Tab) 40 mg PO DAILY [facility] Stop: 08/22/24 12:14 Last Admin: 07/23/24 14:15 Dose: 40 mg Documented By: TOM Discontinued Medications Albuterol (Albut/Ipratrop 3mg/0.5mg Neb 3 Ml Vial) 3 ml NEB NOW STA; Protocol Stop: 07/23/24 07:10 Last Admin: 07/23/24 07:15 Dose: 3 ml Documented By: TOM Albuterol (Albut/Ipratrop 3mg/0.5mg Neb 3 Ml Vial) 3 ml NEB NOW STA; Protocol Stop: 07/23/24 08:55 Last Admin: 07/23/24 09:02 Dose: 3 ml Documented By: HAL Albuterol (Albuterol 0.083% Nebu Soln 3 Ml Vial) 2.5 mg NEB QIDR [facility]; Protocol Stop: 08/22/24 10:59 Last Admin: 07/23/24 13:58 Dose: Not Given Documented By: ABDULKADIR Gabapentin (Gabapentin 600 Mg Tab) 600 mg PO NOW ONE Stop: 07/23/24 11:27 Last Admin: 07/23/24 12:16 Dose: 600 mg Documented By: TOM Sodium Chloride (Nss) 1,000 mls @ 999 mls/hr IV .Q1H1M ONE Stop: 07/23/24 10:36 Last Admin: 07/23/24 09:53 Dose: 999 mls/hr Documented By: TOM Methylprednisolone (Methylprednisolone 125 Mg/2 Ml Vial) 125 mg IV NOW STA Stop: 07/23/24 08:13 Last Admin: 07/23/24 08:38 Dose: 125 mg Documented By: HAL Miscellaneous (Patient's Height &/Or Weight Needed) 1 each N/A NOW STA Stop: 07/23/24 10:54 Last Admin: 07/23/24 14:21 Dose: 1 each Documented By: TOM Discharge Plan Visit Data Chief Complaint: Respiratory Problems Stated Complaint: TROUBLE BREATHING,LIGHT HEADED, WEAK ED Provider: Jimbo Wagoner Discharge Problem: Hypoxia Patient Disposition: Admitted As Inpatient Discharge Instructions Interventions: ED Discharge Assessment Last Done: 07/23/24 10:58
[2024-07-23] MEDS: ALBUT/IPRATROP 3MG/0.5MG NEB 3 ML VIAL NEB STA ×2 (07:15→09:02)
[2024-07-23 07:18] LABS: Partial Thromboplastin Ratio 0.9; Partial Thromboplastin Time 25 Seconds (21-31); Prothrombin Time 10.8 Seconds (9.0-12.0)
--- NOTE | 2024-07-23 07:34 | XRay Report ---
EXAM: XR chest 1V not portable CLINICAL HISTORY: Chest pain, nonspecific TECHNIQUE: An X-ray image of the chest is obtained in AP projection. COMPARISON: 09/07/2022 FINDINGS: Pulmonary Parenchyma: No evidence of consolidation, collapse, or focal opacities. Bilateral lower lung zones atelectatic plates. No evidence of pleural effusion or pleural thickening. Heart and Mediastinum: Borderline cardiac size. Bilateral prominent hilar vascular shadows; possibly congestion. Bony Thorax: Bony thorax appears intact without fractures or deformities. Soft Tissues: Soft tissues overlying the chest wall are unremarkable. IMPRESSION: 1. Borderline cardiac size. 2. Bilateral prominent hilar vascular shadows; possibly congestion. 3. Bilateral lower lung zones atelectatic plates. 4. Unchanged study. Electronically signed by Rony Wolf 07-23-2024 07:34 AM
[2024-07-23 07:44] LABS: Adenovirus PCR Not Detected (NotDetected); Bordetella parapertussis PCR Not Detected (NotDetected); Bordetella pertussis PCR Not Detected (NotDetected); Chlamydia pneumoniae PCR Not Detected (NotDetected); Coronavirus 229E PCR Not Detected (NotDetected); Coronavirus CoV-2 (COVID19)PCR Not Detected (NotDetected); Coronavirus HKU1 PCR Not Detected (NotDetected); Coronavirus NL63 PCR Not Detected (NotDetected); Coronavirus OC43PCR Not Detected (NotDetected); Human Metapneumovirus PCR Not Detected (NotDetected); Influenza A PCR Not Detected (NotDetected); Influenza B PCR Not Detected (NotDetected); Mycoplasma pneumoniae PCR Not Detected (NotDetected); Parainfluenza Virus 1 PCR Not Detected (NotDetected); Parainfluenza Virus 2 PCR Not Detected (NotDetected); Parainfluenza Virus 3 PCR Not Detected (NotDetected); Parainfluenza Virus 4 PCR Not Detected (NotDetected); Respiratory Syncytial VirusPCR Not Detected (NotDetected); Rhinovirus/Enterovirus PCR Not Detected (NotDetected)
[2024-07-23] MEDS: methylPREDNISolone 125 MG/2 ML VIAL IV STA (08:38)
[2024-07-23 08:54] LABS: Base Excess VBG -0.7 mEq/L; HCO3 VBG 24 mmol/L; Oxygen Saturation VBG 89.5 %; PCO2 VBG 40 mmHg (38-50); PO2 VBG 57 mmHg; pH VBG 7.39 (7.36-7.41)
[2024-07-23] MEDS: SODIUM CHLORIDE 0.9% 1,000 ML IV ONE (09:53)
[2024-07-23 10:23] LABS: Adenovirus F 40/41 PCR Not Detected (NotDetected); Astrovirus PCR Not Detected (NotDetected); Campylobacter PCR Not Detected (NotDetected); Cryptosporidium PCR Not Detected (NotDetected); Cyclospora cayetanensis PCR Not Detected (NotDetected); Entamoeba histolytica PCR Not Detected (NotDetected); Enteroaggregative E.coli(EAEC) Not Detected (NotDetected); Enteropathogenic E.coli (EPEC) Not Detected (NotDetected); Enterotoxigenic E.coli (ETEC) Not Detected (NotDetected); Giardia lamblia PCR Not Detected (NotDetected); Plesiomonas shigelloides PCR Not Detected (NotDetected); Rotavirus A PCR Not Detected (NotDetected); Salmonella PCR Not Detected (NotDetected); Sapovirus PCR Not Detected (NotDetected); Shiga-like Toxin E.coli (STEC) Not Detected (NotDetected); Shigella/Enteroinvasive E.coli Not Detected (NotDetected); Vibrio cholerae PCR Not Detected (NotDetected); Vibrio species PCR Not Detected (NotDetected); Yersinia enterocolitica PCR Not Detected (NotDetected)
[2024-07-23] MEDS ORDERED: DEXTROSE 50% 50 ML SYRINGE IV PRN ×2 (10:46→11:24)
[2024-07-23] MEDS ORDERED: CARBOHYDRATES FOR HYPOGLYCEMIA PO PRN ×2 (10:46→11:24)
[2024-07-23] MEDS ORDERED: GLUCOSE 40% GEL 15 GM TUBE PO PRN ×2 (10:46→11:24)
[2024-07-23] MEDS ORDERED: GLUCOSE 10 TAB/TUBE PO PRN ×2 (10:46→11:24)
[2024-07-23] MEDS ORDERED: GLUCAGON FOR INJ 1 MG VIAL SQ PRN ×2 (10:46→11:24)
--- NOTE | 2024-07-23 10:50 | History & Physical Report ---
Date of Service July 23, 2024 Assessment & Plan (1) COPD with exacerbation: (2) CAD (coronary artery disease): (3) Valvular heart disease: (4) Diabetes mellitus: (5) GERA (obstructive sleep apnea): (6) RLS (restless legs syndrome): (7) GERD (gastroesophageal reflux disease): (8) GILMER (acute kidney injury): Plan Mr. Yousif is a 74 male that presents to the ED overnight c/o SOB at rest and with exercise and orthopnea and diarrhea that has been occurring for the past 48 hours. he reports that over the last few months he has been more sedentary and has been having more falls that appear to be mechanical with his last one being 3 to 4 months ago. He is a daily drinker of 3-4 beers per day at the [facility]. He does take thiamine p.o. daily. His last echo was in 2017 and he recently saw cardiology on June [address] Wilson and he was scheduled to have an echocardiogram and Britney scan on July 25.No leukocytosis, VBG compensated without hypercapnia. CXR without pleural effusion but notes some congestion around his heart. ECG reveals sinus tachycardia without prolonged QTc. Elevated creatinine 1.55; baseline 1.1-1.2. No transaminitis, BNP negative. Troponin negative. Bio fire negative. Patient will be admitted for what appears to be a COPD exacerbation with hypoxia. Will cover bases to ensure there is no mixed presentation related to cardiac influence; will obtain echocardiogram, continue DuoNebs every QID + Q2PRN, continue IV steroids every 8 hours, obtain orthostatic BPs, obtain stool culture to rule out any viral contribution, will place on AWSS scale with reduced gabapentin dose due to non reportable crcl, sputum culture, flutter valve, incentive spirometry, will place on SSI while inpatient and obtain renal US to r/o obstruction with GILMER. Will continue IVF with hopes of renal function improvement; plan for Chest CTA when kidney function improved. Consider Cards consult pending echo. COPD exacerbation: Tobacco Use: H/O Reccurent PNA: Acute No leukocytosis, VBG without hypercapnia. BNP neg. BF neg. Reportedly has had RSV and PNA vaccinations. Received Solumedrol IV in ED; continue Q12 Received nebs x2 in ED; continue QID + Q2PRN; expiratory wheezes on exam ECHO ordered to r/o mixed presentation Not compliant with CPAP Is prescribed Trelegy; states he does not take this. Quit smoking 17 years ago; reports smoking 10 cigarettes over past few months. No more cigar use. Sputum cx ordered Consider Chest CTA given increased sedentary risk factors; Well's criteria 3.0. Previous D-Dimer elevated OPT. OPT chest CTA negative 05/05. Order Chest CTA 07/24 if renal function improved or if s/s worsen consider risk vs benefit. Consider Pulmonary consult for further insight if no improvement GILMER: serum creatinine 1.55; baseline 1.1-1.2 Likely secondary to dehydration. No CVA tenderness Obtain renal US to r/o obstruction Trend BMP and avoid nephrotoxic agents as able Diarrhea: Acute Stool sample obtained and pending CD negative; of note; has doxycycline ordered from 04/2024; does not recall, denies recent infections denies hematochezia CAD: HLD: Valvular heart disease: No h/o AMI or CVA; murmur appreciated on exam ECG ST without prolonged QTc ECHO ordered Recently stopped Atorvastatin and started Rosuvastatin Takes a baby ASA Most recent lipid panel: heart healthy diet Cardiology consult pending ECHO results NIDDM2: Chronic Takes metformin and glipizide; hold while inpatient Takes Trulicity; hold while inpt Placed on ACHS SSI and monitor Reports he does take his blood sugars at home via fingerstick and in the morning they range 1 20-1 45 and in the evenings they range 1 40-2 10. Last A1c 04/05/2024; 8.8 will recheck while here Alcohol abuse: Reports drinking 3-4 beers daily; takes daily Thiamine and Folic Acid AWSS scale in place Place on reduced gabapentin dosing due to 'not reportable' CrCl. Other medical conditions: RLS (takes Mirapex), and GERD. Disposition: PCP: Dr. Rhoades - Code Status: Full - VTE Prophylaxis: Teds/SCD for now I spent a total of 82 minutes coordinating, documenting, and providing care for this patient excluding time spent inthe performance of separately billed services or time spent by another provider/QHP. History of Present Illness Chief Complaint: SOB Primary Care Provider: Jimbo Rhoades MD Mr. Yousif is a 74 male that presents to the ED overnight with complaints of SOB at rest and with exercise and orthopnea and diarrhea that has been occurring for the past 48 hours. he reports that over the last few months he has been more sedentary and has been having more falls that appear to be mechanical with his last one being 3 to 4 months ago. Additional past medical history includes pwe-yclhllz-psvyulfba diabetes, RLS, HLD. He reportedly has quit smoking 17 years ago but during my visit with him he indicates that he has smoked about 20 cigarettes over the last few months. He is a daily drinker of 3-4 beers per day at the [facility]. He does take thiamine p.o. daily. His last echo was in 2017 and he recently saw cardiology on June [address] Wilson and he was scheduled to have an echocardiogram and Britney scan on July 25. In the ED no leukocytosis, VBG compensated without hypercapnia. CXR without pleural effusion but notes some congestion around his heart. ECG reveals sinus tachycardia without prolonged QTc. Elevated creatinine 1.55; baseline 1.1-1.2. No transaminitis, BNP negative. Troponin negative. Bio fire negative. On arrival to the ED, his SPO2 was 92% but with any activity desaturates to mid 80's. he was given nebulizers x 2 and Solu-Medrol. It is unclear if his has PMH of COPD, but has been on supplemental O2 at home for years due to recurrent PNA; he reports he has not utilized O2 over the past year and a half. Patient will be admitted for what appears to be a COPD exacerbation with hypoxia. Will cover bases to ensure there is no mixed presentation related to cardiac influence; will obtain echocardiogram, continue DuoNebs every QID + Q2PRN, continue IV steroids every 8 hours, obtain orthostatic BPs, obtain stool culture to rule out any viral contribution, will place on AWSS scale with r educed gabapentin dose due to non reportable crcl, sputum culture, flutter valve, incentive spirometry, will place on SSI while inpatient and obtain renal US to r/o obstruction with GILMER. Will continue IVF with hopes of renal function improvement; plan for Chest CTA when kidney function improved. Allergies Allergy/AdvReac Type Severity Reaction Status Date / Time No Known Allergies Allergy Verified 07/23/24 11:29 Home Medications Medication Instructions Recorded Confirmed Type Oxygen Home #1 ea 07/01/21 01/03/22 Rx CPAP Machine #1 ea 11/05/21 01/03/22 Rx glipizide 10 mg tablet 10 mg PO DAILY 07/23/24 07/23/24 History metformin 500 mg tablet,extended 500 mg PO DAILY 07/23/24 07/23/24 History release 24 hr montelukast 10 mg tablet 10 mg PO DAILY 07/23/24 07/23/24 History omeprazole 20 mg capsule,delayed 20 mg PO DAILY 07/23/24 07/23/24 History release pramipexole 1 mg tablet 1 mg PO DAILY 07/23/24 07/23/24 History rosuvastatin 40 mg tablet 40 mg PO DAILY 07/23/24 07/23/24 History Past Med/Surg History Problem List GILMER (acute kidney injury) CAD (coronary artery disease) Diabetes mellitus Valvular heart disease COPD with exacerbation Fracture of left distal radius Status post right knee replacement (~09/2022) Encounter for pre-operative examination Postoperative hypoxia Status post reverse total replacement of right shoulder DVT prophylaxis Status post reverse total replacement of left shoulder Left TSA (06/28/21): Grade view 1, MAC#4, ETT 8.0 + PNB at [facility] HLD (hyperlipidemia) COPD (chronic obstructive pulmonary disease) Breathing stable GERA (obstructive sleep apnea) (Chronic) Cannot tolerate device GERD (gastroesophageal reflux disease) (Chronic) Well controlled and stable RLS (restless legs syndrome) (Chronic) Leg cramping at night- takes magnesium DM type 2 (diabetes mellitus, type 2) (Chronic) Glucose stable per patient History of total left knee replacement (Chronic) Medical History On home oxygen therapy 2L PRN for dyspnea (occasional use) Pt monitors closely and O2 typically 94-96% RA No recent oxygen use Hearing deficit History of COVID-19 05/2021, symptoms at time: body aches, headache. Had a Casirivimab/Imdevimab IV infusion on 05/27/21 at [facility] > symptoms resolved Glaucoma S/p surgery Anxiety and depression Degenerative disc disease, lumbar Former smoker mild emphysema on CT HTN (hypertension) No meds Hx: recurrent pneumonia Including aspiration pneumonia several years ago No current issues No aspiration per 2018 video swallow Surgical History History of oral surgery History of open reduction and internal fixation (ORIF) procedure LEFT ARM History of esophagogastroduodenoscopy (EGD) History of colonoscopy History of cataract surgery RT/LEFT 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 History of open reduction and internal fixation (ORIF) procedure right leg--hardware removed History of appendectomy History of tooth extraction History of total left hip arthroplasty Left URI (03/16/18): Grade view 2, MAC#4, ETT 7.5 (SAB- unsuccessful > GA) S/P tonsillectomy and adenoidectomy Family History Father Coronary heart disease Brother Lung cancer Colorectal cancer Brother Coronary heart disease Mother Cancer Other No family history of adverse response to anesthesia Social History Smoking Status: Current some day smoker Tobacco Type: Cigars Cigarettes Per Day: smokes a cigar every once in a while (advised on policy); Second Hand Exposure: No; Do You Dip or Chew Tobacco: No; Hx Alcohol Use: Yes Alcohol type: beer Hx Substance Use: No Preferred Language: Bulgarian Communication Ability: Effective Communication Ability Comment: EXTREME MANZANITA Visual Impairment: No Limitations Hearing Ability: Hard of Hearing 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: No Beliefs That Will Affect Care: None marital status: Current Living Situation: Spouse and Family Current Living Situation Comment: and son current occupational status: retired Feels Safe at Home: Yes Assistive Devices: Cane, Oxygen - at Night and Walker Review of Systems Review of Systems: Neuro: (-) Falls, trauma, slurred speech HEENT: (-) FERNANDES, dizziness, dysphagia, visual or auditory changes CV: (-) CP, palpitations, swelling Resp: (+) SOB GI: (-) appetite changes, N/V/D, bowel changes : (-) urinary changes Skin: (-) rashes Psych: (-) anxiety, depression Physical Exam Physical Exam: Neuro: AAOx4, PERRLA, no aphagia, memory changes, CNII-XII grossly intact HEENT: head normocephalic, moist mucus membranes CV: S1/S2, (-) M/G/R, (-) edema, cap refill < 3 seconds Resp:Expiratory wheezes posteriorly. On 2LNC GI: Abdomen S/NT/ND, Ax4 bowel sounds, (-) CVA tenderness Musculoskeletal: 5/5 B/L UE strength, 5/5 B/L LE strength. No gait disturbance Skin: (-) rashes , (-) erythema. Psych: euthymic mood Results & Data Results & Data Vital Signs (Past 12 Hours) Vital Signs Temp Pulse Pulse Resp BP BP Pulse Ox 07/23/24 10:33 101 H 13 112/55 L 94 07/23/24 10:27 96 H 25 H 104/56 L 92 07/23/24 10:27 98 H 07/23/24 10:24 98 H 18 104/56 L 92 07/23/24 09:54 95/74 L 88 L 07/23/24 09:00 95 H 26 H 107/69 95 07/23/24 08:54 87 L 07/23/24 08:33 102/66 87 L 07/23/24 07:45 98 H 25 H 109/70 95 07/23/24 07:32 99 H 22 124/88 07/23/24 07:16 105 H 22 108/70 96 07/23/24 07:06 87 L 07/23/24 07:00 97 H 18 103/64 89 L 07/23/24 06:44 106 H 07/23/24 06:33 105 H 18 92 07/23/24 06:33 105 H 18 99/65 L 99 07/23/24 06:33 92 07/23/24 06:08 36.9 C 100 H 25 H 93/63 L 93 O2 Del Method O2 Flow Rate 07/23/24 10:33 Nasal Cannula 2 07/23/24 10:27 Nasal Cannula 2 07/23/24 10:27 07/23/24 10:24 Nasal Cannula 2 07/23/24 09:54 Room Air 07/23/24 09:00 Nasal Cannula 2 07/23/24 08:54 Nasal Cannula 0 07/23/24 08:33 Room Air 07/23/24 07:45 Nasal Cannula 2 07/23/24 07:32 07/23/24 07:16 Nasal Cannula 2 07/23/24 07:06 Nasal Cannula 0 07/23/24 07:00 Room Air 07/23/24 06:44 07/23/24 06:33 Room Air 07/23/24 06:33 Room Air 07/23/24 06:33 Room Air 07/23/24 06:08 Room Air Laboratory Results Short CBC 07/23/24 Range/Units 06:27 WBC 9.18 (4.8-10.8) K/ul Hgb 17.0 (14.0-18.0) g/dl Hct 50.3 (42.0-52.0) % Plt Count 205 (130-400) K/uL BMP 07/23/24 06:27 Sodium 134 L Potassium 4.9 Chloride 98 Carbon Dioxide 27 BUN 34 H Creatinine 1.55 H Glucose 153 H Calcium 9.2 Liver Function 07/23/24 Range/Units 06:27 Total Bilirubin 0.6 (0.2-1.0) mg/dl AST 14 (13-39) U/L ALT 12 (7-52) U/L Alkaline Phosphatase 90 (34-104) U/L Albumin 4.4 (3.4-5.0) gm/dl Diagnostic Findings Chest X-Ray 07/23/24 06:17 EXAM: XR chest 1V not portable CLINICAL HISTORY: Chest pain, nonspecific TECHNIQUE: An X-ray image of the chest is obtained in AP projection. COMPARISON: 09/07/2022 FINDINGS: Pulmonary Parenchyma: No evidence of consolidation, collapse, or focal opacities. Bilateral lower lung zones atelectatic plates. No evidence of pleural effusion or pleural thickening. Heart and Mediastinum: Borderline cardiac size. Bilateral prominent hilar vascular shadows; possibly congestion. Bony Thorax: Bony thorax appears intact without fractures or deformities. Soft Tissues: Soft tissues overlying the chest wall are unremarkable. IMPRESSION: 1. Borderline cardiac size. 2. Bilateral prominent hilar vascular shadows; possibly congestion. 3. Bilateral lower lung zones atelectatic plates. 4. Unchanged study. Electronically signed by Rony Wolf 07-23-2024 07:34 AM Code Status & VTE Plan Code Status Full code in the event of cardiac or respiratory arrest VTE Prophylaxis Plan VTE Prophylaxis will be ordered: Yes Supervising Physician Co-Signing Physician Notes 74-year-old male with PMH of NIDDM, RLS, HLD, tobacco use [reports quitting smoking 17 years ago but reports started smoking again in the last few months] presented to the ED with complaint of fever/cough with yellow sputum/feeling weak and worsening shortness of breath for the last 4 to 5 days. Patient reports he has shortness of breath with exertion for last 4 to 5 months and has not been much mobile since then but reports he can walk short distances independently. Patient also reports having indigestion/reflux sensation in the night occasionally [not every night] and he has to sit up and takes " may be Prilosec" to help with the symptoms. Labs reviewed, CBC fairly WNL, VBG WNL, sodium 134, creatinine 1.55 [baseline around 1.2], LFT WNL, troponin WNL, BNP WNL, vitamin B12 WNL. C. difficile negative, stool PCR pending. Respiratory BioFire negative. CXR around his baseline. Acute kidney injury: Creatinine of 1.2 at baseline, admitting creatinine of 1.55. Patient w/ poor appetite [employer]. Likely prerenal. Will get US renal ultrasound to ro obstruction. Avoid nephrotoxic. Labs in AM. Likely viral URTI leading to acute exacerbation of his underlying COPD: Patient reports that he might have been told he had COPD in the past. Occasional rhonchi on exam and decreased breath sounds. Solu-Medrol, doxycycline, Tessalon Perles, Mucinex, incentive spirometer, DuoNebs. Likely superimposed bacterial bronchitis: Doxycycline, continue to monitor. Alcohol abuse: awss, folic acid, thiamine. Diarrhea, likely viral gastroenteritis: stool pcr pending, c diff neg. c/w supportive Mx. encourage po electrolytes solution. Given lack of mobility in the last 4 to 5 months and shortness of breath with exertion for about the same duration, will get CTA chest once renal function is improved. Given his baseline CXR finding, VQ scan might not be very helpful. On exam: GENERAL: Alert and oriented x3. NAD, on 3L NC O2, getting Br Rx. HEENT: No pallor, no icterus. Pupils equal, round and reactive to light. Oral mucosa moist. NECK: No JVD, no neck masses. HEART: S1 and S2 heard. Regular rate and rhythm. HR in 90s. No murmur, no gallop. RESPIRATORY SYSTEM: Normal AP diameter. No accessory muscle use. b/l decreased breathing sounds, b/l occ rhonchi ABDOMEN: Soft, bowel sounds present, nontender, no distention. CENTRAL NERVOUS SYSTEM: No facial droop. Speech is clear. Obeys simple commands. Moves extremities. EXTREMITIES: No edema, no erythema seen. ble varicosity noted. I have seen and examined the patient and have discussed the case with the provider above. I agree with the assessment and plan as stated. Time spent separately : 25 min.
[2024-07-23] MEDS ORDERED: ALUMINUM/MAGNESIUM SUSP 30 ML UDC PO PRN (10:58)
[2024-07-23] MEDS ORDERED: ONDANSETRON INJ 2 MG/ML 2 ML VIAL IV PRN (10:58)
[2024-07-23] MEDS ORDERED: POLYETHYLENE (MIRALAX) 17 GM PACK PO PRN (10:58)
[2024-07-23] MEDS ORDERED: MAGNESIUM HYDROXIDE SUSP 30 ML UDC PO PRN (10:58)
[2024-07-23] MEDS ORDERED: PHARMACY GLYCEMIC MGMT CONSULT PRN (11:24)
[2024-07-23] MEDS ORDERED: LORazepam 1 MG TAB PO PRN (11:26)
[2024-07-23] MEDS ORDERED: GABAPENTIN 600MG ALCOHOL WITHDRAWAL LOAD PO STA (11:26)
[2024-07-23] MEDS: ALBUT/IPRATROP 3MG/0.5MG NEB 3 ML VIAL NEB SCH (11:30)
[2024-07-23] MEDS: GABAPENTIN 600 MG TAB PO ONE (12:16)
[2024-07-23] MEDS: LANTUS PER UNIT CHARGE SQ SCH (12:17)
[2024-07-23 12:20] LABS: Norovirus GI/GII PCR DETECTED (NotDetected)
--- NOTE | 2024-07-23 13:45 | Pharmacy Report ---
Pharmacy Glycemic Short Note 2 - Date of Service July 23, 2024 - Glycemic Short BSG Results (Last 24 hours): 07/23/24 07/23/24 06:27 11:51 Glucose 153 H POC Glucose 243 H OUTPATIENT ANTIDIABETIC REGIMEN: * Trulicity 0.75 mg SC every Monday * Glipizide 10 mg PO BID * Metformin XR 1000 mg PO BID HbA1c: * pending for 07/24/24 ASSESSMENT: * 74 yo M admitted on 07/23/24 secondary to shortness of breath. Pharmacy has been consulted to assist with inpatient glycemic management. Patient is a Type 2 diabetic as an outpatient. Please refer to outpatient regimen and most recent HbA1c above. * Patient received 125 mg of IV SoluMedrol in the ED and will be continued on 40 mg IV every 8 hours starting this afternoon. T2DM diet ordered, unsure if patient tolerating at this time, will follow. Currently on Doxycycline PO only. * BSG at lunchtime was 243 mg/dL indicating steroid-induced hyperglycemia. During a previous admission, patient's BSGs were uncontrolled on 25 units of basal once daily. Will start with 25 units of basal BID for now which is weight/stress of 3. Also starting Novolog based on weight/stress of 3. PLAN FOR INPATIENT GLYCEMIC CONTROL: * Hold outpatient oral diabetes medications * Basal insulin * Lantus 25 units SC BID * Bolus insulin * NovoLog per scale ACHS or Q6hrs while NPO * Goal Range: Low 110 mg/dL - High 140 mg/dL * Correction Factor: 15 mg/dL/unit * Nutritional / Prandial insulin per carb ratio of 1 unit per 5 grams CHO consumed
[2024-07-23] MEDS: ALBUTEROL 0.083% NEBU SOLN 3 ML VIAL NEB SCH (13:58)
[2024-07-23] MEDS ORDERED: ALBUTEROL 0.083% NEBU SOLN 3 ML VIAL NEB PRN (13:59)
--- NOTE | 2024-07-23 14:01 | Ultrasound Report ---
RENAL ULTRASOUND CLINICAL HISTORY: Acute kidney injury. COMPARISON STUDY: None. TECHNIQUE: Sonography of the kidneys and the urinary bladder was performed. FINDINGS: The right kidney measures 11.9 cm in maximal dimension and the left measures 12.6 cm. There is no hydronephrosis. This exam is mildly compromised by suboptimal penetration. There is a 1 cm cys tic appearing lesion within the midpole of the right kidney which contains echogenic foci. This favor s a cyst which contains calcifications. The left ureteral jet was not visualized. Bladder wall thicke antony is noted. The prostate likely indents the base of the bladder. IMPRESSION: 1. No hydronephrosis. 2. Mild bladder wall thickening, likely chronic. ACT 112: Negative or not required by law. Electronically signed by: Moustapha Harden M.D. 07/23/2024 1:58 PM
[2024-07-23] MEDS: DOXYCYCLINE HYCLATE 100 MG CAP PO SCH (14:14)
[2024-07-23] MEDS: methylPREDNISolone 40 MG in SYRINGE 0 ML IV SCH (14:14)
[2024-07-23] MEDS: ROSUVASTATIN CALCIUM 20 MG TAB PO SCH (14:15)
[2024-07-23] MEDS: INSULIN ASPART PER UNIT CHARGE SC SCH (14:16)
[2024-07-23] MEDS: Patient's HEIGHT &/or WEIGHT Needed STA (14:21)
[2024-07-23] MEDS: SODIUM CHLORIDE 0.9% 1,000 ML IV SCH (15:12)
[2024-07-23 20:16] LABS: BUN Creatinine Ratio 25.4 (10-20); Calcium 8.3 mg/dl (8.6-10.3); Creatinine Clr Calc Pharmacy 40.2 ml/min; Potassium 4.8 mmol/L (3.5-5.1)
[2024-07-23] MEDS: GABAPENTIN 100 MG CAP PO SCH (21:01)
[2024-07-23] MEDS ORDERED: Nursing to Pharmacy Communication SCH (23:00)
[2024-07-24] MEDS: INSULIN ASPART PER UNIT CHARGE SC SCH (00:08)
--- NOTE | 2024-07-24 05:25 | Electrocardiogram Report ---
Test Reason : Blood Pressure : */* mmHG Vent. Rate : 109 BPM Atrial Rate : 109 BPM P-R Int : 154 ms QRS Dur : 70 ms QT Int : 314 ms P-R-T Axes : 79 77 81 degrees QTcB Int : 422 ms Sinus tachycardia Otherwise normal ECG When compared with ECG of 07-Sep-2022 10:24, Premature supraventricular complexes are no longer Present Vent. rate has increased by 38 bpm Confirmed by Dereck Messer ([id number]) on 07/24/2024 5:25:28 AM Referred By: Confirmed By: Dereck Messer
[2024-07-24 07:10] LABS: Hematocrit (blood only) 41.6 % (42.0-52.0); Hemoglobin 13.5 g/dl (14.0-18.0); Mean Corpuscular Hemoglobin 30.5 pg (25.0-34.0); Mean Corpuscular Hgb Conc 32.5 g/dL (32.0-36.0); Mean Corpuscular Volume 94.1 fL (80.0-100.0); Mean Platelet Volume 11.1 fL (9.4-12.4); Platelet Count 175 K/uL (130-400); RDW Coefficient of Variation 13.9 % (11.5-14.5); RDW Standard Deviation 48.1 fL (36.4-46.3); Red Blood Count 4.42 M/uL (4.70-6.10); White Blood Count 7.66 K/ul (4.8-10.8)
[2024-07-24 07:25] LABS: Estimated Average Glucose 189 mg/dl; Hemoglobin A1C 8.2 % (4.5-5.6)
[2024-07-24 07:28] LABS: BUN Creatinine Ratio 34.4 (10-20); Calcium 8.2 mg/dl (8.6-10.3); Chol HDL Ratio 2.5 (0-5); Creatinine Clr Calc Pharmacy 49.6 ml/min; Magnesium 1.7 mg/dl (1.7-2.4); Potassium 4.8 mmol/L (3.5-5.1)
[2024-07-24] MEDS: MONTELUKAST SODIUM 10 MG TABLET PO SCH (08:34)
[2024-07-24] MEDS: PRAMIPEXOLE DIHYDROCHLO 0.5 MG TAB PO SCH (08:34)
[2024-07-24] MEDS: PANTOprazole 40 MG TAB PO SCH (08:35)
[2024-07-24] MEDS: LANTUS PER UNIT CHARGE SQ SCH (08:44)
--- NOTE | 2024-07-24 09:45 | Hospitalist Progress Note ---
Date of Service July 24, 2024 Assessment & Plan (1) COPD with exacerbation: (2) CAD (coronary artery disease): (3) Valvular heart disease: (4) Diabetes mellitus: (5) GERA (obstructive sleep apnea): (6) RLS (restless legs syndrome): (7) GERD (gastroesophageal reflux disease): (8) GILMER (acute kidney injury): Plan Mr. Yousif is a 74 M that presents w/SOB at rest and with exercise and orthopnea and diarrhea that has been occurring for the past 48 hours. he reports that over the last few months he has been more sedentary and has been having more falls that appear to be mechanical with his last one being 3 to 4 months ago. He is a daily drinker of 3-4 beers per day at the [facility]. He does take thiamine p.o. daily. His last echo was in 2017 and he recently saw cardiology on June [address] Wilson and he was scheduled to have an echocardiogram and Britney scan on July 25. Found positive for Norovirus No leukocytosis, VBG compensated without hypercapnia. CXR without pleural effusion but notes some congestion around his heart. ECG reveals sinus tachycardia without prolonged QTc. Elevated creatinine 1.55; baseline 1.1-1.2. No transaminitis, BNP negative. Troponin negative. Bio fire negative. COPD exacerbation: Tobacco Use: H/O Reccurent PNA: Acute No leukocytosis, VBG without hypercapnia. BNP neg. BF neg. Reportedly has had RSV and PNA vaccinations. Received Solumedrol IV in ED; continue Q12 Received nebs x2 in ED; continue QID + Q2PRN; expiratory wheezes on exam ECHO obtained - LVEF 65-70%, LV syst. function normal, No regional wall motion abnormalities noted. Moderate valvular aortic stenosis. Not compliant with CPAP Is prescribed Trelegy; states he does not take this. Quit smoking 17 years ago; reports smoking 10 cigarettes over past few months. No more cigar use. Sputum cx ordered Consider Chest CTA given increased sedentary risk factors; Well's criteria 3.0. Previous D-Dimer elevated OPT. OPT chest CTA negative 05/05. Order Chest CTA 07/24 if renal function improved or if s/s worsen consider risk vs benefit. Consider Pulmonary consult for further insight if no improvement GILMER: serum creatinine 1.55; baseline 1.1-1.2 Likely secondary to dehydration. renal US to r/o obstruction - 1. No hydronephrosis. 2. Mild bladder wall thickening, likely chronic. Trend BMP and avoid nephrotoxic agents as able Cr improved w/ IVF, currently 1.6 Diarrhea, + Norovirus denies hematochezia - cont. supportive care CAD: HLD: Valvular heart disease: ECG ST without prolonged QTc ECHO obtained as above Recently stopped Atorvastatin and started Rosuvastatin Takes a baby ASA Cardiology consult pending ECHO results NIDDM2: Takes metformin and glipizide; hold while inpatient Takes Trulicity; hold while inpt Placed on ACHS SSI and monitor Last A1c 04/05/2024; 8.8 current 8.2% Alcohol abuse: Reports drinking 3-4 beers daily; takes daily Thiamine and Folic Acid AWSS scale in place Place on reduced gabapentin dosing due to 'not reportable' CrCl. Other medical conditions: RLS (takes Mirapex), and GERD. PCP: Dr. Rhoades Code Status: Full VTE Prophylaxis: Teds/SCD for now Admission and Anticipated Discharge Date Admission Date: July 23, 2024 Subjective Pt seen in follow up of hypoxia, COPD exacerb., diarrhea posit. for Norovirus, GILMER Currently sitting up in chair in NAD, on suppl. O2 + cough currently denies chest pain , says has occasional chest pain on and off, follows w/ [facility] denies fevers, abd. pain Review of Systems Review of Systems: All systems reviewed & are unremarkable except as noted in Subjective Physical Exam Physical Exam: GENERAL: Alert and oriented x3. NAD, on suppl. O2 HEENT: NC/AT. Pupils equal, round and reactive to light. Oral mucosa moist. NECK: supple HEART: RRR, No murmur NEURO: No accessory muscle use. decreased breath sounds, + rhonchi ABDOMEN: Soft, bowel sounds present, nontender, no distention. NEURO: No facial droop. Speech is clear. Obeys simple commands. Moves extremities. EXTREMITIES: No edema, no erythema seen. Results & Data Results & Data Vital Signs (Past 12 Hours) Vital Signs Temp Pulse Pulse Resp BP BP Pulse Ox 07/24/24 08:00 07/24/24 08:00 86 17 94 07/24/24 07:51 83 16 122/63 96 07/24/24 07:51 77 07/24/24 01:34 71 07/23/24 23:00 37 C 73 18 116/68 95 O2 Del Method O2 Flow Rate 07/24/24 08:00 Nasal Cannula 2 07/24/24 08:00 Nasal Cannula 5 07/24/24 07:51 Nasal Cannula 5 07/24/24 07:51 07/24/24 01:34 07/23/24 23:00 Nasal Cannula Laboratory Results 07/24/24 07/24/24 07/24/24 Range/Units 07:14 06:34 04:41 WBC 7.66 (4.8-10.8) K/ul RBC 4.42 L (4.70-6.10) M/uL Hgb 13.5 L D (14.0-18.0) g/dl Hct 41.6 L (42.0-52.0) % MCV 94.1 (80.0-100.0) fL MCH 30.5 (25.0-34.0) pg MCHC 32.5 (32.0-36.0) g/dL RDW Std Deviation 48.1 H (36.4-46.3) fL RDW Coeff of Brie 13.9 (11.5-14.5) % Plt Count 175 (130-400) K/uL MPV 11.1 (9.4-12.4) fL Sodium 135 L (136-145) mmol/L Potassium 4.8 (3.5-5.1) mmol/L Chloride 105 (98-107) mmol/L Carbon Dioxide 21 (21-32) mmol/L Anion Gap 9 (3-11) BUN 56 H (6-23) mg/dl Creatinine 1.63 H D (0.6-1.4) mg/dl Est Cr Clr Drug Dosing 49.6 ml/min eGFR 43.40 BUN/Creatinine Ratio 34.4 H (10-20) Glucose 173 H (70-99(Fasting)) mg/dl POC Glucose 168 H 141 H (70-99) mg/dl Estimat Average Glucose 189 mg/dl Hemoglobin A1c 8.2 H (4.5-5.6) % Calcium 8.2 L (8.6-10.3) mg/dl Magnesium 1.7 (1.7-2.4) mg/dl Triglycerides 50 (0-150) mg/dl Cholesterol 124 (0-200) mg/dl LDL Cholesterol, Calc 65 mg/dl VLDL Cholesterol, Calc 10 (0-30) mg/dl HDL Cholesterol 49 mg/dl Cholesterol/HDL Ratio 2.5 (0-5) Vitamin B12 (180-914) pg/ml Stl C. cayetanensis PCR (NotDetected) Stool Rotavirus A PCR (NotDetected) Stl Adenov F 40/41 PCR (NotDetected) Stool Astrovirus (PCR) (NotDetected) Stool Campylobacter PCR (NotDetected) Stl C. diff Tox B Gene (Neg) Stool Cryptosporidium PCR (NotDetected) Stl E.coli Shiga Tox PCR (NotDetected) Stl Enterotoxigenic E PCR (NotDetected) Stool EPEC (PCR) (NotDetected) Stool EAEC (PCR) (NotDetected) Stl E. histolytica PCR (NotDetected) Stool Giardia Lamblia PCR (NotDetected) Stool Salmonella PCR (NotDetected) Stool Sapovirus (PCR) (NotDetected) Stl P. shigelloides PCR (NotDetected) Stl Shigella/EIEC PCR (NotDetected) St Y.enterocolitica PCR (NotDetected) Stool Vibrio (PCR) (NotDetected) Stl Vibrio cholerae PCR (NotDetected) Stl Norovirus GI/GII PCR (NotDetected) 07/24/24 07/23/24 07/23/24 Range/Units 00:01 20:23 19:24 WBC (4.8-10.8) K/ul RBC (4.70-6.10) M/uL Hgb (14.0-18.0) g/dl Hct (42.0-52.0) % MCV (80.0-100.0) fL MCH (25.0-34.0) pg MCHC (32.0-36.0) g/dL RDW Std Deviation (36.4-46.3) fL RDW Coeff of Brie (11.5-14.5) % Plt Count (130-400) K/uL MPV (9.4-12.4) fL Sodium 134 L (136-145) mmol/L Potassium 4.8 (3.5-5.1) mmol/L Chloride 101 (98-107) mmol/L Carbon Dioxide 23 (21-32) mmol/L Anion Gap 10 (3-11) BUN 51 H (6-23) mg/dl Creatinine 2.01 H D (0.6-1.4) mg/dl Est Cr Clr Drug Dosing 40.2 ml/min eGFR 33.75 BUN/Creatinine Ratio 25.4 H (10-20) Glucose 307 H* (70-99(Fasting)) mg/dl POC Glucose 229 H 242 H (70-99) mg/dl Estimat Average Glucose mg/dl Hemoglobin A1c (4.5-5.6) % Calcium 8.3 L (8.6-10.3) mg/dl Magnesium (1.7-2.4) mg/dl Triglycerides (0-150) mg/dl Cholesterol (0-200) mg/dl LDL Cholesterol, Calc mg/dl VLDL Cholesterol, Calc (0-30) mg/dl HDL Cholesterol mg/dl Cholesterol/HDL Ratio (0-5) Vitamin B12 (180-914) pg/ml Stl C. cayetanensis PCR (NotDetected) Stool Rotavirus A PCR (NotDetected) Stl Adenov F 40/41 PCR (NotDetected) Stool Astrovirus (PCR) (NotDetected) Stool Campylobacter PCR (NotDetected) Stl C. diff Tox B Gene (Neg) Stool Cryptosporidium PCR (NotDetected) Stl E.coli Shiga Tox PCR (NotDetected) Stl Enterotoxigenic E PCR (NotDetected) Stool EPEC (PCR) (NotDetected) Stool EAEC (PCR) (NotDetected) Stl E. histolytica PCR (NotDetected) Stool Giardia Lamblia PCR (NotDetected) Stool Salmonella PCR (NotDetected) Stool Sapovirus (PCR) (NotDetected) Stl P. shigelloides PCR (NotDetected) Stl Shigella/EIEC PCR (NotDetected) St Y.enterocolitica PCR (NotDetected) Stool Vibrio (PCR) (NotDetected) Stl Vibrio cholerae PCR (NotDetected) Stl Norovirus GI/GII PCR (NotDetected) 07/23/24 07/23/24 07/23/24 Range/Units 17:52 11:51 06:27 WBC (4.8-10.8) K/ul RBC (4.70-6.10) M/uL Hgb (14.0-18.0) g/dl Hct (42.0-52.0) % MCV (80.0-100.0) fL MCH (25.0-34.0) pg MCHC (32.0-36.0) g/dL RDW Std Deviation (36.4-46.3) fL RDW Coeff of Brie (11.5-14.5) % Plt Count (130-400) K/uL MPV (9.4-12.4) fL Sodium (136-145) mmol/L Potassium (3.5-5.1) mmol/L Chloride (98-107) mmol/L Carbon Dioxide (21-32) mmol/L Anion Gap (3-11) BUN (6-23) mg/dl Creatinine (0.6-1.4) mg/dl Est Cr Clr Drug Dosing ml/min eGFR BUN/Creatinine Ratio (10-20) Glucose (70-99(Fasting)) mg/dl POC Glucose 264 H 243 H (70-99) mg/dl Estimat Average Glucose mg/dl Hemoglobin A1c (4.5-5.6) % Calcium (8.6-10.3) mg/dl Magnesium (1.7-2.4) mg/dl Triglycerides (0-150) mg/dl Cholesterol (0-200) mg/dl LDL Cholesterol, Calc mg/dl VLDL Cholesterol, Calc (0-30) mg/dl HDL Cholesterol mg/dl Cholesterol/HDL Ratio (0-5) Vitamin B12 604 (180-914) pg/ml Stl C. cayetanensis PCR (NotDetected) Stool Rotavirus A PCR (NotDetected) Stl Adenov F 40/41 PCR (NotDetected) Stool Astrovirus (PCR) (NotDetected) Stool Campylobacter PCR (NotDetected) Stl C. diff Tox B Gene (Neg) Stool Cryptosporidium PCR (NotDetected) Stl E.coli Shiga Tox PCR (NotDetected) Stl Enterotoxigenic E PCR (NotDetected) Stool EPEC (PCR) (NotDetected) Stool EAEC (PCR) (NotDetected) Stl E. histolytica PCR (NotDetected) Stool Giardia Lamblia PCR (NotDetected) Stool Salmonella PCR (NotDetected) Stool Sapovirus (PCR) (NotDetected) Stl P. shigelloides PCR (NotDetected) Stl Shigella/EIEC PCR (NotDetected) St Y.enterocolitica PCR (NotDetected) Stool Vibrio (PCR) (NotDetected) Stl Vibrio cholerae PCR (NotDetected) Stl Norovirus GI/GII PCR (NotDetected) 07/23/24 Range/Units 06:26 WBC (4.8-10.8) K/ul RBC (4.70-6.10) M/uL Hgb (14.0-18.0) g/dl Hct (42.0-52.0) % MCV (80.0-100.0) fL MCH (25.0-34.0) pg MCHC (32.0-36.0) g/dL RDW Std Deviation (36.4-46.3) fL RDW Coeff of Brie (11.5-14.5) % Plt Count (130-400) K/uL MPV (9.4-12.4) fL Sodium (136-145) mmol/L Potassium (3.5-5.1) mmol/L Chloride (98-107) mmol/L Carbon Dioxide (21-32) mmol/L Anion Gap (3-11) BUN (6-23) mg/dl Creatinine (0.6-1.4) mg/dl Est Cr Clr Drug Dosing ml/min eGFR BUN/Creatinine Ratio (10-20) Glucose (70-99(Fasting)) mg/dl POC Glucose (70-99) mg/dl Estimat Average Glucose mg/dl Hemoglobin A1c (4.5-5.6) % Calcium (8.6-10.3) mg/dl Magnesium (1.7-2.4) mg/dl Triglycerides (0-150) mg/dl Cholesterol (0-200) mg/dl LDL Cholesterol, Calc mg/dl VLDL Cholesterol, Calc (0-30) mg/dl HDL Cholesterol mg/dl Cholesterol/HDL Ratio (0-5) Vitamin B12 (180-914) pg/ml Stl C. cayetanensis PCR Not Detected (NotDetected) Stool Rotavirus A PCR Not Detected (NotDetected) Stl Adenov F 40/41 PCR Not Detected (NotDetected) Stool Astrovirus (PCR) Not Detected (NotDetected) Stool Campylobacter PCR Not Detected (NotDetected) Stl C. diff Tox B Gene Negative Cdiff Gene (Neg) Stool Cryptosporidium PCR Not Detected (NotDetected) Stl E.coli Shiga Tox PCR Not Detected (NotDetected) Stl Enterotoxigenic E PCR Not Detected (NotDetected) Stool EPEC (PCR) Not Detected (NotDetected) Stool EAEC (PCR) Not Detected (NotDetected) Stl E. histolytica PCR Not Detected (NotDetected) Stool Giardia Lamblia PCR Not Detected (NotDetected) Stool Salmonella PCR Not Detected (NotDetected) Stool Sapovirus (PCR) Not Detected (NotDetected) Stl P. shigelloides PCR Not Detected (NotDetected) Stl Shigella/EIEC PCR Not Detected (NotDetected) St Y.enterocolitica PCR Not Detected (NotDetected) Stool Vibrio (PCR) Not Detected (NotDetected) Stl Vibrio cholerae PCR Not Detected (NotDetected) Stl Norovirus GI/GII PCR DETECTED A* (NotDetected) Medications Administered Current Inpatient Medications Acetaminophen (Acetaminophen 325 Mg Tab) 650 mg PO Q4H PRN PRN Reason: Pain or Fever Stop: 08/22/24 10:57 Al Hydrox/Mg Hydrox/Simethicone (Aluminum/Magnesium Susp 30 Ml Udc) 15 ml PO Q4H PRN PRN Reason: Dyspepsia Stop: 08/22/24 10:57 Albuterol (Albut/Ipratrop 3mg/0.5mg Neb 3 Ml Vial) 3 ml NEB QIDR BARON; Protocol Stop: 08/22/24 10:59 Last Admin: 07/24/24 07:59 Dose: 3 ml Albuterol (Albuterol 0.083% Nebu Soln 3 Ml Vial) 2.5 mg NEB QIDR PRN; Protocol PRN Reason: Wheezing Stop: 08/22/24 10:59 Dextrose (Dextrose 50% 50 Ml Syringe) 25 - 50 ml IV UD PRN; Protocol PRN Reason: Hypoglycemia Protocol Stop: 08/22/24 10:45 Doxycycline Hyclate (Doxycycline Hyclate 100 Mg Cap) 100 mg PO Q12H [facility] Stop: 07/28/24 13:29 Last Admin: 07/24/24 03:02 Dose: 100 mg Gabapentin (Gabapentin 600 Mg Tab) 600 mg PO Q24H [facility] Stop: 07/24/24 23:31 Gabapentin (Gabapentin 400 Mg Cap) 400 mg PO Q24H [facility] Stop: 07/25/24 23:31 Gabapentin (Gabapentin 100 Mg Cap) 200 mg PO Q24H [facility] Stop: 07/26/24 23:31 Glucagon (Glucagon For Inj 1 Mg Vial) 1 mg SQ UD PRN; Protocol PRN Reason: Hypoglycemia Protocol Stop: 08/22/24 10:45 Glucose (Glucose 40% Gel 15 Gm Tube) 15 - 30 gm PO UD PRN; Protocol PRN Reason: Hypoglycemia Protocol Stop: 08/22/24 10:45 Glucose (Glucose 10 Tab/Tube) 4 - 8 tab PO UD PRN; Protocol PRN Reason: Hypoglycemia Protocol Stop: 08/22/24 10:45 Methylprednisolone 40 mg/ (Syringe) 0.64 mls @ 1.5 mls/min IV Q8H [facility] Stop: 08/22/24 13:59 Last Admin: 07/24/24 06:26 Dose: 1.5 mls/min Insulin Aspart (Insulin Aspart Per Unit Charge) 0 units SC ACHS [facility] Stop: 08/22/24 11:44 Last Admin: 07/24/24 08:45 Dose: 13 units Insulin Glargine (Lantus Per Unit Charge) 0 units SQ BID BARON; Protocol Stop: 08/23/24 08:59 Last Admin: 07/24/24 08:44 Dose: 15 units Lorazepam (Lorazepam 1 Mg Tab) 1 mg PO ONE PRN; Protocol PRN Reason: EtoH Withdrawal AWSS 6,7,8,9,10 Magnesium Hydroxide (Magnesium Hydroxide Susp 30 Ml Udc) 30 ml PO Q12H PRN PRN Reason: Constipation Stop: 08/22/24 10:57 Miscellaneous (Carbohydrates For Hypoglycemia ) 15 - 30 gm PO UD PRN PRN Reason: Hypoglycemia Protocol Stop: 08/22/24 10:45 Miscellaneous Information (Pharmacy Glycemic Mgmt Consult) 1 each N/A UD PRN PRN Reason: Consult Stop: 08/22/24 11:23 Montelukast Sodium (Montelukast Sodium 10 Mg Tablet) 10 mg PO DAILY [facility] Stop: 08/23/24 08:59 Last Admin: 07/24/24 08:34 Dose: 10 mg Ondansetron HCl (Ondansetron Inj 2 Mg/Ml 2 Ml Vial) 4 mg IV Q6H PRN PRN Reason: Nausea Stop: 08/22/24 10:57 Pantoprazole Sodium (Pantoprazole 40 Mg Tab) 40 mg PO DAILY [facility]ON Stop: 08/23/24 08:59 Last Admin: 07/24/24 08:35 Dose: 40 mg Polyethylene Glycol (Polyethylene (Miralax) 17 Gm Pack) 17 gm PO DAILY PRN PRN Reason: Constipation Stop: 08/22/24 10:57 Pramipexole Dihydrochloride (Pramipexole Dihydrochlo 0.5 Mg Tab) 1 mg PO DAILY [facility]ON Stop: 08/23/24 08:59 Last Admin: 07/24/24 08:34 Dose: 1 mg Rosuvastatin Calcium (Rosuvastatin Calcium 20 Mg Tab) 40 mg PO DAILY [facility] Stop: 08/22/24 12:14 Last Admin: 07/24/24 08:34 Dose: 40 mg
[2024-07-24] MEDS: OPTIRAY 320 125ml IV ONE (17:59)
--- NOTE | 2024-07-24 18:38 | CT Scan Report ---
CT pulmonary angiogram with IV contrast History: Chest pain COMPARISON: None TECHNIQUE: CT angiography of the chest was performed without IV contrast followed by IV contrast, including 3D post processing CTA image reconstruction. Dose reduction techniques were achieved by using automatic exposure control and/or adjustment of mA and/or kV according to patient size and/or use of iterative reconstruction technique. FINDINGS: Diagnostic quality: Adequate There is no evidence for pulmonary embolism. The heart is not enlarged. Moderate coronary calcification. There is no pericardial effusion. There are no abnormally enlarged hilar or mediastinal lymph nodes. The central tracheobronchial tree is clear. Tiny focus of atelectasis is seen at the periphery of the right upper lobe inferior portion. The lungs are clear. There is no pleural effusion. Limited visualized upper abdomen. No destructive osseous changes are seen. Chronic posterior right rib deformities. Bilateral shoulder arthroplasties. IMPRESSION: No evidence for pulmonary embolism. Electronically signed by Jason Meza 07-24-2024 6:38 PM
[2024-07-24] MEDS: ADVANCED PROBIOTIC 625 MG CAPSULE PO SCH (20:41)
[2024-07-24] MEDS: GABAPENTIN 600 MG TAB PO SCH (22:14)
[2024-07-25] MEDS: INSULIN HUMAN REGULAR PER UNIT 4 UNITS in SYRINGE 3.96 ML IV STA (05:38)
[2024-07-25 06:40] LABS: Hematocrit (blood only) 42.1 % (42.0-52.0); Hemoglobin 13.5 g/dl (14.0-18.0); Mean Corpuscular Hemoglobin 30.3 pg (25.0-34.0); Mean Corpuscular Hgb Conc 32.1 g/dL (32.0-36.0); Mean Corpuscular Volume 94.4 fL (80.0-100.0); Mean Platelet Volume 11.1 fL (9.4-12.4); Platelet Count 182 K/uL (130-400); RDW Coefficient of Variation 13.9 % (11.5-14.5); RDW Standard Deviation 48.4 fL (36.4-46.3); Red Blood Count 4.46 M/uL (4.70-6.10); White Blood Count 11.48 K/ul (4.8-10.8)
[2024-07-25 07:11] LABS: BUN Creatinine Ratio 31.7 (10-20); Calcium 8.6 mg/dl (8.6-10.3); Creatinine Clr Calc Pharmacy 64.2 ml/min; Magnesium 1.8 mg/dl (1.7-2.4); Phosphorus 2.8 mg/dl (2.5-4.9); Potassium 4.8 mmol/L (3.5-5.1)
--- NOTE | 2024-07-25 07:14 | Hospitalist Progress Note ---
Date of Service July 25, 2024 Assessment & Plan (1) COPD with exacerbation: (2) CAD (coronary artery disease): (3) Valvular heart disease: (4) Diabetes mellitus: (5) GERA (obstructive sleep apnea): (6) RLS (restless legs syndrome): (7) GERD (gastroesophageal reflux disease): (8) GILMER (acute kidney injury): Plan 74 M that presents w/SOB at rest and with exercise and orthopnea and diarrhea that has been occurring for the past 48 hours. he reports that over the last few months he has been more sedentary and has been having more falls that appear to be mechanical with his last one being 3 to 4 months ago. He is a daily drinker of 3-4 beers per day at the [facility]. He does take thiamine p.o. daily. His last echo was in 2017 and he recently saw cardiology on June [address] Wilson and he was scheduled to have an echocardiogram and Britney scan on July 25. Found positive for Norovirus No leukocytosis, VBG compensated without hypercapnia. CXR without pleural effusion but notes some congestion around his heart. ECG reveals sinus tachycardia without prolonged QTc. Elevated creatinine 1.55; baseline 1.1-1.2. No transaminitis, BNP negative. Troponin negative. Bio fire negative. COPD exacerbation: Tobacco Use: H/O Recurrent PNA: No leukocytosis, VBG without hypercapnia. BNP neg. BF neg. Reportedly has had RSV and PNA vaccinations. Chest CTA - no PE , no pl. effusion, no pna Received Solumedrol IV in ED; continue Q12 Received nebs x2 in ED; continue QID + Q2PRN; expiratory wheezes on exam ECHO obtained - LVEF 65-70%, LV syst. function normal, No regional wall motion abnormalities noted. Moderate valvular aortic stenosis. Not compliant with CPAP Is prescribed Trelegy; states he does not take this. Quit smoking 17 years ago; reports smoking 10 cigarettes over past few months. No more cigar use. Sputum cx ordered Consider Pulmonary consult for further insight if no improvement GILMER: serum creatinine 1.55; baseline 1.1-1.2 Likely secondary to dehydration. renal US to r/o obstruction - 1. No hydronephrosis. 2. Mild bladder wall thickening, likely chronic. Trend BMP and avoid nephrotoxic agents as able Cr improved w/ IVF, 1.6 -> 1.3 monitor renal function, BMP tmrw AM Diarrhea, + Norovirus denies hematochezia - cont. supportive care CAD: HLD: Valvular heart disease: ECG ST without prolonged QTc ECHO obtained as above Recently stopped Atorvastatin and started Rosuvastatin Takes a baby ASA Had cardiology outpt appointment - will notify them pt is admitted Cardiology consult pending ECHO results NIDDM2: Takes metformin and glipizide; hold while inpatient Takes Trulicity; hold while inpt Placed on ACHS SSI and monitor Last A1c 04/05/2024; 8.8 current 8.2% Alcohol abuse: Reports drinking 3-4 beers daily; takes daily Thiamine and Folic Acid AWSS scale in place Place on reduced gabapentin dosing due to 'not reportable' CrCl. Other medical conditions: RLS (takes Mirapex), and GERD. PCP: Dr. Rhoades Code Status: Full VTE Prophylaxis: heparin subq Admission and Anticipated Discharge Date Admission Date: July 23, 2024 Subjective Pt seen in follow up of hypoxia, COPD exacerb., diarrhea posit. for Norovirus, GILMER Currently sitting up in chair in NAD, on suppl. O2, eating lunch, reports good appetite + cough currently denies chest pain , says has occasional chest pain on and off at home but not at this time, follows w/ [facility] denies fevers, abd. pain Review of Systems Review of Systems: All systems reviewed & are unremarkable except as noted in Subjective Physical Exam Physical Exam: GENERAL: Alert and oriented x3. NAD, on suppl. O2 HEENT: NC/AT. Pupils equal, round and reactive to light. Oral mucosa moist. NECK: supple HEART: RRR, No murmur NEURO: No accessory muscle use. decreased breath sounds, + rhonchi ABDOMEN: Soft, bowel sounds present, nontender, no distention. NEURO: No facial droop. Speech is clear. Obeys simple commands. Moves extremities. EXTREMITIES: No edema, no erythema seen. Results & Data Results & Data Vital Signs (Past 12 Hours) Vital Signs Temp Pulse Pulse Resp BP Pulse Ox O2 Del Method 07/25/24 02:49 36.6 C 72 18 118/68 95 Room Air 07/24/24 23:47 85 07/24/24 22:44 36.8 C 79 18 123/65 92 Nasal Cannula 07/24/24 20:15 67 20 95 Nasal Cannula 07/24/24 20:00 Nasal Cannula 07/24/24 19:19 36.3 C L 76 20 110/62 95 Nasal Cannula O2 Flow Rate 07/25/24 02:49 07/24/24 23:47 07/24/24 22:44 07/24/24 20:15 4 07/24/24 20:00 2 07/24/24 19:19 5 Laboratory Results 07/25/24 07/25/24 07/24/24 Range/Units 06:08 04:26 20:19 WBC 11.48 H (4.8-10.8) K/ul RBC 4.46 L (4.70-6.10) M/uL Hgb 13.5 L (14.0-18.0) g/dl Hct 42.1 (42.0-52.0) % MCV 94.4 (80.0-100.0) fL MCH 30.3 (25.0-34.0) pg MCHC 32.1 (32.0-36.0) g/dL RDW Std Deviation 48.4 H (36.4-46.3) fL RDW Coeff of Brie 13.9 (11.5-14.5) % Plt Count 182 (130-400) K/uL MPV 11.1 (9.4-12.4) fL Sodium 135 L (136-145) mmol/L Potassium 4.8 (3.5-5.1) mmol/L Chloride 103 (98-107) mmol/L Carbon Dioxide 24 (21-32) mmol/L Anion Gap 8 (3-11) BUN 40 H (6-23) mg/dl Creatinine 1.26 D (0.6-1.4) mg/dl Est Cr Clr Drug Dosing 64.2 ml/min eGFR 59.11 BUN/Creatinine Ratio 31.7 H (10-20) Glucose 278 H (70-99(Fasting)) mg/dl POC Glucose 329 H* 91 (70-99) mg/dl Estimat Average Glucose mg/dl Hemoglobin A1c (4.5-5.6) % Calcium 8.6 (8.6-10.3) mg/dl Phosphorus 2.8 (2.5-4.9) mg/dl Magnesium 1.8 (1.7-2.4) mg/dl Triglycerides (0-150) mg/dl Cholesterol (0-200) mg/dl LDL Cholesterol, Calc mg/dl VLDL Cholesterol, Calc (0-30) mg/dl HDL Cholesterol mg/dl Cholesterol/HDL Ratio (0-5) 07/24/24 07/24/24 07/24/24 Range/Units 16:07 11:12 07:14 WBC (4.8-10.8) K/ul RBC (4.70-6.10) M/uL Hgb (14.0-18.0) g/dl Hct (42.0-52.0) % MCV (80.0-100.0) fL MCH (25.0-34.0) pg MCHC (32.0-36.0) g/dL RDW Std Deviation (36.4-46.3) fL RDW Coeff of Brie (11.5-14.5) % Plt Count (130-400) K/uL MPV (9.4-12.4) fL Sodium (136-145) mmol/L Potassium (3.5-5.1) mmol/L Chloride (98-107) mmol/L Carbon Dioxide (21-32) mmol/L Anion Gap (3-11) BUN (6-23) mg/dl Creatinine (0.6-1.4) mg/dl Est Cr Clr Drug Dosing ml/min eGFR BUN/Creatinine Ratio (10-20) Glucose (70-99(Fasting)) mg/dl POC Glucose 121 H 286 H 168 H (70-99) mg/dl Estimat Average Glucose mg/dl Hemoglobin A1c (4.5-5.6) % Calcium (8.6-10.3) mg/dl Phosphorus (2.5-4.9) mg/dl Magnesium (1.7-2.4) mg/dl Triglycerides (0-150) mg/dl Cholesterol (0-200) mg/dl LDL Cholesterol, Calc mg/dl VLDL Cholesterol, Calc (0-30) mg/dl HDL Cholesterol mg/dl Cholesterol/HDL Ratio (0-5) 07/24/24 Range/Units 06:34 WBC (4.8-10.8) K/ul RBC (4.70-6.10) M/uL Hgb (14.0-18.0) g/dl Hct (42.0-52.0) % MCV (80.0-100.0) fL MCH (25.0-34.0) pg MCHC (32.0-36.0) g/dL RDW Std Deviation (36.4-46.3) fL RDW Coeff of Brie (11.5-14.5) % Plt Count (130-400) K/uL MPV (9.4-12.4) fL Sodium 135 L (136-145) mmol/L Potassium 4.8 (3.5-5.1) mmol/L Chloride 105 (98-107) mmol/L Carbon Dioxide 21 (21-32) mmol/L Anion Gap 9 (3-11) BUN 56 H (6-23) mg/dl Creatinine 1.63 H D (0.6-1.4) mg/dl Est Cr Clr Drug Dosing 49.6 ml/min eGFR 43.40 BUN/Creatinine Ratio 34.4 H (10-20) Glucose 173 H (70-99(Fasting)) mg/dl POC Glucose (70-99) mg/dl Estimat Average Glucose 189 mg/dl Hemoglobin A1c 8.2 H (4.5-5.6) % Calcium 8.2 L (8.6-10.3) mg/dl Phosphorus (2.5-4.9) mg/dl Magnesium 1.7 (1.7-2.4) mg/dl Triglycerides 50 (0-150) mg/dl Cholesterol 124 (0-200) mg/dl LDL Cholesterol, Calc 65 mg/dl VLDL Cholesterol, Calc 10 (0-30) mg/dl HDL Cholesterol 49 mg/dl Cholesterol/HDL Ratio 2.5 (0-5) Medications Administered Current Inpatient Medications Acetaminophen (Acetaminophen 325 Mg Tab) 650 mg PO Q4H PRN PRN Reason: Pain or Fever Stop: 08/22/24 10:57 Al Hydrox/Mg Hydrox/Simethicone (Aluminum/Magnesium Susp 30 Ml Udc) 15 ml PO Q4H PRN PRN Reason: Dyspepsia Stop: 08/22/24 10:57 Albuterol (Albut/Ipratrop 3mg/0.5mg Neb 3 Ml Vial) 3 ml NEB QIDR BARON; Protocol Stop: 08/22/24 10:59 Last Admin: 07/24/24 20:13 Dose: 3 ml Albuterol (Albuterol 0.083% Nebu Soln 3 Ml Vial) 2.5 mg NEB QIDR PRN; Protocol PRN Reason: Wheezing Stop: 08/22/24 10:59 Dextrose (Dextrose 50% 50 Ml Syringe) 25 - 50 ml IV UD PRN; Protocol PRN Reason: Hypoglycemia Protocol Stop: 08/22/24 10:45 Doxycycline Hyclate (Doxycycline Hyclate 100 Mg Cap) 100 mg PO Q12H [facility]ON Stop: 07/28/24 13:29 Last Admin: 07/25/24 02:30 Dose: 100 mg Gabapentin (Gabapentin 400 Mg Cap) 400 mg PO Q24H [facility] Stop: 07/25/24 23:31 Gabapentin (Gabapentin 100 Mg Cap) 200 mg PO Q24H [facility] Stop: 07/26/24 23:31 Glucagon (Glucagon For Inj 1 Mg Vial) 1 mg SQ UD PRN; Protocol PRN Reason: Hypoglycemia Protocol Stop: 08/22/24 10:45 Glucose (Glucose 40% Gel 15 Gm Tube) 15 - 30 gm PO UD PRN; Protocol PRN Reason: Hypoglycemia Protocol Stop: 08/22/24 10:45 Glucose (Glucose 10 Tab/Tube) 4 - 8 tab PO UD PRN; Protocol PRN Reason: Hypoglycemia Protocol Stop: 08/22/24 10:45 Methylprednisolone 40 mg/ (Syringe) 0.64 mls @ 1.5 mls/min IV Q8H [facility] Stop: 08/22/24 13:59 Last Admin: 07/25/24 05:38 Dose: 1.5 mls/min Insulin Aspart (Insulin Aspart Per Unit Charge) 0 units SC ACHS [facility] Stop: 08/22/24 11:44 Last Admin: 07/24/24 20:32 Dose: 6 units Insulin Glargine (Lantus Per Unit Charge) 0 units SQ BID BARON; Protocol Stop: 08/23/24 08:59 Last Admin: 07/24/24 20:33 Dose: 10 units Lactobacillus Acidophilus (Advanced Probiotic 625 Mg Capsule) 1,250 mg PO DAILY [facility] Stop: 08/23/24 17:14 Last Admin: 07/24/24 20:41 Dose: 1,250 mg Lorazepam (Lorazepam 1 Mg Tab) 1 mg PO ONE PRN; Protocol PRN Reason: EtoH Withdrawal AWSS 6,7,8,9,10 Magnesium Hydroxide (Magnesium Hydroxide Susp 30 Ml Udc) 30 ml PO Q12H PRN PRN Reason: Constipation Stop: 08/22/24 10:57 Miscellaneous (Carbohydrates For Hypoglycemia ) 15 - 30 gm PO UD PRN PRN Reason: Hypoglycemia Protocol Stop: 08/22/24 10:45 Miscellaneous Information (Pharmacy Glycemic Mgmt Consult) 1 each N/A UD PRN PRN Reason: Consult Stop: 08/22/24 11:23 Montelukast Sodium (Montelukast Sodium 10 Mg Tablet) 10 mg PO DAILY [facility] Stop: 08/23/24 08:59 Last Admin: 07/24/24 08:34 Dose: 10 mg Ondansetron HCl (Ondansetron Inj 2 Mg/Ml 2 Ml Vial) 4 mg IV Q6H PRN PRN Reason: Nausea Stop: 08/22/24 10:57 Pantoprazole Sodium (Pantoprazole 40 Mg Tab) 40 mg PO DAILY [facility] Stop: 08/23/24 08:59 Last Admin: 07/24/24 08:35 Dose: 40 mg Polyethylene Glycol (Polyethylene (Miralax) 17 Gm Pack) 17 gm PO DAILY PRN PRN Reason: Constipation Stop: 08/22/24 10:57 Pramipexole Dihydrochloride (Pramipexole Dihydrochlo 0.5 Mg Tab) 1 mg PO DAILY [facility] Stop: 08/23/24 08:59 Last Admin: 07/24/24 08:34 Dose: 1 mg Rosuvastatin Calcium (Rosuvastatin Calcium 20 Mg Tab) 40 mg PO DAILY [facility] Stop: 08/22/24 12:14 Last Admin: 07/24/24 08:34 Dose: 40 mg
[2024-07-25] MEDS: LANTUS PER UNIT CHARGE SQ SCH (08:18)
--- NOTE | 2024-07-25 11:27 | Pharmacy Report ---
Pharmacy Glycemic Short Note 2 - Date of Service July 25, 2024 - Glycemic Short BSG Results (Last 24 hours): 07/24/24 07/24/24 07/25/24 16:07 20:19 04:26 Glucose POC Glucose 121 H 91 329 H* 07/25/24 07/25/24 07/25/24 06:08 07:23 10:59 Glucose 278 H POC Glucose 193 H 122 H OUTPATIENT ANTIDIABETIC REGIMEN: * Trulicity 0.75 mg SC every Monday * Glipizide 10 mg PO BID * Metformin XR 1000 mg PO BID HbA1c: * 8.2% (07/24/24) ASSESSMENT: 07/25: * BSGs 020-01-792-193mg/dL the last 24h. Fasting this AM 193mg/dl. Received 25 units of basal and 55 units of bolus insulin yesterday. * Continues on methylpred 40mg IV q8h and PO doxy. Tolerating diet. * Continue lantus 20 units qAM. Increase HS scale to 15/20 units depending on BSG. Novolog tightened to 15/4. 07/23: * 74 yo M admitted on 07/23/24 secondary to shortness of breath. Pharmacy has been consulted to assist with inpatient glycemic management. Patient is a Type 2 diabetic as an outpatient. Please refer to outpatient regimen and most recent HbA1c above. * Patient received 125 mg of IV SoluMedrol in the ED and will be continued on 40 mg IV every 8 hours starting this afternoon. T2DM diet ordered, unsure if patient tolerating at this time, will follow. Currently on Doxycycline PO only. * BSG at lunchtime was 243 mg/dL indicating steroid-induced hyperglycemia. During a previous admission, patient's BSGs were uncontrolled on 25 units of basal once daily. Will start with 25 units of basal BID for now which is weight/stress of 3. Also starting Novolog based on weight/stress of 3. PLAN FOR INPATIENT GLYCEMIC CONTROL: * Hold outpatient oral diabetes medications * Basal insulin * Lantus 20 units SQ qAM + HS scale (15/20 units) depending on BSG * Bolus insulin * NovoLog per scale ACHS or Q6hrs while NPO * Goal Range: Low 110 mg/dL - High 140 mg/dL * Correction Factor: 15 mg/dL/unit * Nutritional / Prandial insulin per carb ratio of 1 unit per 4 grams CHO consumed
[2024-07-25] MEDS: HEPARIN SOD 5,000 UNIT/0.5 ML VIAL SQ SCH (21:35)
[2024-07-25] MEDS: LANTUS PER UNIT CHARGE SC SCH (21:36)
[2024-07-26] MEDS: GABAPENTIN 400 MG CAP PO SCH (00:30)
[2024-07-26 06:12] LABS: Hematocrit (blood only) 43.9 % (42.0-52.0); Hemoglobin 14.2 g/dl (14.0-18.0); Mean Corpuscular Hemoglobin 30.5 pg (25.0-34.0); Mean Corpuscular Hgb Conc 32.3 g/dL (32.0-36.0); Mean Corpuscular Volume 94.4 fL (80.0-100.0); Mean Platelet Volume 11.1 fL (9.4-12.4); Platelet Count 199 K/uL (130-400); RDW Coefficient of Variation 14.1 % (11.5-14.5); RDW Standard Deviation 48.9 fL (36.4-46.3); Red Blood Count 4.65 M/uL (4.70-6.10); White Blood Count 10.05 K/ul (4.8-10.8)
[2024-07-26 06:30] LABS: Calcium 8.8 mg/dl (8.6-10.3); Magnesium 1.9 mg/dl (1.7-2.4); Potassium 5.3 mmol/L (3.5-5.1)
[2024-07-26 06:36] LABS: BUN Creatinine Ratio 31.2 (10-20); Creatinine Clr Calc Pharmacy 61.3 ml/min; Phosphorus 2.4 mg/dl (2.5-4.9)
[2024-07-26] MEDS: LANTUS PER UNIT CHARGE SQ SCH ×2 (07:46→20:49)
--- NOTE | 2024-07-26 08:27 | Hospitalist Progress Note ---
Date of Service July 26, 2024 Assessment & Plan (1) COPD with exacerbation: (2) CAD (coronary artery disease): (3) Valvular heart disease: (4) Diabetes mellitus: (5) GERA (obstructive sleep apnea): (6) RLS (restless legs syndrome): (7) GERD (gastroesophageal reflux disease): (8) GILMER (acute kidney injury): Plan 74 M that presents w/SOB at rest and with exercise and orthopnea and diarrhea that has been occurring for the past 48 hours. he reports that over the last few months he has been more sedentary and has been having more falls that appear to be mechanical with his last one being 3 to 4 months ago. He is a daily drinker of 3-4 beers per day at the [facility]. He does take thiamine p.o. daily. His last echo was in 2017 and he recently saw cardiology on June [address] Wilson and he was scheduled to have an echocardiogram and Britney scan on July 25. Found positive for Norovirus No leukocytosis, VBG compensated without hypercapnia. CXR without pleural effusion but notes some congestion around his heart. ECG reveals sinus tachycardia without prolonged QTc. Elevated creatinine 1.55; baseline 1.1-1.2. No transaminitis, BNP negative. Troponin negative. Bio fire negative. COPD exacerbation: Tobacco Use: H/O Recurrent PNA: No leukocytosis, VBG without hypercapnia. BNP neg. BF neg. Reportedly has had RSV and PNA vaccinations. Chest CTA - no PE , no pl. effusion, no pna Received Solumedrol IV in ED; continued -> transition to PO tmrw Received nebs x2 in ED; continue QID + Q2PRN; expiratory wheezes on exam ECHO obtained - LVEF 65-70%, LV syst. function normal, No regional wall motion abnormalities noted. Moderate valvular aortic stenosis. Not compliant with CPAP Is prescribed Trelegy; states he does not take this. Quit smoking 17 years ago; reports smoking 10 cigarettes over past few months. No more cigar use. Sputum cx ordered but not collected Pt improving, oxygen requirement improved GILMER: serum creatinine 1.55; baseline 1.1-1.2 Likely secondary to dehydration. renal US to r/o obstruction - 1. No hydronephrosis. 2. Mild bladder wall thickening, likely chronic. Trend BMP and avoid nephrotoxic agents as able Cr improved w/ IVF, 1.6 -> 1.3 monitor renal function, BMP tmrw AM Diarrhea, + Norovirus denies hematochezia - cont. supportive care CAD: HLD: Valvular heart disease: ECG ST without prolonged QTc ECHO obtained as above Recently stopped Atorvastatin and started Rosuvastatin Takes a baby ASA NIDDM2: Takes metformin and glipizide; hold while inpatient Takes Trulicity; hold while inpt Placed on ACHS SSI and monitor Last A1c 04/05/2024; 8.8 current 8.2% Alcohol abuse: Reports drinking 3-4 beers daily; takes daily Thiamine and Folic Acid AWSS scale in place Place on reduced gabapentin dosing due to 'not reportable' CrCl. Other medical conditions: RLS (takes Mirapex), and GERD. PCP: Dr. Rhoades Code Status: Full VTE Prophylaxis: heparin subq Admission and Anticipated Discharge Date Admission Date: July 23, 2024 Subjective Pt seen in follow up of hypoxia, COPD exacerb., diarrhea posit. for Norovirus, GILMER Currently sitting up in bed in NAD + cough improved, oxygen requirement improved denies fevers, chills, chest pain, abd. pain Review of Systems Review of Systems: All systems reviewed & are unremarkable except as noted in Subjective Physical Exam Physical Exam: GENERAL: Alert and oriented x3. NAD HEENT: NC/AT. Pupils equal, round and reactive to light. Oral mucosa moist. NECK: supple HEART: RRR, No murmur NEURO: No accessory muscle use. decreased breath sounds, + rhonchi ABDOMEN: Soft, bowel sounds present, nontender, no distention. NEURO: No facial droop. Speech is clear. Obeys simple commands. Moves extremities. EXTREMITIES: No edema, no erythema seen. Results & Data Results & Data Vital Signs (Past 12 Hours) Vital Signs Temp Pulse Pulse Resp BP BP Pulse Ox 07/26/24 08:23 36.7 C 79 18 166/75 H 90 07/26/24 08:00 76 18 92 07/26/24 05:42 83 07/26/24 03:10 36.7 C 82 22 162/86 H 93 07/25/24 23:44 85 07/25/24 23:23 36.3 C L 74 20 134/74 95 O2 Del Method O2 Flow Rate 07/26/24 08:23 Room Air 07/26/24 08:00 Room Air 07/26/24 05:42 07/26/24 03:10 Nasal Cannula 2 07/25/24 23:44 07/25/24 23:23 Nasal Cannula 2 Laboratory Results 07/26/24 07/26/24 07/25/24 Range/Units 07:23 05:41 20:41 WBC 10.05 (4.8-10.8) K/ul RBC 4.65 L (4.70-6.10) M/uL Hgb 14.2 (14.0-18.0) g/dl Hct 43.9 (42.0-52.0) % MCV 94.4 (80.0-100.0) fL MCH 30.5 (25.0-34.0) pg MCHC 32.3 (32.0-36.0) g/dL RDW Std Deviation 48.9 H (36.4-46.3) fL RDW Coeff of Brie 14.1 (11.5-14.5) % Plt Count 199 (130-400) K/uL MPV 11.1 (9.4-12.4) fL Sodium 134 L (136-145) mmol/L Potassium 5.3 H (3.5-5.1) mmol/L Chloride 101 (98-107) mmol/L Carbon Dioxide 27 (21-32) mmol/L Anion Gap 6 (3-11) BUN 39 H (6-23) mg/dl Creatinine 1.25 (0.6-1.4) mg/dl Est Cr Clr Drug Dosing 61.3 ml/min eGFR 59.68 BUN/Creatinine Ratio 31.2 H (10-20) Glucose 287 H (70-99(Fasting)) mg/dl POC Glucose 215 H 151 H (70-99) mg/dl Calcium 8.8 (8.6-10.3) mg/dl Phosphorus 2.4 L (2.5-4.9) mg/dl Magnesium 1.9 (1.7-2.4) mg/dl 07/25/24 07/25/24 Range/Units 16:05 10:59 WBC (4.8-10.8) K/ul RBC (4.70-6.10) M/uL Hgb (14.0-18.0) g/dl Hct (42.0-52.0) % MCV (80.0-100.0) fL MCH (25.0-34.0) pg MCHC (32.0-36.0) g/dL RDW Std Deviation (36.4-46.3) fL RDW Coeff of Brie (11.5-14.5) % Plt Count (130-400) K/uL MPV (9.4-12.4) fL Sodium (136-145) mmol/L Potassium (3.5-5.1) mmol/L Chloride (98-107) mmol/L Carbon Dioxide (21-32) mmol/L Anion Gap (3-11) BUN (6-23) mg/dl Creatinine (0.6-1.4) mg/dl Est Cr Clr Drug Dosing ml/min eGFR BUN/Creatinine Ratio (10-20) Glucose (70-99(Fasting)) mg/dl POC Glucose 108 H 122 H (70-99) mg/dl Calcium (8.6-10.3) mg/dl Phosphorus (2.5-4.9) mg/dl Magnesium (1.7-2.4) mg/dl Medications Administered Current Inpatient Medications Acetaminophen (Acetaminophen 325 Mg Tab) 650 mg PO Q4H PRN PRN Reason: Pain or Fever Stop: 08/22/24 10:57 Al Hydrox/Mg Hydrox/Simethicone (Aluminum/Magnesium Susp 30 Ml Udc) 15 ml PO Q4H PRN PRN Reason: Dyspepsia Stop: 08/22/24 10:57 Albuterol (Albut/Ipratrop 3mg/0.5mg Neb 3 Ml Vial) 3 ml NEB QIDR BARON; Protocol Stop: 08/22/24 10:59 Last Admin: 07/26/24 08:00 Dose: 3 ml Albuterol (Albuterol 0.083% Nebu Soln 3 Ml Vial) 2.5 mg NEB QIDR PRN; Protocol PRN Reason: Wheezing Stop: 08/22/24 10:59 Dextrose (Dextrose 50% 50 Ml Syringe) 25 - 50 ml IV UD PRN; Protocol PRN Reason: Hypoglycemia Protocol Stop: 08/22/24 10:45 Doxycycline Hyclate (Doxycycline Hyclate 100 Mg Cap) 100 mg PO Q12H [facility] Stop: 07/28/24 13:29 Last Admin: 07/26/24 01:56 Dose: 100 mg Gabapentin (Gabapentin 100 Mg Cap) 200 mg PO Q24H [facility] Stop: 07/26/24 23:31 Glucagon (Glucagon For Inj 1 Mg Vial) 1 mg SQ UD PRN; Protocol PRN Reason: Hypoglycemia Protocol Stop: 08/22/24 10:45 Glucose (Glucose 40% Gel 15 Gm Tube) 15 - 30 gm PO UD PRN; Protocol PRN Reason: Hypoglycemia Protocol Stop: 08/22/24 10:45 Glucose (Glucose 10 Tab/Tube) 4 - 8 tab PO UD PRN; Protocol PRN Reason: Hypoglycemia Protocol Stop: 08/22/24 10:45 Heparin Sodium (Porcine) (Heparin Sod 5,000 Unit/0.5 Ml Vial) 5,000 units SQ Q12 [facility] Stop: 08/24/24 20:59 Last Admin: 07/25/24 21:35 Dose: 5,000 units Methylprednisolone 40 mg/ (Syringe) 0.64 mls @ 1.5 mls/min IV Q8H [facility] Stop: 08/22/24 13:59 Last Admin: 07/26/24 06:03 Dose: 1.5 mls/min Insulin Aspart (Insulin Aspart Per Unit Charge) 0 units SC ACHS [facility] Stop: 08/22/24 11:44 Last Admin: 07/26/24 07:45 Dose: 20 units Insulin Glargine (Lantus Per Unit Charge) 20 units SQ QAM [facility] Stop: 08/24/24 08:59 Last Admin: 07/26/24 07:46 Dose: 20 units Insulin Glargine (Lantus Per Unit Charge) 0 units SC HS [facility]ON; Protocol Stop: 08/24/24 20:59 Last Admin: 07/25/24 21:36 Dose: 15 units Lactobacillus Acidophilus (Advanced Probiotic 625 Mg Capsule) 1,250 mg PO DAILY [facility] Stop: 08/23/24 17:14 Last Admin: 07/25/24 08:19 Dose: 1,250 mg Lorazepam (Lorazepam 1 Mg Tab) 1 mg PO ONE PRN; Protocol PRN Reason: EtoH Withdrawal AWSS 6,7,8,9,10 Magnesium Hydroxide (Magnesium Hydroxide Susp 30 Ml Udc) 30 ml PO Q12H PRN PRN Reason: Constipation Stop: 08/22/24 10:57 Miscellaneous (Carbohydrates For Hypoglycemia ) 15 - 30 gm PO UD PRN PRN Reason: Hypoglycemia Protocol Stop: 08/22/24 10:45 Miscellaneous Information (Pharmacy Glycemic Mgmt Consult) 1 each N/A UD PRN PRN Reason: Consult Stop: 08/22/24 11:23 Montelukast Sodium (Montelukast Sodium 10 Mg Tablet) 10 mg PO DAILY [facility] Stop: 08/23/24 08:59 Last Admin: 07/25/24 08:19 Dose: 10 mg Ondansetron HCl (Ondansetron Inj 2 Mg/Ml 2 Ml Vial) 4 mg IV Q6H PRN PRN Reason: Nausea Stop: 08/22/24 10:57 Pantoprazole Sodium (Pantoprazole 40 Mg Tab) 40 mg PO DAILY [facility] Stop: 08/23/24 08:59 Last Admin: 07/25/24 08:19 Dose: 40 mg Polyethylene Glycol (Polyethylene (Miralax) 17 Gm Pack) 17 gm PO DAILY PRN PRN Reason: Constipation Stop: 08/22/24 10:57 Pramipexole Dihydrochloride (Pramipexole Dihydrochlo 0.5 Mg Tab) 1 mg PO DAILY [facility] Stop: 08/23/24 08:59 Last Admin: 07/25/24 08:20 Dose: 1 mg Rosuvastatin Calcium (Rosuvastatin Calcium 20 Mg Tab) 40 mg PO DAILY [facility] Stop: 08/22/24 12:14 Last Admin: 07/25/24 08:20 Dose: 40 mg
--- NOTE | 2024-07-26 11:26 | Pharmacy Report ---
Pharmacy Glycemic Short Note 2 - Date of Service July 26, 2024 - Glycemic Short BSG Results (Last 24 hours): 07/25/24 07/25/24 07/26/24 16:05 20:41 05:41 Glucose 287 H POC Glucose 108 H 151 H 07/26/24 07/26/24 07:23 11:03 Glucose POC Glucose 215 H 152 H OUTPATIENT ANTIDIABETIC REGIMEN: * Trulicity 0.75 mg SC every Monday * Glipizide 10 mg PO BID * Metformin XR 1000 mg PO BID HbA1c: * 8.2% (07/24/24) ASSESSMENT: 07/26: * BSGs 260-102-001aa/dl the last 24h. Received 35 units of basal and 46 units of bolus insulin yesterday. * Methylprednisolone 40mg IV q8h continues, tolerating diet. * Basal increased to 40 units starting today given elevated fasting. No change to Novolog parameters. 07/25: * BSGs 325-51-970-193mg/dL the last 24h. Fasting this AM 193mg/dl. Received 25 units of basal and 55 units of bolus insulin yesterday. * Continues on methylpred 40mg IV q8h and PO doxy. Tolerating diet. * Continue lantus 20 units qAM. Increase HS scale to 15/20 units depending on BSG. Novolog tightened to 15/4. 07/23: * 74 yo M admitted on 07/23/24 secondary to shortness of breath. Pharmacy has been consulted to assist with inpatient glycemic management. Patient is a Type 2 diabetic as an outpatient. Please refer to outpatient regimen and most recent HbA1c above. * Patient received 125 mg of IV SoluMedrol in the ED and will be continued on 40 mg IV every 8 hours starting this afternoon. T2DM diet ordered, unsure if patient tolerating at this time, will follow. Currently on Doxycycline PO only. * BSG at lunchtime was 243 mg/dL indicating steroid-induced hyperglycemia. During a previous admission, patient's BSGs were uncontrolled on 25 units of basal once daily. Will start with 25 units of basal BID for now which is weight/stress of 3. Also starting Novolog based on weight/stress of 3. PLAN FOR INPATIENT GLYCEMIC CONTROL: * Hold outpatient oral diabetes medications * Basal insulin * Lantus 20 units SQ BID * Bolus insulin * NovoLog per scale ACHS or Q6hrs while NPO * Goal Range: Low 110 mg/dL - High 140 mg/dL * Correction Factor: 15 mg/dL/unit * Nutritional / Prandial insulin per carb ratio of 1 unit per 4 grams CHO consumed
[2024-07-26] MEDS ORDERED: LANTUS PER UNIT CHARGE SQ SCH (21:00)
[2024-07-27] MEDS: ACETAMINOPHEN 325 MG TAB PO PRN (00:09)
[2024-07-27] MEDS: GABAPENTIN 100 MG CAP PO SCH (00:10)
[2024-07-27] MEDS: PRAMIPEXOLE DIHYDROCHLO 0.5 MG TAB PO SCH (00:10)
[2024-07-27] MEDS: LABETALOL HCL IV 5 MG/ML 20ML IV PRN (03:00)
[2024-07-27 07:34] VITALS: RESP 14; O2SAT 93
[2024-07-27 07:49] VITALS: BP 163/92; PULSE 69; TEMP 98.2
[2024-07-27 08:01] LABS: Hematocrit (blood only) 43.8 % (42.0-52.0); Hemoglobin 14.1 g/dl (14.0-18.0); Mean Corpuscular Hemoglobin 29.8 pg (25.0-34.0); Mean Corpuscular Hgb Conc 32.2 g/dL (32.0-36.0); Mean Corpuscular Volume 92.6 fL (80.0-100.0); Mean Platelet Volume 10.7 fL (9.4-12.4); Platelet Count 199 K/uL (130-400); RDW Coefficient of Variation 13.9 % (11.5-14.5); RDW Standard Deviation 47.2 fL (36.4-46.3); Red Blood Count 4.73 M/uL (4.70-6.10); White Blood Count 9.58 K/ul (4.8-10.8)
[2024-07-27 08:13] LABS: BUN Creatinine Ratio 29.3 (10-20); Creatinine Clr Calc Pharmacy 66.1 ml/min; Magnesium 1.9 mg/dl (1.7-2.4); Phosphorus 2.8 mg/dl (2.5-4.9); Potassium 4.6 mmol/L (3.5-5.1)
[2024-07-27] MEDS: LANTUS PER UNIT CHARGE SQ SCH (08:49)
[2024-07-27] MEDS: predniSONE 20 MG TAB PO SCH (08:57)
--- NOTE | 2024-07-27 09:15 | Discharge Summary ---
Date of Service July 27, 2024 Admission HPI Per Admitting Provider Mr. Yousif is a 74 male that presents to the ED overnight with complaints of SOB at rest and with exercise and orthopnea and diarrhea that has been occurring for the past 48 hours. he reports that over the last few months he has been more sedentary and has been having more falls that appear to be mechanical with his last one being 3 to 4 months ago. Additional past medical history includes [id number] diabetes, RLS, HLD. He reportedly has quit smoking 17 years ago but during my visit with him he indicates that he has smoked about 20 cigarettes over the last few months. He is a daily drinker of 3-4 beers per day at the [facility]. He does take thiamine p.o. daily. His last echo was in 2017 and he recently saw cardiology on June [address] Wilson and he was scheduled to have an echocardiogram and Britney scan on July 25. In the ED no leukocytosis, VBG compensated without hypercapnia. CXR without pleural effusion but notes some congestion around his heart. ECG reveals sinus tachycardia without prolonged QTc. Elevated creatinine 1.55; baseline 1.1-1.2. No transaminitis, BNP negative. Troponin negative. Bio fire negative. On arrival to the ED, his SPO2 was 92% but with any activity desaturates to mid 80's. he was given nebulizers x 2 and Solu-Medrol. It is unclear if his has PMH of COPD, but has been on supplemental O2 at home for years due to recurrent PNA; he reports he has not utilized O2 over the past year and a half. Patient will be admitted for what appears to be a COPD exacerbation with hypoxia. Will cover bases to ensure there is no mixed presentation related to cardiac influence; will obtain echocardiogram, continue DuoNebs every QID + Q2PRN, continue IV steroids every 8 hours, obtain orthostatic BPs, obtain stool culture to rule out any viral contribution, will place on AWSS scale with reduced gabapentin dose due to non reportable crcl, sputum culture, flutter valve, incentive spirometry, will place on SSI while inpatient and obtain renal US to r/o obstruction with GILMER. Will continue IVF with hopes of renal function improvement; plan for Chest CTA when kidney function improved. Admission Exam Per Admitting Provider Neuro: AAOx4, PERRLA, no aphagia, memory changes, CNII-XII grossly intact HEENT: head normocephalic, moist mucus membranes CV: S1/S2, (-) M/G/R, (-) edema, cap refill < 3 seconds Resp:Expiratory wheezes posteriorly. On 2LNC GI: Abdomen S/NT/ND, Ax4 bowel sounds, (-) CVA tenderness Musculoskeletal: 5/5 B/L UE strength, 5/5 B/L LE strength. No gait disturbance Skin: (-) rashes , (-) erythema. Psych: euthymic mood Principal Diagnosis COPD exacerbation Discharge Exam GENERAL: Alert and oriented x3. NAD, on RA HEENT: NC/AT. Pupils equal, round and reactive to light. Oral mucosa moist. NECK: supple HEART: RRR, No murmur NEURO: No accessory muscle use. + mild wheezes (improved) ABDOMEN: Soft, bowel sounds present, nontender, no distention. NEURO: No facial droop. Speech is clear. Obeys simple commands. Moves extremities. EXTREMITIES: No edema, no erythema seen. Discharge Data Allergies Allergy/AdvReac Type Severity Reaction Status Date / Time No Known Allergies Allergy Verified 07/23/24 11:29 Consultations 07/23/24 09:15 ED Decision to Admit Stat Ordered Studies 07/23/24 12:04 US Renal Bladder [US renal/blad retro comp] Routine FINDINGS: The right kidney measures 11.9 cm in maximal dimension and the left measures 12.6 cm. There is no hydronephrosis. This exam is mildly compromised by suboptimal penetration. There is a 1 cm cystic appearing lesion within the midpole of the right kidney which contains echogenic foci. This favors a cyst which contains calcifications. The left ureteral jet was not visualized. Bladder wall thickening is noted. The prostate likely indents the base of the bladder. IMPRESSION: 1. No hydronephrosis. 2. Mild bladder wall thickening, likely chronic. 07/24/24 17:21 CT angio chest PE protocol Routine FINDINGS: Diagnostic quality: Adequate There is no evidence for pulmonary embolism. The heart is not enlarged. Moderate coronary calcification. There is no pericardial effusion. There are no abnormally enlarged hilar or mediastinal lymph nodes. The central tracheobronchial tree is clear. Tiny focus of atelectasis is seen at the periphery of the right upper lobe inferior portion. The lungs are clear. There is no pleural effusion. Limited visualized upper abdomen. No destructive osseous changes are seen. Chronic posterior right rib deformities. Bilateral shoulder arthroplasties. IMPRESSION: No evidence for pulmonary embolism. Hospital Course (1) COPD with exacerbation: (2) CAD (coronary artery disease): (3) Valvular heart disease: (4) Diabetes mellitus: (5) GERA (obstructive sleep apnea): (6) RLS (restless legs syndrome): (7) GERD (gastroesophageal reflux disease): (8) GILMER (acute kidney injury): Plan 74 M that presents w/SOB at rest and with exercise and orthopnea and diarrhea that has been occurring for the past 48 hours. he reports that over the last few months he has been more sedentary and has been having more falls that appear to be mechanical with his last one being 3 to 4 months ago. He is a daily drinker of 3-4 beers per day at the [facility]. He does take thiamine p.o. daily. His last echo was in 2017 and he recently saw cardiology on June [address] Wilson and he was scheduled to have an echocardiogram and Britney scan on July 25. Found positive for Norovirus No leukocytosis, VBG compensated without hypercapnia. CXR without pleural effusion but notes some congestion around his heart. ECG reveals sinus tachycardia without prolonged QTc. Elevated creatinine 1.55; baseline 1.1-1.2. No transaminitis, BNP negative. Troponin negative. Bio fire negative. COPD exacerbation: Tobacco Use: H/O Recurrent PNA: Acute hypoxic resp. failure No leukocytosis, VBG without hypercapnia. BNP neg. BF neg. Reportedly has had RSV and PNA vaccinations. Chest CTA - no PE , no pl. effusion, no pna Received Solumedrol IV in ED; continued -> transitioned to PO prednisone now Received nebs x2 in ED; continue QID + Q2PRN; expiratory wheezes on exam ECHO obtained - LVEF 65-70%, LV syst. function normal, No regional wall motion abnormalities noted. Moderate valvular aortic stenosis. Not compliant with CPAP Is prescribed Trelegy; states he does not take this. Quit smoking 17 years ago; reports smoking 10 cigarettes over past few months. No more cigar use. Sputum cx ordered but not collected Pt improved, required 5L of O2, currently on RA GILMER: resolved serum creatinine 1.55; baseline 1.1-1.2 Likely secondary to dehydration from Norovirus infection renal US to r/o obstruction - 1. No hydronephrosis. 2. Mild bladder wall thickening, likely chronic. Trend BMP and avoid nephrotoxic agents as able Cr improved w/ IVF, 1.6 -> 1.2 Cr now normalized at 1.16 Diarrhea, + Norovirus denies hematochezia - cont. supportive care CAD: HLD: Valvular heart disease: ECG ST without prolonged QTc ECHO obtained as above Recently stopped Atorvastatin and started Rosuvastatin Takes a baby ASA NIDDM2: Takes metformin and glipizide; held while inpatient, can resume on DC Takes Trulicity; held while inpt, resume on DC Last A1c 04/05/2024; 8.8 current 8.2% Alcohol abuse: Reports drinking 3-4 beers daily; takes daily Thiamine and Folic Acid AWSS scale in place gabapentin Other medical conditions: RLS (takes Mirapex), and GERD. Total Time Total Time Spent Total Time Spent (In Minutes): 40 Discharge Plan Discharge Items Patient Disposition: Home - Self-Care Reason For Visit: SOB Discharge Diagnosis: Acute hypoxic resp. failure secondary to COPD exacerbation GILMER secondary to diarrhea, Norovirus infection Activity: Per Instructions section Non-emergency contact: Primary Care Provider Call non-emergency contact if: you have any medication questions and your symptoms worsen Follow-up/Referrals: Jimbo Rhoades MD [Primary Care Provider] - (Date & Time 08/01/2024 8:00 AM Provider: Jesus Luna PA-C [facility], [facility] ) Diet: Carb Consistent or DM2 and Heart Healthy Addtl Attending Provider Instructions: Follow up with your primary care doctor, the appointment was set up for you for 08/01/2024. Finish antibiotic course and prednisone course as prescribed. Pending Studies at Discharge: No Stand-Alone Forms: My [employer], Smoking Cessation Medications and DC Order Prescriptions: New doxycycline hyclate 100 mg Capsule 100 mg PO Q12H Qty: 3 0RF prednisone 20 mg tablet 20 mg PO DAILY Qty: 3 0RF Continued (DME) Oxygen Home Liters Per Minute See Rx Instructions .MEDSUPPLY Qty: 1 0RF Rx Instructions: Please provide a POC for the patient. It would greatly improve his Quality of Life. Lifetime need. (DME) CPAP Machine Misc .Route Qty: 1 0RF Rx Instructions: 10 cm of water, mask fit to patient comfort, heated humidification, compliance download capabilities, to use with oxygen bleed at 1 L/min. DME: [facility] rosuvastatin 40 mg tablet 40 mg PO DAILY pramipexole 1 mg tablet 1 mg PO DAILY glipizide 10 mg tablet 10 mg PO DAILY omeprazole 20 mg capsule,delayed release(DR/EC) 20 mg PO DAILY montelukast 10 mg tablet 10 mg PO DAILY metformin 500 mg tablet extended release 24 hr 500 mg PO DAILY Discharge Orders: Discharge Order (Routine); Ordered 07/27/24 Ordered By: Chandler Salas Admission Data Admit Date/Time: 07/23/24 09:28 Attending Provider: Chandler Salas Admit Provider: Jose Adams Primary Care Provider: Jimbo Rhoades Other Providers: Jose Adams
== END 2024-07-27 10:40 | disposition home or self-care (01) | DRG 191 ==
LOC: ED 06:03 → EDINP 06:05 → SUATTDRO 06:05 → 2E 10:58

== ENCOUNTER 2024-08-23 14:03 | Inpatient (IN) ==
--- NOTE | 2024-08-23 14:45 | XRay Report ---
XR chest 1V portable CLINICAL HISTORY: shortness of breath COMPARISON STUDY: 11/15/2021 FINDINGS: Single view chest demonstrates hyperlucency in the upper lung zones with some flattening of diaphragms suggesting a component of emphysema. Hyperexpansion is more pronounced than on the prior study. There is no focal airspace opacity, pneumothorax, or atelectasis. Is no sizable pleural effusi on. Heart size is mildly enlarged. IMPRESSION: No evidence of pneumonia. Possible exacerbation of COPD. Recommend clinical correlation. ACT 112: Negative or not required by law. Electronically signed by: Sade Pandey M.D. 08/23/2024 2:43 PM
[2024-08-23 14:49] LABS: Basophils # (auto) 0.05 K/uL (0.00-0.20); Basophils % (auto) 0.7 %; Eosinophils # (auto) 0.25 K/uL (0.00-0.50); Eosinophils % (auto) 3.3 %; Hematocrit (blood only) 42.3 % (42.0-52.0); Hemoglobin 13.8 g/dl (14.0-18.0); Immature Granulocytes # (auto) 0.03 K/uL (0.01-0.20); Immature Granulocytes % (auto) 0.4 %; Lymphocytes % (auto) 22.4 %; Mean Corpuscular Hemoglobin 30.7 pg (25.0-34.0); Mean Corpuscular Hgb Conc 32.6 g/dL (32.0-36.0); Monocytes # (auto) 0.67 K/uL (0.11-0.59); Monocytes % (auto) 8.8 %; Neutrophils # (auto) 4.89 K/uL (1.40-6.50); Neutrophils % (auto) 64.4 %; Platelet Count 210 K/uL (130-400); RDW Coefficient of Variation 13.7 % (11.5-14.5); RDW Standard Deviation 47.5 fL (36.4-46.3); White Blood Count 7.59 K/ul (4.8-10.8)
--- NOTE | 2024-08-23 14:50 | Emergency Department Note ---
Impression & Plan Lightheadedness, GILMER (acute kidney injury), Acute dyspnea, Orthostatic hypotension ED Provider Note HISTORY OF PRESENT ILLNESS: Patient is a 74-year-old male presenting with dizziness and shortness of breath. Patient reports that today he got up out of bed and felt very lightheaded and dizzy. He states that he felt like he was going to pass out. He states that symptoms seem to resolve themselves, but recurred again around lunchtime. He states that he feels lightheaded on arrival to the emergency department on my assessment. He called the nurse at his primary care provider's office and was referred to the emergency department for further evaluation. Patient denies any numbness, tingling or weakness in his extremities. He does report some diffuse blurred vision since awaking this morning. He is not on any anticoagulation therapy, but is on a baby aspirin daily. He denies any chest pain. He does report he has been short of breath "for quite a while." However, he reports that recently his shortness of breath has gotten worse. He states he is unable to walk more than 10-15 steps without becoming winded and have to stop. He denies any DVT or PE history. Denies any history of cardiac stents. Denies any recent fevers. Denies any cough, nausea or vomiting. ROS: as above PHYSICAL EXAM: Constitutional: Patient appears in no acute distress. HENT: Head: Normocephalic and atraumatic. Eyes: EOMI, PERRL Mouth/Throat: Mucous membranes moist. Neck: Trachea midline. Neck supple. Cardiovascular: RRR, No murmurs, rubs or gallops. Intact distal pulses. Pulmonary/Chest: No respiratory distress. Breath sounds clear and equal bilaterally. Conversationally dyspneic. Abdominal: Abdomen soft, no tenderness, rebound or guarding. Musculoskeletal: No edema, tenderness or deformity noted. Skin: Warm and dry. No rash, erythema, pallor or cyanosis Psychiatric: Appropriate mood and affect for situation. Neurological: Alert and keenly responsive. Facies symmetric. Able to raise eyebrows, close eyes, smile, puff mouth, stick out tongue, move tongue left and right and raise palate symmetrically. Able to shrug shoulders. PERRLA. SILT to forehead below eye and at jawline. Can hear soft noise bilaterally. Good finger to nose. Strength 5/5 in bilateral upper and lower extremities. SILT throughout bilateral upper and lower extremities. MDM: - Vitals signs showed hypotension - History obtained via patient. History as above. - Chronic conditions affecting care: DM-2; GERD; COPD; HLD; HTN - Differential diagnoses include, but are not limited to: Electrolyte abnormality; ACS; dysrhythmia; CHF exacerbation; PE; CVA; intracranial hemorrhage - Order placed for continuous cardiac monitoring. At this time, monitor showed rate of 71 bpm with normal sinus rhythm, per my interpretation. - External medical records reviewed. Discharge summary dated 07/27/2024 was reviewed. Patient was admitted that time for COPD exacerbation. - EKG image interpreted by myself showed normal sinus rhythm. Rate 79 bpm. QT 358. No acute ischemic changes. - Laboratory workup interpreted by myself showed normal WBC; normal PT/INR; hyponatremia (Na 133); GILMER (Cr 1.61); hyperglycemia (glucose 319) with normal anion gap; normal troponin; normal BNP - Viral respiratory panel negative - CXR image reviewed myself is negative for pneumonia, per my interpretation. - CT head wo contrast negative for acute intracranial pathology - CTA head/neck negative for acute intracranial pathology. Noted to have extensive calcified atherosclerotic plaque resulting in moderate severe stenosis of bilateral carotid arteries - Patient given 1L NS in ER. - Discussed results with patient. He is still feeling lightheaded in the emergency department, but states he does feel slightly improved after some fluids. His dizziness is likely from orthostasis. However, will admit for further workup. He is neurologically intact in the emergency department and has an NIH stroke scale of 0. Would not be a TNK candidate at this time. - Discussion was had with case therapist about patient's case and need for admission - Hospitalist consulted for admission - [facility] ASSESSMENT AND PLAN: Diagnosis: Lightheadedness; orthostatic hypotension; GILMER; acute dyspnea Plan: Admit Past Med/Surg History Problem List Orthostatic hypotension (Acute) Acute dyspnea (Acute) GILMER (acute kidney injury) (Acute) Lightheadedness (Acute) Hypoxia (Acute) GILMER (acute kidney injury) CAD (coronary artery disease) Diabetes mellitus Valvular heart disease COPD with exacerbation Fracture of left distal radius Status post right knee replacement (~09/2022) Encounter for pre-operative examination Postoperative hypoxia Status post reverse total replacement of right shoulder DVT prophylaxis Status post reverse total replacement of left shoulder Left TSA (06/28/21): Grade view 1, MAC#4, ETT 8.0 + PNB at [facility] HLD (hyperlipidemia) COPD (chronic obstructive pulmonary disease) Breathing stable GERA (obstructive sleep apnea) (Chronic) Cannot tolerate device GERD (gastroesophageal reflux disease) (Chronic) Well controlled and stable RLS (restless legs syndrome) (Chronic) Leg cramping at night- takes magnesium DM type 2 (diabetes mellitus, type 2) (Chronic) History of total left knee replacement (Chronic) Medical History (Updated 08/23/24 @ 17:22 by Ladi Cruz MD) On home oxygen therapy 2L PRN for dyspnea (occasional use) Pt monitors closely and O2 typically 94-96% RA No recent oxygen use Hearing deficit History of COVID-19 05/2021, symptoms at time: body aches, headache. Had a Casirivimab/Imdevimab IV infusion on 05/27/21 at [facility] > symptoms resolved Glaucoma S/p surgery Anxiety and depression Degenerative disc disease, lumbar Former smoker mild emphysema on CT HTN (hypertension) No meds Hx: recurrent pneumonia Including aspiration pneumonia several years ago No current issues No aspiration per 2018 video swallow Surgical History History of oral surgery History of open reduction and internal fixation (ORIF) procedure LEFT ARM History of esophagogastroduodenoscopy (EGD) History of colonoscopy History of cataract surgery RT/LEFT 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 History of open reduction and internal fixation (ORIF) procedure right leg--hardware removed History of appendectomy History of tooth extraction History of total left hip arthroplasty Left URI (03/16/18): Grade view 2, MAC#4, ETT 7.5 (SAB- unsuccessful > GA) S/P tonsillectomy and adenoidectomy Family History Father Coronary heart disease Brother Lung cancer Colorectal cancer Brother Coronary heart disease Mother Cancer Other No family history of adverse response to anesthesia Social History Smoking Status: Never smoker Tobacco Type: Cigars Cigarettes Per Day: smokes a cigar every once in a while (advised on policy); Second Hand Exposure: No; Do You Dip or Chew Tobacco: No; Hx Alcohol Use: Yes Alcohol type: beer Hx Substance Use: No Preferred Language: Brazilian Communication Ability: Effective Communication Ability Comment: EXTREME [place]SA[place] Visual Impairment: No Limitations Hearing Ability: Hard of Hearing Fighter Pilot Required: No Beliefs That Will Affect Care: None marital status: Current Living Situation: Spouse Current Living Situation Comment: and son current occupational status: retired Feels Safe at Home: Yes Assistive Devices: Cane and Walker Allergies Allergies Allergy/AdvReac Type Severity Reaction Status Date / Time No Known Allergies Allergy Verified 07/23/24 11:29 Home Meds Home Medications Medication Instructions Recorded Confirmed glipizide 10 mg tablet 10 mg PO DAILY 07/23/24 07/23/24 metformin 500 mg tablet,extended 500 mg PO DAILY 07/23/24 07/23/24 release 24 hr montelukast 10 mg tablet 10 mg PO DAILY 07/23/24 07/23/24 omeprazole 20 mg capsule,delayed 20 mg PO DAILY 07/23/24 07/23/24 release pramipexole 1 mg tablet 1 mg PO DAILY 07/23/24 07/23/24 rosuvastatin 40 mg tablet 40 mg PO DAILY 07/23/24 07/23/24 Previous Rx's Medication Instructions Recorded Oxygen Home #1 ea 07/01/21 CPAP Machine #1 ea 11/05/21 Results & Data (ED) Vital Signs Vital Signs - 24 hr 08/23/24 14:06 08/23/24 14:25 08/23/24 15:53 Temperature 36.8 C Temperature Source Temporal Artery Scan Pulse Rate 89 75 Pulse Rate [Apical] Pulse Rhythm [Apical] Pulse Strength [Apical] Respiratory Rate 24 Respiratory Effort / Characteristics Respiratory Depth Respiratory Pattern Blood Pressure 96/58 L Blood Pressure [Right Arm] Blood Pressure Mean 70 Blood Pressure Mean [Right Arm] Blood Pressure Position [Right Arm] Pulse Oximetry 93 95 Oxygen Delivery Method Room Air Room Air Sepsis Recent Fever Within 48 Hours No Sepsis New/Unexplained Change in Mental Status No Sepsis Action Taken by Nursing No Action Required 08/23/24 16:04 Temperature Temperature Source Pulse Rate Pulse Rate [Apical] 71 Pulse Rhythm [Apical] Regular Pulse Strength [Apical] Normal Respiratory Rate 20 Respiratory Effort / Characteristics Non-Labored Spontaneous Respiratory Depth Normal Respiratory Pattern Regular Blood Pressure Blood Pressure [Right Arm] 143/73 H Blood Pressure Mean Blood Pressure Mean [Right Arm] 96 Blood Pressure Position [Right Arm] Lying Pulse Oximetry 96 Oxygen Delivery Method Room Air Sepsis Recent Fever Within 48 Hours Sepsis New/Unexplained Change in Mental Status Sepsis Action Taken by Nursing Laboratory Data 08/23/24 14:29 08/23/24 14:29 Lab Results 08/23/24 Range/Units 14:29 WBC 7.59 (4.8-10.8) K/ul RBC 4.50 L (4.70-6.10) M/uL Hgb 13.8 L (14.0-18.0) g/dl Hct 42.3 (42.0-52.0) % MCV 94.0 (80.0-100.0) fL MCH 30.7 (25.0-34.0) pg MCHC 32.6 (32.0-36.0) g/dL RDW Std Deviation 47.5 H (36.4-46.3) fL RDW Coeff of Brie 13.7 (11.5-14.5) % Plt Count 210 (130-400) K/uL MPV 11.0 (9.4-12.4) fL Immature Gran % (Auto) 0.4 % Neut % (Auto) 64.4 % Lymph % (Auto) 22.4 % Cuming % (Auto) 8.8 % Eos % (Auto) 3.3 % Baso % (Auto) 0.7 % Neut # (Auto) 4.89 (1.40-6.50) K/uL Lymph # (Auto) 1.70 (1.20-3.40) K/uL Cuming # (Auto) 0.67 H (0.11-0.59) K/uL Eos # (Auto) 0.25 (0.00-0.50) K/uL Baso # (Auto) 0.05 (0.00-0.20) K/uL Immature Gran # (Auto) 0.03 (0.01-0.20) K/uL PT 10.2 (9.0-12.0) Seconds INR 0.9 (0.9-1.1) Sodium 133 L (136-145) mmol/L Potassium 5.1 (3.5-5.1) mmol/L Chloride 98 (98-107) mmol/L Carbon Dioxide 31 (21-32) mmol/L Anion Gap 4 (3-11) BUN 34 H (6-23) mg/dl Creatinine 1.61 H (0.6-1.4) mg/dl Est Cr Clr Drug Dosing Not Reportable eGFR 44.05 BUN/Creatinine Ratio 21.1 H (10-20) Glucose 319 H* (70-99(Fasting)) mg/dl Calcium 9.1 (8.6-10.3) mg/dl Magnesium 1.8 (1.7-2.4) mg/dl Total Bilirubin 0.5 (0.2-1.0) mg/dl AST 12 L (13-39) U/L ALT 12 (7-52) U/L Alkaline Phosphatase 107 H (34-104) U/L Troponin I High Sens 12.0 (0-20) pg/ml B-Natriuretic Peptide 80 (0-100) pg/ml Total Protein 6.8 (6.0-8.3) gm/dl Albumin 4.1 (3.4-5.0) gm/dl Globulin 2.7 (2.5-4.0) gm/dl Albumin/Globulin Ratio 1.5 (0.9-2) Adenovirus (PCR) Not Detected (NotDetected) B. pertussis DNA (PCR) Not Detected (NotDetected) B.parapertussis DNA PCR Not Detected (NotDetected) C. pneumoniae DNA (PCR) Not Detected (NotDetected) Coronavirus OC43 (PCR) Not Detected (NotDetected) Coronavirus HKU1 (PCR) Not Detected (NotDetected) Coronavirus 229E (PCR) Not Detected (NotDetected) SARS-CoV-2 (PCR) Not Detected (NotDetected) Coronavirus NL63 (PCR) Not Detected (NotDetected) Human Metapneumovir PCR Not Detected (NotDetected) Influenza Type A (PCR) Not Detected (NotDetected) Influenza Type B (PCR) Not Detected (NotDetected) M. pneumoniae (PCR) Not Detected (NotDetected) Parainfluenza 1 (PCR) Not Detected (NotDetected) Parainfluenza 2 (PCR) Not Detected (NotDetected) Parainfluenza 3 (PCR) Not Detected (NotDetected) Parainfluenza 4 (PCR) Not Detected (NotDetected) RSV (PCR) Not Detected (NotDetected) Entero/Rhino (PCR) Not Detected (NotDetected) Administered Medications Discontinued Medications Sodium Chloride (Nss) 1,000 mls @ 999 mls/hr IV .Q1H1M ONE Stop: 08/23/24 16:22 Last Infusion: 08/23/24 17:06 Dose: Infused Documented By: Admin: 08/23/24 15:35 Dose: 999 mls/hr Documented By: DARIO Ioversol (Optiray 320 125ml) 120 ml IV ONCE ONE Stop: 08/23/24 15:38 Last Admin: 08/23/24 15:37 Dose: 120 ml Documented By: SUSANNA Imaging Data Radiologist's Impression: Head CT 08/23/24 14:25 CT head/brain wo con CLINICAL HISTORY: dizziness. TECHNIQUE: Multiple axial CT images of the head were obtained without contrast. Sagittal and coronal reconstructions were done. A dose lowering technique was utilized adhering to the principles of ALARA. CT DOSE: 1238.87mGy*cm COMPARISON: 06/29/2020 FINDINGS: No significant interval changes have occurred. There is no intra-axial or extra-axial fluid collection, hemorrhage, or mass. The ventricles and sulci are mildly prominent. There is diminished white matter attenuation. There is no midline shift. The bone windows are negative. There is no fluid in the visualized sinuses or mastoid air cells. No middle ear fluid identified. IMPRESSION: Stable exam; no acute intracranial process identified. ACT 112: Negative or not required by law. The above report was generated using voice recognition software. It may contain grammatical, syntax or spelling errors. Electronically signed by: Sade Pandey M.D. 08/23/2024 3:41 PM Head CTA 08/23/24 14:25 CTA ANGIOGRAPHY OF THE HEAD CLINICAL HISTORY: dizziness COMPARISON STUDY: Head CT June 29, 2020. TECHNIQUE: Helical axial images of the head were obtained following uneventful intravenous administration of 120 cc of Optiray. Sagittal and coronal reconstructions were viewed as well as maximal intensity projections on an independent 3-D workstation. Automated exposure control was utilized for the study. A dose lowering technique was utilized adhering to the principles of ALARA. CT DOSE: 1238.87 mGy.cm FINDINGS: No acute intracranial hemorrhage, midline shift or mass effect is present. Ventricular system is normal. Basal cisterns are patent. There are no extra-axial collections. No intracranial aneurysm is identified. No vessel occlusion is identified. There is extensive calcified plaque within the bilateral cavernous carotids and the intracranial portion of the left vertebral artery. This results in moderate to severe stenoses of these vessels. IMPRESSION: 1. No intracranial vessel occlusion. No intracranial aneurysm. 2. Extensive calcified atherosclerotic plaque which results in moderate to severe stenoses of the bilateral carotid arteries and the intracranial portion of the left vertebral artery. ACT 112: Negative or not required by law. Electronically signed by: Moustapha Harden M.D. 08/23/2024 3:46 PM Neck CTA 08/23/24 14:25 CT ANGIOGRAPHY OF THE NECK WITH CONTRAST CLINICAL HISTORY: dizziness COMPARISON STUDY: No previous studies for comparison. Technique: CT angiography of the carotid and vertebral arteries was obtained using Optiray and 3D reconstruction on an independent workstation. NASCET criteria was utilized. Automated exposure control was utilized for the study. A dose lowering technique was utilized adhering to the principles of ALARA. Findings: No cervical lymphadenopathy is present. There are no cervical spine fractures. No significant abnormalities are identified within visualized portions of the lung apices. There is extensive calcified and noncalcified plaque within the proximal bilateral internal carotid arteries. This results in 70% stenosis of the proximal right internal carotid artery and 60% stenosis of the proximal left internal carotid artery. The left vertebral artery is dominant. Vertebral artery origins are suboptimally assessed due to artifact. No dissection or aneurysm within the neck. IMPRESSION: Extensive atherosclerotic plaque within the proximal bilateral internal carotid arteries which result in 70% stenosis of the proximal right internal carotid artery and 60% stenosis of the proximal left internal carotid artery. ACT 112: Negative or not required by law. Electronically signed by: Moustapha Harden M.D. 08/23/2024 3:53 PM Chest X-Ray 08/23/24 14:26 XR chest 1V portable CLINICAL HISTORY: shortness of breath COMPARISON STUDY: 11/15/2021 FINDINGS: Single view chest demonstrates hyperlucency in the upper lung zones with some flattening of diaphragms suggesting a component of emphysema. Hyperexpansion is more pronounced than on the prior study. There is no focal airspace opacity, pneumothorax, or atelectasis. Is no sizable pleural effusion. Heart size is mildly enlarged. IMPRESSION: No evidence of pneumonia. Possible exacerbation of COPD. Recommend clinical correlation. ACT 112: Negative or not required by law. Electronically signed by: Sade Pandey M.D. 08/23/2024 2:43 PM Discharge Plan Visit Data Chief Complaint: Dizziness Stated Complaint: LIGHTHEADED, DIZZY, ED Provider: Ladi Cruz Discharge Problem: Lightheadedness, GILMER (acute kidney injury), Acute dyspnea, Orthostatic hypotension Forms Stand Alone Forms: My Between Digital Prescriptions Prescriptions: No Action (DME) Oxygen Home Liters Per Minute See Rx Instructions .MEDSUPPLY Qty: 1 0RF Rx Instructions: Please provide a POC for the patient. It would greatly improve his Quality of Life. Lifetime need. (DME) CPAP Machine Misc .Route Qty: 1 0RF Rx Instructions: 10 cm of water, mask fit to patient comfort, heated humidification, compliance download capabilities, to use with oxygen bleed at 1 L/min. DME: [facility] rosuvastatin 40 mg tablet 40 mg PO DAILY pramipexole 1 mg tablet 1 mg PO DAILY glipizide 10 mg tablet 10 mg PO DAILY omeprazole 20 mg capsule,delayed release(DR/EC) 20 mg PO DAILY montelukast 10 mg tablet 10 mg PO DAILY metformin 500 mg tablet extended release 24 hr 500 mg PO DAILY Referrals Referrals: Jimbo Rhoades MD [Primary Care Provider] -
[2024-08-23 15:19] LABS: Alanine Aminotransferase 12 U/L (7-52); Albumin Globulin Ratio 1.5 (0.9-2); Albumin Level 4.1 gm/dl (3.4-5.0); Alkaline Phosphatase 107 U/L (34-104); Anion Gap 4 (3-11); Aspartate Aminotransferase 12 U/L (13-39); BUN Creatinine Ratio 21.1 (10-20); Bilirubin,Total 0.5 mg/dl (0.2-1.0); Blood Urea Nitrogen 34 mg/dl (6-23); Calcium 9.1 mg/dl (8.6-10.3); Carbon Dioxide 31 mmol/L (21-32); Chloride 98 mmol/L (98-107); Globulin 2.7 gm/dl (2.5-4.0); Glucose 319 mg/dl (70-99(Fasting)); Magnesium 1.8 mg/dl (1.7-2.4); Potassium 5.1 mmol/L (3.5-5.1); Sodium 133 mmol/L (136-145); Total Protein 6.8 gm/dl (6.0-8.3)
[2024-08-23 15:20] LABS: INR 0.9 (0.9-1.1); Prothrombin Time 10.2 Seconds (9.0-12.0)
[2024-08-23] MEDS: SODIUM CHLORIDE 0.9% 1,000 ML IV ONE (15:35)
[2024-08-23] MEDS: OPTIRAY 320 125ml IV ONE (15:37)
--- NOTE | 2024-08-23 15:43 | CT Scan Report ---
CT head/brain wo con CLINICAL HISTORY: dizziness. TECHNIQUE: Multiple axial CT images of the head were obtained without contrast. Sagittal and coronal reconstructions were done. A dose lowering technique was utilized adhering to the principles of STACY Bermudez. CT DOSE: 1238.87mGy*cm COMPARISON: 06/29/2020 FINDINGS: No significant interval changes have occurred. There is no intra-axial or extra-axial fluid collection, hemorrhage, or mass. The ventricles and sulci are mildly prominent. There is diminished white matter attenuation. There is no midline shift. The bone windows are negative. There is no fluid in the visualized sinuses or mastoid air cells. No middle ear fluid identified. IMPRESSION: Stable exam; no acute intracranial process identified. ACT 112: Negative or not required by law. The above report was generated using voice recognition software. It may contain grammatical, syntax o r spelling errors. Electronically signed by: Sade Pandey M.D. 08/23/2024 3:41 PM
[2024-08-23 15:44] LABS: Adenovirus PCR Not Detected (NotDetected); Bordetella parapertussis PCR Not Detected (NotDetected); Bordetella pertussis PCR Not Detected (NotDetected); Chlamydia pneumoniae PCR Not Detected (NotDetected); Coronavirus 229E PCR Not Detected (NotDetected); Coronavirus CoV-2 (COVID19)PCR Not Detected (NotDetected); Coronavirus HKU1 PCR Not Detected (NotDetected); Coronavirus NL63 PCR Not Detected (NotDetected); Coronavirus OC43PCR Not Detected (NotDetected); Human Metapneumovirus PCR Not Detected (NotDetected); Influenza A PCR Not Detected (NotDetected); Influenza B PCR Not Detected (NotDetected); Mycoplasma pneumoniae PCR Not Detected (NotDetected); Parainfluenza Virus 1 PCR Not Detected (NotDetected); Parainfluenza Virus 2 PCR Not Detected (NotDetected); Parainfluenza Virus 3 PCR Not Detected (NotDetected); Parainfluenza Virus 4 PCR Not Detected (NotDetected); Respiratory Syncytial VirusPCR Not Detected (NotDetected); Rhinovirus/Enterovirus PCR Not Detected (NotDetected)
--- NOTE | 2024-08-23 15:48 | CT Scan Report ---
CTA ANGIOGRAPHY OF THE HEAD CLINICAL HISTORY: dizziness COMPARISON STUDY: Head CT June 29, 2020. TECHNIQUE: Helical axial images of the head were obtained following uneventful intravenous administr ation of 120 cc of Optiray. Sagittal and coronal reconstructions were viewed as well as maximal inten sity projections on an independent 3-D workstation. Automated exposure control was utilized for the study. A dose lowering technique was utilized adhering to the principles of ALARA. CT DOSE: 1238.87 mGy.cm FINDINGS: No acute intracranial hemorrhage, midline shift or mass effect is present. Ventricular syst em is normal. Basal cisterns are patent. There are no extra-axial collections. No intracranial aneury sm is identified. No vessel occlusion is identified. There is extensive calcified plaque within the b ilateral cavernous carotids and the intracranial portion of the left vertebral artery. This results i n moderate to severe stenoses of these vessels. IMPRESSION: 1. No intracranial vessel occlusion. No intracranial aneurysm. 2. Extensive calcified atherosclerotic plaque which results in moderate to severe stenoses of the adelaide ateral carotid arteries and the intracranial portion of the left vertebral artery. ACT 112: Negative or not required by law. Electronically signed by: Moustapha Harden M.D. 08/23/2024 3:46 PM
--- NOTE | 2024-08-23 15:55 | CT Scan Report ---
CT ANGIOGRAPHY OF THE NECK WITH CONTRAST CLINICAL HISTORY: dizziness COMPARISON STUDY: No previous studies for comparison. Technique: CT angiography of the carotid and vertebral arteries was obtained using Optiray and 3D rec onstruction on an independent workstation. NASCET criteria was utilized. Automated exposure control was utilized for the study. A dose lowering technique was utilized adhering to the principles of ALA RA. Findings: No cervical lymphadenopathy is present. There are no cervical spine fractures. No significa nt abnormalities are identified within visualized portions of the lung apices. There is extensive kelvin cified and noncalcified plaque within the proximal bilateral internal carotid arteries. This results in 70% stenosis of the proximal right internal carotid artery and 60% stenosis of the proximal left i nternal carotid artery. The left vertebral artery is dominant. Vertebral artery origins are suboptima lly assessed due to artifact. No dissection or aneurysm within the neck. IMPRESSION: Extensive atherosclerotic plaque within the proximal bilateral internal carotid arteries which result in 70% stenosis of the proximal right internal carotid artery and 60% stenosis of the pr oximal left internal carotid artery. ACT 112: Negative or not required by law. Electronically signed by: Moustapha Harden M.D. 08/23/2024 3:53 PM
[2024-08-23 17:25] LABS: Appearance Urine Clear (Clear); Bilirubin Urine Negative (Negative); Blood Urine Negative (Negative); Color Urine Yellow; Glucose Urine UA 3+ (Negative); Ketones Urine Trace (Negative); Leukocyte Esterase Urine Negative (Negative); Nitrite Urine Negative (Negative); Protein Urine Negative (Negative); Specific Gravity Urine > 1.045 (1.000-1.030); Urobilinogen Urine Negative (Negative)
[2024-08-23] MEDS ORDERED: GLUCOSE 10 TAB/TUBE PO PRN (18:02)
[2024-08-23] MEDS ORDERED: GLUCAGON FOR INJ 1 MG VIAL SQ PRN (18:02)
[2024-08-23] MEDS ORDERED: DEXTROSE 50% 50 ML SYRINGE IV PRN (18:02)
[2024-08-23] MEDS ORDERED: GLUCOSE 40% GEL 15 GM TUBE PO PRN (18:02)
[2024-08-23] MEDS ORDERED: CARBOHYDRATES FOR HYPOGLYCEMIA PO PRN (18:02)
[2024-08-23] MEDS ORDERED: PHARMACY GLYCEMIC MGMT CONSULT PRN (18:02)
--- NOTE | 2024-08-23 18:30 | History & Physical Report ---
Date of Service August 23, 2024 Assessment & Plan (1) Orthostatic hypotension: (2) On home oxygen therapy: (3) Anxiety and depression: (4) Former smoker: (5) COPD with exacerbation: (6) GERA (obstructive sleep apnea): (7) GERD (gastroesophageal reflux disease): (8) RLS (restless legs syndrome): (9) DM type 2 (diabetes mellitus, type 2): Plan Assessment and plan: CAMILO Underlying COPDnoncompliance no hypoxia on exam, reports exertional shortness of breath, reports noncompliance at home with ordered oxygen Check to stop oxygen in a.m., p.o. prednisone, DuoNebs, consider discharging on maintenance inhaler Dizziness Suspected orthostasis bilateral carotid stenosis noted on imaging, will need outpatient follow-up with vascular Check orthostatic BPs in a.m., give IV hydration overnight continue aspirin/statin AKIlikely prerenal: Creatinine 1.6 on arrival, 1.1 on baseline, IV fluids overnight, repeat CMP in a.m. Hold glipizide/metformin Hx DM2: SSI/4 times daily BGM, hold oral hypoglycemics A total of 60 minutes was spent on chart review/facilitating plan of care/reviewing diagnostic data/discussion with consultants full code DVT prophylaxis: Heparin subcu History of Present Illness Chief Complaint: Shortness of breath, dizziness Primary Care Provider: Jimbo Rhoades MD The patient is a 74-year-old male with a past medical history of COPD, CAD, valvular heart disease, DM 2, OSAnot on CPAP, unable to tolerate, RLS, GERD who presents to the ED on 08/23/2024 with complaints of shortness of breath and dizziness over the past 24 hours. Patient was recently discharged on 07/27/2024 with similar complaints of shortness of breath at rest and orthopnea. He was found to have norovirus at that time. He was discharged on p.o. prednisone which he reports finishing a few days after discharge with improvement. However, his shortness of breath worsened again this morning. Patient at bedside and reports wheezing all throughout the night. Patient has a history of GERA and is unable to tolerate CPAP. Patient reports being unable to walk further than 10-15 feet without being severely short of breath. He denies any fever/chills. He does report some clear sputum that he has been bringing up over the past month. He denies any nausea/vomiting/diarrhea/abdominal pain. On arrival to the ED, BioFire is negative, urinalysis negative Labs remarkable for NA 133, BUN 34, creatinine 1.61, glucose 319, AST 12, alk phos 107 Chest x-ray with no evidence of pneumonia, with findings of emphysema EKG with normal sinus rhythm, no acute changes Head CT negative Head CTA shows: 1. No intracranial vessel occlusion. No intracranial aneurysm. 2. Extensive calcified atherosclerotic plaque which results in moderate to severe stenoses of the bilateral carotid arteries and the intracranial portion of the left vertebral artery. Neck CTA shows: Extensive atherosclerotic plaque within the proximal bilateral internal carotid arteries which result in 70% stenosis of the proximal right internal carotid artery and 60% stenosis of the proximal left internal carotid artery. The patient will be admitted for further workup for dizziness and shortness of breath Allergies Allergy/AdvReac Type Severity Reaction Status Date / Time No Known Allergies Allergy Verified 07/23/24 11:29 Home Medications Medication Instructions Recorded Confirmed Type Oxygen Home #1 ea 07/01/21 01/03/22 Rx CPAP Machine #1 ea 11/05/21 01/03/22 Rx glipizide 10 mg tablet 10 mg PO DAILY 07/23/24 07/23/24 History metformin 500 mg tablet,extended 500 mg PO DAILY 07/23/24 07/23/24 History release 24 hr montelukast 10 mg tablet 10 mg PO DAILY 07/23/24 07/23/24 History omeprazole 20 mg capsule,delayed 20 mg PO DAILY 07/23/24 07/23/24 History release pramipexole 1 mg tablet 1 mg PO DAILY 07/23/24 07/23/24 History rosuvastatin 40 mg tablet 40 mg PO DAILY 07/23/24 07/23/24 History aspirin 81 mg tablet,delayed 81 mg PO DAILY 08/23/24 History release Past Med/Surg History Problem List Orthostatic hypotension (Acute) Acute dyspnea (Acute) GILMER (acute kidney injury) (Acute) Lightheadedness (Acute) Hypoxia (Acute) GILMER (acute kidney injury) CAD (coronary artery disease) Diabetes mellitus Valvular heart disease COPD with exacerbation Fracture of left distal radius Status post right knee replacement (~09/2022) Encounter for pre-operative examination Postoperative hypoxia Status post reverse total replacement of right shoulder DVT prophylaxis Status post reverse total replacement of left shoulder Left TSA (06/28/21): Grade view 1, MAC#4, ETT 8.0 + PNB at [facility] H[facility] (hyperlipidemia) COPD (chronic obstructive pulmonary disease) Breathing stable GERA (obstructive sleep apnea) (Chronic) Cannot tolerate device GERD (gastroesophageal reflux disease) (Chronic) Well controlled and stable RLS (restless legs syndrome) (Chronic) Leg cramping at night- takes magnesium DM type 2 (diabetes mellitus, type 2) (Chronic) History of total left knee replacement (Chronic) Medical History (Updated 08/23/24 @ 17:22 by Ladi Cruz MD) On home oxygen therapy 2L PRN for dyspnea (occasional use) Pt monitors closely and O2 typically 94-96% RA No recent oxygen use Hearing deficit History of COVID-19 05/2021, symptoms at time: body aches, headache. 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 History of open reduction and internal fixation (ORIF) procedure right leg--hardware removed History of appendectomy History of tooth extraction History of total left hip arthroplasty Left URI (03/16/18): Grade view 2, MAC#4, ETT 7.5 (SAB- unsuccessful > GA) S/P tonsillectomy and adenoidectomy Family History Father Coronary heart disease Brother Lung cancer Colorectal cancer Brother Coronary heart disease Mother Cancer Other No family history of adverse response to anesthesia Social History (Reviewed 07/23/24 @ 11:01 by SARAH Emanuel Smoking Status: Never smoker Tobacco Type: Cigars Cigarettes Per Day: smokes a cigar every once in a while (advised on policy); Second Hand Exposure: No; Do You Dip or Chew Tobacco: No; Hx Alcohol Use: Yes Alcohol type: beer Hx Substance Use: No Preferred Language: Arabic Communication Ability: Effective Communication Ability Comment: EXTREME [place] Visual Impairment: No Limitations 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[employer] Hand 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: No Beliefs That Will Affect Care: None marital status: Current Living Situation: Spouse Current Living Situation Comment: and son current occupational status: retired Feels Safe at Home: Yes Assistive Devices: Cane and Walker Review of Systems Review of Systems: All systems reviewed & are unremarkable except as noted in HPI & below Physical Exam Constitutional: WD/WN, vitals as above Eyes: PERRL, conjunctivae normal, anicteric sclerae ENMT: external ear and nose normal, oropharynx normal Neck: trachea midline, no thyromegaly Respiratory: normal respiratory effort, lungs clear to auscultation + labored breathing; does not use accessory muscles Auscultation: + rhonchi and + wheezes Cardiovascular: RRR, no murmur, no edema Gastrointestinal (Abdomen): normal bowel sounds, soft, nontender, no hepatosplenomegaly Musculoskeletal: no cyanosis or clubbing, extremities motor strength 5/5 Skin: no rashes, warm and dry Neurologic: PERRL, EOMI, accommodation nl, no face palsy, no dysarthria Psychiatric: A+Ox3, euthymic affect Lymphatic: no cervical or axillary lymphadenopathy Results & Data Results & Data Vital Signs (Past 12 Hours) Vital Signs Temp Pulse Pulse Resp BP BP Pulse Ox 08/23/24 16:04 71 20 143/73 H 96 08/23/24 15:53 75 08/23/24 14:25 95 08/23/24 14:06 36.8 C 89 24 96/58 L 93 O2 Del Method 08/23/24 16:04 Room Air 08/23/24 15:53 08/23/24 14:25 Room Air 08/23/24 14:06 Room Air Diagnostic Findings Laboratory Results WBC 7.59 K/ul (4.8-10.8) 08/23/24 14:29 RBC 4.50 M/uL (4.70-6.10) L 08/23/24 14: Hgb 13.8 g/dl (14.0-18.0) L 08/23/24: Hct 42.3 % (42.0-52.0) 08/23/24: MCV 94.0 fL (80.0-100.0) 08/23/24: MCH 30.7 pg (25.0-34.0) 08/23/24: MCHC 32.6 g/dL (32.0-36.0) 08/23/24 14: RDW Std Deviation 47.5 fL (36.4-46.3) H 08/23/24: RDW Coeff of [place] 13.7 % (11.5-14.5) 08/23/24: Plt Count 210 K/uL (130-400) 08/23/24: MPV 11.0 fL (9.4-12.4) 08/23/24: Immature Gran % (Auto) 0.4 % 08/23/24: Neut % (Auto) 64.4 % 08/23/24: Lymph % (Auto) 22.4 % 08/23/24: [place] % (Auto) 8.8 % 08/23/24: Eos % (Auto) 3.3 % 08/23/24: Baso % (Auto) 0.7 % 08/23/24: Neut # (Auto) 4.89 K/uL (1.40-6.50) 08/23/24: Lymph # (Auto) 1.70 K/uL (1.20-3.40) 08/23/24: [place] # (Auto) 0.67 K/uL (0.11-0.59) H 08/23/24: Eos # (Auto) 0.25 K/uL (0.00-0.50) 08/23/24: Baso # (Auto) 0.05 K/uL (0.00-0.20) 08/23/24: Immature Gran # (Auto) 0.03 K/uL (0.01-0.20) 08/23/24 14: PT 10.2 Seconds (9.0-12.0) 08/23/24 14: INR 0.9 (0.9-1.1) 08/23/24 14: Sodium 133 mmol/L (136-145) L 08/23/24 14: Potassium 5.1 mmol/L (3.5-5.1) 08/23/24 14: Chloride 98 mmol/L (98-107) 08/23/24 14: Carbon Dioxide 31 mmol/L (21-32) 08/23/24 14: Anion Gap 4 (3-11) 08/23/24 14: BUN 34 mg/dl (6-23) H 08/23/24 14: Creatinine 1.61 mg/dl (0.6-1.4) H 08/23/24 14: Est Cr Clr Drug Dosing Not Reportable 08/23/24 14: eGFR 44.05 08/23/24 14: BUN/Creatinine Ratio 21.1 (10-20) H 08/23/24 14: Glucose 319 mg/dl (70-99(Fasting)) H* 08/23/24 14: Calcium 9.1 mg/dl (8.6-10.3) 08/23/24 14: Magnesium 1.8 mg/dl (1.7-2.4) 08/23/24 14: Total Bilirubin 0.5 mg/dl (0.2-1.0) 08/23/24 14: AST 12 U/L (13-39) L 08/23/24 14: ALT 12 U/L (7-52) 08/23/24 14: Alkaline Phosphatase 107 U/L (34-104) H 08/23/24 14: Troponin I High Sens 12.0 pg/ml (0-20) 08/23/24 14: B-Natriuretic Peptide 80 pg/ml (0-100) 08/23/24 14: Total Protein 6.8 gm/dl (6.0-8.3) 08/23/24 14: Albumin 4.1 gm/dl (3.4-5.0) 08/23/24 14: Globulin 2.7 gm/dl (2.5-4.0) 08/23/24 14: Albumin/Globulin Ratio 1.5 (0.9-2) 08/23/24 14: Urine Color Yellow 08/23/24 17:04 Urine Appearance Clear (Clear) 08/23/24 17: Urine pH 5.0 (4.5-7.5) 08/23/24 17:04 Ur Specific [place] > 1.045 (1.000-1.030) H 08/23/24 17:04 Urine Protein Negative (Negative) 08/23/24 17:04 Urine Glucose (UA) 3+ (Negative) H 08/23/24 17:04 Urine Ketones Trace (Negative) H 08/23/24 17:04 Urine Blood Negative (Negative) 08/23/24 17: Urine Nitrite Negative (Negative) 08/23/24 17: Urine Bilirubin Negative (Negative) 08/23/24 17:04 Urine Urobilinogen Negative (Negative) 08/23/24 17:04 Ur Leukocyte Esterase Negative (Negative) 08/23/24 17:04 Adenovirus (PCR) Not Detected (NotDetected) 08/23/24 14:29 B. pertussis DNA (PCR) Not Detected (NotDetected) 08/23/24 14:29 B.parapertussis DNA PCR Not Detected (NotDetected) 08/23/24 14:29 C. pneumoniae DNA (PCR) Not Detected (NotDetected) 08/23/24 14: Coronavirus OC43 (PCR) Not Detected (NotDetected) 08/23/24 14: Coronavirus HKU1 (PCR) Not Detected (NotDetected) 08/23/24 14: Coronavirus 229E (PCR) Not Detected (NotDetected) 08/23/24 14:29 SARS-CoV-2 (PCR) Not Detected (NotDetected) 08/23/24 14: Coronavirus NL63 (PCR) Not Detected (NotDetected) 08/23/24 14: Human Metapneumovir PCR Not Detected (NotDetected) 08/23/24 14:29 Influenza Type A (PCR) Not Detected (NotDetected) 08/23/24 14: Influenza Type B (PCR) Not Detected (NotDetected) 08/23/24 14:29 M. pneumoniae (PCR) Not Detected (NotDetected) 08/23/24 14:29 Parainfluenza 1 (PCR) Not Detected (NotDetected) 08/23/24 14:29 Parainfluenza 2 (PCR) Not Detected (NotDetected) 08/23/24 14:29 Parainfluenza 3 (PCR) Not Detected (NotDetected) 08/23/24 14:29 Parainfluenza 4 (PCR) Not Detected (NotDetected) 08/23/24 14:29 RSV (PCR) Not Detected (NotDetected) 08/23/24 14:29 Entero/Rhino (PCR) Not Detected (NotDetected) 08/23/24 14:[address] 08/23/24 14:25 CT head/brain wo con CLINICAL HISTORY: dizziness. TECHNIQUE: Multiple axial CT images of the head were obtained without contrast. Sagittal and coronal reconstructions were done. A dose lowering technique was utilized adhering to the principles of ALARA. CT DOSE: 1238.87mGy*cm COMPARISON: 06/29/2020 FINDINGS: No significant interval changes have occurred. There is no intra-axial or extra-axial fluid collection, hemorrhage, or mass. The ventricles and sulci are mildly prominent. There is diminished white matter attenuation. There is no midline shift. The bone windows are negative. There is no fluid in the visualized sinuses or mastoid air cells. No middle ear fluid identified. IMPRESSION: Stable exam; no acute intracranial process identified. ACT 112: Negative or not required by law. The above report was generated using voice recognition software. It may contain grammatical, syntax or spelling errors. Electronically signed by: Sade Pandey M.D. 08/23/2024 3:41 PM Head CTA 08/23/24 14:25 CTA ANGIOGRAPHY OF THE HEAD CLINICAL HISTORY: dizziness COMPARISON STUDY: Head CT June 29, 2020. TECHNIQUE: Helical axial images of the head were obtained following uneventful intravenous administration of 120 cc of Optiray. Sagittal and coronal reconstructions were viewed as well as maximal intensity projections on an independent 3-D workstation. Automated exposure control was utilized for the study. A dose lowering technique was utilized adhering to the principles of ALARA. CT DOSE: 1238.87 mGy.cm FINDINGS: No acute intracranial hemorrhage, midline shift or mass effect is present. Ventricular system is normal. Basal cisterns are patent. There are no extra-axial collections. No intracranial aneurysm is identified. No vessel occlusion is identified. There is extensive calcified plaque within the bilateral cavernous carotids and the intracranial portion of the left vertebral artery. This results in moderate to severe stenoses of these vessels. IMPRESSION: 1. No intracranial vessel occlusion. No intracranial aneurysm. 2. Extensive calcified atherosclerotic plaque which results in moderate to severe stenoses of the bilateral carotid arteries and the intracranial portion of the left vertebral artery. ACT 112: Negative or not required by law. Electronically signed by: Moustapha Harden M.D. 08/23/2024 3:46 PM Neck CTA 08/23/24 14:25 CT ANGIOGRAPHY OF THE NECK WITH CONTRAST CLINICAL HISTORY: dizziness COMPARISON STUDY: No previous studies for comparison. Technique: CT angiography of the carotid and vertebral arteries was obtained using Optiray and 3D reconstruction on an independent workstation. NASCET criteria was utilized. Automated exposure control was utilized for the study. A dose lowering technique was utilized adhering to the principles of ALARA. Findings: No cervical lymphadenopathy is present. There are no cervical spine fractures. No significant abnormalities are identified within visualized portions of the lung apices. There is extensive calcified and noncalcified plaque within the proximal bilateral internal carotid arteries. This results in 70% stenosis of the proximal right internal carotid artery and 60% stenosis of the proximal left internal carotid artery. The left vertebral artery is dominant. Vertebral artery origins are suboptimally assessed due to artifact. No dissection or aneurysm within the neck. IMPRESSION: Extensive atherosclerotic plaque within the proximal bilateral internal carotid arteries which result in 70% stenosis of the proximal right internal carotid artery and 60% stenosis of the proximal left internal carotid artery. ACT 112: Negative or not required by law. Electronically signed by: Moustapha Harden M.D. 08/23/2024 3:53 PM Chest X-Ray 08/23/24 14:26 XR chest 1V portable CLINICAL HISTORY: shortness of breath COMPARISON STUDY: 11/15/2021 FINDINGS: Single view chest demonstrates hyperlucency in the upper lung zones with some flattening of diaphragms suggesting a component of emphysema. Hyperexpansion is more pronounced than on the prior study. There is no focal airspace opacity, pneumothorax, or atelectasis. Is no sizable pleural effusion. Heart size is mildly enlarged. IMPRESSION: No evidence of pneumonia. Possible exacerbation of COPD. Recommend clinical correlation. ACT 112: Negative or not required by law. Electronically signed by: Sade Pandey M.D. 08/23/2024 2:43 PM Supervising Physician Co-Signing Physician Notes Patient seen and examined at bedside. Patient states he has been prescribed oxygen in past but returned it on his own as he states he did not need it (he felt better). States for the past few months he has been feeling SOB, not being able to move more than 15 feet without needing to sit down SOB. States its been a bit worse the past week or so, but overall just a chronic decline. Dizziness occurs per patient when going from sitting to standing. He drinks very little water at home, and drinks alcohol daily. Drinks some coffee. On exam, patient has some expiratory wheezing bilaterally, saturating between 87-93 on room air. Labs reassuring, elevated BUN and creatinine in setting of very low PO fluid intake. Glucose slightly elevated. Patient has mild COPD exacerbation in setting of chronic hypoxic/hypercarbic respiratory failure likely with movement and sleep. GERA noncompliance with CPAP also contributing factor. Treat exacerbation with steroids/nebs, orthostatic hypotension with fluids, and needs 2-step for home oxygen therapies. If 2-step performed and oxygen ready at home, could be stable for discharge as early as tomorrow. Encourage tobacco and alcohol cessation. I have seen and discussed the case with the collaborating advanced practitioner. I agree with the above H&P. I have reviewed and confirmed the patients medical history, the findings on physical examination, and the patients diagnosis and treatment plan with Michelle Harris NP and agree with the information documented. I spent a total of 20 minutes coordinating, documenting, and providing care for this patient excluding time spent in the performance of separately billed services. All of the aforementioned completed outside of collaborating with the assigned advanced practitioner for a full treatment plan. I have reviewed the advanced practitioner's documentation, and I agree with, and take responsibility for the plan of care
[2024-08-23] MEDS ORDERED: methylPREDNISolone 125 MG/2 ML VIAL IV ONE (19:00)
[2024-08-23] MEDS: ALBUT/IPRATROP 3MG/0.5MG NEB 3 ML VIAL NEB SCH (19:03)
[2024-08-23] MEDS: INSULIN ASPART PER UNIT CHARGE SC STA (19:03)
[2024-08-23] MEDS: MAGNESIUM OXIDE 400 MG TAB PO ONE (19:03)
[2024-08-23] MEDS: predniSONE 20 MG TAB PO ONE (19:03)
[2024-08-23] MEDS: Patient's HEIGHT &/or WEIGHT Needed STA (19:07)
[2024-08-23] MEDS: SODIUM CHLORIDE 0.9% 500 ML IV SCH (19:32)
[2024-08-23] MEDS: ACETAMINOPHEN 325 MG TAB PO PRN (19:41)
[2024-08-23] MEDS: INSULIN ASPART PER UNIT CHARGE SC SCH (21:35)
--- NOTE | 2024-08-23 21:52 | Electrocardiogram Report ---
Test Reason : Blood Pressure : */* mmHG Vent. Rate : 79 BPM Atrial Rate : 79 BPM P-R Int : 176 ms QRS Dur : 68 ms QT Int : 358 ms P-R-T Axes : 80 76 78 degrees QTcB Int : 410 ms Normal sinus rhythm Normal ECG When compared with ECG of 23-Jul-2024 06:23, No significant change was found Confirmed by Dereck Messer ([id number]) on 08/23/2024 9:51:49 PM Referred By: Confirmed By: Dereck Messer
[2024-08-24] MEDS ORDERED: INSULIN ASPART PER UNIT CHARGE SC SCH (02:00)
[2024-08-24 07:47] LABS: Hematocrit (blood only) 40.9 % (42.0-52.0); Hemoglobin 13.6 g/dl (14.0-18.0); Mean Corpuscular Hemoglobin 30.8 pg (25.0-34.0); Mean Corpuscular Hgb Conc 33.3 g/dL (32.0-36.0); Mean Corpuscular Volume 92.7 fL (80.0-100.0); Mean Platelet Volume 11.1 fL (9.4-12.4); Platelet Count 217 K/uL (130-400); RDW Coefficient of Variation 13.4 % (11.5-14.5); Red Blood Count 4.41 M/uL (4.70-6.10); White Blood Count 5.47 K/ul (4.8-10.8)
[2024-08-24 08:03] LABS: Albumin Globulin Ratio 1.5 (0.9-2); Albumin Level 4.1 gm/dl (3.4-5.0); BUN Creatinine Ratio 22.8 (10-20); Bilirubin,Total 0.4 mg/dl (0.2-1.0); Calcium 9.1 mg/dl (8.6-10.3); Creatinine Clr Calc Pharmacy 60.3 ml/min; Globulin 2.7 gm/dl (2.5-4.0); Magnesium 1.8 mg/dl (1.7-2.4); Potassium 5.3 mmol/L (3.5-5.1); Total Protein 6.8 gm/dl (6.0-8.3)
[2024-08-24] MEDS: LANTUS PER UNIT CHARGE SC ONE (08:48)
[2024-08-24] MEDS: ROSUVASTATIN CALCIUM 20 MG TAB PO SCH (08:50)
[2024-08-24] MEDS: ASPIRIN 81 MG ECTAB PO SCH (08:51)
[2024-08-24] MEDS: PANTOprazole 40 MG TAB PO SCH (08:51)
[2024-08-24] MEDS: predniSONE 20 MG TAB PO SCH (08:51)
[2024-08-24] MEDS ORDERED: MONTELUKAST SODIUM 10 MG TABLET PO SCH (09:00)
--- NOTE | 2024-08-24 09:29 | Hospitalist Progress Note ---
Date of Service August 24, 2024 Assessment & Plan (1) Orthostatic hypotension: (2) On home oxygen therapy: (3) Anxiety and depression: (4) Former smoker: (5) COPD with exacerbation: (6) GERA (obstructive sleep apnea): (7) GERD (gastroesophageal reflux disease): (8) RLS (restless legs syndrome): (9) DM type 2 (diabetes mellitus, type 2): Plan Assessment and plan: COPD exacerbation Has exertional shortness of breath Continue prednisone, nebs Continue incentive spirometry Will continue treatment for now as patient got quite SOB walking around this AM Reviewed recent TTE Patient also reports h/o GERA but does not tolerate CPAP Needs oxygen HS per nocturnal pulse ox Counseled patient on need for adherence Dizziness Suspected orthostasis CTA head and nect noted bilateral carotid stenosis noted on imaging Need outpatient follow-up with vascular Continue aspirin/statin AKIlikely prerenal: Creatinine 1.6 on presentation, 1.1 on baseline Cr improving to 1.27 K is 5.3 today Diet changed to low potassium diet Hx DM2: Continue insulin sliding scale Continue to hold glipizide/metformin Full code DVT prophylaxis: Heparin subcu I spent a total of 50 minutes coordinating, documenting and providing care for this patient excluding time spent in performance of separately billed services Admission and Anticipated Discharge Date Admission Date: August 23, 2024 Subjective Patient seen and examined Denied any dizziness today Reports cough and shortness of breath with exertion today Denied other complaints Physical Exam Constitutional: + well hydrated; no acute distress Eyes: PERRL, conjunctivae normal, anicteric sclerae ENMT: external ear and nose normal, oropharynx normal Respiratory: +cough, diminished breath sounds, few rh onchi Cardiovascular: Rate/Rhythm: regular rate and regular rhythm Gastrointestinal (Abdomen): normal bowel sounds, soft, nontender, no hepatosplenomegaly Musculoskeletal: No pedal edema Neurologic: PERRL, EOMI, accommodation nl, no face palsy, no dysarthria Psychiatric: A+Ox3, euthymic affect Results & Data Results & Data Vital Signs (Past 12 Hours) Vital Signs Temp Pulse Pulse Pulse Resp Resp Resp 08/24/24 08:13 104 H 75 22 17 08/24/24 07:26 36.6 C 79 20 08/24/24 07:13 16 08/24/24 04:12 37.0 C 63 18 08/24/24 03:02 85 08/24/24 01:17 78 08/23/24 23:50 36.4 C L 76 18 08/23/24 22:50 70 08/23/24 22:45 73 BP BP Pulse Ox Pulse Ox Pulse Ox O2 Del Method O2 Del Method 08/24/24 08:13 90 93 08/24/24 07:26 176/72 H 93 Room Air 08/24/24 07:13 92 Room Air 08/24/24 04:12 160/86 H 92 Nasal Cannula 08/24/24 03:02 91 Room Air 08/24/24 01:17 92 Room Air 08/23/24 23:50 127/64 90 Nasal Cannula 08/23/24 22:50 90 Room Air 08/23/24 22:45 94 Room Air O2 Flow Rate 08/24/24 08:13 08/24/24 07:26 08/24/24 07:13 08/24/24 04:12 3 08/24/24 03:02 08/24/24 01:17 08/23/24 23:50 3 08/23/24 22:50 08/23/24 22:45 Laboratory Results Abnormal lab results 08/23/24 08/23/24 08/23/24 Range/Units 14:29 17:04 21:28 RBC 4.50 L (4.70-6.10) M/uL Hgb 13.8 L (14.0-18.0) g/dl Hct (42.0-52.0) % RDW Std Deviation 47.5 H (36.4-46.3) fL [place] # (Auto) 0.67 H (0.11-0.59) K/uL Sodium 133 L (136-145) mmol/L Potassium (3.5-5.1) mmol/L BUN 34 H (6-23) mg/dl Creatinine 1.61 H (0.6-1.4) mg/dl BUN/Creatinine Ratio 21.1 H (10-20) Glucose 319 H* (70-99(Fasting)) mg/dl POC Glucose 201 H (70-99) mg/dl AST 12 L (13-39) U/L Alkaline Phosphatase 107 H (34-104) U/L Ur Specific [place] > 1.045 H (1.000-1.030) Urine Glucose (UA) 3+ H (Negative) Urine Ketones Trace H (Negative) 08/24/24 08/24/24 Range/Units 07:13 07:29 RBC 4.41 L (4.70-6.10) M/uL Hgb 13.6 L (14.0-18.0) g/dl Hct 40.9 L (42.0-52.0) % RDW Std Deviation (36.4-46.3) fL [place] # (Auto) (0.11-0.59) K/uL Sodium 132 L (136-145) mmol/L Potassium 5.3 H (3.5-5.1) mmol/L BUN 29 H (6-23) mg/dl Creatinine (0.6-1.4) mg/dl BUN/Creatinine Ratio 22.8 H (10-20) Glucose 355 H* (70-99(Fasting)) mg/dl POC Glucose 335 H* (70-99) mg/dl AST 10 L (13-39) U/L Alkaline Phosphatase 115 H (34-104) U/L Ur Specific [place] (1.000-1.030) Urine Glucose (UA) (Negative) Urine Ketones (Negative)
[2024-08-24] MEDS: methylPREDNISolone 125 MG/2 ML VIAL IV SCH (09:58)
--- NOTE | 2024-08-24 13:16 | Electrocardiogram Report ---
Test Reason : Blood Pressure : */* mmHG Vent. Rate : 87 BPM Atrial Rate : 87 BPM P-R Int : 186 ms QRS Dur : 72 ms QT Int : 348 ms P-R-T Axes : 76 77 78 degrees QTcB Int : 418 ms Normal sinus rhythm Normal ECG When compared with ECG of 23-Aug-2024 14:23, No significant change was found Confirmed by Mohamud Pelayo ([id number]) on 08/24/2024 1:16:18 PM Referred By: REFERRED SELF Confirmed By: Mohamud Pelayo
[2024-08-24] MEDS: PRAMIPEXOLE DIHYDROCHLO 0.5 MG TAB PO SCH ×2 (15:09→20:34)
--- NOTE | 2024-08-24 15:38 | Pharmacy Report ---
Pharmacy Glycemic Short Note 2 - Date of Service August 24, 2024 - Glycemic Short BSG Results (Last 24 hours): 08/23/24 08/24/24 08/24/24 21:28 07:13 07:29 Glucose 355 H* POC Glucose 201 H 335 H* 08/24/24 11:18 Glucose POC Glucose 231 H OUTPATIENT ANTIDIABETIC REGIMEN: * Glipizide 10 mg PO daily * A1c= 8.2% (07/24/24) ASSESSMENT: * Cm is a 74 yo T2DM admitted with COPD exacerbation, GILMER and severe hyperglycemia. * Patient is known to the glycemic consult service. During recent admission in Jul 2024, patient was receiving ~40 units of basal insulin/day + Novolog CF/CR 24/09. Will dose patient similarly this admission as they are currently ordered prednisone 40 mg PO daily. PLAN FOR INPATIENT GLYCEMIC CONTROL: * Hold outpatient oral diabetes medications * Basal insulin * Lantus 25 units SQ x 1, then 15-20 units SC BID (20 units for BSG > 180 mg/dL) * Bolus insulin * NovoLog per scale ACHS or Q6hrs while NPO * Goal Range: Low 110 mg/dL - High 140 mg/dL * Correction Factor: 15 mg/dL/unit * Nutritional / Prandial insulin per carb ratio of 1 unit per 5 grams CHO consumed
[2024-08-24] MEDS: LANTUS PER UNIT CHARGE SC SCH (20:31)
[2024-08-25 07:57] LABS: Hematocrit (blood only) 42.5 % (42.0-52.0); Hemoglobin 14.2 g/dl (14.0-18.0); Mean Corpuscular Hemoglobin 30.7 pg (25.0-34.0); Mean Corpuscular Hgb Conc 33.4 g/dL (32.0-36.0); Platelet Count 226 K/uL (130-400); RDW Coefficient of Variation 13.6 % (11.5-14.5); RDW Standard Deviation 46.2 fL (36.4-46.3); Red Blood Count 4.62 M/uL (4.70-6.10); White Blood Count 8.31 K/ul (4.8-10.8)
[2024-08-25 07:59] VITALS: TEMP 97.9
[2024-08-25 08:18] LABS: BUN Creatinine Ratio 21.6 (10-20); Calcium 9.5 mg/dl (8.6-10.3); Magnesium 1.6 mg/dl (1.7-2.4); Potassium 4.1 mmol/L (3.5-5.1)
--- NOTE | 2024-08-25 10:25 | Discharge Summary ---
Date of Service August 25, 2024 Admission HPI Per Admitting Provider The patient is a 74-year-old male with a past medical history of COPD, CAD, valvular heart disease, DM 2, OSAnot on CPAP, unable to tolerate, RLS, GERD who presents to the ED on 08/23/2024 with complaints of shortness of breath and dizziness over the past 24 hours. Patient was recently discharged on 07/27/2024 with similar complaints of shortness of breath at rest and orthopnea. He was found to have norovirus at that time. He was discharged on p.o. prednisone which he reports finishing a few days after discharge with improvement. However, his shortness of breath worsened again this morning. Patient at bedside and reports wheezing all throughout the night. Patient has a history of GERA and is unable to tolerate CPAP. Patient reports being unable to walk further than 10-15 feet without being severely short of breath. He denies any fever/chills. He does report some clear sputum that he has been bringing up over the past month. He denies any nausea/vomiting/diarrhea/abdominal pain. On arrival to the ED, BioFire is negative, urinalysis negative Labs remarkable for NA 133, BUN 34, creatinine 1.61, glucose 319, AST 12, alk phos 107 Chest x-ray with no evidence of pneumonia, with findings of emphysema EKG with normal sinus rhythm, no acute changes Head CT negative Head CTA shows: 1. No intracranial vessel occlusion. No intracranial aneurysm. 2. Extensive calcified atherosclerotic plaque which results in moderate to severe stenoses of the bilateral carotid arteries and the intracranial portion of the left vertebral artery. Neck CTA shows: Extensive atherosclerotic plaque within the proximal bilateral internal carotid arteries which result in 70% stenosis of the proximal right internal carotid artery and 60% stenosis of the proximal left internal carotid artery. The patient will be admitted for further workup for dizziness and shortness of breath Admission Exam Per Admitting Provider Eyes: PERRL, conjunctivae normal, anicteric sclerae ENMT: external ear and nose normal, oropharynx normal Neck: trachea midline, no thyromegaly Respiratory: normal respiratory effort, lungs clear to auscultation + labored breathing; does not use accessory muscles Auscultation: + rhonchi and + wheezes Cardiovascular: RRR, no murmur, no edema Gastrointestinal (Abdomen): normal bowel sounds, soft, nontender, no hepatosplenomegaly Musculoskeletal: no cyanosis or clubbing, extremities motor strength 5/5 Skin: no rashes, warm and dry Neurologic: PERRL, EOMI, accommodation nl, no face palsy, no dysarthria Psychiatric: A+Ox3, euthymic affect Lymphatic: no cervical or axillary lymphadenopathy Principal Diagnosis COPD exacerbation Discharge Exam Constitutional + well hydrated; no acute distress Eyes PERRL, conjunctivae normal, anicteric sclerae ENMT external ear and nose normal, oropharynx normal Respiratory On room air, diminished breath sounds Cardiovascular Rate/Rhythm: regular rate and regular rhythm Gastrointestinal (Abdomen) normal bowel sounds, soft, nontender, no hepatosplenomegaly Musculoskeletal No pedal edema Neurologic PERRL, EOMI, accommodation nl, no face palsy, no dysarthria Psychiatric A+Ox3, euthymic affect Discharge Data Allergies Allergy/AdvReac Type Severity Reaction Status Date / Time No Known Allergies Allergy Verified 07/23/24 11:29 Consultations 08/23/24 17:15 ED Decision to Admit Stat Ordered Studies 08/23/24 14:25 CT head/brain wo con Stat CTA head w con [CT angio head w con] Stat CTA neck with con [CT angio neck with con] Stat Hospital Course (1) Orthostatic hypotension: (2) On home oxygen therapy: (3) Anxiety and depression: (4) Former smoker: (5) COPD with exacerbation: (6) GERA (obstructive sleep apnea): (7) GERD (gastroesophageal reflux disease): (8) RLS (restless legs syndrome): (9) DM type 2 (diabetes mellitus, type 2): Plan Assessment and plan: COPD exacerbation Has exertional shortness of breath Was managed with nebs and steroid Acknowledged poor adherence to home meds/inhaler 2 step did not show any oxygen needs prior to dc Discharged on 2 more days of prednisone Counseled on need for adherence PCP to arrange Pulmonology referral Patient also reports h/o GERA but does not tolerate CPAP Nocturnal pulse ox noted nocturnal hypoxemia Nocturnal oxygen arranged by CM Counseled patient on need for adherence Dizziness Suspected orthostasis CTA head and nect noted bilateral carotid stenosis noted on imaging Need outpatient follow-up with vascular Continue aspirin/statin AKIlikely prerenal: Creatinine 1.6 on presentation, 1.1 on baseline Cr improved to 1.11 on discharge Hx DM2: Continue glipizide/metformin Total Time Total Time Spent Total Time Spent (In Minutes): 35 Total Time Includes: Examination of the Patient, Discharge Planning and Medication Reconciliation Discharge Plan Discharge Items Patient Disposition: Home - Self-Care Reason For Visit: SOB,DIZZINESS Discharge Diagnosis: COPD exacerbation Obstructive sleep apnea Activity: Resume your previous activity Non-emergency contact: Primary Care Provider, Reproduction Production Manager and Geotechnical Engineer Call non-emergency contact if: you have any medication questions and your symptoms worsen Follow-up/Referrals: Jimbo Rhoades MD [Primary Care Provider] - Diet: Carb Consistent or DM2 and Heart Healthy Addtl Attending Provider Instructions: Mr Yousif You were admitted and managed for the above listed diagnoses You are being discharged on 2 more days of prednisone Please ensure you use your inhalers as prescribed. Please ensure follow up with Cardiology and Family Doctor. Your Family Doctor can set you up with Pulmonology. You need pulmonary function tests. Please use oxygen prescribed at bedtime 2L/min for now. It was a pleasure taking care of you. Pending Studies at Discharge: No Stand-Alone Forms: My [facility] IMASTE, Smoking Cessation Medications and DC Order Prescriptions: New prednisone 20 mg Tablet 20 mg PO DAILY 2 Days Qty: 2 0RF Continued (DME) Oxygen Home Liters Per Minute See Rx Instructions .MEDSUPPLY Qty: 1 0RF Rx Instructions: Please provide a POC for the patient. It would greatly improve his Quality of Life. Lifetime need. (DME) CPAP Machine Misc .Route Qty: 1 0RF Rx Instructions: 10 cm of water, mask fit to patient comfort, heated humidification, compliance download capabilities, to use with oxygen bleed at 1 L/min. DME: [facility] rosuvastatin 40 mg tablet 40 mg PO DAILY pramipexole 1 mg tablet See Rx Instructions .ROUTE .COMPLEX Rx Instructions: take 2 tablets in morning and 1 tablet at bedtime. 1 mg tablets. glipizide 10 mg tablet 10 mg PO DAILY omeprazole 20 mg capsule,delayed release(DR/EC) 20 mg PO DAILY montelukast 10 mg tablet 10 mg PO DAILY metformin 500 mg tablet extended release 24 hr 500 mg PO DAILY aspirin 81 mg Tablet,Delayed Release (Dr/Ec) 81 mg PO DAILY albuterol sulfate 90 mcg/actuation HFA aerosol inhaler 2 puff INHALATION Q6H PRN (Reason: Shortness Of Breath Or Wheezing) Dion Ellipta 200-62.5-25 mcg blister with device 1 inh INHALATION DAILY Discharge Orders: Discharge Order (Routine); Ordered 08/25/24 Ordered By: Tiana Pavon/Other Patient Handouts: High Blood Sugar (Hyperglycemia), Managing Type 2 Diabetes Admission Data Admit Date/Time: 08/23/24 17:24 Attending Provider: Tiana Grissom I. Admit Provider: Bernardo Monroy Primary Care Provider: Jimbo Rhoades Other Providers: Bernardo Monroy Other Interventions: Discharge Summary Assessment (RN) Last Done: 08/25/24 12:03
[2024-08-25] MEDS: MAGNESIUM OXIDE 400 MG TAB PO ONE (11:46)
[2024-08-25 12:06] VITALS: BP 169/88
[2024-08-25 12:08] VITALS: PULSE 93; RESP 15; O2SAT 98
--- NOTE | 2024-08-25 12:15 | Electrocardiogram Report ---
Test Reason : Blood Pressure : */* mmHG Vent. Rate : 75 BPM Atrial Rate : 75 BPM P-R Int : 184 ms QRS Dur : 76 ms QT Int : 368 ms P-R-T Axes : 78 73 76 degrees QTcB Int : 410 ms Normal sinus rhythm Normal ECG When compared with ECG of 24-Aug-2024 06:38, No significant change was found Confirmed by Mohamud Pelayo ([id number]) on 08/25/2024 12:14:42 PM Referred By: REFERRED SELF Confirmed By: Mohamud Pelayo
== END 2024-08-25 12:28 | disposition home or self-care (01) | DRG 312 ==
LOC: ED 14:03 → SUATTDRO 17:24 → 2E 17:24

== ENCOUNTER 2025-01-08 14:40 | Inpatient (IN) ==
--- NOTE | 2025-01-08 14:54 | Emergency Department Note ---
Impression & Plan Hypotension, Dizziness ED Provider Note NAME: MARIA T MOYA AGE: 74 SEX: Male INFORMANT: Patient ED PROVIDER(S): Jonah House MD CHIEF COMPLAINT: Dizziness PLAN: Disposition: Admitted Outpatient prescription management: none Referral: None MEDICAL DECISION MAKING: Patient presented because of hypotension. Has had some dizziness. The patient was feeling better in the ER than he was in the office. Blood pressures were improved compared to the 70s and 80s found prehospital. IV was established and blood work was initiated. Patient's ECG did not reveal any acute findings. Chest x-ray was reported by radiology is normal. Magnesium was mildly low. Chemistry panel revealed slight elevation of his creatinine over baseline. Patient was feeling much better after saline hydration.CBC did show mild anemia. Patient's cardiac troponin was unremarkable and procalcitonin was within normal limits. Patient did have a slight elevation of his lactate. IV magnesium was ordered. Given the hypotension and mild bump in his creatinine further evaluation and management in the hospital was felt to be appropriate. [facility] Case discussed and diagnostics were reviewed. Patient was evaluated in the ER for further management. Care/management discussed with: feed mill manager Level of care consideration(s): After review of the information above and other included data, I feel the patient requires escalation of care to admission Triage Nursing notes: reviewed and agree them. Vital Signs: reviewed and remarkable for soft blood pressures. Additional History obtained from: none Chronic Medical/Social Conditions affecting care: Diabetes Prior/ Outside/ External records reviewed: DC summary from August 2024 reviewed. Patient was seen for respiratory issues as well as orthostasis. Differential Diagnosis: Infection, dehydration, metabolic abnormality, hypo/hyperglycemia, electrolyte disturbance, anemia, hypoxia, cardiac sources, intracerebral event, toxicologic, neurologic, as well as other pathologies. Diagnostics, independently interpreted by me: ECG: Twelve-lead ECG reveals normal sinus rhythm at 78 beats per minute. No evidence of pericarditis, ischemia, ectopy, or dysrhythmia. Cardiac Monitoring: Cardiac monitoring ordered by me: The patient was placed on continuous cardiac monitoring and observed. It revealed a normal sinus rhythm at 70 beats per minute without ectopy or evidence of dysrhythmia. Medical decision rules: none Imaging studies: None HPI: 74 year old Male with history of COPD, CAD, valvular heart disease, DM 2 arrives for evaluation of dizziness. Patient was referred from primary office. Patient notes dizziness for few weeks. He was found to be hypotensive on multiple blood pressure checks. Systolic blood pressures were between 70 and 80. Patient stated he seems to have increasing dizziness in the last few days. Noted some blurry vision but no double vision. Denies any flulike symptoms. Pt denies LOC, headache, fevers, chills, diaphoresis, neck pain, chest pain, breathing difficulties, nausea, vomiting, abdominal pain, back pain, melena, hematochezia, urinary symptoms, numbness, focal weakness, lymphadenopathy, rash, or other complaints. Patient denies any pain. PAST MEDICAL HISTORY: See Below, diabetes, CAD PAST SURGICAL HISTORY: See Below, SOCIAL HISTORY: See Below, retired. Occasional alcohol. HOME MEDICATIONS: See Below ALLERGIES: See Below VITALS: See Below PHYSICAL EXAMINATION: GENERAL: Awake, alert, well-appearing, in no distress HENT: Normocephalic, atraumatic. Oropharynx unremarkable. EYES: Normal conjunctiva. Sclera non-icteric. NECK: Inspection normal. Non-tender. Supple. No nuchal rigidity. FROM. No masses. RESPIRATORY: Clear to auscultation. No wheezes. No rales. Normal respiratory effort. CARDIAC: Normal rate. Normal rhythm. No murmurs. No rubs. Extremities warm and well perfused. Pulses equal. No JVD. GI: Soft, non-distended. No tenderness to palpation. No rebound or guarding. No masses. RECTAL: Deferred. MUSCULOSKELETAL: Atraumatic. Chest examination reveals no tenderness. The back is symmetrical on inspection without obvious abnormality. There is no CVA tenderness to palpation. No joint edema. LOWER EXTREMITIES: Calves are equal size bilaterally and non-tender. No edema. No discoloration. NEURO: Normal sensorium. No sensory or motor deficits noted. SKIN: No rash or jaundice noted. PROCEDURES: none CRITICAL CARE: none OBSERVATION NOTE: none Past Med/Surg History Problem List (Updated 08/27/24 @ 00:08 by Background Daemon) Dizziness (Acute) Hypotension (Acute) Orthostatic hypotension (Acute) Acute dyspnea (Acute) GILMER (acute kidney injury) (Acute) Lightheadedness (Acute) Hypoxia (Acute) GILMER (acute kidney injury) CAD (coronary artery disease) Diabetes mellitus Valvular heart disease COPD with exacerbation Fracture of left distal radius Status post right knee replacement (~09/2022) Encounter for pre-operative examination Postoperative hypoxia Status post reverse total replacement of right shoulder DVT prophylaxis Status post reverse total replacement of left shoulder Left TSA (06/28/21): Grade view 1, MAC#4, ETT 8.0 + PNB at [facility] HLD (hyperlipidemia) COPD (chronic obstructive pulmonary disease) Breathing stable GERA (obstructive sleep apnea) (Chronic) Cannot tolerate device GERD (gastroesophageal reflux disease) (Chronic) Well controlled and stable RLS (restless legs syndrome) (Chronic) Leg cramping at night- takes magnesium DM type 2 (diabetes mellitus, type 2) (Chronic) History of total left knee replacement (Chronic) Medical History (Updated 01/08/25 @ 15:12 by Jonah House MD) On home oxygen therapy 2L PRN for dyspnea (occasional use) Pt monitors closely and O2 typically 94-96% RA No recent oxygen use Hearing deficit History of COVID-19 05/2021, symptoms at time: body aches, headache. Had a Casirivimab/Imdevimab IV infusion on 05/27/21 at [facility] > symptoms resolved Glaucoma S/p surgery Anxiety and depression Degenerative disc disease, lumbar Former smoker mild emphysema on CT HTN (hypertension) No meds Hx: recurrent pneumonia Including aspiration pneumonia several years ago No current issues No aspiration per 2018 video swallow Surgical History (Updated 08/27/24 @ 00:08 by Wayne Tilley) History of oral surgery History of open reduction and internal fixation (ORIF) procedure LEFT ARM History of esophagogastroduodenoscopy (EGD) History of colonoscopy History of cataract surgery RT/LEFT 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 History of open reduction and internal fixation (ORIF) procedure right leg--hardware removed History of appendectomy History of tooth extraction History of total left hip arthroplasty Left URI (03/16/18): Grade view 2, MAC#4, ETT 7.5 (SAB- unsuccessful > GA) S/P tonsillectomy and adenoidectomy Family History Father Coronary heart disease Brother Lung cancer Colorectal cancer Brother Coronary heart disease Mother Cancer Other No family history of adverse response to anesthesia Social History Smoking Status: Current every day smoker Tobacco Type: Cigarettes Cigarettes Per Day: 2; Second Hand Exposure: No; Do You Dip or Chew Tobacco: No; Hx Alcohol Use: Yes Alcohol type: beer Hx Substance Use: No Preferred Language: Romansh Communication Ability: Effective Communication Ability Comment: EXTREME PASCUA YAQUI Visual Impairment: No Limitations Hearing Ability: Hard of Hearing Electronic Calibration Technician Required: No Beliefs That Will Affect Care: None marital status: Current Living Situation: Spouse Current Living Situation Comment: and child current occupational status: retired Feels Safe at Home: Yes Assistive Devices: None and Oxygen - at Night Allergies Allergies Allergy/AdvReac Type Severity Reaction Status Date / Time No Known Allergies Allergy Verified 11/19/24 08:40 Home Meds Home Medications Medication Instructions Recorded Confirmed metformin 500 mg tablet,extended 1,000 mg PO BIDM 07/23/24 11/19/24 release 24 hr omeprazole 20 mg capsule,delayed 20 mg PO DAILY 07/23/24 11/19/24 release pramipexole 1 mg tablet See Rx Instructions .Route .COMPLEX 07/23/24 11/19/24 rosuvastatin 40 mg tablet 20 mg PO DAILY 07/23/24 11/19/24 aspirin 81 mg tablet,delayed 81 mg PO DAILY 08/23/24 11/19/24 release albuterol sulfate 90 mcg/actuation 2 puff inhalation Q6H PRN 08/25/24 11/19/24 aerosol inhaler Shortness Of Breath Or Wheezing fluticasone fur. 200 mcg-umeclid 1 inh inhalation DAILY 08/25/24 11/19/24 62.5 mcg-vilant 25 mcg inhalat.powder (Trelegy Ellipta) albuterol sulfate 2.5 mg/3 mL 2.5 mg inhalation DIRECTED PRN 09/29/24 11/19/24 (0.083 %) solution for nebulization Shortness Of Breath Or Wheezing alfuzosin 10 mg tablet,extended 10 mg PO DAILY 09/29/24 11/19/24 release 24 hr fluoxetine 20 mg capsule 20 mg PO HS 09/29/24 11/19/24 fluoxetine 40 mg capsule 40 mg PO QAM 09/29/24 11/19/24 folic acid 1 mg tablet 1 mg PO DAILY 09/29/24 11/19/24 magnesium oxide 400 mg PO DAILY 09/29/24 11/19/24 meloxicam 15 mg tablet 15 mg PO DAILY 09/29/24 11/19/24 prednisone 20 mg tablet 40 mg PO DAILY PRN RESCUE KIT FOR 09/29/24 11/19/24 COPD thiamine HCl (vitamin B1) 100 mg 100 mg PO DAILY 09/29/24 11/19/24 tablet (Vitamin B-1) trazodone 100 mg tablet 100 mg PO HS 09/29/24 11/19/24 Previous Rx's Medication Instructions Recorded Oxygen Home #1 ea 07/01/21 CPAP Machine #1 ea 11/05/21 isosorbide mononitrate 30 mg 30 mg PO DAILY #90 tabs 11/19/24 tablet,extended release 24 hr Results & Data (ED) Vital Signs Vital Signs - 24 hr 01/08/25 14:48 01/08/25 14:49 01/08/25 14:51 Temperature 36.6 C Temperature Source Temporal Artery Scan Pulse Rate 82 79 Respiratory Rate 18 Respiratory Effort / Characteristics Non-Labored Spontaneous Respiratory Depth Normal Respiratory Pattern Regular Blood Pressure 105/56 L Blood Pressure Mean 72 Blood Pressure Position Sitting Pulse Oximetry 94 Oxygen Delivery Method Room Air Room Air Sepsis Recent Fever Within 48 Hours No Sepsis New/Unexplained Change in Mental Status N/A Sepsis Action Taken by Nursing No Action Required Oxygen Flow Rate - Titration Pulse Oximetry Post Tiitration 01/08/25 15:05 01/08/25 16:13 Temperature Temperature Source Pulse Rate Respiratory Rate Respiratory Effort / Characteristics Respiratory Depth Respiratory Pattern Blood Pressure Blood Pressure Mean Blood Pressure Position Pulse Oximetry 97 87 L Oxygen Delivery Method Room Air Room Air Sepsis Recent Fever Within 48 Hours Sepsis New/Unexplained Change in Mental Status Sepsis Action Taken by Nursing Oxygen Flow Rate - Titration 2 Pulse Oximetry Post Tiitration 95 Laboratory Data 01/08/25 14:58 01/08/25 14:58 Lab Results 01/08/25 01/08/25 Range/Units 14:58 16:09 WBC 7.25 (4.8-10.8) K/ul RBC 4.23 L (4.70-6.10) M/uL Hgb 12.9 L (14.0-18.0) g/dl Hct 40.1 L (42.0-52.0) % MCV 94.8 (80.0-100.0) fL MCH 30.5 (25.0-34.0) pg MCHC 32.2 (32.0-36.0) g/dL RDW Std Deviation 49.1 H (36.4-46.3) fL RDW Coeff of Brie 14.2 (11.5-14.5) % Plt Count 189 (130-400) K/uL MPV 11.3 (9.4-12.4) fL Immature Gran % (Auto) 0.6 % Neut % (Auto) 63.7 % Lymph % (Auto) 21.9 % [place] % (Auto) 9.9 % Eos % (Auto) 3.3 % Baso % (Auto) 0.6 % Neut # (Auto) 4.62 (1.40-6.50) K/uL Lymph # (Auto) 1.59 (1.20-3.40) K/uL [place] # (Auto) 0.72 H (0.11-0.59) K/uL Eos # (Auto) 0.24 (0.00-0.50) K/uL Baso # (Auto) 0.04 (0.00-0.20) K/uL Immature Gran # (Auto) 0.04 (0.01-0.20) K/uL Sodium 135 L (136-145) mmol/L Potassium 4.4 (3.5-5.1) mmol/L Chloride 101 (98-107) mmol/L Carbon Dioxide 23 (21-32) mmol/L Anion Gap 11 (3-11) BUN 48 H (6-23) mg/dl Creatinine 2.42 H (0.6-1.4) mg/dl Est Cr Clr Drug Dosing 30.2 ml/min eGFR 27.01 BUN/Creatinine Ratio 19.8 (10-20) Glucose 225 H (70-99(Fasting)) mg/dl Lactate 2.1 H* (0.4-2.0) mmol/L Calcium 9.0 (8.6-10.3) mg/dl Magnesium 1.5 L (1.7-2.4) mg/dl Total Bilirubin 0.4 (0.2-1.0) mg/dl Direct Bilirubin 0.1 (0-0.2) mg/dl AST 14 (13-39) U/L ALT 11 (7-52) U/L Alkaline Phosphatase 89 (34-104) U/L Troponin I High Sens 10.3 (0-20) pg/ml Total Protein 6.9 (6.0-8.3) gm/dl Albumin 3.9 (3.4-5.0) gm/dl Procalcitonin 0.15 (0-0.5) ng/ml Administered Medications Discontinued Medications Sodium Chloride (Nss) 1,000 mls @ 999 mls/hr IV .Q1H1M BARON Stop: 01/08/25 16:00 Last Admin: 01/08/25 15:29 Dose: 999 mls/hr Documented By: AIDAN Imaging Data Radiologist's Impression: Chest X-Ray 01/08/25 14:51 XR chest 1V portable CLINICAL HISTORY: Sepsis COMPARISON STUDY: 09/29/2024 FINDINGS: Heart size and pulmonary vasculature are normal. No consolidation or pleural effusion. No pneumothorax. IMPRESSION: No acute findings. ACT 112: Negative or not required by law. Electronically signed by: Enrrique Martin M.D. 01/08/2025 3:23 PM Discharge Plan Visit Data Chief Complaint: Dizziness Stated Complaint: DIZZY ED Provider: Jonah House Discharge Problem: Hypotension, Dizziness Patient Disposition: Admitted As Inpatient Condition: Good Prescriptions Prescriptions: No Action (DME) Oxygen Home Liters Per Minute See Rx Instructions .MEDSUPPLY Qty: 1 0RF Rx Instructions: Please provide a POC for the patient. It would greatly improve his Quality of Life. Lifetime need. (DME) CPAP Machine Misc .Route Qty: 1 0RF Rx Instructions: 10 cm of water, mask fit to patient comfort, heated humidification, compliance download capabilities, to use with oxygen bleed at 1 L/min. DME: [facility] rosuvastatin 40 mg tablet 20 mg PO DAILY pramipexole 1 mg tablet See Rx Instructions .ROUTE .COMPLEX Rx Instructions: TAKES 2 MG QAM, THEN 1 MG QHS. omeprazole 20 mg capsule,delayed release(DR/EC) 20 mg PO DAILY metformin 500 mg tablet extended release 24 hr 1,000 mg PO BIDM aspirin 81 mg Tablet,Delayed Release (Dr/Ec) 81 mg PO DAILY albuterol sulfate 90 mcg/actuation HFA aerosol inhaler 2 puff INHALATION Q6H PRN (Reason: Shortness Of Breath Or Wheezing) Trelegy Ellipta 200-62.5-25 mcg blister with device 1 inh INHALATION DAILY Rx Instructions: PER MARCELA "PT DOES NOT HAVE". isosorbide mononitrate 30 mg tablet extended release 24 hr 30 mg PO DAILY Qty: 90 0RF fluoxetine 40 mg Capsule 40 mg PO QAM albuterol sulfate 2.5 mg /3 mL (0.083 %) Solution For Nebulization 2.5 mg INHALATION DIRECTED PRN (Reason: Shortness Of Breath Or Wheezing) meloxicam 15 mg tablet 15 mg PO DAILY prednisone 20 mg Tablet 40 mg PO DAILY PRN (Reason: RESCUE KIT FOR COPD) Rx Instructions: TAKE 40 MG X 5 DAYS FOR RESCUE KIT FOR COPD thiamine HCl (vitamin B1) [Vitamin B-1] 100 mg Tablet 100 mg PO DAILY trazodone 100 mg Tablet 100 mg PO HS folic acid 1 mg Tablet 1 mg PO DAILY fluoxetine 20 mg Capsule 20 mg PO HS alfuzosin 10 mg tablet extended release 24 hr 10 mg PO DAILY magnesium oxide 400 mg magnesium Tablet 400 mg PO DAILY Referrals Referrals: Jimbo Rhoades MD [Primary Care Provider] -
[2025-01-08 15:24] LABS: Hematocrit (blood only) 40.1 % (42.0-52.0); Hemoglobin 12.9 g/dl (14.0-18.0); Immature Granulocytes # (auto) 0.04 K/uL (0.01-0.20); Immature Granulocytes % (auto) 0.6 %; Mean Corpuscular Hemoglobin 30.5 pg (25.0-34.0); Mean Corpuscular Volume 94.8 fL (80.0-100.0); Platelet Count 189 K/uL (130-400); RDW Standard Deviation 49.1 fL (36.4-46.3); Red Blood Count 4.23 M/uL (4.70-6.10); White Blood Count 7.25 K/ul (4.8-10.8)
--- NOTE | 2025-01-08 15:25 | XRay Report ---
XR chest 1V portable CLINICAL HISTORY: Sepsis COMPARISON STUDY: 09/29/2024 FINDINGS: Heart size and pulmonary vasculature are normal. No consolidation or pleural effusion. No p neumothorax. IMPRESSION: No acute findings. ACT 112: Negative or not required by law. Electronically signed by: Enrrique Martin M.D. 01/08/2025 3:23 PM
[2025-01-08] MEDS: SODIUM CHLORIDE 0.9% 1,000 ML IV SCH ×2 (15:29→20:51)
[2025-01-08 15:39] LABS: Alanine Aminotransferase 11.0 U/L (7-52); Alkaline Phosphatase 89.0 U/L (34-104); Anion Gap 11.0 (3-11); Bilirubin,Total 0.4 mg/dl (0.2-1.0); Blood Urea Nitrogen 48.0 mg/dl (6-23); Calcium 9.0 mg/dl (8.6-10.3); Carbon Dioxide 23.0 mmol/L (21-32); Chloride 101.0 mmol/L (98-107); Creatinine Clr Calc Pharmacy 30.2 ml/min; Glucose 225.0 mg/dl (70-99(Fasting)); Magnesium 1.5 mg/dl (1.7-2.4); Potassium 4.4 mmol/L (3.5-5.1); Sodium 135.0 mmol/L (136-145); Total Protein 6.9 gm/dl (6.0-8.3)
[2025-01-08] MEDS: MAGNESIUM SULFATE / D5W 1 GM/100 ML BAG IV ONE (17:45)
--- NOTE | 2025-01-08 17:52 | History & Physical Report ---
Date of Service January 08, 2025 Assessment & Plan (1) GILMER (acute kidney injury): (2) Hypotension: Plan: Admit to med/surg with tele Patient presenting by referral of PCPs office for evaluation of hypotension and lightheadedness. Patient reports symptoms have been ongoing for the past 3 to 4 weeks, acutely worsening over the past few days. 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 States that he has been attempting to hydrate with Gatorade. Also note history of chronic alcohol use drinking 2-3 beers per day per patient's report. In the ED, blood pressures are borderline low, lactate mildly elevated 2.1. Creat 2.4 (baseline low 1s). Patient was given IVF. GILMER likely due to dehydration in combination with meloxicam use. Also note patient underwent cardiac cath on 11/19/24 with contrast exposure. Continue IVF Repeat lactate Hold isosorbide, alfuzosin, meloxicam Monitor orthostatic BPs Follow renal function (3) CAD (coronary artery disease): Plan: S/p cardiac cath on 11/29/2024 showing moderate nonobstructive CAD, medical management recommended Continue ASA and statin Holding isosorbide for now until BP improves (4) COPD (chronic obstructive pulmonary disease): Plan: No signs of acute exacerbation, currently not on routine inhalers, history of noncompliance (5) DM type 2 (diabetes mellitus, type 2): Plan: Hgb A1c 7.4 07/2024, update with a.m. labs Hold metformin NovoLog started while hospitalized (6) BPH (benign prostatic hyperplasia): Plan: Hold Alfuzosin for now due to hypotension/orthostasis (7) Alcohol use: Plan: Patient reports he drinks 2-3 beers/day, suspect use may be higher Alcohol withdrawal protocol with as needed lorazepam Thiamine and folic acid (8) GERA (obstructive sleep apnea): Plan: Currently not on CPAP, patient reports what is being sent to him Currently on 2 L of oxygen at bedtime DVT PROPHYLAXIS SQ heparin Patient seen in collaboration with Dr. Monterroso. I spent a total of 75 minutes coordinating, documenting, and providing care for this patient excluding time spent in the performance of separately billed services. This included personally reviewing all current laboratories and imaging studies, medication reconciliation, outpatient chart review, and discussion with specialists. History of Present Illness Chief Complaint: Referred by PCP for hypotension and lightheadedness Primary Care Provider: Jimbo Rhoades MD 74-year-old male with PMH DM type II, HLD, COPD, nocturnal hypoxia on 2 L of oxygen, GERA not currently on CPAP, CAD, bilateral carotid artery disease, moderate aortic stenosis, history of orthostatic hypotension, GERD, BPH, RLS, chronic alcohol use, anxiety, depression, and other problems listed below who presents to the ED by referral of his PCP for evaluation of hypotension and lightheadedness. The patient reports having worsening lightheadedness over the past 3 to 4 weeks. He was seen at his PCPs office today and found to be hypotensive with systolic blood pressure in the 80s and was referred to the ED for further evaluation. patient recently underwent cardiac cath on showing moderate nonobstructive CAD. Medical management recommended. 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 Reports attempting to hydrate with Gatorade over the past couple of days. Patient does have history of chronic alcohol use, drinking 2-3 beers per day per his report. Patient denies any other recent illnesses, fevers, chills. No chest pain, shortness of breath, palpitations. Denies abdominal pain, nausea, vomiting, diarrhea. No urinary symptoms. In the ED, BP is borderline low. Labs show creatinine 2.4 (baseline low 1s), lactate 2.1, Mg +1.5. Patient was given IVF and magnesium replacement. Allergies Allergy/AdvReac Type Severity Reaction Status Date / Time No Known Allergies Allergy Verified 01/08/25 17:05 Home Medications Medication Instructions Recorded Confirmed Type Oxygen Home #1 ea 07/01/21 01/03/22 Rx CPAP Machine #1 ea 11/05/21 01/03/22 Rx metformin 500 mg tablet,extended 1,000 mg PO BIDM 07/23/24 01/08/25 History release 24 hr omeprazole 20 mg capsule,delayed 20 mg PO DAILY 07/23/24 01/08/25 History release pramipexole 1 mg tablet See Rx Instructions .Route .COMPLEX 07/23/24 01/08/25 History rosuvastatin 40 mg tablet 20 mg PO DAILY 07/23/24 01/08/25 History aspirin 81 mg tablet,delayed 81 mg PO DAILY 08/23/24 01/08/25 History release albuterol sulfate 90 mcg/actuation 2 puff inhalation Q6H PRN 08/25/24 01/08/25 History aerosol inhaler Shortness Of Breath Or Wheezing fluticasone fur. 200 mcg-umeclid 1 inh inhalation DAILY 08/25/24 01/08/25 History 62.5 mcg-vilant 25 mcg inhalat.powder (Trelegy Ellipta) albuterol sulfate 2.5 mg/3 mL 2.5 mg inhalation DIRECTED PRN 09/29/24 01/08/25 History (0.083 %) solution for nebulization Shortness Of Breath Or Wheezing alfuzosin 10 mg tablet,extended 10 mg PO DAILY 09/29/24 01/08/25 History release 24 hr fluoxetine 20 mg capsule 20 mg PO HS 09/29/24 01/08/25 History fluoxetine 40 mg capsule 40 mg PO QAM 09/29/24 01/08/25 History folic acid 1 mg tablet 1 mg PO DAILY 09/29/24 01/08/25 History magnesium oxide 400 mg PO DAILY 09/29/24 01/08/25 History meloxicam 15 mg tablet 15 mg PO DAILY 09/29/24 01/08/25 History prednisone 20 mg tablet 40 mg PO DAILY PRN RESCUE KIT FOR 09/29/24 01/08/25 History COPD thiamine HCl (vitamin B1) 100 mg 100 mg PO DAILY 09/29/24 01/08/25 History tablet (Vitamin B-1) trazodone 100 mg tablet 100 mg PO HS 09/29/24 01/08/25 History isosorbide mononitrate 30 mg 30 mg PO DAILY #90 tabs 11/19/24 01/08/25 Rx tablet,extended release 24 hr Past Med/Surg History Problem List (Updated 08/27/24 @ 00:08 by Background Daemon) Dizziness (Acute) Hypotension (Acute) Orthostatic hypotension (Acute) GILMER (acute kidney injury) (Acute) CAD (coronary artery disease) Valvular heart disease Fracture of left distal radius Status post right knee replacement (~09/2022) Status post reverse total replacement of right shoulder Status post reverse total replacement of left shoulder Left TSA (06/28/21): Grade view 1, MAC#4, ETT 8.0 + PNB at [facility] HLD (hyperlipidemia) COPD (chronic obstructive pulmonary disease) Breathing stable GERA (obstructive sleep apnea) (Chronic) Cannot tolerate device GERD (gastroesophageal reflux disease) (Chronic) Well controlled and stable RLS (restless legs syndrome) (Chronic) Leg cramping at night- takes magnesium DM type 2 (diabetes mellitus, type 2) (Chronic) History of total left knee replacement (Chronic) Medical History (Updated 01/08/25 @ 17:55 by BILL Calhoun) Alcohol use BPH (benign prostatic hyperplasia) On home oxygen therapy 2L HS Hearing deficit History of COVID-19 05/2021, symptoms at time: body aches, headache. Had a Casirivimab/Imdevimab IV infusion on 05/27/21 at [facility] > symptoms resolved Glaucoma S/p surgery Anxiety and depression Degenerative disc disease, lumbar Former smoker mild emphysema on CT HTN (hypertension) No meds Hx: recurrent pneumonia Including aspiration pneumonia several years ago No current issues No aspiration per 2018 video swallow Surgical History (Updated 08/27/24 @ 00:08 by Wayne Tilley) History of oral surgery History of open reduction and internal fixation (ORIF) procedure LEFT ARM History of esophagogastroduodenoscopy (EGD) History of colonoscopy History of cataract surgery RT/LEFT 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 History of open reduction and internal fixation (ORIF) procedure right leg--hardware removed History of appendectomy History of tooth extraction History of total left hip arthroplasty Left URI (03/16/18): Grade view 2, MAC#4, ETT 7.5 (SAB- unsuccessful > GA) S/P tonsillectomy and adenoidectomy Family History Father Coronary heart disease Brother Lung cancer Colorectal cancer Brother Coronary heart disease Mother Cancer Other No family history of adverse response to anesthesia Social History Smoking Status: Current every day smoker Tobacco Type: Cigarettes Cigarettes Per Day: 2; Second Hand Exposure: No; Do You Dip or Chew Tobacco: No; Hx Alcohol Use: Yes Alcohol type: beer Hx Substance Use: No Preferred Language: Kyrgyz Communication Ability: Effective Communication Ability Comment: [place] Visual Impairment: No Limitations Hearing Ability: Hard of Hearing Numerical Control Lathe Operator Required: No Beliefs That Will Affect Care: None marital status: Current Living Situation: Spouse Current Living Situation Comment: and child current occupational status: retired Feels Safe at Home: Yes Assistive Devices: None and Oxygen - at Night Review of Systems Review of Systems: ROS per HPI, all other systems reviewed and negative Physical Exam Constitutional: WD/WN, vitals as above no acute distress Respiratory: normal respiratory effort; no respiratory distress Auscultation: + diminished lung sounds Cardiovascular: Rate/Rhythm: regular rate and regular rhythm Vessels: normal peripheral pulses Extremities: no edema Gastrointestinal (Abdomen): normal bowel sounds, soft, nontender, no hepatosp lenomegaly Skin: no rashes, warm and dry Neurologic: no focal motor deficits Psychiatric: A+Ox3, euthymic affect Results & Data Results & Data Vital Signs (Past 12 Hours) Vital Signs Temp Pulse Resp BP Pulse Ox O2 Del Method O2 Flow Rate 01/08/25 17:30 73 22 129/66 95 Nasal Cannula 2 01/08/25 17:15 73 20 119/68 96 Nasal Cannula 01/08/25 17:00 72 16 120/61 95 Nasal Cannula 2 01/08/25 16:45 72 16 127/74 94 Nasal Cannula 2 01/08/25 16:16 73 16 119/66 94 Nasal Cannula 2 01/08/25 16:13 87 L Room Air 01/08/25 16:00 72 16 117/66 87 L Room Air 01/08/25 15:45 68 16 118/61 100 Room Air 01/08/25 15:30 73 20 111/57 L 93 Room Air 01/08/25 15:15 79 24 85/43 L 93 Room Air 01/08/25 15:05 97 Room Air 01/08/25 14:54 76 25 H 105/56 L 94 Room Air 01/08/25 14:51 Room Air 01/08/25 14:49 79 01/08/25 14:48 36.6 C 82 18 105/56 L 94 Room Air Laboratory Results Short CBC 01/08/25 Range/Units 14:58 WBC 7.25 (4.8-10.8) K/ul Hgb 12.9 L (14.0-18.0) g/dl Hct 40.1 L (42.0-52.0) % Plt Count 189 (130-400) K/uL BMP 01/08/25 14:58 Sodium 135 L Potassium 4.4 Chloride 101 Carbon Dioxide 23 BUN 48 H Creatinine 2.42 H Glucose 225 H Calcium 9.0 Liver Function 01/08/25 Range/Units 14:58 Total Bilirubin 0.4 (0.2-1.0) mg/dl Direct Bilirubin 0.1 (0-0.2) mg/dl AST 14 (13-39) U/L ALT 11 (7-52) U/L Alkaline Phosphatase 89 (34-104) U/L Albumin 3.9 (3.4-5.0) gm/dl Diagnostic Findings Chest X-Ray 01/08/25 14:51 XR chest 1V portable CLINICAL HISTORY: Sepsis COMPARISON STUDY: 09/29/2024 FINDINGS: Heart size and pulmonary vasculature are normal. No consolidation or p leural effusion. No pneumothorax. IMPRESSION: No acute findings. ACT 112: Negative or not required by law. Electronically signed by: Enrrique Martin M.D. 01/08/2025 3:23 PM Code Status & VTE Plan VTE Prophylaxis Plan VTE Prophylaxis will be ordered: Yes Supervising Physician Co-Signing Physician Notes Patient seen and examined at bedside. Patient doing ok today. States he gets dizzy/lightheaded when he goes from sitting to standing. Worse with activity. Drinks several beers daily. On exam, patient slightly disheveled, dry mucous membranes, no horizontal or vertical nystagmus, no reproduction of symptoms with head movement. Elevated lactic acid downtrended with fluids, Mg of 1.5 replenished. Patient likely has hypotension/GILMER in setting of ongoing alcohol use and dehydration from heat/physical activity. Encouraged alcohol cessation, staying hydrated. Monitor for alcohol withdrawal. Start maintenance fluids, hold BP meds. Avoid NSAIDs. I have seen and discussed the case with the collaborating advanced practitioner. I agree with the above H&P. I have reviewed and confirmed the patients medical history, the findings on physical examination, and the patients diagnosis and treatment plan with Muna KHAN and agree with the information documented. I spent a total of 25 minutes coordinating, documenting, and providing care for this patient excluding time spent in the performance of separately billed services. All of the aforementioned completed outside of collaborating with the assigned advanced practitioner for a full treatment plan. I have reviewed the advanced practitioner's documentation, and I agree with, and take responsibility for the plan of care
[2025-01-08] MEDS ORDERED: GLUCOSE 40% GEL 15 GM TUBE PO PRN (19:31)
[2025-01-08] MEDS ORDERED: DEXTROSE 50% 50 ML SYRINGE IV PRN (19:31)
[2025-01-08] MEDS ORDERED: CARBOHYDRATES FOR HYPOGLYCEMIA PO PRN (19:31)
[2025-01-08] MEDS ORDERED: Ativan IV Alcohol Withdrawal--Active Protocol IV PRN (19:31)
[2025-01-08] MEDS ORDERED: ACETAMINOPHEN 325 MG TAB PO PRN (19:31)
[2025-01-08] MEDS ORDERED: GLUCAGON FOR INJ 1 MG VIAL SQ PRN (19:31)
[2025-01-08] MEDS ORDERED: GLUCOSE 10 TAB/TUBE PO PRN (19:31)
[2025-01-08] MEDS: PRAMIPEXOLE DIHYDROCHLO 0.5 MG TAB PO SCH (20:51)
[2025-01-08] MEDS: INSULIN ASPART PER UNIT CHARGE SC SCH (20:51)
[2025-01-08] MEDS: HEPARIN SOD 5,000 UNIT/0.5 ML VIAL SQ SCH (21:02)
[2025-01-08 23:37] LABS: Appearance Urine Clear (Clear); Glucose Urine UA Trace (Negative)
[2025-01-09 08:21] LABS: Hematocrit (blood only) 39.5 % (42.0-52.0); Hemoglobin 12.6 g/dl (14.0-18.0); Mean Corpuscular Hemoglobin 30.4 pg (25.0-34.0); Mean Corpuscular Volume 95.4 fL (80.0-100.0); Platelet Count 181 K/uL (130-400); RDW Standard Deviation 49.2 fL (36.4-46.3); Red Blood Count 4.14 M/uL (4.70-6.10); White Blood Count 6.45 K/ul (4.8-10.8)
[2025-01-09 08:45] LABS: Anion Gap 4.0 (3-11); Blood Urea Nitrogen 33.0 mg/dl (6-23); Calcium 8.5 mg/dl (8.6-10.3); Carbon Dioxide 29.0 mmol/L (21-32); Chloride 104.0 mmol/L (98-107); Creatinine Clr Calc Pharmacy 56.0 ml/min; Glucose 159.0 mg/dl (70-99(Fasting)); Magnesium 1.8 mg/dl (1.7-2.4); Potassium 4.6 mmol/L (3.5-5.1); Sodium 137.0 mmol/L (136-145)
[2025-01-09 09:35] LABS: Hemoglobin A1C 8.9 % (4.5-5.6)
[2025-01-09] MEDS: MAGNESIUM OXIDE 400 MG TAB PO SCH (09:35)
[2025-01-09] MEDS: ASPIRIN 81 MG ECTAB PO SCH (09:35)
[2025-01-09] MEDS: THIAMINE HCL 100 MG TAB PO SCH (09:35)
[2025-01-09] MEDS: FOLIC ACID 1 MG TAB PO SCH (09:36)
[2025-01-09] MEDS: ROSUVASTATIN CALCIUM 20 MG TAB PO SCH (09:36)
--- NOTE | 2025-01-09 14:01 | Hospitalist Progress Note ---
Date of Service January 09, 2025 Assessment & Plan (1) GILMER (acute kidney injury): (2) Hypotension: Plan: Patient presenting by referral of PCPs office for evaluation of hypotension and lightheadedness. Patient reports symptoms have been ongoing for the past 3 to 4 weeks, acutely worsening over the past few days. 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 Creat 2.4 on admission. GILMER likely due to dehydration in combination with meloxicam use. Also note patient underwent cardiac cath on 11/19/24 with contrast exposure. Creatinine down trended with IV fluids Plan to hold Imdur at the time of the discharge and do outpatient blood pressure monitoring. Patient also advised against meloxicam use. Continue to monitor blood pressure (3) CAD (coronary artery disease): Plan: S/p cardiac cath on 11/29/2024 showing moderate nonobstructive CAD, medical management recommended Continue ASA and statin Holding isosorbide for now until BP improves (4) COPD (chronic obstructive pulmonary disease): Plan: No signs of acute exacerbation, currently not on routine inhalers, history of noncompliance (5) DM type 2 (diabetes mellitus, type 2): Plan: Hgb A1c 7.4 07/2024, update with a.m. labs Hold metformin NovoLog started while hospitalized (6) BPH (benign prostatic hyperplasia): Plan: Hold Alfuzosin for now due to hypotension/orthostasis (7) Alcohol use: Plan: Patient reports he drinks 2-3 beers/day, suspect use may be higher Alcohol withdrawal protocol with as needed lorazepam Thiamine and folic acid (8) GERA (obstructive sleep apnea): Plan: Currently not on CPAP, patient reports what is being sent to him Currently on 2 L of oxygen at bedtime DVT PROPHYLAXIS SQ heparin Time spent evaluating patient, direct bedside care, chart review, placing orders, interpretation of diagnostic studies, discussion with consultants, patient, and family members, as well as other required patient management activ ities is 50 minutes Please note the above document was generated using voice recognition software. It may contain grammatical, syntax or spelling errors. Any formal questions or concerns about the content, text or information contained within the body of this dictation should be directly addressed to the provider for clarification Admission and Anticipated Discharge Date Admission Date: January 08, 2025 Subjective Patient seen and examined at bedside. He reports that he is feeling much better. Blood pressure has improved overall and patient does not report of dizziness. Review of Systems Review of Systems: All systems reviewed & are unremarkable except as noted in Subjective Physical Exam Physical Exam: Constitutional: WD/WN, vitals as above, NAD, sitting up in bed, pleasant, conversing easily Respiratory: normal respiratory effort, lungs clear to auscultation, no wheeze, rales, rhonchi. Normal insp/exp effort, no accessory muscle use Cardiovascular: RRR, no murmur, no edema Vessels: no JVD or carotid bruit Chest: normal inspection of chest Abdomen: normal bowel sounds, soft, nontender, no hepatosplenomegaly Musculoskeletal: no cyanosis or clubbing, extremities motor strength 5/5 Skin: no rashes, warm and dry normal turgor Neurologic: PERRL, EOMI, accommodation nl, no face palsy, no dysarthria CN's II- XI intact bilaterally and moves all extremities Psychiatric: A+Ox3, euthymic affect Results & Data Results & Data Vital Signs (Past 12 Hours) Vital Signs Temp Pulse Resp BP BP Pulse Ox O2 Del Method 01/09/25 11:40 36.3 C L 69 18 129/68 91 Room Air 01/09/25 11:34 36.3 C L 69 18 129/68 91 Room Air 01/09/25 08:34 36.4 C L 72 18 149/76 H 94 Nasal Cannula 01/09/25 03:00 36.7 C 55 L 20 115/62 93 Nasal Cannula O2 Flow Rate 01/09/25 11:40 01/09/25 11:34 01/09/25 08:34 2 01/09/25 03:00 2
[2025-01-10 05:18] LABS: Anion Gap 7.0 (3-11); Blood Urea Nitrogen 23.0 mg/dl (6-23); Calcium 8.9 mg/dl (8.6-10.3); Carbon Dioxide 27.0 mmol/L (21-32); Chloride 102.0 mmol/L (98-107); Creatinine Clr Calc Pharmacy 61.1 ml/min; Glucose 254.0 mg/dl (70-99(Fasting)); Potassium 4.7 mmol/L (3.5-5.1); Sodium 136.0 mmol/L (136-145)
[2025-01-10 07:39] VITALS: RESP 18
[2025-01-10] MEDS ORDERED: TAMSULOSIN HCL 0.4 MG CAP PO SCH (09:00)
[2025-01-10 11:16] VITALS: PULSE 59; TEMP 97.7; O2SAT 92
[2025-01-10 12:45] VITALS: BP 129/68
--- NOTE | 2025-01-10 13:27 | Discharge Summary ---
Date of Service January 10, 2025 Admission HPI Per Admitting Provider 74-year-old male with PMH DM type II, HLD, COPD, nocturnal hypoxia on 2 L of oxygen, GERA not currently on CPAP, CAD, bilateral carotid artery disease, moderate aortic stenosis, history of orthostatic hypotension, GERD, BPH, RLS, chronic alcohol use, anxiety, depression, and other problems listed below who presents to the ED by referral of his PCP for evaluation of hypotension and lightheadedness. The patient reports having worsening lightheadedness over the past 3 to 4 weeks. He was seen at his PCPs office today and found to be hypotensive with systolic blood pressure in the 80s and was referred to the ED for further evaluation. patient recently underwent cardiac cath on showing moderate nonobstructive CAD. Medical management recommended. 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 Reports attempting to hydrate with Gatorade over the past couple of days. Patient does have history of chronic alcohol use, drinking 2-3 beers per day per his report. Patient denies any other recent illnesses, fevers, chills. No chest pain, shortness of breath, palpitations. Denies abdominal pain, nausea, vomiting, diarrhea. No urinary symptoms. In the ED, BP is borderline low. Labs show creatinine 2.4 (baseline low 1s), lactate 2.1, Mg +1.5. Patient was given IVF and magnesium replacement. Admission Exam Per Admitting Provider Constitutional: WD/WN, vitals as above no acute distress Respiratory: normal respiratory effort; no respiratory distress Auscultation: + diminished lung sounds Cardiovascular: Rate/Rhythm: regular rate and regular rhythm Vessels: normal peripheral pulses Extremities: no edema Gastrointestinal (Abdomen): normal bowel sounds, soft, nontender, no hepatosplenomegaly Skin: no rashes, warm and dry Neurologic: no focal motor deficits Psychiatric: A+Ox3, euthymic affect Principal Diagnosis Acute kidney injury Orthostatic hypotension Discharge Exam Constitutional: WD/WN, vitals as above, NAD, sitting up in bed, pleasant, conversing easily Respiratory: normal respiratory effort, lungs clear to auscultation, no wheeze, rales, rhonchi. Normal insp/exp effort, no accessory muscle use Cardiovascular: RRR, no murmur, no edema Vessels: no JVD or carotid bruit Chest: normal inspection of chest Abdomen: normal bowel sounds, soft, nontender, no hepatosplenomegaly Musculoskeletal: no cyanosis or clubbing, extremities motor strength 5/5 Skin: no rashes, warm and dry normal turgor Neurologic: PERRL, EOMI, accommodation nl, no face palsy, no dysarthria CN's II- XI intact bilaterally and moves all extremities Psychiatric: A+Ox3, euthymic affect Discharge Data Allergies Allergy/AdvReac Type Severity Reaction Status Date / Time No Known Allergies Allergy Verified 01/08/25 17:05 Consultations 01/08/25 16:56 ED Decision to Admit Stat Hospital Course (1) GILMER (acute kidney injury): (2) Hypotension: Patient presenting by referral of PCPs office for evaluation of hypotension and lightheadedness. Patient reports symptoms have been ongoing for the past 3 to 4 weeks, acutely worsening over the past few days. 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 Creat 2.4 on admission. GILMER likely due to dehydration in combination with meloxicam use. Also note patient underwent cardiac cath on 11/19/24 with contrast exposure. Patient blood pressure improved during the hospitalization; creatinine down trended to baseline as well. Patient was discharged home with instructions to follow-up with PCP. (3) CAD (coronary artery disease): S/p cardiac cath on 11/29/2024 showing moderate nonobstructive CAD, medical management recommended Continue ASA and statin (4) COPD (chronic obstructive pulmonary disease): No signs of acute exacerbation, currently not on routine inhalers, history of noncompliance (5) DM type 2 (diabetes mellitus, type 2): Hgb A1c 7.4 07/2024, continue home meds and follow up with PCP (6) BPH (benign prostatic hyperplasia): Alfuzosin resumed at discharge (7) Alcohol use: Patient reports he drinks 2-3 beers/day, suspect use may be higher Alcohol withdrawal protocol with as needed lorazepam Thiamine and folic acid no s/s of withdrawal during hospitalization (8) GERA (obstructive sleep apnea): Please note the above document was generated using voice recognition software. It may contain grammatical, syntax or spelling errors. Any formal questions or concerns about the content, text or information contained within the body of this dictation should be directly addressed to the provider for clarification Total Time Total Time Spent Total Time Spent (In Minutes): 45 Total Time Includes: Examination of the Patient, Discharge Planning, Medication Reconciliation, Communication With Other Providers and Other Discharge Plan Discharge Items Patient Disposition: Home - Self-Care Reason For Visit: GILMER, ORTHOSTASIS Discharge Diagnosis: Acute kidney injury Orthostatic hypotension Condition on Discharge: Good Activity: Resume your previous activity Non-emergency contact: Primary Care Provider Call non-emergency contact if: you have any medication questions and your symptoms worsen Follow-up/Referrals: Jimbo Rhoades MD [Primary Care Provider] - (Date & Time 01/15/2025 11:00 AM Provider: Jimbo Rhoades MD [facility], [facility] ) Diet: Regular Addtl Attending Provider Instructions: You were admitted to the hospital due to low blood pressure. You were given IV fluids during the hospitalization with improvement in your blood pressure and kidney function. Please continue to take your medication as prescribed before. Follow-up with your primary care doctor as scheduled Pending Studies at Discharge: No Stand-Alone Forms: My [facility] [place] Thin brick, Smoking Cessation Medications and DC Order Prescriptions: Continued (DME) Oxygen Home Liters Per Minute See Rx Instructions .MEDSUPPLY Qty: 1 0RF Rx Instructions: Please provide a POC for the patient. It would greatly improve his Quality of Life. Lifetime need. (DME) CPAP Machine Misc .Route Qty: 1 0RF Rx Instructions: 10 cm of water, mask fit to patient comfort, heated humidification, compliance download capabilities, to use with oxygen bleed at 1 L/min. DME: [facility] rosuvastatin 40 mg tablet 20 mg PO DAILY pramipexole 1 mg tablet See Rx Instructions .ROUTE .COMPLEX Rx Instructions: ORDERED PER [facility]---2 MG QAM, THEN 1 MG QHS. PER [facility]--"PT TAKES 2 TABS QPM". omeprazole 20 mg capsule,delayed release(DR/EC) 20 mg PO DAILY metformin 500 mg tablet extended release 24 hr 1,000 mg PO BIDM aspirin 81 mg Tablet,Delayed Release (Dr/Ec) 81 mg PO DAILY albuterol sulfate 90 mcg/actuation HFA aerosol inhaler 2 puff INHALATION Q6H PRN (Reason: Shortness Of Breath Or Wheezing) Trelegy Ellipta 200-62.5-25 mcg blister with device 1 inh INHALATION DAILY Rx Instructions: PER MARCELA "PT DOES NOT HAVE". fluoxetine 40 mg Capsule 40 mg PO QAM albuterol sulfate 2.5 mg /3 mL (0.083 %) Solution For Nebulization 2.5 mg INHALATION DIRECTED PRN (Reason: Shortness Of Breath Or Wheezing) meloxicam 15 mg tablet 15 mg PO DAILY prednisone 20 mg Tablet 40 mg PO DAILY PRN (Reason: RESCUE KIT FOR COPD) Rx Instructions: TAKE 40 MG X 5 DAYS FOR RESCUE KIT FOR COPD thiamine HCl (vitamin B1) [Vitamin B-1] 100 mg Tablet 100 mg PO DAILY trazodone 100 mg Tablet 100 mg PO HS folic acid 1 mg Tablet 1 mg PO DAILY Rx Instructions: PER MARCELA, "PT NO LONGER TAKING". fluoxetine 20 mg Capsule 20 mg PO HS alfuzosin 10 mg tablet extended release 24 hr 10 mg PO DAILY magnesium oxide 400 mg magnesium Tablet 400 mg PO DAILY Discharge Orders: Discharge Order (Routine); Ordered 01/10/25 Ordered By: Santos Pavon/Other Patient Handouts: Managing Type 2 Diabetes Admission Data Admit Date/Time: 01/08/25 17:10 Attending Provider: Santos Reyes Admit Provider: Bernardo Monroy Primary Care Provider: Jimbo Rhoades Other Providers: Bernardo Monroy Other Interventions: Discharge Summary Assessment (RN) Last Done: 01/10/25 12:43
--- NOTE | 2025-01-11 05:50 | Electrocardiogram Report ---
Test Reason : Blood Pressure : */* mmHG Vent. Rate : 78 BPM Atrial Rate : 78 BPM P-R Int : 186 ms QRS Dur : 78 ms QT Int : 374 ms P-R-T Axes : 57 54 30 degrees QTcB Int : 426 ms Normal sinus rhythm Normal ECG When compared with ECG of 25-Aug-2024 06:46, No significant change was found Confirmed by Dereck Messer ([id number]) on 01/11/2025 5:49:51 AM Referred By: Confirmed By: Dereck Messer
== END 2025-01-10 13:17 | disposition home or self-care (01) | DRG 683 ==
LOC: ED 14:40 → 2W 17:10 → SUATTDRO 17:10 → 2W 19:07

== ENCOUNTER 2025-05-10 00:56 | Inpatient (IN) ==
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
[2025-05-10] MEDS: ALBUT/IPRATROP 3MG/0.5MG NEB 3 ML VIAL NEB STA (01:35)
[2025-05-10 01:41] LABS: Hematocrit (blood only) 40.5 % (42.0-52.0); Hemoglobin 13.4 g/dL (14.0-18.0); Immature Granulocytes # (auto) 0.03 K/uL (0.01-0.20); Immature Granulocytes % (auto) 0.4 %; Mean Corpuscular Hemoglobin 30.9 pg (25.0-34.0); Mean Corpuscular Volume 93.5 fL (80.0-100.0); Platelet Count 161 K/uL (130-400); RDW Standard Deviation 49.3 fL (36.4-46.3); Red Blood Count 4.33 M/uL (4.70-6.10); White Blood Count 8.29 K/ul (4.8-10.8)
[2025-05-10 01:57] LABS: Alanine Aminotransferase 10.0 U/L (7-52); Albumin Globulin Ratio 1.5 (0.9-2); Albumin Level 4.1 gm/dl (3.4-5.0); Alkaline Phosphatase 93.0 U/L (34-104); Anion Gap 5.0 (3-11); Bilirubin,Total 0.5 mg/dl (0.2-1.0); Blood Urea Nitrogen 19.0 mg/dl (6-23); Calcium 9.1 mg/dl (8.6-10.3); Carbon Dioxide 33.0 mmol/L (21-32); Chloride 100.0 mmol/L (98-107); Creatinine Clr Calc Pharmacy 59.2 ml/min; Globulin 2.8 gm/dl (2.5-4.0); Glucose 173.0 mg/dl (70-99(Fasting)); Lipase 17.0 U/L (11-82); Potassium 4.5 mmol/L (3.5-5.1); Sodium 138.0 mmol/L (136-145); Total Protein 6.9 gm/dl (6.0-8.3)
[2025-05-10] MEDS: OPTIRAY 320 100ml IV ONE (02:01)
[2025-05-10 02:48] LABS: INR 1.0 (0.9-1.1); Partial Thromboplastin Time 27 Seconds (21-31); Prothrombin Time 10.8 Seconds (9.0-12.0)
--- NOTE | 2025-05-10 03:23 | CT Scan Report ---
EXAM: CT chest diagnostic w con CLINICAL HISTORY: clavicle pain, X-ray abnormal. TECHNIQUE: Contiguous 3.[address] images of the chest were acquired with administration of 90 ml Optiray 320 intravenous contrast. Coronal and sagittal reconstructions were obtained. One of the following dose reduction techniques were utilized for this exam: Automated exposure control, adjustment of the mA and/or kV according to patient size, and use of iterative reconstruction COMPARISON: Compared to the last study dated 09/29/2024. FINDINGS: Lungs: Bilateral apical reticulonodular infiltrates, possibly a sequel of prior granulomatous insult. Bilateral pleural-based bands of atelectasis are seen more evident in the blower lobes bilaterally. No ground-glass opacities or interstitial changes. No pleural effusion or pleural thickening. Mediastinum: No mediastinal mass or abnormal lymphadenopathy. Normal appearance of the thymus. Hilar Structures: Normal size and configuration, no enlargement. Heart and Great Vessels: Normal heart size and configuration. No pericardial effusion. Normal caliber and course of the thoracic aorta and other great vessels. Diffuse atherosclerotic changes of the scanned thoracic aorta. Normal enhancement of the great vessels post-contrast. Pulmonary Arteries: No evidence of pulmonary embolism. Normal size and course of the pulmonary arteries. Esophagus: Normal course and caliber. No masses or dilatation. Bones: Bilateral shoulder joint arthroplasty with no evidence of loosening or hardware complications. Bilateral deformed posterior aspect of the rigth seventh and eighth ribs. Spondylosis of the scanned thoracic spine. No fractures or lytic/sclerotic lesions. Chest Wall: No masses or soft tissue abnormalities. Upper Abdomen: Visualized portions of the spleen, pancreas, adrenal glands, and kidneys are normal. Small sliding hiatus hernia. Diffuse hypoattenuation of the hepatic parenchyma denoting diffuse fatty infiltration. Thyroid: Normal size and morphology. No nodules or masses. IMPRESSION: 1. Bilateral basal atelectatic bands and bilateral apical reticulonodular infiltrates are possibly a sequel of prior granulomatous insult. 2. No acute fracture line depicted with normal appearance of the clavicle. 3. Diffuse aortic atherosclerotic changes noted. 4. The right 7th and 8th ribs show posterior chronic angular deformity with a small bony exostosis noted. 5. Moderate spondylosis of the thoracic spine noted. 6. Small sliding hiatus hernia. 7. Evidence of hepatic steatosis. 8. No gross interval change since the prior study. Electronically signed by Juwan Herrmann 05-10-2025 03:23 AM
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
[2025-05-10 05:17] LABS: Magnesium 1.6 mg/dl (1.7-2.4)
[2025-05-10] MEDS ORDERED: LORazepam Inj 2 MG in SYRINGE 1 ML IV PRN (05:38)
[2025-05-10] MEDS ORDERED: LORazepam Inj 1 MG in SYRINGE 0.5 ML IV PRN (05:38)
[2025-05-10] MEDS ORDERED: LORazepam Inj 3 MG in SYRINGE 1.5 ML IV PRN (05:38)
[2025-05-10] MEDS ORDERED: ACETAMINOPHEN 325 MG TAB PO PRN (05:40)
[2025-05-10] MEDS ORDERED: PROMETHAZINE 6.25 MG/50.25 ML BAG IV PRN (05:41)
[2025-05-10] MEDS ORDERED: ACETAMINOPHEN 500 MG TAB PO PRN (05:47)
[2025-05-10] MEDS: THIAMINE HCL 100 MG in SYRINGE 9 ML IV STA (06:03)
[2025-05-10] MEDS: ACETAMINOPHEN 1,000 MG/100 ML VIAL IV STA (06:10)
[2025-05-10 06:12] LABS: Base Excess VBG 4.0 mEq/L; HCO3 VBG 32 mmol/L; Oxygen Saturation VBG 82.6 %; PCO2 VBG 60 mmHg (38-50); PO2 VBG 53 mmHg; pH VBG 7.33 (7.36-7.41)
[2025-05-10] MEDS: LANTUS PER UNIT CHARGE SQ SCH ×2 (06:19→21:05)
--- NOTE | 2025-05-10 06:24 | XRay Report ---
EXAM: XR chest 1V portable CLINICAL HISTORY: Trauma TECHNIQUE: An X-ray image of the chest is obtained in AP portable projection. COMPARISON: 01/08/[address] study done on same day reviewed. FINDINGS: Pulmonary Parenchyma: Bilateral basal reticulations and atelectatic bands No evidence of consolidation, collapse, or focal opacities. No pulmonary nodules are identified. No evidence of pleural effusion or pleural thickening. Heart and Mediastinum: Heart size and shape are normal. No mediastinal widening or masses. No hilar or mediastinal lymphadenopathy. Bony Thorax: Bilateral shoulder replacement. Bony thorax appears intact without fractures or deformities. Soft Tissues: Soft tissues overlying the chest wall are unremarkable. IMPRESSION: 1. No acute cardiopulmonary abnormalities are identified. 2. No interval changes. Electronically signed by Juwan Herrmann 05-10-2025 06:24 AM
[2025-05-10] MEDS: SODIUM CHLORIDE 0.9% 1,000 ML IV ONE (06:25)
[2025-05-10] MEDS: DOXYCYCLINE HYCLATE 100 MG in DEXTROSE 5% MINI-B 100 ML IV STA (06:25)
[2025-05-10] MEDS: MAGNESIUM SULFATE / D5W 1 GM/100 ML BAG IV SCH (06:26)
[2025-05-10 07:00] LABS: Chlamydia pneumoniae PCR Not Detected (NotDetected); Coronavirus 229E PCR Not Detected (NotDetected); Coronavirus CoV-2 (COVID19)PCR Not Detected (NotDetected); Coronavirus HKU1 PCR Not Detected (NotDetected); Coronavirus NL63 PCR Not Detected (NotDetected); Coronavirus OC43PCR Not Detected (NotDetected); Human Metapneumovirus PCR Not Detected (NotDetected); Parainfluenza Virus 1 PCR Not Detected (NotDetected); Parainfluenza Virus 2 PCR Not Detected (NotDetected); Parainfluenza Virus 3 PCR Not Detected (NotDetected); Parainfluenza Virus 4 PCR Not Detected (NotDetected); Respiratory Syncytial VirusPCR Not Detected (NotDetected); Rhinovirus/Enterovirus PCR Not Detected (NotDetected)
--- NOTE | 2025-05-10 08:06 | XRay Report ---
EXAM: XR shoulder LT min 2V routine CLINICAL HISTORY: Pain TECHNIQUE: X-ray images of the left shoulder were obtained in anteroposterior (AP) (internal and external rotations) and Y-view projections. COMPARISON: No prior studies available for comparison. FINDINGS: Properly positioned left total humeral arthroplasty with no periprothestic loosening, infection, fracture, migration, or dislocation. Bone Structure: Degenerative changes at the acromioclavicular joint- Osteophytic lipping Adjacent heterotopic ossification seen No evidence of fracture or dislocation. No osseous lesions or abnormalities identified. Soft Tissues: Soft tissues appear normal and unremarkable. No soft tissue swelling, calcifications, or foreign bodies noted. IMPRESSION: 1. Properly positioned left total humeral arthroplasty with no periprothestic loosening, infection, fracture, migration, or dislocation 2. Degenerative changes at the acromioclavicular joint- Osteophytic lipping 3. No evidence of acute fracture, dislocation, or significant soft tissue abnormalities. Disclaimer: A subtle bone abnormality or fracture may not be readily apparent on X-rays; thus, clinical correlation and further imaging, including follow-up CT, MRI, or follow-up X-rays, are advised as needed. Electronically signed by Juwan Herrmann 05-10-2025 08:06 AM
--- NOTE | 2025-05-10 08:07 | XRay Report ---
EXAM: XR shoulder RT min 2V routine CLINICAL HISTORY: pain TECHNIQUE: X-ray images of the right shoulder were obtained in anteroposterior (AP) and Y-view projections. COMPARISON: No prior studies available for comparison. FINDINGS: Joints: Properly positioned right glenohumeral arthroplasty with no periprothestic loosening, infection, fracture, migration, or dislocation Degenerative changes at the acromioclavicular joint- Osteophytic lipping No evidence of joint effusion or subluxation. Bone Structure: A bony projection on the inferior border of the lateral third of the clavicle. No evidence of fracture or dislocation. No osseous lesions or abnormalities identified. Soft Tissues: Soft tissues appear normal and unremarkable. No soft tissue swelling, calcifications, or foreign bodies noted. IMPRESSION: 1. Properly positioned right glenohumeral arthroplasty with no periprothestic loosening, infection, fracture, migration, or dislocation 2. A bony projection on the inferior border of the lateral third of the clavicle. 3. Degenerative changes at the acromioclavicular joint- Osteophytic lipping 4. No evidence of acute fracture, dislocation, or significant soft tissue abnormalities. Disclaimer: A subtle bone abnormality or fracture may not be readily apparent on X-rays, thus clinical correlation and further imaging including follow-up CT, MRI, or follow-up X-rays are advised as needed. Electronically signed by Juwan Herrmann 05-10-2025 08:06 AM
--- NOTE | 2025-05-10 08:26 | Electrocardiogram Report ---
Test Reason : Blood Pressure : */* mmHG Vent. Rate : 80 BPM Atrial Rate : 80 BPM P-R Int : 208 ms QRS Dur : 66 ms QT Int : 364 ms P-R-T Axes : 64 73 68 degrees QTcB Int : 419 ms Normal sinus rhythm Possible Left atrial enlargement Borderline ECG When compared with ECG of 08-Jan-2025 14:47, No significant change was found Confirmed by Jason Ruth ([id number]) on 05/10/2025 8:26:06 AM Referred By: REFERRED SELF Confirmed By: Jason Ruth
[2025-05-10] MEDS ORDERED: DEXTROSE 50% 50 ML SYRINGE IV PRN (09:17)
[2025-05-10] MEDS ORDERED: GLUCAGON FOR INJ 1 MG VIAL SQ PRN (09:17)
[2025-05-10] MEDS ORDERED: GLUCOSE 10 TAB/TUBE PO PRN (09:17)
[2025-05-10] MEDS ORDERED: GLUCOSE 40% GEL 15 GM TUBE PO PRN (09:17)
[2025-05-10] MEDS ORDERED: CARBOHYDRATES FOR HYPOGLYCEMIA PO PRN (09:17)
[2025-05-10] MEDS: LEVALBUTEROL 1.25 MG/3 ML NEB NEB SCH ×2 (09:37→10:05)
[2025-05-10] MEDS: IPRATROPIUM BROMIDE NEB SOLN 0.02% 0.5MG/2.5ML VIAL INH SCH ×2 (09:37→10:05)
[2025-05-10] MEDS: FOLIC ACID 1 MG TAB PO SCH (09:48)
[2025-05-10] MEDS: ASPIRIN 81 MG ECTAB PO SCH (09:48)
[2025-05-10] MEDS: MULTIVITAMIN TAB PO SCH (09:48)
[2025-05-10] MEDS: ENOXAPARIN INJ 40 MG/0.4 ML SYR SQ SCH (09:48)
[2025-05-10] MEDS: ROSUVASTATIN CALCIUM 20 MG TAB PO SCH (09:49)
[2025-05-10] MEDS: ISOSORBIDE MONO EXTENDED REL 30 MG TABCR PO SCH (09:49)
[2025-05-10] MEDS: ALBUT/IPRATROP 3MG/0.5MG NEB 3 ML VIAL ONE (09:58)
[2025-05-10] MEDS: LEVALBUTEROL 1.25 MG/3 ML NEB ONE (09:59)
[2025-05-10] MEDS: INSULIN ASPART PER UNIT CHARGE SC SCH (10:22)
[2025-05-10] MEDS: TAMSULOSIN HCL 0.4 MG CAP PO SCH (10:23)
[2025-05-10] MEDS: guaiFENesin 600 MG TABCR PO SCH (10:24)
[2025-05-10] MEDS: MONTELUKAST SODIUM 10 MG TABLET PO SCH (10:24)
[2025-05-10] MEDS: MELOXICAM 7.5 MG TAB PO SCH (12:16)
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
[2025-05-10] MEDS: PRAMIPEXOLE DIHYDROCHLO 0.5 MG TAB PO SCH (21:07)
[2025-05-10] MEDS: DOXYCYCLINE HYCLATE 100 MG CAP PO SCH (21:07)
[2025-05-11 06:26] LABS: Hematocrit (blood only) 34.9 % (42.0-52.0); Hemoglobin 11.4 g/dL (14.0-18.0); Immature Granulocytes # (auto) 0.02 K/uL (0.01-0.20); Immature Granulocytes % (auto) 0.2 %; Mean Corpuscular Hemoglobin 31.0 pg (25.0-34.0); Mean Corpuscular Volume 94.8 fL (80.0-100.0); Platelet Count 146 K/uL (130-400); RDW Standard Deviation 50.2 fL (36.4-46.3); Red Blood Count 3.68 M/uL (4.70-6.10); White Blood Count 8.91 K/ul (4.8-10.8)
[2025-05-11 06:49] LABS: Anion Gap 7.0 (3-11); Blood Urea Nitrogen 45.0 mg/dl (6-23); Calcium 8.6 mg/dl (8.6-10.3); Carbon Dioxide 28.0 mmol/L (21-32); Chloride 100.0 mmol/L (98-107); Creatinine Clr Calc Pharmacy 44.4 ml/min; Glucose 175.0 mg/dl (70-99(Fasting)); Magnesium 2.0 mg/dl (1.7-2.4); Potassium 4.2 mmol/L (3.5-5.1); Sodium 135.0 mmol/L (136-145)
[2025-05-11 07:43] LABS: Hemoglobin A1C 8.9 % (4.5-5.6)
[2025-05-11] MEDS: predniSONE 20 MG TAB PO SCH (08:14)
[2025-05-11] MEDS: THIAMINE HCL 100 MG TAB PO SCH (08:15)
[2025-05-11] MEDS: SODIUM CHLORIDE 0.9% 1,000 ML IV SCH (08:18)
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
[2025-05-11 18:22] LABS: Anion Gap 7.0 (3-11); Blood Urea Nitrogen 49.0 mg/dl (6-23); Calcium 8.3 mg/dl (8.6-10.3); Carbon Dioxide 26.0 mmol/L (21-32); Chloride 98.0 mmol/L (98-107); Creatinine Clr Calc Pharmacy 42.1 ml/min; Glucose 380.0 mg/dl (70-99(Fasting)); Potassium 5.8 mmol/L (3.5-5.1); Sodium 131.0 mmol/L (136-145)
[2025-05-11] MEDS ORDERED: PHARMACY GLYCEMIC MGMT CONSULT PRN (18:37)
[2025-05-11] MEDS: LANTUS PER UNIT CHARGE SC ONE (20:10)
[2025-05-11] MEDS: INSULIN ASPART PER UNIT CHARGE SC SCH (23:49)
[2025-05-12] MEDS: NovoLIN-N (NPH) PER UNIT CHARGE SQ ONE (08:28)
[2025-05-12 09:09] LABS: Alanine Aminotransferase 24.0 U/L (7-52); Albumin Globulin Ratio 1.5 (0.9-2); Albumin Level 4.2 gm/dl (3.4-5.0); Alkaline Phosphatase 74.0 U/L (34-104); Anion Gap 7.0 (3-11); Bilirubin,Total 0.5 mg/dl (0.2-1.0); Blood Urea Nitrogen 37.0 mg/dl (6-23); Calcium 9.0 mg/dl (8.6-10.3); Carbon Dioxide 29.0 mmol/L (21-32); Chloride 102.0 mmol/L (98-107); Creatinine Clr Calc Pharmacy 58.0 ml/min; Globulin 2.8 gm/dl (2.5-4.0); Glucose 148.0 mg/dl (70-99(Fasting)); Potassium 4.3 mmol/L (3.5-5.1); Sodium 138.0 mmol/L (136-145); Total Protein 7.0 gm/dl (6.0-8.3)
[2025-05-12] MEDS: predniSONE 20 MG TAB PO SCH (10:46)
[2025-05-12 10:57] VITALS: BP 169/75; RESP 18; TEMP 97.5
[2025-05-12 11:11] VITALS: PULSE 80; O2SAT 91
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
[2025-05-13] MEDS ORDERED: predniSONE 20 MG TAB PO SCH (09:00)
== END 2025-05-12 14:38 | disposition home or self-care (01) | DRG 189 ==
LOC: ED 00:56 → 2S 05:04